=== PATIENT | male | born 1945 | race Caucasian/White ===

== ENCOUNTER → 2016-10-06 | Outpatient (CLI) | payer MEDICARE ==
--- NOTE | 2016-10-06 14:46 | XR ---
EXAMINATION TYPE: XR wrist complete RT DATE OF EXAM: 10/06/2016 2:41 PM COMPARISON: NONE HISTORY: Pain TECHNIQUE: Four views submitted. FINDINGS: The osseous structures are intact. The joint spaces are preserved and there is no acute fracture or dislocation. Cystic changes involving the triquetrum and scaphoid are noted there to be chronic. Onofre rowing of the lunate capitate joint with sclerosis of the lunate bone. Post arthritic change involvin g the radiocarpal joint noted. IMPRESSION: 1. Post arthritic changes. Osteonecrosis of the lunate bone in the differential diagnosis. Correlate clinically. Calcification along the lunotriquetral ligament a be related to ligamentous injury.
== END | disposition home or self-care (01) ==
LOC: RADXRMAIN 14:20
PROVIDERS: ATTEND Family Medicine
DX: M24.231 Disorder of ligament, right wrist (principal); M19.031 Primary osteoarthritis, right wrist

== ENCOUNTER 2019-02-19 11:52 | Observation (INO) | payer MEDICARE ==
[2019-02-19] MEDS ORDERED: methylPREDNISolone SOD SUCCI 125 MG/2 ML VIAL IV STA (12:03)
[2019-02-19] MEDS ORDERED: IPRATROPIUM-ALBUTEROL 3 ML NEB INHALATION STA (12:03)
--- NOTE | 2019-02-19 12:09 | ED ---
SOB HPI - General Chief Complaint: Shortness of Breath Stated Complaint: difficulty breathing Time Seen by Provider: 02/19/19 12:03 Source: patient, RN notes reviewed, old records reviewed Mode of arrival: wheelchair Limitations: no limitations - History of Present Illness Initial Comments: This is a 73-year-old male the ER for evaluation presented today for evaluation of significant shortness of breath increased cough and congestion. No recent travel history no sick contacts. History of asthma no heart disease no heart failure. Patient has no fevers. Patient coming in with what sudden onset about an hour and a half severe shortness of breath and inability to breathe after doing some physical activity this morning. states patient is very diaphoretic and time. MD Complaint: shortness of breath, "asthma attack" -: hour(s) Severity: severe Severity scale (1-10): 8 Quality: other (No pain) Consistency: constant Improves With: oxygen, rest Worsens With: exertion, movement Known History Of: COPD, asthma Associated Symptoms: cough, sputum production Treatments Prior to Arrival: oxygen, bronchodilator - Related Data Home Medications Medication Instructions Recorded Confirmed Atorvastatin [Lipitor] 10 mg PO HS 04/16/14 02/19/19 Naproxen [Naprosyn] 375 mg PO Q12HR 04/16/14 02/19/19 Propranolol HCl 80 mg PO HS 04/16/14 02/19/19 Verapamil HCl [Verapamil ER] 240 mg PO DAILY 04/16/14 02/19/19 Budesonide/Formoterol Fumarate 2 puff INHALATION RT-DAILY 02/19/19 02/19/19 [Symbicort 80-4.5 Mcg Inhaler] Allergies Allergy/AdvReac Type Severity Reaction Status Date / Time No Known Allergies Allergy Verified 02/19/19 12:19 Review of Systems ROS Statement: Those systems with pertinent positive or pertinent negative responses have been documented in the HPI. ROS Other: All systems not noted in ROS Statement are negative. Past Medical History Past Medical History: COPD, CVA/TIA, Hypertension Additional Past Medical History / Comment(s): HX OF TIA, ESSENTIAL TREMORS, KIDNEY STONES, COPD CAUSED BY EXPOSURE TO CHLORINE. History of Any Multi-Drug Resistant Organisms: None Reported Past Surgical History: Cholecystectomy, Joint Replacement Additional Past Surgical History / Comment(s): COLONOSCOPY, [place] KNEE REPLACEMENT, PILONIDAL CYST. Past Anesthesia/Blood Transfusion Reactions: No Reported Reaction Past Psychological History: No Psychological Hx Reported Smoking Status: Never smoker Past Alcohol Use History: None Reported Past Drug Use History: None Reported - Past Family History Father Family Medical History: Cancer Additional Family Medical History / Comment(s): COLON CANCER General Exam - General Exam Comments Initial Comments: Diaphoresis Limitations: no limitations General appearance: alert, in no apparent distress Head exam: Present: atraumatic, normocephalic, normal inspection Eye exam: Present: normal appearance, PERRL, EOMI. Absent: scleral icterus, conjunctival injection, periorbital swelling ENT exam: Present: normal exam, mucous membranes moist Neck exam: Present: normal inspection. Absent: tenderness, meningismus, lymphadenopathy Respiratory exam: Present: respiratory distress, wheezes, accessory muscle use, prolonged expiratory. Absent: rales, rhonchi, stridor Cardiovascular Exam: Present: regular rate, normal rhythm, normal heart sounds. Absent: systolic murmur, diastolic murmur, rubs, gallop, clicks GI/Abdominal exam: Present: soft, normal bowel sounds. Absent: distended, tenderness, guarding, rebound, rigid Extremities exam: Present: normal inspection, full ROM, normal capillary refill. Absent: tenderness, pedal edema, joint swelling, calf tenderness Back exam: Present: normal inspection Neurological exam: Present: alert, oriented X3, CN II-XII intact Psychiatric exam: Present: normal affect, normal mood Skin exam: Present: warm, dry, intact, normal color. Absent: rash Course Vital Signs 02/19/19 02/19/19 02/19/19 11:55 12:19 12:30 Temperature 98 F Pulse Rate 64 62 61 Respiratory 24 20 Rate Blood Pressure 154/93 105/73 O2 Sat by Pulse 88 L 99 Oximetry 02/19/19 02/19/19 12:35 13:00 Temperature Pulse Rate 68 57 L Respiratory 18 Rate Blood Pressure 110/72 O2 Sat by Pulse 99 Oximetry - Reevaluation(s) Reevaluation #1: 02/19/19 12:08 Medical records reviewed Reevaluation #2: 02/19/19 14:03 Symptoms improved after breathing treatment, no chest pain. Medical Decision Making - Medical Decision Making 43 male the ER for evaluation shortness breath cough or congestion. Patient is improved symptoms here in the ER with sudden onset of shortness of breath prior to arrival. Patient has no recent travel history or sick contacts no prior history of similar complaint was diaphoretic on exam. Patient be admitted for cardiac monitoring, troponins, breathing treatments and respiratory support - Lab Data Result diagrams: 02/19/19 13:00 Lab Results 02/19/19 02/19/19 Range/Units 13:00 13:00 WBC 10.6 (3.8-10.6) k/uL RBC 4.54 (4.30-5.90) m/uL Hgb 12.8 L (13.0-17.5) gm/dL Hct 40.3 (39.0-53.0) % MCV 88.7 (80.0-100.0) fL MCH 28.2 (25.0-35.0) pg MCHC 31.8 (31.0-37.0) g/dL RDW 14.1 (11.5-15.5) % Plt Count 233 (150-450) k/uL Neutrophils % 80 % Lymphocytes % 13 % Monocytes % 5 % Eosinophils % 1 % Basophils % 0 % Neutrophils # 8.5 H (1.3-7.7) k/uL Lymphocytes # 1.4 (1.0-4.8) k/uL Monocytes # 0.5 (0-1.0) k/uL Eosinophils # 0.1 (0-0.7) k/uL Basophils # 0.0 (0-0.2) k/uL PT 9.8 (9.0-12.0) sec INR 0.9 (<1.2) APTT 22.5 (22.0-30.0) sec - EKG Data -: EKG Interpreted by Me (EKG shows normal sinus rhythm rate of 62, MI 142, QRS 110, QTc 483) - Radiology Data Radiology results: report reviewed (Chest x-rays negative for acute disease), image reviewed Disposition Clinical Impression: Acute exacerbation of chronic obstructive airways disease Disposition: ADMITTED IP TO THIS HOSP Condition: Good Is patient prescribed a controlled substance at d/c from ED?: No Referrals: Brandon Peters DO [Primary Care Provider] - 1-2 days
[2019-02-19 13:34] LABS: Basophils % (A) 0 %; Eosinophils # (A) 0.1 k/uL (0-0.7); Eosinophils % (A) 1 %; HCT 40.3 % (39.0-53.0); HGB 12.8 gm/dL (13.0-17.5); Lymphocytes # (A) 1.4 k/uL (1.0-4.8); Lymphocytes % (A) 13 %; MCH 28.2 pg (25.0-35.0); MCHC 31.8 g/dL (31.0-37.0); MCV 88.7 fL (80.0-100.0); Monocytes # (A) 0.5 k/uL (0-1.0); Monocytes % (A) 5 %; Neutrophils # (A) 8.5 k/uL (1.3-7.7); Neutrophils % (A) 80 %; Platelet Count 233 k/uL (150-450); RBC 4.54 m/uL (4.30-5.90); RDW 14.1 % (11.5-15.5); WBC 10.6 k/uL (3.8-10.6)
--- NOTE | 2019-02-19 13:44 | XR ---
EXAMINATION TYPE: XR chest 2V DATE OF EXAM: 02/19/2019 COMPARISON: NONE HISTORY: Shortness of breath for 2 hours. TECHNIQUE: Frontal and lateral views of the chest are obtained. FINDINGS: Overlying EKG leads are present. There is chronic parenchymal change with lateral left bas ilar linear scarring and/or atelectasis. Right lung is clear. No pleural effusion or pneumothorax ev ident bilaterally. The cardiac silhouette size is upper limits of normal. Multilevel spurring in the spine is seen. Degenerative change both shoulders, left glenohumeral joint is noted. Cholecystectomy clips are seen on lateral view. IMPRESSION: Chronic parenchymal changes without suspicious acute pulmonary process.
[2019-02-19 13:49] LABS: INR 0.9 (<1.2); Partial Thromboplastin Time 22.5 sec (22.0-30.0); Prothrombin Time 9.8 sec (9.0-12.0)
[2019-02-19] MEDS ORDERED: ASPIRIN 81 MG PO STA (13:58)
[2019-02-19] MEDS ORDERED: ALBUTEROL NEBULIZED 2.5 MG/3 ML INHALATION PRN (13:58)
[2019-02-19] MEDS ORDERED: NITROGLYCERIN SL TABS 0.4 MG TAB SUBLINGUAL PRN (13:58)
[2019-02-19 14:05] LABS: ALT 25 U/L (21-72); AST 25 U/L (17-59); African American GFR (CKD) >90 (>60 ml/min/1.73 sqM); Albumin 4.2 g/dL (3.5-5.0); Alkaline Phosphatase 68 U/L (38-126); Anion Gap 7 mmol/L; Blood Urea Nitrogen 18 mg/dL (9-20); Calcium 9.3 mg/dL (8.4-10.2); Carbon Dioxide 29 mmol/L (22-30); Chloride 105 mmol/L (98-107); Glucose 125 mg/dL (74-99); Magnesium 2.3 mg/dL (1.6-2.3); Potassium 4.4 mmol/L (3.5-5.1); Sodium 141 mmol/L (137-145); Total Bilirubin 0.7 mg/dL (0.2-1.3)
--- NOTE | 2019-02-19 14:27 | ED ---
Medical Decision Making - Medical Decision Making 73 male the ER was secured significant onset of shortness of breath. Symptoms improved currently he does have some lateral T-wave inversion, elevated troponin 0.1, will admit for cardiology to evaluate, continue breathing treatments or shortness of breath as needed - Lab Data Result diagrams: 02/19/19 13:00 02/19/19 13:00 Lab Results 02/19/19 02/19/19 02/19/19 Range/Units 13:00 13:00 13:00 WBC 10.6 (3.8-10.6) k/uL RBC 4.54 (4.30-5.90) m/uL Hgb 12.8 L (13.0-17.5) gm/dL Hct 40.3 (39.0-53.0) % MCV 88.7 (80.0-100.0) fL MCH 28.2 (25.0-35.0) pg MCHC 31.8 (31.0-37.0) g/dL RDW 14.1 (11.5-15.5) % Plt Count 233 (150-450) k/uL Neutrophils % 80 % Lymphocytes % 13 % Monocytes % 5 % Eosinophils % 1 % Basophils % 0 % Neutrophils # 8.5 H (1.3-7.7) k/uL Lymphocytes # 1.4 (1.0-4.8) k/uL Monocytes # 0.5 (0-1.0) k/uL Eosinophils # 0.1 (0-0.7) k/uL Basophils # 0.0 (0-0.2) k/uL PT 9.8 (9.0-12.0) sec INR 0.9 (<1.2) APTT 22.5 (22.0-30.0) sec Sodium 141 (137-145) mmol/L Potassium 4.4 (3.5-5.1) mmol/L Chloride 105 (98-107) mmol/L Carbon Dioxide 29 (22-30) mmol/L Anion Gap 7 mmol/L BUN 18 (9-20) mg/dL Creatinine 0.90 (0.66-1.25) mg/dL Est GFR (CKD-EPI)AfAm >90 (>60 ml/min/1.73 sqM) Est GFR (CKD-EPI)NonAf 84 (>60 ml/min/1.73 sqM) Glucose 125 H (74-99) mg/dL Calcium 9.3 (8.4-10.2) mg/dL Magnesium 2.3 (1.6-2.3) mg/dL Total Bilirubin 0.7 (0.2-1.3) mg/dL AST 25 (17-59) U/L ALT 25 (21-72) U/L Alkaline Phosphatase 68 (38-126) U/L Troponin I (0.000-0.034) ng/mL NT-Pro-B Natriuret Pep pg/mL Total Protein 7.0 (6.3-8.2) g/dL Albumin 4.2 (3.5-5.0) g/dL 02/19/19 02/19/19 Range/Units 13:00 13:00 WBC (3.8-10.6) k/uL RBC (4.30-5.90) m/uL Hgb (13.0-17.5) gm/dL Hct (39.0-53.0) % MCV (80.0-100.0) fL MCH (25.0-35.0) pg MCHC (31.0-37.0) g/dL RDW (11.5-15.5) % Plt Count (150-450) k/uL Neutrophils % % Lymphocytes % % Monocytes % % Eosinophils % % Basophils % % Neutrophils # (1.3-7.7) k/uL Lymphocytes # (1.0-4.8) k/uL Monocytes # (0-1.0) k/uL Eosinophils # (0-0.7) k/uL Basophils # (0-0.2) k/uL PT (9.0-12.0) sec INR (<1.2) APTT (22.0-30.0) sec Sodium (137-145) mmol/L Potassium (3.5-5.1) mmol/L Chloride (98-107) mmol/L Carbon Dioxide (22-30) mmol/L Anion Gap mmol/L BUN (9-20) mg/dL Creatinine (0.66-1.25) mg/dL Est GFR (CKD-EPI)AfAm (>60 ml/min/1.73 sqM) Est GFR (CKD-EPI)NonAf (>60 ml/min/1.73 sqM) Glucose (74-99) mg/dL Calcium (8.4-10.2) mg/dL Magnesium (1.6-2.3) mg/dL Total Bilirubin (0.2-1.3) mg/dL AST (17-59) U/L ALT (21-72) U/L Alkaline Phosphatase (38-126) U/L Troponin I 0.161 H* (0.000-0.034) ng/mL NT-Pro-B Natriuret Pep 241 pg/mL Total Protein (6.3-8.2) g/dL Albumin (3.5-5.0) g/dL Disposition Clinical Impression: Acute exacerbation of chronic obstructive airways disease, ACS (acute coronary syndrome) Disposition: ADMITTED IP TO THIS HOSP Condition: Good Referrals: Brandon Peters DO [Primary Care Provider] - 1-2 days
[2019-02-19] MEDS: IPRATROPIUM-ALBUTEROL 3 ML NEB INHALATION SCH ×2 (15:29→20:55)
--- NOTE | 2019-02-19 15:32 | P.CRDCN ---
History of Present Illness Consult date: 02/19/19 Reason for Consult (text): Abnormal troponins Chief complaint: Sudden onset of shortness of breath History of present illness: This is a 73-year-old gentleman who follows with Dr. Panchal in the office. He has a known history of hypertension, hyperlipidemia, he also states that he underwent a cardiac catheterization several years ago which was reported to him to be normal. The patient also states that he has a history of COPD. He presented to the emergency room today with symptoms of fairly sudden onset of shortness of breath(according to the patient, he had been cleaning out a vacuum in his garage, there is some type of pressure variant, when he opened up the dust area, it went into the air and he inhaled quite a bit of that according to him. Shortly thereafter patient had a very difficult time breathing, his states he was gasping for air, became extremely diaphoretic. He denies having any chest discomfort of any sort. Because of the symptoms he came to the emergency room for further evaluation and treatment. His chest x-ray on presentation here showed chronic parenchymal changes without suspicious acute pulmonary process. Initial EKG on presentation here showed a normal sinus rhythm with mild ST depression noted in the lateral leads. Subsequent EKG showed a normal sinus rhythm with PACs, no acute changes noted. Blood pressure 108/60 with a heart rate of 60, 98% on 2 L of oxygen. White blood cell count 10.6, hemoglobin 12.8, platelet count 233. Sodium 141, potassium 4.4, BUN 18 and creatinine 0.9. Magnesium 2.3. Troponin 0.161. BNP 241. At the time of my examination in the emergency room, patient's breathing has significantly improved. He states that he used an inhaler prior to departing for the emergency room, he states initially it did not give him much relief but subsequently his breathing started to improve. On arrival here he was given IV steroids and started to feel significantly better according to him. Past Medical History Past Medical History: COPD, CVA/TIA, Hypertension Additional Past Medical History / Comment(s): HX OF TIA, ESSENTIAL TREMORS, KIDNEY STONES, COPD CAUSED BY EXPOSURE TO CHLORINE. History of Any Multi-Drug Resistant Organisms: None Reported Past Surgical History: Cholecystectomy, Joint Replacement Additional Past Surgical History / Comment(s): COLONOSCOPY, [place] KNEE REPLACEMENT, PILONIDAL CYST. Past Anesthesia/Blood Transfusion Reactions: No Reported Reaction Past Psychological History: No Psychological Hx Reported Smoking Status: Never smoker Past Alcohol Use History: None Reported Past Drug Use History: None Reported - Past Family History Father Family Medical History: Cancer Additional Family Medical History / Comment(s): COLON CANCER Medications and Allergies Home Medications Medication Instructions Recorded Confirmed Type Atorvastatin [Lipitor] 10 mg PO HS 04/16/14 02/19/19 History Naproxen [Naprosyn] 375 mg PO Q12HR 04/16/14 02/19/19 History Propranolol HCl 80 mg PO HS 04/16/14 02/19/19 History Verapamil HCl [Verapamil ER] 240 mg PO DAILY 04/16/14 02/19/19 History Budesonide/Formoterol Fumarate 2 puff INHALATION RT-DAILY 02/19/19 02/19/19 History [Symbicort 80-4.5 Mcg Inhaler] Allergies Allergy/AdvReac Type Severity Reaction Status Date / Time No Known Allergies Allergy Verified 02/19/19 12:19 Physical Exam Vitals: Vital Signs Temp Pulse Resp BP Pulse Ox 02/19/19 14:00 98.9 F 60 22 108/64 98 02/19/19 13:00 57 L 18 110/72 99 02/19/19 12:35 68 02/19/19 12:30 61 20 105/73 99 02/19/19 12:19 62 02/19/19 11:55 98 F 64 24 154/93 88 L Intake and Output 02/19/19 02/19/19 02/19/19 06:59 14:59 22:59 Other: Weight 101.151 kg PHYSICAL EXAMINATION: GENERAL: 73-year-old gentleman in no acute distress at the time of my examination HEENT: Head is atraumatic, normocephalic. Pupils equal, round. Sclera anicteric. Conjunctiva are clear. Mucous membranes of the mouth are moist. Neck is supple. There is no elevated jugular venous pressure. No carotid bruit is heard. HEART EXAMINATION: Heart S1, S2 normal. No murmur or gallop heard. CHEST EXAMINATION:'s reveal some fine scattered wheezing throughout. ABDOMEN: Soft, nontender. Bowel sounds are heard. No organomegaly noted. EXTREMITIES: 2+ peripheral pulses with no evidence of peripheral edema and no calf tenderness noted. NEUROLOGIC patient is awake, alert and oriented 3 . . Results 02/19/19 13:00 02/19/19 13:00 Cardiac Enzymes 02/19/19 02/19/19 Range/Units 13:00 13:00 AST 25 (17-59) U/L Troponin I 0.161 H* (0.000-0.034) ng/mL Coagulation 02/19/19 Range/Units 13:00 PT 9.8 (9.0-12.0) sec APTT 22.5 (22.0-30.0) sec CBC 02/19/19 Range/Units 13:00 WBC 10.6 (3.8-10.6) k/uL RBC 4.54 (4.30-5.90) m/uL Hgb 12.8 L (13.0-17.5) gm/dL Hct 40.3 (39.0-53.0) % Plt Count 233 (150-450) k/uL Comprehensive Metabolic Panel 02/19/19 Range/Units 13:00 Sodium 141 (137-145) mmol/L Potassium 4.4 (3.5-5.1) mmol/L Chloride 105 (98-107) mmol/L Carbon Dioxide 29 (22-30) mmol/L BUN 18 (9-20) mg/dL Creatinine 0.90 (0.66-1.25) mg/dL Glucose 125 H (74-99) mg/dL Calcium 9.3 (8.4-10.2) mg/dL AST 25 (17-59) U/L ALT 25 (21-72) U/L Alkaline Phosphatase 68 (38-126) U/L Total Protein 7.0 (6.3-8.2) g/dL Albumin 4.2 (3.5-5.0) g/dL Current Medications Generic Name Dose Route Start Last Admin Trade Name Freq PRN Reason Stop Dose Admin Albuterol Sulfate 2.5 mg 02/19/19 13:58 Ventolin Nebulized INHALATION RT-QID PRN Shortness Of Breath Albuterol/Ipratropium 3 ml 02/19/19 16:00 Duoneb 0.5 Mg-3 Mg/3 Ml Soln INHALATION RT-QID [facility] Aspirin 325 mg 02/20/19 09:00 Aspirin PO DAILY [facility] Atorvastatin Calcium 80 mg 02/20/19 09:00 Lipitor PO DAILY [facility] Enoxaparin Sodium 40 mg 08/28/19 09:00 Lovenox SQ DAILY [facility] Methylprednisolone Sodium Succinate 60 mg 02/19/19 18:00 Solu-Medrol IV Q6HR [facility] Nitroglycerin 0.4 mg 02/19/19 13:58 Nitrostat SUBLINGUAL Q5M PRN Chest Pain Intake and Output 02/19/19 02/19/19 02/19/19 06:59 14:59 22:59 Other: Weight 101.151 kg Patient Weight 02/20/19 06:59 Weight 101.151 kg 02/19/19 13:00 02/19/19 13:00 EKG Interpretations (text) EKG shows a normal sinus rhythm with mild ST depression noted in the lateral leads. Assessment and Plan Plan: Assessment and plan #1 sudden onset of shortness of breath, could be secondary to bronchospasm from inhaled dust from the vacuum. Not suggestive of acute coronary event. His EKG showed normal sinus rhythm with mild ST depression noted in the lateral leads. Initial troponin was 0.16. #2 hypertension #3 hyperlipidemia #4 COPD Plan We will obtain an echocardiogram with Doppler study. Request 2 subsequent troponins performed. Repeat EKG in the morning. Decrease aspirin to 81 mg daily. Further recommendations to follow. DNP note has been reviewed, I agree with a documented findings and plan of care. Patient was seen and examined.
[2019-02-19] MEDS ORDERED: SODIUM CHLORIDE 0.9% 500 ML 500 ML IV ONE (17:10)
[2019-02-19] MEDS: methylPREDNISolone SOD SUCCI 125 MG/2 ML VIAL IV SCH ×2 (18:55→23:11)
[2019-02-19 19:14] VITALS: BMI 32.9
[2019-02-19] MEDS: INSULIN ASPART (NovoLOG) 100 UNIT/ML VIAL SQ SCH ×2 (19:22→21:11)
[2019-02-19] MEDS ORDERED: NAPROXEN 250 MG TAB PO PRN (20:34)
[2019-02-19] MEDS ORDERED: ATORVASTATIN 10 MG TAB PO SCH (21:00)
[2019-02-19] MEDS ORDERED: PROPRANOLOL 40 MG TAB PO SCH (21:00)
[2019-02-20 02:59] LABS: Triglycerides 164 mg/dL (<150)
[2019-02-20 05:35] LABS: Cholesterol 152 mg/dL (<200); HDL Cholesterol 39 mg/dL (40-60); LDL Cholesterol,Calculated 80 mg/dL (0-99)
[2019-02-20] MEDS: methylPREDNISolone SOD SUCCI 125 MG/2 ML VIAL IV SCH ×3 (06:06→17:33)
[2019-02-20 06:27] LABS: Glucose,Whole Blood 162 mg/dL (75-99)
[2019-02-20] MEDS: INSULIN ASPART (NovoLOG) 100 UNIT/ML VIAL SQ SCH ×4 (07:12→22:00)
[2019-02-20] MEDS: IPRATROPIUM-ALBUTEROL 3 ML NEB INHALATION SCH ×4 (07:42→20:07)
--- NOTE | 2019-02-20 08:27 | ECHOF ---
Referral Reason:sob MEASUREMENTS -------- HEIGHT: 175.3 cm WEIGHT: 99.3 kg BP: 137/78 IVSd: 1.6 cm (0.6 - 1.1) LVIDd: 2.8 cm (3.9 - 5.3) LVPWd: 1.5 cm (0.6 - 1.1) IVSs: 2.3 cm LVIDs: 1.9 cm LVPWs: 2.2 cm LAESV Index (A-L): 14.48 ml/m Ao Diam: 4.1 cm (2.0 - 3.7) AV Cusp: 2.3 cm (1.5 - 2.6) LA Diam: 3.5 cm (2.7 - 3.8) MV E Glenn: 0.46 m/s MV DecT: 244 ms MV A Glenn: 1.07 m/s MV E/A Ratio: 0.43 AV maxP.65 mmHg AV meanP.40 mmHg AR PHT: 927 ms RAP: 5.00 mmHg RVSP: 21.84 mmHg FINDINGS -------- Sinus rhythm. This was a technically adequate study. The left ventricular size is normal. There is moderate concentric left ventricular hypertrophy. O verall left ventricular systolic function is normal with, an EF between 55 - 60 %. The right ventricle is normal in size. Normal LA size by volume 22+/-6 ml/m2. The right atrial size is normal. Interatrial and interventricular septum intact. Aortic valve is trileaflet and is mildly thickened. There is mild aortic regurgitation. Peak/mean gradient across the Aortic Valve is 14.65mmHg / 7.40mmHg. The mitral valve is normal. The mitral valve leaflets are mildly thickened. Mild mitral regurgita tion is present. The tricuspid valve appears structurally normal. Mild tricuspid regurgitation present. Right vent ricular systolic pressure is normal at < 35 mmHg. There is no pulmonic regurgitation present. The aortic root is dilated measuring 4.1 cm. Normal inferior vena cava with normal inspiratory collapse consistent with estimated right atrial pre ssure of 5 mmHg. There is no pericardial effusion. CONCLUSIONS -------- 1. Sinus rhythm. 2. This was a technically adequate study. 3. The left ventricular size is normal. 4. There is moderate concentric left ventricular hypertrophy. 5. Overall left ventricular systolic function is normal with, an EF between 55 - 60 %. 6. The right ventricle is normal in size. 7. Normal LA size by volume 22+/-6 ml/m2. 8. The right atrial size is normal. 9. Interatrial and interventricular septum intact. 10. Aortic valve is trileaflet and is mildly thickened. 11. There is mild aortic regurgitation. 12. Peak/mean gradient across the Aortic Valve is 14.65mmHg / 7.40mmHg. 13. The mitral valve is normal. 14. The mitral valve leaflets are mildly thickened. 15. Mild mitral regurgitation is present. 16. The tricuspid valve appears structurally normal. 17. Mild tricuspid regurgitation present. 18. Right ventricular systolic pressure is normal at < 35 mmHg. 19. There is no pulmonic regurgitation present. 20. The aortic root is dilated measuring 4.1 cm. 21. Normal inferior vena cava with normal inspiratory collapse consistent with estimated right atrial pressure of 5 mmHg. 22. There is no pericardial effusion. GLOVE PRESSER: Ly Marrufo RDCS
[2019-02-20] MEDS ORDERED: ASPIRIN 325 MG TAB PO SCH (09:00)
[2019-02-20] MEDS ORDERED: ATORVASTATIN 80 MG TAB PO SCH (09:00)
[2019-02-20] MEDS: ATORVASTATIN 10 MG TAB PO SCH ×2 (09:23→21:00)
[2019-02-20] MEDS: PROPRANOLOL LA 80 MG CAP.SA.24H PO SCH (09:26)
[2019-02-20] MEDS: ASPIRIN 81 MG PO SCH (09:26)
[2019-02-20] MEDS: ENOXAPARIN 40 MG/0.4 ML SYRINGE SQ SCH (09:26)
[2019-02-20] MEDS: VERAPAMIL SR 240 MG TABLET.ER PO SCH (11:50)
[2019-02-20 12:00] LABS: Glucose,Whole Blood 239 mg/dL (75-99)
[2019-02-20] MEDS ORDERED: AMINOPHYLLINE 500 MG/20 ML VIAL IV PRN (13:32)
[2019-02-20] MEDS ORDERED: CAFFEINE CITRATE 60 MG/3 ML VIAL IV PRN (13:32)
[2019-02-20] MEDS ORDERED: DIPYRIDAMOLE IV ONE (13:32)
[2019-02-20] MEDS ORDERED: SODIUM CHLORIDE 0.9% IV ONE (13:32)
[2019-02-20 15:20] LABS: Hemoglobin A1C 5.9 % (4.0-6.0)
--- NOTE | 2019-02-20 15:33 | P.PN ---
Subjective Progress Note Date: 02/20/19 This is a 73-year-old gentleman who follows with Dr. Panchal in the office. He has a known history of hypertension, hyperlipidemia, he also states that he underwent a cardiac catheterization several years ago which was reported to him to be normal. The patient also states that he has a history of COPD. He presented to the emergency room today with symptoms of fairly sudden onset of shortness of breath(according to the patient, he had been cleaning out a vacuum in his garage, there is some type of pressure variant, when he opened up the dust area, it went into the air and he inhaled quite a bit of that according to him. Shortly thereafter patient had a very difficult time breathing, his states he was gasping for air, became extremely diaphoretic. He denies having any chest discomfort of any sort. Because of the symptoms he came to the emergency room for further evaluation and treatment. His chest x-ray on presentation here showed chronic parenchymal changes without suspicious acute pulmonary process. Initial EKG on presentation here showed a normal sinus rhythm with mild ST depression noted in the lateral leads. Subsequent EKG showed a normal sinus rhythm with PACs, no acute changes noted. Blood pressure 108/60 with a heart rate of 60, 98% on 2 L of oxygen. White blood cell count 10.6, hemoglobin 12.8, platelet count 233. Sodium 141, potassium 4.4, BUN 18 and creatinine 0.9. Magnesium 2.3. Troponin 0.161. BNP 241. At the time of my examination in the emergency room, patient's breathing has significantly improved. He states that he used an inhaler prior to departing for the emergency room, he states initially it did not give him much relief but subs equently his breathing started to improve. On arrival here he was given IV steroids and started to feel significantly better according to him. 02/20/2019 Patient was seen and examined this morning, breathing is significantly improved from presentation here. Blood pressure 126/70 with a heart rate in the 60s, 94% on room air. Troponins 0.16, 0.31, 0.25. Echo cardiogram with Doppler study was performed which revealed an ejection fraction of 55-60%. Objective - Vital Signs Vital signs: Vital Signs Temp 98.5 F 02/20/19 12:00 Pulse 65 02/20/19 12:00 Resp 16 02/20/19 12:00 BP 126/73 02/20/19 12:00 Pulse Ox 94 L 02/20/19 12:00 Intake & Output 02/19/19 02/20/19 02/20/19 18:59 06:59 18:59 Intake Total 500 477 Output Total 600 Balance -100 477 Weight 101.151 kg 99.7 kg Intake: Intake, IV Titration 500 Amount Sodium Chloride 0.9% 500 500 ml 500 ml @ 999 mls/hr IV .Q31M ONE Rx#:[id number] Oral 477 Output: Urine 600 Other: Voiding Method Toilet Toilet # Voids 1 - Exam PHYSICAL EXAMINATION: GENERAL: 73-year-old gentleman in no acute distress at the time of my examination HEENT: Head is atraumatic, normocephalic. Pupils equal, round. Sclera anicteric. Conjunctiva are clear. Mucous membranes of the mouth are moist. Neck is supple. There is no elevated jugular venous pressure. No carotid bruit is heard. HEART EXAMINATION: Heart S1, S2 normal. No murmur or gallop heard. CHEST EXAMINATION: Lungs reveal improvement in air exchange today with some mild wheezing heard. ABDOMEN: Soft, nontender. Bowel sounds are heard. No organomegaly noted. EXTREMITIES: 2+ peripheral pulses with no evidence of peripheral edema and no calf tenderness noted. NEUROLOGIC patient is awake, alert and oriented 3 . - Labs CBC & Chem 7: 02/19/19 13:00 02/19/19 13:00 Labs: Abnormal Lab Results - Last 24 Hours (Table) 02/19/19 02/19/19 02/20/19 Range/Units 13:00 18:49 00:42 POC Glucose (mg/dL) (75-99) mg/dL Troponin I 0.313 H* 0.250 H* (0.000-0.034) ng/mL Triglycerides 164 H (<150) mg/dL HDL Cholesterol 39 L (40-60) mg/dL 02/20/19 02/20/19 Range/Units 06:18 11:43 POC Glucose (mg/dL) 162 H 239 H (75-99) mg/dL Troponin I (0.000-0.034) ng/mL Triglycerides (<150) mg/dL HDL Cholesterol (40-60) mg/dL Assessment and Plan Plan: Assessment and plan #1 sudden onset of shortness of breath, could be secondary to bronchospasm from inhaled dust from the vacuum. #2 hypertension #3 hyperlipidemia #4 COPD #5 abnormal troponin, echo revealed normal left ventricular systolic function Plan Patient's abnormality in troponin was likely secondary to hypoxia, however we will recommend the patient to undergo stress testing tomorrow to rule out any underlying coronary artery disease. Persantine Cardiolite will be scheduled for tomorrow. DNP note has been reviewed, I agree with a documented findings and plan of care. Patient was seen and examined.
[2019-02-20 18:06] LABS: Glucose,Whole Blood 154 mg/dL (75-99)
--- NOTE | 2019-02-20 20:01 | CONS ---
CONSULTATION PULMONARY/CRITICAL CARE CONSULTATION: DATE OF SERVICE: 02/20/2019 This patient is a 73-year-old male whom I see in the office for COPD. His primary care physician is Dr. Brandon Peters. He was apparently cleaning out some sort of filter or something like this, maybe from a vacuum hall cleaner or some sort of filter device, and apparently it sort of exploded into his face. Apparently there was a significant amount of dust which he inhaled and caused him to become very short of breath. He comes into the emergency room complaining of shortness of breath, chest tightness, wheezing, cough, chest congestion. Not coughing up much phlegm or any phlegm. No fever or chills. No chest pain or chest discomfort. He is resting comfortably in bed currently. He states he is feeling much better, and they say he might be able to be discharged home tomorrow. He believes the dust is what triggered his lung disease. His medications at home include: 1. Lipitor. 2. Naprosyn. 3. Propranolol. 4. Verapamil. 5. Symbicort. 6. He also has a rescue inhaler; I believe albuterol. ALLERGIES: DENIED. MEDICAL HISTORY: Medical history includes: 1. Hyperlipidemia. 2. CVA. 3. Hypertension. 4. COPD/asthma. 5. History of benign essential tremors. 6. Kidney stones. 7. 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 SURGICAL HISTORY: Surgical history includes: 1. Cholecystectomy. 2. Joint replacement. 3. Colonoscopy. 4. Bilateral knee replacement. 5. Pilonidal cyst surgery. SOCIAL HISTORY: Negative for tobacco use. He is a never-smoker. Denies any alcohol use or illicit drug use. FAMILY HISTORY: Positive for father with colon cancer. Mother was apparently healthy. I do take care of his daughter, Yadi, who does have asthma as well. REVIEW OF SYSTEMS: CONSTITUTIONAL: Negative. NEUROLOGIC: Negative. HEENT: Negative. CARDIOVASCULAR: Negative. PULMONARY: Shortness of breath, chest congestion, cough, wheezing, chest tightness. GI: Negative. : Negative. RHEUMATOLOGIC: Negative. IMMUNOLOGIC: Negative. ENDOCRINOLOGIC: Negative. DERMATOLOGIC: Negative. PHYSICAL EXAMINATION: VITAL SIGNS: Current vital signs are reviewed. Temperature 98.5, heart rate 56, respiratory rate 16, blood pressure 126/73, mean 90, and room-air saturation 95%. GENERAL: Patient appears in no acute distress. HEENT: HEENT examination is grossly unremarkable. No supplemental oxygen. There is no audible wheezing, conversational dyspnea or use of accessory muscles. NECK: Supple. Full range of motion. No adenopathy or thyromegaly. Neck veins are flat. CARDIOVASCULAR: Cardiovascular examination reveals regular rhythm and rate. S1, S2 normal. No S3, S4 or murmur. Heart rate about 60 beats per minute. LUNGS: Diffuse expiratory wheezes and rhonchi. Breath sounds are diminished. There is mild prolongation on forced maneuver. No crackles. ABDOMEN: Soft. Bowel sounds are heard. EXTREMITIES: Intact. No cyanosis, clubbing or edema. SKIN: Without rash. NEUROLOGIC: Neurologic examination is brief but nonfocal. LABS/IMAGING: Reviewed. White count 10.6, hemoglobin 12.8, hematocrit 40.3, platelet count 233,000. PT, INR, PTT all normal. Electrolytes are all normal. Troponins were 0.161, 0.313 and 0.250. Triglycerides are 164. HDL cholesterol was 39. The patient had an EKG which showed nonspecific ST-T wave changes. Chest x-ray done yesterday shows no acute pulmonary process. MEDICATIONS: Reviewed. He is currently on: 1. Albuterol updrafts. 2. DuoNeb as needed. 3. Solu-Medrol. But he is currently not on any Symbicort. ASSESSMENT: 1. Asthma exacerbation, likely triggered by dust exposure. 2. History of hyperlipidemia. 3. Hypertension by history. 4. History of cerebrovascular accident. 5. History of kidney stones. 6. History of benign essential tremors. PLAN: The patient is doing much better, he tells us. He is on appropriate medications. I will add some Symbicort to his regimen. Will discontinue the plain albuterol. He is on DuoNeb. He is currently on corticosteroids. Possible discharge in the morning. We will see him in the office in followup. MMODL / IJN: [id number] /
[2019-02-20] MEDS: SYMBICORT 160-4.5 MCG INHALER INHALATION SCH (20:07)
[2019-02-20 20:52] LABS: Glucose,Whole Blood 260 mg/dL (75-99)
--- NOTE | 2019-02-20 21:44 | P.HPIM ---
History of Present Illness H&P Date: 02/20/19 Chief Complaint: Shortness of breath This is a pleasant 73-year-old gentleman patient of Dr. Lorraine Patel, with known history of hypertension hyperlipidemia, COPD, benign essential tremors, admitted to the emergency room secondary to sudden shortness of breath and sweats. Patient was doing well on till he and PEEP emptied out at vacuum bag filled with dust at his garage. Apparently some of the fumes all. The last got into the inherent air and inhaled quite a bit of this. Thereafter patient came back CAD sudden shortness of breath that is very difficult, patient was gasping for air, was very diaphoretic, they started using his Proventil inhalers, and subsequently the shortness of breath difficulty of breathing was better, few minutes later when they were heading to the emergency room. patient denies any chest pressure at that time, no lightheadedness or dizziness, patient was subsequently seen in emergency room for treatment. His chest x-ray showed chronic parenchymal changes, without any acute infiltrate, EKG shows normal sinus rhythm with mild ST segment depression, troponins are 0.16 BNP of 241, wbc count off 10.6. Next In emergency room, patient had a pulse ox off 98%, blood pressure of 108/60, imaging studies as above, patient was given IV steroids, and started feeling better, nebulized treatments were also provided along with oxygen, Review of Systems Constitutional: Reports as per HPI, Reports anorexia, Denies chills, Denies chronic headaches, Denies chronic pain, Denies daytime sleepiness, Denies fatigue, Denies fever, Denies lethargy, Denies malaise, Denies night sweats, Denies poor appetite, Denies sweats, Denies weakness, Denies weight gain, Denies weight loss Past Medical History Past Medical History: COPD, Hypertension Additional Past Medical History / Comment(s): HX OF TIA, ESSENTIAL TREMORS, KIDNEY STONES, COPD CAUSED BY EXPOSURE TO CHLORINE. History of Any Multi-Drug Resistant Organisms: None Reported Past Surgical History: Cholecystectomy, Joint Replacement Additional Past Surgical History / Comment(s): COLONOSCOPY, [place] KNEE REPLACEMENT, PILONIDAL CYST. Past Anesthesia/Blood Transfusion Reactions: No Reported Reaction Past Psychological History: No Psychological Hx Reported Smoking Status: Never smoker Past Alcohol Use History: None Reported Additional Past Alcohol Use History / Comment(s): SMOKED FOR SHORT TIME IN THE [employer]. Past Drug Use History: None Reported - Past Family History Father Family Medical History: Cancer Additional Family Medical History / Comment(s): COLON CANCER Medications and Allergies Home Medications Medication Instructions Recorded Confirmed Type Atorvastatin [Lipitor] 10 mg PO DAILY 04/16/14 02/19/19 History Naproxen [Naprosyn] 375 mg PO Q12HR 04/16/14 02/19/19 History Verapamil HCl [Verapamil ER] 240 mg PO DAILY 04/16/14 02/19/19 History Budesonide/Formoterol Fumarate 2 puff INHALATION RT-DAILY 02/19/19 02/19/19 History [Symbicort 80-4.5 Mcg Inhaler] Propranolol HCl [Inderal Xl] 80 mg PO DAILY 02/19/19 02/19/19 History Allergies Allergy/AdvReac Type Severity Reaction Status Date / Time No Known Allergies Allergy Verified 02/19/19 12:19 Physical Exam Vitals: Vital Signs Temp Pulse Pulse Resp BP BP Pulse Ox 02/20/19 12:00 98.5 F 65 16 126/73 94 L 02/20/19 11:58 68 02/20/19 11:47 68 02/20/19 09:27 98.4 F 69 16 140/71 93 L 02/20/19 07:52 70 02/20/19 07:42 70 02/20/19 04:00 97.8 F 67 18 137/78 95 02/20/19 00:10 98.3 F 77 16 133/74 95 02/19/19 21:10 66 02/19/19 20:58 64 95 02/19/19 20:15 98.0 F 63 18 142/84 95 02/19/19 19:08 97.3 F L 63 18 147/73 95 02/19/19 18:30 98.5 F 68 18 127/73 99 02/19/19 18:00 98.0 F 66 18 105/59 97 02/19/19 17:00 62 20 98/70 96 02/19/19 16:00 66 20 92/66 97 02/19/19 15:38 59 L 16 02/19/19 15:29 55 L 16 95 02/19/19 15:00 58 L 18 102/56 98 Intake and Output 02/19/19 02/20/19 02/20/19 22:59 06:59 14:59 Intake Total 500 477 Output Total 600 Balance -100 477 Intake: Intake, IV Titration 500 Amount Sodium Chloride 0.9% 500 500 ml 500 ml @ 999 mls/hr IV .Q31M ONE Rx#:[id number] Oral 477 Output: Urine 600 Other: Voiding Method Toilet Toilet Toilet # Voids 1 1 Weight 100.1 kg 99.7 kg - Constitutional General appearance: cooperative, no acute distress - EENT Eyes: anicteric sclerae, EOMI, PERRLA, dentition normal, normal appearance ENT: NA/AT, normal oropharynx - Neck Neck: normal ROM - Respiratory Respiratory: bilateral: CTA, negative: diminished, dullness, rales, rhonchi - Cardiovascular Rhythm: regular Heart sounds: normal: S1, S2 Abnormal Heart Sounds: no systolic murmur, no diastolic murmur, no rub, no S3 Gallop, no S4 Gallop, no click, no other - Gastrointestinal General gastrointestinal: normal bowel sounds, soft - Integumentary Integumentary: normal, normal turgor - Neurologic Neurologic: CNII-XII intact, focal deficits - Musculoskeletal Musculoskeletal: gait normal, strength equal bilaterally - Psychiatric Psychiatric: A&O x's 3, appropriate affect, intact judgment & insight Results CBC & Chem 7: 02/19/19 13:00 02/19/19 13:00 Labs: Abnormal Lab Results - Last 24 Hours (Table) 02/19/19 02/19/19 02/19/19 Range/Units 13:00 13:00 13:00 Glucose 125 H (74-99) mg/dL POC Glucose (mg/dL) (75-99) mg/dL Troponin I 0.161 H* (0.000-0.034) ng/mL Triglycerides 164 H (<150) mg/dL HDL Cholesterol 39 L (40-60) mg/dL 02/19/19 02/20/19 02/20/19 Range/Units 18:49 00:42 06:18 Glucose (74-99) mg/dL POC Glucose (mg/dL) 162 H (75-99) mg/dL Troponin I 0.313 H* 0.250 H* (0.000-0.034) ng/mL Triglycerides (<150) mg/dL HDL Cholesterol (40-60) mg/dL 02/20/19 Range/Units 11:43 Glucose (74-99) mg/dL POC Glucose (mg/dL) 239 H (75-99) mg/dL Troponin I (0.000-0.034) ng/mL Triglycerides (<150) mg/dL HDL Cholesterol (40-60) mg/dL Thrombosis Risk Factor Assmnt - DVT/VTE Prophylaxis DVT/VTE Prophylaxis: Low risk, early ambulation encouraged - Choose All That Apply Any of the Below Risk Factors Present?: Yes Each Factor Represents 1 point: Abnormal pulmonary function (COPD), Obesity (BMI >25) Other Risk Factors: Yes Each Risk Factor Represents 2 Points: Age 61-74 years Other congenital or acquired thrombophilia - If yes, enter type in comment: No Thrombosis Risk Factor Assessment Total Risk Factor Score: 4 Thrombosis Risk Factor Assessment Level: Moderate Risk Assessment and Plan Plan: 1. Reactive airway disease with sudden exacerbation of dyspnea and bronchospasm with wheezing, known history of COPD, there is a family history of asthma, patient was started on IV Solu-Medrol 60 every 6, DuoNeb, possibly to start on Singulair 10 , IgE levels, to be done, consult with Dr. Tejada who knows him well. 2. Elevated troponin with peak troponin off 0.25, echocardiogram was performed showing EF of 55-60%, cardiology baron suspecting that the acute troponin abnormality was most likely secondary to hypoxemia, stress test is requested to be done tomorrow, with Persantine Cardiolite continue on home medications Lipitor, verapamil, propranolol 3. Previous history of COPD, on Proventil when necessary at home, continue on Symbicort from home patient would need a full PFT on discharge, 4. History off TIA, and essential tremors, follows with Dr. Peters History of kidney stone asymptomatic Hyperlipidemia on Lipitor 10 Hypertension, on verapamil 240 daily GI prophylaxis Pepcid DVT prophylaxis Lovenox
[2019-02-20 22:04] LABS: Glucose,Whole Blood 249 mg/dL (75-99)
[2019-02-20] MEDS: FAMOTIDINE 20 MG TAB PO SCH (22:15)
[2019-02-21] MEDS: methylPREDNISolone SOD SUCCI 125 MG/2 ML VIAL IV SCH ×3 (00:02→12:16)
[2019-02-21 06:28] LABS: Glucose,Whole Blood 157 mg/dL (75-99)
[2019-02-21] MEDS: INSULIN ASPART (NovoLOG) 100 UNIT/ML VIAL SQ SCH ×2 (06:42→12:40)
[2019-02-21 07:56] VITALS: RESP 16
[2019-02-21] MEDS: ENOXAPARIN 40 MG/0.4 ML SYRINGE SQ SCH (08:15)
[2019-02-21] MEDS ORDERED: ATORVASTATIN 10 MG TAB PO SCH (09:00)
[2019-02-21] MEDS ORDERED: DOBUTamine DRIP for NUC MED 500 MG in DEXTROSE/WATER 1 250ML.BAG IV ONE (09:05)
[2019-02-21] MEDS: IPRATROPIUM-ALBUTEROL 3 ML NEB INHALATION SCH ×2 (09:47→10:56)
[2019-02-21] MEDS: SYMBICORT 160-4.5 MCG INHALER INHALATION SCH (10:56)
[2019-02-21 10:59] VITALS: PULSE 56
--- NOTE | 2019-02-21 12:08 | PN ---
PROGRESS NOTE This is a 73-year-old male with a history of chronic bronchial asthma, hypertension, CVA, hyperlipidemia, benign essential tremor, and kidney stones. The patient apparently was exposed to some dust and developed acute bronchospasm. His asthma was active. Currently feeling much better. Treated with breathing treatments and steroids. The patient from the pulmonary standpoint is doing well. He would like to be discharged home. Will leave that up to the primary service. There was some talk of getting a stress test. He denies any chest pain or pressure. Denies any shortness of breath, cough, wheezing, phlegm production, or hemoptysis. Current vital signs are reviewed, temperature is 97.8, heart rate 56, respiratory rate 16, blood pressure 168/79, room air saturation 96%. Appears in no acute distress. HEENT: Examination is grossly unremarkable. Mucous membranes are moist. There are no oral lesions. NECK: Supple. Full range of motion. No adenopathy or thyromegaly. Neck veins are flat. CARDIOVASCULAR: Examination reveals regular rhythm and rate. S1, S2 normal. No S3, S4, or murmur. LUNGS: Reveal much improved breath sounds. Mild rhonchi. No wheezes or crackles. Breath sounds equal bilaterally. ABDOMEN: Soft. Bowel sounds are heard. EXTREMITIES: Intact. No cyanosis, clubbing, or edema. SKIN: Without rash. NEUROLOGIC examination is brief but nonfocal. LABS: Reviewed. His cardiac enzymes were mildly elevated at 0.313 and 0.250. The rest of his labs look okay. His chest x-ray showed nothing acute. ASSESSMENT: 1. Asthma exacerbation/acute bronchitis with bronchospasm, likely triggered by dust inhalation. 2. History of hyperlipidemia. 3. Hypertension. 4. History of cerebrovascular accident. 5. History of kidney stones. 6. History of benign essential tremor. 7. Mild elevation of cardiac enzymes, rule out ischemic disease. PLAN: The patient is doing well. From our perspective, could be discharged home. The primary service maybe wanting to do a stress test. Will continue to follow. Prognosis is generally thought to be good. He will follow with me in the office. No additional recommendations are made. MMODL / IJN: [id number] /
[2019-02-21] MEDS: ASPIRIN 81 MG PO SCH (12:15)
[2019-02-21] MEDS: FAMOTIDINE 20 MG TAB PO SCH (12:15)
[2019-02-21] MEDS: VERAPAMIL SR 240 MG TABLET.ER PO SCH (12:18)
[2019-02-21] MEDS: PROPRANOLOL LA 80 MG CAP.SA.24H PO SCH (12:18)
[2019-02-21 12:28] LABS: Glucose,Whole Blood 167 mg/dL (75-99)
--- NOTE | 2019-02-21 13:08 | P.PN ---
Subjective Progress Note Date: 02/21/19 This is a 73-year-old gentleman who follows with Dr. Panchal in the office. He has a known history of hypertension, hyperlipidemia, he also states that he underwent a cardiac catheterization several years ago which was reported to him to be normal. The patient also states that he has a history of COPD. He presented to the emergency room today with symptoms of fairly sudden onset of shortness of breath(according to the patient, he had been cleaning out a vacuum in his garage, there is some type of pressure variant, when he opened up the dust area, it went into the air and he inhaled quite a bit of that according to him. Shortly thereafter patient had a very difficult time breathing, his states he was gasping for air, became extremely diaphoretic. He denies having any chest discomfort of any sort. Because of the symptoms he came to the emergency room for further evaluation and treatment. His chest x-ray on presentation here showed chronic parenchymal changes without suspicious acute pulmonary process. Initial EKG on presentation here showed a normal sinus rhythm with mild ST depression noted in the lateral leads. Subsequent EKG showed a normal sinus rhythm with PACs, no acute changes noted. Blood pressure 108/60 with a heart rate of 60, 98% on 2 L of oxygen. White blood cell count 10.6, hemoglobin 12.8, platelet count 233. Sodium 141, potassium 4.4, BUN 18 and creatinine 0.9. Magnesium 2.3. Troponins 0.161, 0.31, 0.25. BNP 241. Echocardiogram with Doppler study was performed which revealed an ejection fraction of 55-60%. 02/21/2019 She was initially scheduled for Persantine Cardiolite stress test this morning however did drink a cup of coffee today and was therefore switched to a dobutamine stress echo. During infusion of dobutamine, heart patient's heart rate dropped into the 30s and the test was aborted. Upon examination, patient is sitting up beside the bed eating lunch. He is feeling well he feels his breathing is back to baseline. He denies any chest discomfort, dizziness, lightheadedness or palpitations. Objective - Vital Signs Vital signs: Vital Signs Temp 97.8 F 02/21/19 08:20 Pulse 56 L 02/21/19 11:06 Resp 16 02/21/19 08:20 BP 168/79 02/21/19 08:20 Pulse Ox 96 02/21/19 08:20 Intake & Output 02/20/19 02/21/19 02/21/19 18:59 06:59 18:59 Intake Total 477 Balance 477 Weight 100.6 kg 100.6 kg Intake: Oral 477 Other: Voiding Method Toilet Toilet Toilet # Voids 3 1 - Exam PHYSICAL EXAMINATION: HEENT: Head is atraumatic, normocephalic. Pupils equal, round. Neck is supple. There is no elevated jugular venous pressure. HEART EXAMINATION: Heart sounds regular, S1 and S2 normal. No murmur or gallop heard. CHEST EXAMINATION: Lungs are clear to auscultation and precussion. No chest wall tenderness is noted on palpation or with deep breathing. ABDOMEN: Soft, nontender. Bowel sounds are heard. No organomegaly noted. EXTREMITIES: 2+ peripheral pulses with no evidence of peripheral edema and no calf tenderness noted. NEUROLOGIC patient is awake, alert and oriented x3. . - Labs CBC & Chem 7: 02/19/19 13:00 02/19/19 13:00 Labs: Abnormal Lab Results - Last 24 Hours (Table) 02/20/19 02/20/19 02/20/19 Range/Units 17:07 20:40 21:58 POC Glucose (mg/dL) 154 H 260 H 249 H (75-99) mg/dL 02/21/19 02/21/19 Range/Units 06:07 12:18 POC Glucose (mg/dL) 157 H 167 H (75-99) mg/dL Assessment and Plan Assessment: #1 sudden onset of shortness of breath, could be secondary to bronchospasm from inhaled dust from the vacuum. #2 hypertension #3 hyperlipidemia #4 COPD #5 abnormal troponin, echo revealed normal left ventricular systolic function Plan: From cardiology's perspective, patient is stable for discharge today. He'll be scheduled for a Lexiscan Cardiolite stress test to be done in the office and a follow-up with Dr. VC Panchal. [employer] note has been reviewed, I agree with a documented findings and plan of care. Patient was seen and examined.
--- NOTE | 2019-02-21 16:18 | P.DS ---
Providers Date of admission: 02/19/19 13:59 Expected date of discharge: 02/21/19 Attending physician: Ricardo Hernandez Consults: 02/19/19 13:59 Consult Physician Urgent Consulting Provider: Sam Donnelly Consult Reason/Comments: copd Do you want consulting provider notified?: Yes 02/19/19 14:30 Consult Physician Urgent Consulting Provider: Katty José Consult Reason/Comments: nstemi Do you want consulting provider notified?: Yes [facility] Course: This is a pleasant 73-year-old gentleman patient of Dr. Lorraine Patel, with known history of hypertension hyperlipidemia, COPD, benign essential tremors, admitted to the emergency room secondary to sudden shortness of breath and sweats. Patient was doing well on till he and PEEP emptied out at vacuum bag filled with dust at his garage. Apparently some of the fumes all. The last got into the inherent air and inhaled quite a bit of this. Thereafter patient came back CAD sudden shortness of breath that is very difficult, patient was gasping for air, was very diaphoretic, they started using his Proventil inhalers, and subsequently the shortness of breath difficulty of breathing was better, few minutes later when they were heading to the emergency room. patient denies any chest pressure at that time, no lightheadedness or dizziness, patient was subsequently seen in emergency room for treatment. His chest x-ray showed chronic parenchymal changes, without any acute infiltrate, EKG shows normal sinus rhythm with mild ST segment depression, troponins are 0.16 BNP of 241, wbc count off 10.6. Next In emergency room, patient had a pulse ox of 98%, blood pressure of 108/60, imaging studies as above, patient was given IV steroids, and started feeling better, nebulized treatments were also provided along with oxygen, 02/21: Patient was seen by cardiology and elevated troponin thought to be secondary to hypoxia but recommended stress testing as an outpatient and will follow up in the office. This has been scheduled for today. Echocardiogram revealed EF of 55-60% with moderate concentric left ventricular hypertrophy, mild aortic regurgitation mild mitral regurgitation, tricuspid regurgitation. The patient was also seen by Dr. Donnelly for asthma exacerbation triggered by dust exposure with recommendations for current medications and added and Symbicort and DuoNeb. He has been cleared for discharge today with follow-up in the office. Patient denies any chest pain, shortness of breath. He denies any wheezing. Patient will be discharged home today in stable condition. Discharge diagnoses: 1. Asthma exacerbation secondary to dust exposure, mild intermittent 2. Elevated troponin possibly related to hypoxia 3. Previous history of COPD 4. History of TIA, and essential tremors, 5. History of kidney stone asymptomatic 6. Hyperlipidemia 7. Hypertension Discharge plan: Home Impression and plan of care have been directed as dictated by the signing physician. Katiana Parry nurse practitioner acting as scribe for signing physician. Patient Condition at Discharge: Good Plan - Discharge Summary Discharge Rx Participant: Yes New Discharge Prescriptions: New Aspirin 81 mg PO DAILY chew predniSONE 0 mg PO DIRECTED #30 tab Albuterol Sulfate [Proventil Hfa] 2 puff INHALATION Q6HR PRN #1 inhaler PRN Reason: Wheezing Montelukast [Singulair] 10 mg PO HS #30 tab Continue Naproxen [Naprosyn] 375 mg PO Q12HR Atorvastatin [Lipitor] 10 mg PO DAILY Verapamil HCl [Verapamil ER] 240 mg PO DAILY Budesonide/Formoterol Fumarate [Symbicort 80-4.5 Mcg Inhaler] 2 puff INHALATION RT-DAILY Propranolol HCl [Inderal Xl] 80 mg PO DAILY Discharge Medication List Atorvastatin [Lipitor] 10 mg PO DAILY 04/16/14 [History] Naproxen [Naprosyn] 375 mg PO Q12HR 04/16/14 [History] Verapamil HCl [Verapamil ER] 240 mg PO DAILY 04/16/14 [History] Budesonide/Formoterol Fumarate [Symbicort 80-4.5 Mcg Inhaler] 2 puff INHALATION RT-DAILY 02/19/19 [History] Propranolol HCl [Inderal Xl] 80 mg PO DAILY 02/19/19 [History] Albuterol Sulfate [Proventil Hfa] 2 puff INHALATION Q6HR PRN #1 inhaler 02/21/19 [Rx] Aspirin 81 mg PO DAILY chew 02/21/19 [Rx] Montelukast [Singulair] 10 mg PO HS #30 tab 02/21/19 [Rx] predniSONE 0 mg PO DIRECTED #30 tab 02/21/19 [Rx] Follow up Appointment(s)/Referral(s): [facility] [Provider Group] - 03/07/19 7:00 am (Lexiscan Stress test) Sam Donnelly DO [Doctor of Osteopathic Medicine] - 2 Weeks Brandon Peters DO [Primary Care Provider] - 1 Week Kavita Panchal MD [STAFF PHYSICIAN] - 2 Weeks Discharge Disposition: HOME SELF-CARE
[2019-02-21 16:48] VITALS: BP 152/78; TEMP 98.2
== END 2019-02-21 16:57 | disposition home or self-care (01) ==
LOC: EC 11:52 → 3SCARD 13:59
PROVIDERS: ADMIT Internal Medicine; ATTEND Internal Medicine
DX: J45.21 Mild intermittent asthma with (acute) exacerbation (principal); J44.1 Chronic obstructive pulmonary disease with (acute) exacerbation; I11.9 Hypertensive heart disease without heart failure; G25.0 Essential tremor; I49.1 Atrial premature depolarization; R77.8 Other specified abnormalities of plasma proteins; E78.5 Hyperlipidemia, unspecified; Z77.29 Contact with and (suspected) exposure to other hazardous substances; E66.9 Obesity, unspecified; Z68.32 Body mass index [BMI] 32.0-32.9, adult; Z79.51 Long term (current) use of inhaled steroids; Z79.1 Long term (current) use of non-steroidal anti-inflammatories (NSAID); Z79.899 Other long term (current) drug therapy; Z86.73 Personal history of transient ischemic attack (TIA), and cerebral infarction without residual deficits; Z87.442 Personal history of urinary calculi; Z87.891 Personal history of nicotine dependence; Z96.653 Presence of artificial knee joint, bilateral; Z90.49 Acquired absence of other specified parts of digestive tract; Z80.0 Family history of malignant neoplasm of digestive organs; Z82.5 Family history of asthma and other chronic lower respiratory diseases
CPT/HCPCS: 96376 ×4; 96372 ×2; 96361; 96374; 99285; 36415; 94640 ×6; 94760; 93005; 93306; 83880; 80061; 80053; 83735; 84484 ×2; 85025; 85610; 85730; 82785; 83036; 71046; G0378 ×3; J1250; J2930 ×3; J1650 ×2; J1245

== ENCOUNTER 2019-08-09 20:12 | Emergency (ER) | payer MEDICARE ==
[2019-08-09] MEDS ORDERED: TOPICAL SKIN ADHESIVE 1 EACH AMP TOPICAL ONE ×2 (20:28→20:57)
[2019-08-09] MEDS ORDERED: DIPH,PERTUS(ACELL)TETVAC-LF 0.5 ML VIAL IM ONE (20:28)
--- NOTE | 2019-08-09 20:49 | ED ---
Wound/Laceration HPI - General Chief Complaint: Wound/Laceration Stated Complaint: Finger Injury Time Seen by Provider: 08/09/19 20:25 Source: patient Mode of arrival: ambulatory Limitations: no limitations - History of Present Illness Initial Comments: 74-year-old male patient presents to the emergency department today for evaluation of laceration to the right index finger. Patient states that approximately an hour and a half ago he cut his finger on a broken piece of glass. Patient states he is having difficulty getting the bleeding to stop so presented here for further evaluation. He denies use of anticoagulant or antiplatelet medications. Denies any difficulty with range of motion. Denies any numbness or tingling to the finger. He is unsure when his last tetanus vaccine was given. He denies any other injuries. - Related Data Home Medications Medication Instructions Recorded Confirmed Atorvastatin [Lipitor] 10 mg PO DAILY 04/16/14 02/19/19 Naproxen [Naprosyn] 375 mg PO Q12HR 04/16/14 02/19/19 Verapamil HCl [Verapamil ER] 240 mg PO DAILY 04/16/14 02/19/19 Budesonide/Formoterol Fumarate 2 puff INHALATION RT-DAILY 02/19/19 02/19/19 [Symbicort 80-4.5 Mcg Inhaler] Propranolol HCl [Inderal Xl] 80 mg PO DAILY 02/19/19 02/19/19 Previous Rx's Medication Instructions Recorded Albuterol Sulfate [Proventil Hfa] 2 puff INHALATION Q6HR PRN #1 02/21/19 inhaler Aspirin 81 mg PO DAILY chew 02/21/19 Montelukast [Singulair] 10 mg PO HS #30 tab 02/21/19 predniSONE 0 mg PO DIRECTED #30 tab 02/21/19 Allergies Allergy/AdvReac Type Severity Reaction Status Date / Time No Known Allergies Allergy Verified 02/19/19 12:19 Review of Systems ROS Statement: Those systems with pertinent positive or pertinent negative responses have been documented in the HPI. ROS Other: All systems not noted in ROS Statement are negative. Past Medical History Past Medical History: COPD, Hypertension Additional Past Medical History / Comment(s): HX OF TIA, ESSENTIAL TREMORS, KIDNEY STONES, COPD CAUSED BY EXPOSURE TO CHLORINE. History of Any Multi-Drug Resistant Organisms: None Reported Past Surgical History: Cholecystectomy, Joint Replacement Additional Past Surgical History / Comment(s): COLONOSCOPY, [place] KNEE RE PLACEMENT, PILONIDAL CYST. Past Anesthesia/Blood Transfusion Reactions: No Reported Reaction Past Psychological History: No Psychological Hx Reported Smoking Status: Never smoker Past Alcohol Use History: None Reported Past Drug Use History: None Reported - Past Family History Father Family Medical History: Cancer Additional Family Medical History / Comment(s): COLON CANCER General Exam Limitations: no limitations General appearance: alert, in no apparent distress Respiratory exam: Present: normal lung sounds bilaterally. Absent: respiratory distress, wheezes, rales, rhonchi, stridor Cardiovascular Exam: Present: regular rate, normal rhythm, normal heart sounds. Absent: systolic murmur, diastolic murmur, rubs, gallop, clicks Extremities exam: Present: full ROM, normal capillary refill, other (There is a 2 cm laceration noted to the palmar aspect of the right distal index finger. Mild bleeding noted. Skin to the remainder of the finger is pink, warm, dry. Cap refills less than 3 seconds. Radial pulses 2+ and equal bilaterally.). Abs ent: normal inspection, tenderness, pedal edema, joint swelling, calf tenderness Neurological exam: Present: alert, oriented X3, CN II-XII intact Psychiatric exam: Present: normal affect, normal mood Skin exam: Present: warm, dry, intact, normal color. Absent: rash Course Vital Signs 08/09/19 20:15 Temperature 98.3 F Pulse Rate 63 Respiratory 20 Rate Blood Pressure 181/98 O2 Sat by Pulse 100 Oximetry Procedures - Laceration Laceration #1 Consent Obtained: verbal consent Site: hand (Right index finger) Size (cm): 2 Description: linear Depth: simple, single layer Pre-repair: irrigated extensively Type of Sutures: other (Exofin) Patient Tolerated Procedure: well, no complications Medical Decision Making - Medical Decision Making 74-year-old male patient presents to the emergency department today for evaluation of laceration to the right index finger. Physical examination did reveal a 2 cm laceration with mild bleeding. Pressure was held, skin glue was applied. This did provide excellent closure of the wound. He'll be given a finger splint to wear for protection. We did update his tetanus vaccine. He is instructed to follow-up with his primary care physician for recheck in 1-2 days. Return parameters discussed in detail. He verbalizes understanding and agrees with this plan. Disposition Clinical Impression: Laceration of right index finger Disposition: HOME SELF-CARE Condition: Good Instructions (If sedation given, give patient instructions): Laceration (ED), Skin Adhesive Care (ED) Additional Instructions: Do not pick or pull at the glue. Do not apply any oil based ointments to this. Monitor for signs of infection including but not limited to redness, swelling, drainage of pus, fever, or chills. Follow-up through primary care physician for recheck in 1-2 days. Return to the emergency department immediately for any new, worsening, or concerning symptoms. Is patient prescribed a controlled substance at d/c from ED?: No Referrals: Brandon Peters DO [Primary Care Provider] - 1-2 days
[2019-08-09 21:11] VITALS: BP 181/98; PULSE 63; RESP 20; TEMP 98.3
== END 2019-08-09 21:10 | disposition home or self-care (01) ==
LOC: EC 20:12
DX: S61.210A Laceration without foreign body of right index finger without damage to nail, initial encounter (principal); I10 Essential (primary) hypertension; J44.9 Chronic obstructive pulmonary disease, unspecified; Z23 Encounter for immunization; Z79.1 Long term (current) use of non-steroidal anti-inflammatories (NSAID); Z79.51 Long term (current) use of inhaled steroids; Z79.899 Other long term (current) drug therapy; Z96.653 Presence of artificial knee joint, bilateral; Z86.73 Personal history of transient ischemic attack (TIA), and cerebral infarction without residual deficits; W25.XXXA Contact with sharp glass, initial encounter
CPT/HCPCS: 12001; 90471; 90715; 99282

== ENCOUNTER → 2020-12-22 | Outpatient (CLI) | payer MEDICARE ==
--- NOTE | 2020-12-22 19:36 | CONS ---
CONSULTATION REASON FOR CONSULTATION: Sleep apnea. HISTORY OF PRESENT ILLNESS: This patient has an established diagnosis of obstructive sleep apnea. He was given diagnosis through a sleep physician at [facility]. The official sleep studies are not available to me at this point, however, this diagnosis has been established more than 8-9 years ago and the patient has been utilizing CPAP at a pressure of 9 cm of water and has been using a Marr FX medium size nasal pillows. He has been compliant nevertheless on the days that he has used the machine has not seen a whole lot of difference. As such, this puts into question the possibility of ongoing sleep apnea and a re-evaluation may be needed. I checked his CPAP machine. The patient has a functioning ResMed unit which is set at a pressure of 9 cm of water and based on 30-day compliance, the patient is utilizing his machine every night without any interruption, averaging around 6.4 hours of CPAP use per night with a leak of 34 L/minute and his AHI is down to 3.1. No hypersomnia or sleepiness during the day. He is going to bed around 11:30 pm, waking up at 8 o'clock in the morning and he has no issues with choking or gasping or snoring. No recent weight gain or weight loss. PAST MEDICAL HISTORY: Obstructive sleep apnea, hypertension, essential tremors and hyperlipidemia. SURGICAL HISTORY: Includes bilateral knee surgery, cholecystectomy, and removal of pilonidal cyst. ALLERGIES: Not known. MEDICATIONS INCLUDE: Aleve, Lipitor, propranolol, lisinopril, and verapamil. SOCIAL HISTORY: Nonsmoker. No history of alcohol. No history of IV drugs. FAMILY HISTORY: Negative for sleep apnea. REVIEW OF SYSTEMS: Fourteen-point review of system was done and positive findings are mentioned in history of present illness. PHYSICAL EXAMINATION: His current BP is 156/85, pulse is 61, respirations 16, temp 97.9. Saturation 97% on room air. Height is 5 feet 8 inches. Weight is 220 and BMI is 33. [place] score of 12. GENERAL APPEARANCE: Calm, comfortable. HEAD is atraumatic, normocephalic. NECK: Supple. No JVD. No goiter or neck masses. Mallampati class 4. LUNGS: Clear to auscultation. HEART: Heart sounds are regular rate and rhythm. Normal S1, S2. No S3, S4. No murmurs. ABDOMEN: Soft, nontender. No organomegaly. EXTREMITIES: No edema. No cyanosis or clubbing. IMPRESSION: 1. Obstructive sleep apnea, adequately treated with a CPAP pressure of 9 cm of water. The patient has no major hypersomnia or sleepiness or drowsiness. Compliance data is adequate and sufficient at this point in time. Nevertheless, I do question the need for ongoing treatment and the presence of ongoing sleep apnea in this patient, knowing that he has not seen a major different while on or off treatment. 2. Essential tremor. 3. Hyperlipidemia. 4. Hypertension. PLAN: 1. Do a home sleep study to reestablish diagnosis and presence of sleep apnea and severity. 2. We will recommend to continue CPAP therapy as long as the patient confirms to have ongoing SCOTT. If not, we may end up discontinuing the treatment. Meanwhile, the patient will continue using the same CPAP unit at the same level of pressure with the same mask interface. 3. Discussed with the patient. He was agreeable. 4. Proceed with a home sleep study. 5. Implement good sleep hygiene measures. 6. We will continue to follow. MMODL / IJN: [id number] /
== END ==
LOC: SLEEP 14:30
PROVIDERS: ATTEND Internal Medicine Critical Care Medicine
DX: G47.33 Obstructive sleep apnea (adult) (pediatric) (principal); E78.5 Hyperlipidemia, unspecified; G25.0 Essential tremor; I10 Essential (primary) hypertension; Z88.6 Allergy status to analgesic agent; Z88.8 Allergy status to other drugs, medicaments and biological substances; Z79.899 Other long term (current) drug therapy
CPT/HCPCS: 99211

== ENCOUNTER → 2021-12-23 | Outpatient (CLI) | payer MEDICARE ==
--- NOTE | 2021-12-23 14:09 | XR ---
EXAMINATION TYPE: XR chest 2V DATE OF EXAM: 12/23/2021 COMPARISON: 02/19/2019 TECHNIQUE: PA and lateral views submitted. HISTORY: Shortness of breath FINDINGS: Right-sided consolidation and pleural effusion. Left lung clear. Severe arthropathy of the left shoul alondra stable. Hypertrophic and degenerative change of the spine. IMPRESSION: 1. Right-sided consolidation and pleural effusion correlate for pneumonia.
[2021-12-23 19:02] LABS: HCT 46.2 % (39.6-50.0); HGB 13.8 g/dL (13.0-17.0); MCH 26.7 pg (27.0-32.0); MCHC 29.9 g/dL (32.0-37.0); MCV 89.5 fL (80.0-97.0); Mean Platelet Volume 10.6 fL (9.5-12.2); NRBC Per 100 WBC 0 /100 WBCS (0.0-0.0); Platelet Count 257 X 10*3/uL (140-440); RBC 5.16 X 10*6/uL (4.40-5.60); RDW 14.6 % (11.5-14.5); WBC 6.96 X 10*3/uL (4.50-10.00)
[2021-12-23 19:05] LABS: African American GFR (CKD) 91.3 (60.0-200.0); Albumin 4.4 g/dL (3.8-4.9); Albumin/Globulin Ratio 1.83 (1.60-3.17); Anion Gap 13.6 mmol/L (10.00-18.00); BUN/Creat Ratio 24.7 Ratio (12.00-20.00); Calcium 9.7 mg/dL (8.7-10.3); Carbon Dioxide 25.3 mmol/L (20.0-27.5); Globulin 2.4 g/dL (1.6-3.3); Non-African American GFR(CKD) 78.8 (60.0-200.0); Potassium 4.8 mmol/L (3.5-5.5); Total Bilirubin 0.7 mg/dL (0.30-1.20); Total Protein 6.8 g/dL (6.2-8.2)
== END | disposition home or self-care (01) ==
LOC: LABWHC1 13:20
PROVIDERS: ATTEND Family Medicine
DX: J90 Pleural effusion, not elsewhere classified (principal)
CPT/HCPCS: 36415; 71046; 80053; 83880; 85027; 85379

== ENCOUNTER 2021-12-31 20:31 | Inpatient (IN) | payer MEDICARE ==
[2021-12-31] MEDS ORDERED: IPRATROPIUM-ALBUTEROL 3 ML NEB INHALATION STA (21:10)
--- NOTE | 2021-12-31 21:15 | ED ---
SOB HPI - General Chief Complaint: Shortness of Breath Stated Complaint: SOB/COPD Time Seen by Provider: 12/31/21 20:53 Source: patient Mode of arrival: ambulatory Limitations: no limitations - History of Present Illness Initial Comments: This is a pleasant 76-year-old male who presents to the emergency department complaining of shortness of breath which has been progressive for the last month. Patient does have a history of COPD. Patient saw his primary care physician vanda Browne initially given a Medrol Dosepak and a Z-Kal. Patient miguel shed this and then was put on Levaquin and prednisone on December 23. Patient continues to have shortness of breath. Patient states she has a productive cough with clear phlegm. Nonsmoker. He denies any chest pain. No history of congestive heart failure. No hemoptysis. No headache, no fever or chills, no changes in vision or hearing, no sore throat or difficulty with speech, no neck pain, no chest pain, no abdominal pain, no nausea or vomiting, no changes in urination or bowel movements, no numbness or tingling, no extremity pain, no skin rashes or lesions. MD Complaint: shortness of breath - Related Data Home Medications Medication Instructions Recorded Confirmed Verapamil HCl [Verapamil ER] 240 mg PO DAILY 04/16/14 12/31/21 Propranolol HCl [Inderal Xl] 80 mg PO DAILY 02/19/19 12/31/21 Albuterol Nebulized [Ventolin 2.5 mg INHALATION RT-TID PRN 12/31/21 12/31/21 Nebulized] Fluticasone/Umeclidin/Vilanter 1 puff INHALATION RT-DAILY 12/31/21 12/31/21 [Trelegy Ellipta 100-62.5-25] Furosemide [Lasix] 20 mg PO DAILY 12/31/21 12/31/21 Levofloxacin [Levaquin] 500 mg PO DAILY 12/31/21 12/31/21 lisinopriL [Zestril] 20 mg PO DAILY 12/31/21 12/31/21 Allergies Allergy/AdvReac Type Severity Reaction Status Date / Time No Known Allergies Allergy Verified 12/31/21 23:07 Review of Systems ROS Statement: Those systems with pertinent positive or pertinent negative responses have been documented in the HPI. ROS Other: All systems not noted in ROS Statement are negative. Past Medical History Past Medical History: COPD, Hypertension Additional Past Medical History / Comment(s): HX OF TIA, ESSENTIAL TREMORS, KIDNEY STONES, COPD CAUSED BY EXPOSURE TO CHLORINE. History of Any Multi-Drug Resistant Organisms: None Reported Past Surgical History: Cholecystectomy, Joint Replacement Additional Past Surgical History / Comment(s): COLONOSCOPY, [place]EN[place] KNEE REPLA CEMENT, PILONIDAL CYST. Past Anesthesia/Blood Transfusion Reactions: No Reported Reaction Past Psychological History: No Psychological Hx Reported Past Alcohol Use History: None Reported Past Drug Use History: None Reported - Past Family History Father Family Medical History: Cancer Additional Family Medical History / Comment(s): COLON CANCER General Exam - General Exam Comments Initial Comments: Patient appears to be in mild distress but does not appear to be ill or toxic. Vital signs are reviewed. Capillary refill less than 2 seconds. Adequate peripheral perfusion. No mottling Limitations: no limitations General appearance: in distress Head exam: Present: atraumatic, normocephalic, normal inspection Eye exam: Present: normal appearance, PERRL, EOMI. Absent: scleral icterus, conjunctival injection, periorbital swelling ENT exam: Present: normal exam, normal oropharynx, mucous membranes moist, normal external ear exam. Absent: mucous membranes dry Neck exam: Present: normal inspection, full ROM. Absent: tenderness, meningismus, lymphadenopathy Respiratory exam: Present: respiratory distress (Minimal), wheezes (Scant expiratory wheezes with better air movement and air entry on the right), accessory muscle use (Minimal). Absent: normal lung sounds bilaterally, rales, rhonchi, stridor, chest wall tenderness Cardiovascular Exam: Present: regular rate, normal rhythm, normal heart sounds. Absent: systolic murmur, diastolic murmur, rubs, gallop, clicks GI/Abdominal exam: Present: soft, normal bowel sounds. Absent: distended, tenderness, guarding, rebound, rigid Extremities exam: Present: normal inspection, full ROM, normal capillary refill. Absent: tenderness, pedal edema, joint swelling, calf tenderness Back exam: Present: normal inspection Neurological exam: Present: alert, oriented X3, CN II-XII intact Psychiatric exam: Present: normal affect, normal mood Skin exam: Present: warm, dry, intact, normal color. Absent: rash Course Vital Signs 12/31/21 12/31/21 12/31/21 20:40 21:34 21:44 Temperature 97.7 F Pulse Rate 67 61 68 Respiratory 16 Rate Blood Pressure 97/51 O2 Sat by Pulse 98 Oximetry 12/31/21 12/31/21 21:49 23:24 Temperature 97.9 F Pulse Rate 72 61 Respiratory 15 15 Rate Blood Pressure 132/86 101/63 O2 Sat by Pulse 98 94 L Oximetry - Reevaluation(s) Reevaluation #1: 12/31/21 22:46 Patient's workup consistent with right lower lobe pneumonia/pleural effusion which was also seen on the previous study from December 23. Patient also has acute kidney injury. Note that the patient is on Levaquin. With regard to current hold this medication. - Consultations Consultation #1: [facility]. Consultations placed for nephrology and pulmonary Medical Decision Making - Medical Decision Making Patient presents with shortness of breath, evidence of right pleural effusion with possible pneumonia. Seen on x-ray from December 23 as well. Patient has had 2 rounds of outpatient antibiotics, first azithromycin and then Levaquin. Patient also has signs of acute kidney injury with more than doubling of his creatinine. We'll hold Levaquin. We'll order IV antibiotics. Plan for admission Does not appear to be consistent with ischemic cardiac disease. Does not appear to be consistent with congestive heart failure. The case was discussed in detail with ED attending physician. Presentation, findings, treatment plan discussed in detail. Plater Hot Dip Dr. Liu - Lab Data Result diagrams: 12/31/21 21:26 12/31/21 21:26 Lab Results 12/31/21 12/31/21 12/31/21 Range/Units 21:26 21:26 21:26 WBC 9.7 (3.8-10.6) k/uL RBC 4.70 (4.30-5.90) m/uL Hgb 13.4 (13.0-17.5) gm/dL Hct 41.8 (39.0-53.0) % MCV 88.9 (80.0-100.0) fL MCH 28.5 (25.0-35.0) pg MCHC 32.1 (31.0-37.0) g/dL RDW 14.9 (11.5-15.5) % Plt Count 276 (150-450) k/uL MPV 7.8 Neutrophils % 74 % Lymphocytes % 16 % Monocytes % 5 % Eosinophils % 2 % Basophils % 1 % Neutrophils # 7.2 (1.3-7.7) k/uL Lymphocytes # 1.6 (1.0-4.8) k/uL Monocytes # 0.5 (0-1.0) k/uL Eosinophils # 0.2 (0-0.7) k/uL Basophils # 0.1 (0-0.2) k/uL Sodium 139 (137-145) mmol/L Potassium 5.1 (3.5-5.1) mmol/L Chloride 102 (98-107) mmol/L Carbon Dioxide 28 (22-30) mmol/L Anion Gap 9 mmol/L BUN 78 H (9-20) mg/dL Creatinine 2.04 H (0.66-1.25) mg/dL Est GFR (CKD-EPI)AfAm 35 (>60 ml/min/1.73 sqM) Est GFR (CKD-EPI)NonAf 31 (>60 ml/min/1.73 sqM) Glucose 99 (74-99) mg/dL Calcium 9.3 (8.4-10.2) mg/dL Magnesium 2.2 (1.6-2.3) mg/dL Total Bilirubin 0.4 (0.2-1.3) mg/dL AST 18 (17-59) U/L ALT 20 (4-49) U/L Alkaline Phosphatase 76 (38-126) U/L Troponin I <0.012 (0.000-0.034) ng/mL NT-Pro-B Natriuret Pep pg/mL Total Protein 6.4 (6.3-8.2) g/dL Albumin 3.9 (3.5-5.0) g/dL Coronavirus (PCR) (Not Detectd) Influenza Type A RNA (Not Detectd) Influenza Type B (PCR) (Not Detectd) 12/31/21 12/31/21 12/31/21 Range/Units 21:26 21:32 21:32 WBC (3.8-10.6) k/uL RBC (4.30-5.90) m/uL Hgb (13.0-17.5) gm/dL Hct (39.0-53.0) % MCV (80.0-100.0) fL MCH (25.0-35.0) pg MCHC (31.0-37.0) g/dL RDW (11.5-15.5) % Plt Count (150-450) k/uL MPV Neutrophils % % Lymphocytes % % Monocytes % % Eosinophils % % Basophils % % Neutrophils # (1.3-7.7) k/uL Lymphocytes # (1.0-4.8) k/uL Monocytes # (0-1.0) k/uL Eosinophils # (0-0.7) k/uL Basophils # (0-0.2) k/uL Sodium (137-145) mmol/L Potassium (3.5-5.1) mmol/L Chloride (98-107) mmol/L Carbon Dioxide (22-30) mmol/L Anion Gap mmol/L BUN (9-20) mg/dL Creatinine (0.66-1.25) mg/dL Est GFR (CKD-EPI)AfAm (>60 ml/min/1.73 sqM) Est GFR (CKD-EPI)NonAf (>60 ml/min/1.73 sqM) Glucose (74-99) mg/dL Calcium (8.4-10.2) mg/dL Magnesium (1.6-2.3) mg/dL Total Bilirubin (0.2-1.3) mg/dL AST (17-59) U/L ALT (4-49) U/L Alkaline Phosphatase (38-126) U/L Troponin I (0.000-0.034) ng/mL NT-Pro-B Natriuret Pep 241 pg/mL Total Protein (6.3-8.2) g/dL Albumin (3.5-5.0) g/dL Coronavirus (PCR) Not Detected (Not Detectd) Influenza Type A RNA Not Detected (Not Detectd) Influenza Type B (PCR) Not Detected (Not Detectd) - EKG Data EKG Comments: EKG done at 2108 and read by the ED attending physician reveals sinus rhythm with a rate of 63. Normal intervals, aside from the QRS duration which is 187 ms. EKG indicative of a right bundle branch block with RSR pattern in V1, V2, and V3. This was not seen on the previous study from 2019. No evidence of acute ST or T-wave changes. Normal axis Disposition Clinical Impression: Pleural effusion, right, Community acquired pneumonia, Acute kidney injury Disposition: ADMITTED IP TO THIS HOSP Condition: Stable Is patient prescribed a controlled substance at d/c from ED?: No Referrals: Brandon Peters DO [Primary Care Provider] - 1-2 days Decision to Admit Reason: Admit from EC Decision Time: 22:47
[2021-12-31 22:08] LABS: Basophils # (A) 0.1 k/uL (0-0.2); Basophils % (A) 1 %; Eosinophils # (A) 0.2 k/uL (0-0.7); Eosinophils % (A) 2 %; HCT 41.8 % (39.0-53.0); HGB 13.4 gm/dL (13.0-17.5); Lymphocytes # (A) 1.6 k/uL (1.0-4.8); Lymphocytes % (A) 16 %; MCH 28.5 pg (25.0-35.0); MCHC 32.1 g/dL (31.0-37.0); MCV 88.9 fL (80.0-100.0); Mean Platelet Volume 7.8; Monocytes # (A) 0.5 k/uL (0-1.0); Monocytes % (A) 5 %; Neutrophils # (A) 7.2 k/uL (1.3-7.7); Neutrophils % (A) 74 %; Platelet Count 276 k/uL (150-450); RDW 14.9 % (11.5-15.5); WBC 9.7 k/uL (3.8-10.6)
--- NOTE | 2021-12-31 22:10 | XR ---
EXAMINATION TYPE: XR chest 2V DATE OF EXAM: 12/31/2021 COMPARISON: 12/24/2019 HISTORY: Short of breath TECHNIQUE: FINDINGS: There is blunting right costo phrenic angle and fluid in the fissures on the right side. Le ft lung is clear. No heart failure. There are chest leads. There is moderate arthritic change in the shoulder joints. There are no hilar masses. IMPRESSION: There is right pleural effusion and right lower lobe infiltrate and atelectasis which is slightly improved compared to one exam.
[2021-12-31 22:38] LABS: Albumin 3.9 g/dL (3.5-5.0); Calcium 9.3 mg/dL (8.4-10.2); Magnesium 2.2 mg/dL (1.6-2.3); Potassium 5.1 mmol/L (3.5-5.1); Total Bilirubin 0.4 mg/dL (0.2-1.3); Total Protein 6.4 g/dL (6.3-8.2)
[2021-12-31] MEDS ORDERED: PNEUMONIA PROTOCOL UTILIZED 1 EACH MISC PO PRN (22:56)
[2021-12-31] MEDS ORDERED: ALBUTEROL NEBULIZED 2.5 MG/3 ML INHALATION PRN (22:56)
[2021-12-31] MEDS ORDERED: ACETAMINOPHEN TAB 325 MG TAB PO PRN (22:56)
[2021-12-31] MEDS ORDERED: methylPREDNISolone SOD SUCCI 125 MG/2 ML VIAL IV STA (23:00)
[2021-12-31] MEDS ORDERED: SODIUM CHLORIDE 0.9% 500 ML 500 ML IV ONE (23:33)
[2022-01-01] MEDS ORDERED: ALBUTEROL NEBULIZED 2.5 MG/3 ML INHALATION PRN (06:00)
--- NOTE | 2022-01-01 06:54 | XR ---
EXAMINATION TYPE: XR chest 2V DATE OF EXAM: 01/01/2022 COMPARISON: Chest x-ray from one day earlier and older studies HISTORY: Pneumonia. TECHNIQUE: Frontal and lateral views of the chest are obtained. FINDINGS: Persistent moderate size right pleural effusion. Persistent associated right basilar opaci ty favoring atelectasis. Left lung is clear.. The cardiac silhouette size is stable and upper limits of normal in size. Bridging osteophytes in the thoracic spine are redemonstrated. Degenerative jeff es bilateral shoulders worse left glenohumeral joint redemonstrated. IMPRESSION: Persistent moderate-sized right pleural effusion and associated right basilar atelectasi s and/or infiltrate. No significant change from most recent studies.
[2022-01-01] MEDS: HEPARIN SODIUM,PORCINE/PF 5,000 UNIT/0.5 ML SYRINGE SQ SCH ×2 (08:00→21:02)
[2022-01-01] MEDS: VERAPAMIL SR 240 MG TABLET.ER PO SCH (08:01)
[2022-01-01] MEDS: PROPRANOLOL LA 80 MG CAP.SA.24H PO SCH (08:01)
[2022-01-01] MEDS: IPRATROPIUM-ALBUTEROL 3 ML NEB INHALATION SCH ×4 (08:53→20:00)
[2022-01-01] MEDS: SYMBICORT 80-4.5 MCG INHALER INHALATION SCH ×2 (08:53→20:00)
[2022-01-01] MEDS ORDERED: FUROSEMIDE 20 MG TAB PO SCH (09:00)
[2022-01-01] MEDS ORDERED: lisinopriL 20 MG TAB PO SCH (09:00)
[2022-01-01] MEDS: AZITHROMYCIN 500 MG TAB PO SCH (09:55)
--- NOTE | 2022-01-01 10:00 | P.HPIM ---
History of Present Illness H&P Date: 01/01/22 HISTORY OF PRESENT ILLNESS 76-year-old male one of Dr. Peters patient was seen Dr. Cony oquendo for chronic COPD who has been on to relate she has an inhaler as rescue inhaler as well apparently has been sick for the last month was seen his primary care physician started him on Levaquin as last week chest x-ray and lab work done and was placed on diuretics his kidney function become much worse continue to have significant shortness of breath and dyspnea with worsening symptoms and was sent to the emergency department at [facility] was seen and evaluated surprisingly found to have his creatinine up to 2.0 and significant decline in GFR, chest x- ray showed significant infiltrate and scar tissue on the right side she was having inspiratory expiratory wheezes was diagnosed with COPD excessive patient with worsening kidney function time. Patient be treated with IV antibiotics. Pulmonary consultation will be done as well. REVIEW OF SYSTEMS Constitutional: No fever, no chills, no night sweats. No weight change. Generalized weakness and fatigue with cough. EENT: No headache. No blurred vision or double vision, no loss of vision. No loss of Hearing, no ringing in the ears, no dizziness. No nasal drainage or congestion. No epistaxis. No sore throat. Lungs: Distant shortness of breath with cough wheezes. Cardiovascular: No chest pain, positive lower extremity edema.. No palpitations. No paroxysmal nocturnal dyspnea. No orthopnea. No lightheadedness or dizziness. No syncopal episodes. Abdominal: No abdominal pain. No nausea, vomiting. No diarrhea. No constipation. No bloody or tarry stools.. No loss of appetite. Genitourinary: No dysuria, increased frequency, urgency. A declining kidney function. Musculoskeletal: No myalgias. No muscle weakness, no gait dysfunction, no frequent falls. No back pain. No neck pain. Integumentary: No wounds, no lesions. No rash or pruritus. No unusual bruising. No change in hair or nails. Neurologic: No aphasia. No facial droop. No change in mentation. No head injury. No headache. No paralysis. No paresthesia. Psychiatric: No depression. No anxiety. No mood swings. Endocrine: No abnormal blood sugars. No weight change. No excessive sweating or thirst. No cold intolerance. SOCIAL HISTORY Patient never smoked, no alcohol abuse, does not use any oxygen at home, is and lives with his and has been doing well healthwise last few years. FAMILY HISTORY Patient has 2 children both are living and well, 2 siblings with no major medical problem, his father from colon cancer at age 17 mother from CAD at age 18. PHYSICAL EXAMINATION Gen: This is an developed sitting in bed does not look in any respiratory distress. HEENT: Head is atraumatic, normocephalic. Pupils equal, round. Sclerae is anicteric. NECK: Supple. No JVD. No lymphadenopathy. No thyromegaly. LUNGS: Clear breath sounds bilaterally especially the right side positive fine rhonchi with mild crackles mild expiratory wheezes. HEART: Regular rate and rhythm. No murmur. ABDOMEN: Soft. Bowel sounds are present. No masses. No tenderness. EXTREMITIES: No pedal edema. No calf tenderness. NEUROLOGICAL: Patient is awake, alert and oriented x3. Cranial nerves 2 through 12 are grossly intact. ASSESSMENT AND PLAN - COPD exacerbation: Patient was hospitalized continue Solu-Medrol, O2, nebulizer management and antibiotics. - Right lower lobe pneumonia: With failure to outpatient treatment, patient was switched to Rocephin and azithromycin continue current management if he is doing well might switch him to doxycycline going home when he is ready. - Acute kidney injury most likely acute tubular necrosis his kidney function from December 23 was much better not clear the patient has dehydration or reaction to medication. Renal ultrasound be done, continue hydration repeat BUN/creatinine and consult nephrology. - History of COPD: He seen Dr. Donnelly on regular basis has been on Trilogy and Ventolin. - Arrhythmia: Has been on verapamil and propranolol. - Essential tremor Giuseppe continue patient on propranolol for now. - GI prophylaxis: Patient be on Pepcid 20 mg daily. - DVT prophylaxis: Heparin subcutaneous will be done. Status: Full code. Patient will be admitted to the hospital for a minimum of 2 night stay. Past Medical History Past Medical History: COPD, Hypertension Additional Past Medical History / Comment(s): HX OF TIA, ESSENTIAL TREMORS, KIDNEY STONES, COPD CAUSED BY EXPOSURE TO CHLORINE. History of Any Multi-Drug Resistant Organisms: None Reported Past Surgical History: Cholecystectomy, Joint Replacement Additional Past Surgical History / Comment(s): COLONOSCOPY, [place] KNEE REPLACEMENT, PILONIDAL CYST. Past Anesthesia/Blood Transfusion Reactions: No Reported Reaction Past Psychological History: No Psychological Hx Reported Smoking Status: Never smoker Past Alcohol Use History: None Reported Additional Past Alcohol Use History / Comment(s): SMOKED FOR SHORT TIME IN [employer]. Past Drug Use History: None Reported - Past Family History Father Family Medical History: Cancer Additional Family Medical History / Comment(s): COLON CANCER Medications and Allergies Home Medications Medication Instructions Recorded Confirmed Type Verapamil HCl [Verapamil ER] 240 mg PO DAILY 04/16/14 12/31/21 History Propranolol HCl [Inderal Xl] 80 mg PO DAILY 02/19/19 12/31/21 History Albuterol Nebulized [Ventolin 2.5 mg INHALATION RT-TID PRN 12/31/21 12/31/21 History Nebulized] Fluticasone/Umeclidin/Vilanter 1 puff INHALATION RT-DAILY 12/31/21 12/31/21 History [Trelegy Ellipta 100-62.5-25] Furosemide [Lasix] 20 mg PO DAILY 12/31/21 12/31/21 History Levofloxacin [Levaquin] 500 mg PO DAILY 12/31/21 12/31/21 History lisinopriL [Zestril] 20 mg PO DAILY 12/31/21 12/31/21 History Allergies Allergy/AdvReac Type Severity Reaction Status Date / Time No Known Allergies Allergy Verified 12/31/21 23:07 Physical Exam Vitals: Vital Signs Temp Pulse Pulse Resp BP BP Pulse Ox 01/01/22 02:00 97.8 F 62 18 117/71 97 12/31/21 23:24 97.9 F 61 15 101/63 94 L 12/31/21 21:49 72 15 132/86 98 12/31/21 21:44 68 12/31/21 21:34 61 12/31/21 20:40 97.7 F 67 16 97/51 98 Intake and Output 12/31/21 12/31/21 01/01/22 14:59 22:59 06:59 Intake Total 1649 Balance 1649 Intake: Intake, IV Titration 1649 Amount Sodium Chloride 0.9% 1, 600 000 ml @ 100 mls/hr IV . Q10H [facility] Rx#:[id number] Sodium Chloride 0.9% 500 999 ml 500 ml @ 999 mls/hr IV .Q31M ONE Rx#:[id number] cefTRIAXone 2 gm In 50 Sodium Chloride 0.9% 50 ml @ 100 mls/hr IVPB ONCE STA Rx#:[id number] Other: Weight 95.708 kg 95.708 kg Results CBC & Chem 7: 12/31/21 21:26 12/31/21 21:26 Labs: Abnormal Lab Results - Last 24 Hours (Table) 12/31/21 Range/Units 21:26 BUN 78 H (9-20) mg/dL Creatinine 2.04 H (0.66-1.25) mg/dL Thrombosis Risk Factor Assmnt - Choose All That Apply Each Factor Represents 1 point: Abnormal pulmonary function (COPD), Obesity (BMI >25) Each Risk Factor Represents 3 Points: Age 75 years or older Thrombosis Risk Factor Assessment Total Risk Factor Score: 5 Thrombosis Risk Factor Assessment Level: High Risk
--- NOTE | 2022-01-01 10:07 | P.NPCON ---
History of Present Illness - Reason for Consult acute renal failure - History of Present Illness Reason for consultation: Acute kidney injury History of present illness: Patient is a 76-year-old male seen in renal consultation for acute kidney injury. Patient baseline creatinine is near 1 and was elevated at 2.04 on admission. Patient presented to the hospital with worsening shortness of breath. Patient states the shortness of breath has been going on for the last 1 month. He also admits to cough with clear phlegm. Patient states his oral intake has been poor. Patient states his was recently diagnosed with diabetes and didn't have been following diabetic diet and counting carbs. Patient states he has lost over 10 pounds in the last month. Blood pressure stable. No fever. He does admit to taking naproxen on a daily basis. He denies family history of renal disease. Denies personal history of diabetes. Denies hematuria or dysuria. No chest pain. Chest x-ray showed right-sided pleural effusion. He was also taking lisinopril as well as Lasix at home which is currently held. No edema. Vital signs are stable. General: Awake. No acute distress. HEENT: Head exam is unremarkable. LUNGS: Breath sounds decreased. HEART: Rate and Rhythm are regular. ABDOMEN: Soft, no distention. EXTREMITITES: No edema. Past Medical History Past Medical History: COPD, Hypertension Additional Past Medical History / Comment(s): HX OF TIA, ESSENTIAL TREMORS, KIDNEY STONES, COPD CAUSED BY EXPOSURE TO CHLORINE. History of Any Multi-Drug Resistant Organisms: None Reported Past Surgical History: Cholecystectomy, Joint Replacement Additional Past Surgical History / Comment(s): COLONOSCOPY, [place] KNEE REPLACEMENT, PILONIDAL CYST. Past Anesthesia/Blood Transfusion Reactions: No Reported Reaction Past Psychological History: No Psychological Hx Reported Smoking Status: Never smoker Past Alcohol Use History: None Reported Additional Past Alcohol Use History / Comment(s): SMOKED FOR SHORT TIME IN [employer]. Past Drug Use History: None Reported - Past Family History Father Family Medical History: Cancer Additional Family Medical History / Comment(s): COLON CANCER Medications and Allergies Home Medications Medication Instructions Recorded Confirmed Type Verapamil HCl [Verapamil ER] 240 mg PO DAILY 04/16/14 12/31/21 History Propranolol HCl [Inderal Xl] 80 mg PO DAILY 02/19/19 12/31/21 History Albuterol Nebulized [Ventolin 2.5 mg INHALATION RT-TID PRN 12/31/21 12/31/21 History Nebulized] Fluticasone/Umeclidin/Vilanter 1 puff INHALATION RT-DAILY 12/31/21 12/31/21 History [Sandra Ellipta 100-62.5-25] Furosemide [Lasix] 20 mg PO DAILY 12/31/21 12/31/21 History Levofloxacin [Levaquin] 500 mg PO DAILY 12/31/21 12/31/21 History lisinopriL [Zestril] 20 mg PO DAILY 12/31/21 12/31/21 History Allergies Allergy/AdvReac Type Severity Reaction Status Date / Time No Known Allergies Allergy Verified 12/31/21 23:07 Physical Exam Vitals: Vital Signs Temp Pulse Pulse Resp BP BP Pulse Ox 01/01/22 09:07 76 01/01/22 08:53 76 01/01/22 08:00 97.4 F L 78 129/81 98 01/01/22 02:00 97.8 F 62 18 117/71 97 12/31/21 23:24 97.9 F 61 15 101/63 94 L 12/31/21 21:49 72 15 132/86 98 12/31/21 21:44 68 12/31/21 21:34 61 12/31/21 20:40 97.7 F 67 16 97/51 98 Intake and Output 12/31/21 01/01/22 01/01/22 22:59 06:59 14:59 Intake Total 1649 Balance 1649 Intake: Intake, IV Titration 1649 Amount Sodium Chloride 0.9% 1, 600 000 ml @ 100 mls/hr IV . Q10H [facility] Rx#:[id number] Sodium Chloride 0.9% 500 999 ml 500 ml @ 999 mls/hr IV .Q31M ONE Rx#:[id number] cefTRIAXone 2 gm In 50 Sodium Chloride 0.9% 50 ml @ 100 mls/hr IVPB ONCE STA Rx#:[id number] Other: Weight 95.708 kg 95.708 kg Results - Lab Results Most recent lab results Calcium 9.3 mg/dL (8.4-10.2) 12/31/21 21:26 Magnesium 2.2 mg/dL (1.6-2.3) 12/31/21 21:26 12/31/21 21:26 12/31/21 21:26 Assessment and Plan Plan: Assessment: 1. Acute kidney injury mostly prerenal secondary to poor intake, lisinopril and Lasix. Creatinine 2.04 on admission. Baseline creatinine near 1. 2. COPD exacerbation with pneumonia. 3. Benign hypertension. Stable. Plan: Decrease rate of normal saline to 75 mL an hour. Follow-up morning labs. Check bladder scan to rule out urinary retention. Check renal ultrasound. Check urinalysis. Avoid nephrotoxins. Continue to hold antihypertensives and diuretics. Thank you for the consultation. I will continue to follow the patient with you during his hospital stay.
[2022-01-01 11:05] LABS: African American GFR (CKD) 55 (>60 ml/min/1.73 sqM); Anion Gap 9 mmol/L; Blood Urea Nitrogen 66 mg/dL (9-20); Carbon Dioxide 22 mmol/L (22-30); Chloride 106 mmol/L (98-107); Glucose 252 mg/dL (74-99); Non-African American GFR(CKD) 48 (>60 ml/min/1.73 sqM); Potassium 4.9 mmol/L (3.5-5.1); Sodium 137 mmol/L (137-145)
--- NOTE | 2022-01-01 11:05 | US ---
EXAMINATION TYPE: US kidneys/renal and bladder DATE OF EXAM: 01/01/2022 COMPARISON: CT 2014 CLINICAL HISTORY: JOSE GUADALUPE. EXAM MEASUREMENTS: Right Kidney: 11.5 x 5.0 x 6.8 cm Left Kidney: 11.6 x 6.1 x 7.1 cm Right Kidney: lateral/lower cyst measures 3.5 x 3.5 x 3.2 cm Left Kidney: No hydronephrosis or masses seen Bladder: not well distended Bilateral Jets seen: No There is no evidence for hydronephrosis at this point in time. No nephrolithiasis is seen. Redemonst ration of benign thin-walled cyst lower pole right kidney measuring 3.5 cm increased in size from [address] Some cortical thinning in the left kidney is present. Bladder poorly distended. IMPRESSION: No hydronephrosis is seen bilaterally.
[2022-01-01] MEDS: methylPREDNISolone SOD SUCCI 40 MG/ML 1 ML VIAL IV SCH ×2 (11:09→21:02)
[2022-01-01] MEDS: SODIUM CHLORIDE 0.9% 1,000 ML IV SCH ×2 (11:10→13:27)
[2022-01-01 11:31] VITALS: BMI 31.1
--- NOTE | 2022-01-01 11:41 | P.CNPUL ---
History of Present Illness Consult date: 01/01/22 Requesting physician: Osman Ocasio Reason for consult: dyspnea Chief complaint: Shortness of breath History of present illness: 76-year-old white male patient with past medical history of moderate COPD, with FEV1 of 55% of predicted, chronic bronchial asthma, unspecified, it hypertension, essential tremors, previous history of COVID-19 infection, hyperlipidemia, osteoarthritis who follows with Dr. Donnelly at the pulmonary clinic. Patient comes into the emergency department on 12/31/2021 with has been ongoing and progressive for the past month. Patient saw his primary care physician and was initially given a Medrol Dosepak and a Z-Kal. Patient had finished the course of antibiotics and steroids, and in view of progressive symptoms was then started on Levaquin and prednisone on 12/23/2021. Patient continued to have shortness of breath, productive cough with clear phlegm. He is a nonsmoker, he denies any hemoptysis, no chest pain, no swelling in the legs. No fever or chills, chest x-ray showed right pleural effusion and right lower lobe infiltrate and atelectasis slightly improved compared to the chest x- ray from 12/24/2019. Patient was started on azithromycin and Rocephin for empiric antibiotic coverage in the emergency department, breathing treatments and IV steroids, she was gently hydrated and remains on IV fluids with [place] significant a 75 ML per hour, blood cultures and sputum cultures have been ordered, sputum culture still pending. Lab evaluation showed CBC within normal limits with blood cell count is 9.7, hemoglobin is 13.4, electrolytes were within normal limits, there was evidence of acute kidney injury with BUN of 78 creatinine of 2.04, LFTs were within normal limits, troponin was negative 1 at less than 0.012, proBNP was 241, CRP was less than 0.5, COVID-19 PCR influenza A and B were negative Review of Systems All systems: negative Constitutional: Denies chills, Denies fever Eyes: denies blurred vision, denies pain Ears, nose, mouth and throat: Denies headache, Denies sore throat Cardiovascular: Denies chest pain, Denies shortness of breath Respiratory: Reports cough, Reports cough with sputum, Reports dyspnea Gastrointestinal: Denies abdominal pain, Denies diarrhea, Denies nausea, Denies vomiting Musculoskeletal: Denies myalgias Integumentary: Denies pruritus, Denies rash Neurological: Denies numbness, Denies weakness Psychiatric: Denies anxiety, Denies depression Endocrine: Denies fatigue, Denies weight change Past Medical History Past Medical History: COPD, Hypertension Additional Past Medical History / Comment(s): HX OF TIA, ESSENTIAL TREMORS, KIDNEY STONES, COPD CAUSED BY EXPOSURE TO CHLORINE. History of Any Multi-Drug Resistant Organisms: None Reported Past Surgical History: Cholecystectomy, Joint Replacement Additional Past Surgical History / Comment(s): COLONOSCOPY, [place] KNEE REPLACEMENT, PILONIDAL CYST. Past Anesthesia/Blood Transfusion Reactions: No Reported Reaction Past Psychological History: No Psychological Hx Reported Smoking Status: Never smoker Past Alcohol Use History: None Reported Additional Past Alcohol Use History / Comment(s): SMOKED FOR SHORT TIME IN [employer]. Past Drug Use History: None Reported - Past Family History Father Family Medical History: Cancer Additional Family Medical History / Comment(s): COLON CANCER Medications and Allergies Home Medications Medication Instructions Recorded Confirmed Type Verapamil HCl [Verapamil ER] 240 mg PO DAILY 04/16/14 12/31/21 History Propranolol HCl [Inderal Xl] 80 mg PO DAILY 02/19/19 12/31/21 History Albuterol Nebulized [Ventolin 2.5 mg INHALATION RT-TID PRN 12/31/21 12/31/21 History Nebulized] Fluticasone/Umeclidin/Vilanter 1 puff INHALATION RT-DAILY 12/31/21 12/31/21 History [Trelegy Ellipta 100-62.5-25] Furosemide [Lasix] 20 mg PO DAILY 12/31/21 12/31/21 History Levofloxacin [Levaquin] 500 mg PO DAILY 12/31/21 12/31/21 History lisinopriL [Zestril] 20 mg PO DAILY 12/31/21 12/31/21 History Allergies Allergy/AdvReac Type Severity Reaction Status Date / Time No Known Allergies Allergy Verified 12/31/21 23:07 Physical Exam Vitals: Vital Signs Temp Pulse Pulse Resp BP BP Pulse Ox 01/01/22 09:07 76 01/01/22 08:53 76 01/01/22 08:00 97.4 F L 78 129/81 98 01/01/22 02:00 97.8 F 62 18 117/71 97 12/31/21 23:24 97.9 F 61 15 101/63 94 L 12/31/21 21:49 72 15 132/86 98 12/31/21 21:44 68 12/31/21 21:34 61 12/31/21 20:40 97.7 F 67 16 97/51 98 Intake and Output 12/31/21 01/01/22 01/01/22 22:59 06:59 14:59 Intake Total 1649 296 Balance 1649 296 Intake: Intake, IV Titration 1649 Amount Sodium Chloride 0.9% 1, 600 000 ml @ 100 mls/hr IV . Q10H [facility] Rx#:[id number] Sodium Chloride 0.9% 500 999 ml 500 ml @ 999 mls/hr IV .Q31M [facility] Rx#:[id number] cefTRIAXone 2 gm In 50 Sodium Chloride 0.9% 50 ml @ 100 mls/hr IVPB ONCE STA Rx#:[id number] Oral 296 Other: Weight 95.708 kg 95.708 kg GENERAL EXAM: Alert, very pleasant, 76-year-old white male on room air with a pulse ox of 98% comfortable in no apparent distress. HEAD: Normocephalic/atraumatic. EYES: Normal reaction of pupils, equal size. Conjunctiva pink, sclera white. NOSE: Clear with pink turbinates. THROAT: No erythema or exudates. NECK: No masses, no JVD, no thyroid enlargement, no adenopathy. CHEST: No chest wall deformity. Symmetrical expansion. LUNGS: Equal air entry with congestive cough, scattered rhonchi CVS: Regular rate and rhythm, normal S1 and S2, no gallops, no murmurs, no rubs ABDOMEN: Soft, nontender. No hepatosplenomegaly, normal bowel sounds, no guarding or rigidity. EXTREMITIES: No clubbing, no edema, no cyanosis, 2+ pulses and upper and lower extremities. MUSCULOSKELETAL: Muscle strength and tone normal. SPINE: No scoliosis or deformity SKIN: No rashes CENTRAL NERVOUS SYSTEM: Alert and oriented -3. No focal deficits, tone is normal in all 4 extremities. PSYCHIATRIC: Alert and oriented -3. Appropriate affect. Intact judgment and insight. Results - Laboratory Findings CBC and BMP: 12/31/21 21:26 01/01/22 09:59 Abnormal lab findings: Abnormal Labs 12/31/21 01/01/22 21:26 09:59 BUN 78 H 66 H Creatinine 2.04 H 1.41 H Glucose 252 H - Diagnostic Findings Chest x-ray: report reviewed, image reviewed Additional studies: EKG reviewed Assessment and Plan Plan: Assessment: #1. Acute right lower lobe pneumonia, partially treated, with failure of outpatient treatment, possibly community acquired. #2. Right pleural effusion, and right basilar atelectasis related to the above #3. Acute kidney injury #4. History of COPD, moderately severe with FEV1 of 55% of predicted, stage III #5. Chronic bronchial asthma specified #6. Former smoking history and currently in remission #7. DJD #8. Previous history #9. Hypertension #10. Hyperlipidemia Plan: Continue azithromycin and Rocephin We'll obtain sputum culture Continue IV steroids, and nebulized bronchodilators Patient states he is ready 70% improved, feeling much better We'll continue current medical treatment I have personally seen and examined the patient, performed the documentation and the assessment and plan as written. Number of minutes spent on the visit: [15] Time with Patient: Greater than 30
[2022-01-01 12:41] LABS: Appearance,Urine Clear (Clear); Bilirubin,Urine Negative (Negative); Blood,Urine Negative (Negative); Color,Urine Yellow; Glucose,Urine (UA) Trace (Negative); Ketones,Urine Negative (Negative); Leukocyte Esterase,Urine Negative (Negative); Nitrite,Urine Negative (Negative); PH, Urine 5.5 (5.0-8.0); Protein,Urine Trace (Negative); Specific Gravity,Urine 1.024 (1.001-1.035); Urobilinogen,Urine <2.0 mg/dL (<2.0)
[2022-01-02] MEDS: SODIUM CHLORIDE 0.9% 1,000 ML IV SCH ×2 (07:47→14:30)
[2022-01-02] MEDS: SYMBICORT 80-4.5 MCG INHALER INHALATION SCH ×2 (08:10→19:24)
[2022-01-02] MEDS: IPRATROPIUM-ALBUTEROL 3 ML NEB INHALATION SCH ×4 (08:10→19:24)
[2022-01-02 08:22] LABS: ALT 16 U/L (4-49); AST 15 U/L (17-59); African American GFR (CKD) 75 (>60 ml/min/1.73 sqM); Albumin 3.3 g/dL (3.5-5.0); Albumin/Globulin Ratio 1.4; Alkaline Phosphatase 61 U/L (38-126); Anion Gap 4 mmol/L; Blood Urea Nitrogen 59 mg/dL (9-20); Calcium 8.8 mg/dL (8.4-10.2); Carbon Dioxide 25 mmol/L (22-30); Chloride 108 mmol/L (98-107); Globulin 2.3 g/dL; Glucose 138 mg/dL (74-99); Non-African American GFR(CKD) 65 (>60 ml/min/1.73 sqM); Potassium 4.8 mmol/L (3.5-5.1); Sodium 137 mmol/L (137-145); Total Bilirubin 0.4 mg/dL (0.2-1.3); Total Protein 5.6 g/dL (6.3-8.2)
[2022-01-02] MEDS: methylPREDNISolone SOD SUCCI 40 MG/ML 1 ML VIAL IV SCH (09:04)
[2022-01-02] MEDS: HEPARIN SODIUM,PORCINE/PF 5,000 UNIT/0.5 ML SYRINGE SQ SCH ×2 (09:05→20:08)
[2022-01-02] MEDS: AZITHROMYCIN 500 MG TAB PO SCH (09:05)
[2022-01-02] MEDS: PROPRANOLOL LA 80 MG CAP.SA.24H PO SCH (09:05)
[2022-01-02] MEDS: FAMOTIDINE 20 MG TAB PO SCH (09:05)
[2022-01-02] MEDS: VERAPAMIL SR 240 MG TABLET.ER PO SCH (09:05)
--- NOTE | 2022-01-02 10:30 | P.PN ---
Subjective Progress Note Date: 01/02/22 HISTORY OF PRESENT ILLNESS 76-year-old male one of Dr. Peters patient was seen Dr. Donnelly pulmonary for chronic COPD who has been on to relate she has an inhaler as rescue inhaler as well apparently has been sick for the last month was seen his primary care physician started him on Levaquin as last week chest x-ray and lab work done and was placed on diuretics his kidney function become much worse continue to have significant shortness of breath and dyspnea with worsening symptoms and was sent to the emergency department at [facility] was seen and evaluated surprisingly fo und to have his creatinine up to 2.0 and significant decline in GFR, chest x-ray showed significant infiltrate and scar tissue on the right side she was having inspiratory expiratory wheezes was diagnosed with COPD excessive patient with worsening kidney function time. Patient be treated with IV antibiotics. Pulmonary consultation will be done as well. 01/02: Kidney function is much better so far creatinine is almost down to its baseline, oxygenation has improved significantly, patient is able to tolerate his food and diet well, still on IV antibiotics for 1 more day. We'll continue hydration for the next 24 hours repeat another CMP by tomorrow and if patient is stable hopefully can be discharged home tomorrow. REVIEW OF SYSTEMS Constitutional: No fever, no chills, no night sweats. No weight change. Generalized weakness and fatigue with cough. EENT: No headache. No blurred vision or double vision, no loss of vision. No loss of Hearing, no ringing in the ears, no dizziness. No nasal drainage or congestion. No epistaxis. No sore throat. Lungs: Distant shortness of breath with cough wheezes. Cardiovascular: No chest pain, positive lower extremity edema.. No palpitations. No paroxysmal nocturnal dyspnea. No orthopnea. No lightheadedness or dizziness. No syncopal episodes. Abdominal: No abdominal pain. No nausea, vomiting. No diarrhea. No constipation. No bloody or tarry stools.. No loss of appetite. Genitourinary: No dysuria, increased frequency, urgency. A declining kidney function. Musculoskeletal: No myalgias. No muscle weakness, no gait dysfunction, no frequent falls. No back pain. No neck pain. Integumentary: No wounds, no lesions. No rash or pruritus. No unusual bruising. No change in hair or nails. Neurologic: No aphasia. No facial droop. No change in mentation. No head injury. No headache. No paralysis. No paresthesia. Psychiatric: No depression. No anxiety. No mood swings. Endocrine: No abnormal blood sugars. No weight change. No excessive sweating or thirst. No cold intolerance. PHYSICAL EXAMINATION Gen: This is an developed sitting in bed does not look in any respiratory distress. HEENT: Head is atraumatic, normocephalic. Pupils equal, round. Sclerae is anicteric. NECK: Supple. No JVD. No lymphadenopathy. No thyromegaly. LUNGS: Clear breath sounds bilaterally especially the right side positive fine rhonchi with mild crackles mild expiratory wheezes. HEART: Regular rate and rhythm. No murmur. ABDOMEN: Soft. Bowel sounds are present. No masses. No tenderness. EXTREMITIES: No pedal edema. No calf tenderness. NEUROLOGICAL: Patient is awake, alert and oriented x3. Cranial nerves 2 through 12 are grossly intact. ASSESSMENT AND PLAN - COPD exacerbation: Patient was hospitalized continue Solu-Medrol, O2, nebulizer management and antibiotics. He is much better with switch him probably to oral prednisone tomorrow morning. - Right lower lobe pneumonia: With failure to outpatient treatment, patient was switched to Rocephin and azithromycin continue current management if he is doing well might switch him to doxycycline going home when he is ready. Continue IV antibiotic for 1 more day. - Acute kidney injury most likely acute tubular necrosis his creatinine is almost down to its baseline continue hydration and encourage oral intake EC IV fluid by the end of the day today repeat CMP 1 more time tomorrow. - History of COPD: He seen Dr. Donnelly on regular basis has been on Trilogy and Ventolin. - Arrhythmia: Has been on verapamil and propranolol. - Essential tremor Giuseppe continue patient on propranolol for now. Discharge planning: Hopefully patient be able to go home tomorrow if his kidney function is good stable and all meds will be oral. Objective - Vital Signs Vital signs: Vital Signs Temp 97.5 F L 01/02/22 08:00 Pulse 78 01/02/22 08:22 Resp 16 01/02/22 09:04 BP 158/87 01/02/22 08:00 Pulse Ox 98 01/02/22 08:00 FiO2 Intake & Output 01/01/22 01/02/22 01/02/22 18:59 06:59 18:59 Intake Total 888 Output Total 449 Balance 439 Weight 95.708 kg Intake: Oral 888 Output: Urine 400 Post Void Residual 49 Other: Voiding Method Toilet Toilet Urinal Urinal # Voids 1 - Labs CBC & Chem 7: 12/31/21 21:26 01/02/22 06:46 Labs: Abnormal Lab Results - Last 24 Hours (Table) 01/01/22 01/01/22 01/02/22 Range/Units 09:59 11:30 06:46 Chloride 108 H (98-107) mmol/L BUN 66 H 59 H (9-20) mg/dL Creatinine 1.41 H (0.66-1.25) mg/dL Glucose 252 H 138 H (74-99) mg/dL AST 15 L (17-59) U/L Total Protein 5.6 L (6.3-8.2) g/dL Albumin 3.3 L (3.5-5.0) g/dL Urine Protein Trace H (Negative) Urine Glucose (UA) Trace H (Negative) Microbiology - Last 24 Hours (Table) 12/31/21 23:36 Blood Culture - Preliminary Blood No Growth after 24 hours 12/31/21 23:20 Blood Culture - Preliminary Blood No Growth after 24 hours
[2022-01-02 10:51] LABS: HCT 36.4 % (39.6-50.0); HGB 11.3 g/dL (13.0-17.0); MCH 27.6 pg (27.0-32.0); MCV 88.8 fL (80.0-97.0); Mean Platelet Volume 10.3 fL (9.5-12.2); NRBC Per 100 WBC 0 /100 WBCS (0.0-0.0); Platelet Count 187 X 10*3/uL (140-440); RDW 14.6 % (11.5-14.5); WBC 7.16 X 10*3/uL (4.50-10.00)
--- NOTE | 2022-01-02 10:57 | P.PN ---
Subjective Patient is seen in follow for acute kidney injury. Renal function improving. On IV fluids. Good urine output. Oral intake is good. Vital signs are stable. General: Awake. No acute distress. HEENT: Head exam is unremarkable. LUNGS: Breath sounds decreased. HEART: Rate and Rhythm are regular. ABDOMEN: Soft, no distention. EXTREMITITES: No edema. Objective - Vital Signs Vital signs: Vital Signs Temp 97.5 F L 01/02/22 08:00 Pulse 78 01/02/22 08:22 Resp 16 01/02/22 09:04 BP 158/87 01/02/22 08:00 Pulse Ox 98 01/02/22 08:00 FiO2 Intake & Output 01/01/22 01/02/22 01/02/22 18:59 06:59 18:59 Intake Total 888 Output Total 449 Balance 439 Weight 95.708 kg Intake: Oral 888 Output: Urine 400 Post Void Residual 49 Other: Voiding Method Toilet Toilet Urinal Urinal # Voids 1 - Labs CBC & Chem 7: 01/02/22 06:46 01/02/22 06:46 Labs: Abnormal Lab Results - Last 24 Hours (Table) 01/01/22 01/01/22 01/02/22 Range/Units 09:59 11:30 06:46 RBC 4.10 L (4.40-5.60) X 10*6/uL Hgb 11.3 L (13.0-17.0) g/dL Hct 36.4 L (39.6-50.0) % MCHC 31.0 L (32.0-37.0) g/dL RDW 14.6 H (11.5-14.5) % Chloride (98-107) mmol/L BUN 66 H (9-20) mg/dL Creatinine 1.41 H (0.66-1.25) mg/dL Glucose 252 H (74-99) mg/dL AST (17-59) U/L Total Protein (6.3-8.2) g/dL Albumin (3.5-5.0) g/dL Urine Protein Trace H (Negative) Urine Glucose (UA) Trace H (Negative) 01/02/22 Range/Units 06:46 RBC (4.40-5.60) X 10*6/uL Hgb (13.0-17.0) g/dL Hct (39.6-50.0) % MCHC (32.0-37.0) g/dL RDW (11.5-14.5) % Chloride 108 H (98-107) mmol/L BUN 59 H (9-20) mg/dL Creatinine (0.66-1.25) mg/dL Glucose 138 H (74-99) mg/dL AST 15 L (17-59) U/L Total Protein 5.6 L (6.3-8.2) g/dL Albumin 3.3 L (3.5-5.0) g/dL Urine Protein (Negative) Urine Glucose (UA) (Negative) Microbiology - Last 24 Hours (Table) 12/31/21 23:36 Blood Culture - Preliminary Blood No Growth after 24 hours 12/31/21 23:20 Blood Culture - Preliminary Blood No Growth after 24 hours Assessment and Plan Plan: Assessment: 1. Acute kidney injury mostly prerenal secondary to poor intake, lisinopril and Lasix. Creatinine 2.04 on admission and is down to 1.09 today. Baseline creatinine near 1. UA with trace protein. No hydronephrosis noted on kidney ultrasound. 2. COPD exacerbation with pneumonia. 3. Benign hypertension. Plan: Decrease rate of normal saline to 50 mL an hour. Avoid nephrotoxins. Continue to hold antihypertensives and diuretics. Lisinopril resumed as blood pressure is on the higher side. Continue to hold diuretics.
--- NOTE | 2022-01-02 12:14 | P.PN ---
Subjective Progress Note Date: 01/02/22 Principal diagnosis: Dyspnea, cough 76-year-old white male patient with past medical history of moderate COPD, with FEV1 of 55% of predicted, chronic bronchial asthma, unspecified, it hypertension, essential tremors, previous history of COVID-19 infection, hyperlipidemia, osteoarthritis who follows with Dr. Donnelly at the pulmonary clinic. Patient comes into the emergency department on 12/31/2021 with has been ongoing and progressive for the past month. Patient saw his primary care physician and was initially given a Medrol Dosepak and a Z-Kal. Patient had finished the course of antibiotics and steroids, and in view of progressive symptoms was then started on Levaquin and prednisone on 12/23/2021. Patient continued to have shortness of breath, productive cough with clear phlegm. He is a nonsmoker, he denies any hemoptysis, no chest pain, no swelling in the legs. No fever or chills, chest x-ray showed right pleural effusion and right lower lobe infiltrate and atelectasis slightly improved compared to the chest x- ray from 12/24/2019. Patient was started on azithromycin and Rocephin for empiric antibiotic coverage in the emergency department, breathing treatments and IV steroids, she was gently hydrated and remains on IV fluids with [place] significant a 75 ML per hour, blood cultures and sputum cultures have been ordered, sputum culture still pending. Lab evaluation showed CBC within normal limits with blood cell count is 9.7, hemoglobin is 13.4, electrolytes were within normal limits, there was evidence of acute kidney injury with BUN of 78 creatinine of 2.04, LFTs were within normal limits, troponin was negative 1 at less than 0.012, proBNP was 241, CRP was less than 0.5, COVID-19 PCR influenza A and B were negative On 01/02/2022 patient seen in follow-up on medical surgical floor. He states he is significantly improved since admission, vital signs are stable, room air pulse ox is 98%, he is afebrile. Breathing comfortably. Improving cough, and dyspnea. Remains on azithromycin and Rocephin. Blood cultures show no growth thus far, no sputum culture has been collected. Today's labs have been reviewed showing improving white count which is down to 7.16, hemoglobin of 11.3, sodium is 137, potassium is 4.8, chloride is 108, BUN is 59, creatinine is improving and is down to 1.09. Objective - Vital Signs Vital signs: Vital Signs Temp 97.5 F L 01/02/22 08:00 Pulse 78 01/02/22 08:22 Resp 16 01/02/22 09:04 BP 158/87 01/02/22 08:00 Pulse Ox 98 01/02/22 08:00 FiO2 Intake & Output 01/01/22 01/02/22 01/02/22 18:59 06:59 18:59 Intake Total 888 Output Total 449 Balance 439 Weight 95.708 kg Intake: Oral 888 Output: Urine 400 Post Void Residual 49 Other: Voiding Method Toilet Toilet Urinal Urinal # Voids 1 - Exam GENERAL EXAM: Alert, very pleasant, 76-year-old white male on room air with a pulse ox of 98% comfortable in no apparent distress. HEAD: Normocephalic/atraumatic. EYES: Normal reaction of pupils, equal size. Conjunctiva pink, sclera white. NOSE: Clear with pink turbinates. THROAT: No erythema or exudates. NECK: No masses, no JVD, no thyroid enlargement, no adenopathy. CHEST: No chest wall deformity. Symmetrical expansion. LUNGS: Equal air entry with congestive cough, scattered rhonchi CVS: Regular rate and rhythm, normal S1 and S2, no gallops, no murmurs, no rubs ABDOMEN: Soft, nontender. No hepatosplenomegaly, normal bowel sounds, no guarding or rigidity. EXTREMITIES: No clubbing, no edema, no cyanosis, 2+ pulses and upper and lower extremities. MUSCULOSKELETAL: Muscle strength and tone normal. SPINE: No scoliosis or deformity SKIN: No rashes CENTRAL NERVOUS SYSTEM: Alert and oriented -3. No focal deficits, tone is normal in all 4 extremities. PSYCHIATRIC: Alert and oriented -3. Appropriate affect. Intact judgment and insight. - Labs CBC & Chem 7: 01/02/22 06:46 01/02/22 06:46 Labs: Abnormal Lab Results - Last 24 Hours (Table) 01/01/22 01/02/22 01/02/22 Range/Units 11:30 06:46 06:46 RBC 4.10 L (4.40-5.60) X 10*6/uL Hgb 11.3 L (13.0-17.0) g/dL Hct 36.4 L (39.6-50.0) % MCHC 31.0 L (32.0-37.0) g/dL RDW 14.6 H (11.5-14.5) % Chloride 108 H (98-107) mmol/L BUN 59 H (9-20) mg/dL Glucose 138 H (74-99) mg/dL AST 15 L (17-59) U/L Total Protein 5.6 L (6.3-8.2) g/dL Albumin 3.3 L (3.5-5.0) g/dL Urine Protein Trace H (Negative) Urine Glucose (UA) Trace H (Negative) Microbiology - Last 24 Hours (Table) 12/31/21 23:36 Blood Culture - Preliminary Blood No Growth after 24 hours 12/31/21 23:20 Blood Culture - Preliminary Blood No Growth after 24 hours Assessment and Plan Plan: Assessment: #1. Acute right lower lobe pneumonia, partially treated, with failure of outpatient treatment, possibly community acquired. #2. Right pleural effusion, and right basilar atelectasis related to the above #3. Acute kidney injury #4. History of COPD, moderately severe with FEV1 of 55% of predicted, stage III #5. Chronic bronchial asthma specified #6. Former smoking history and currently in remission #7. DJD #8. Previous history #9. Hypertension #10. Hyperlipidemia Plan: Patient is improving Breathing much easier, Lung sounds are stable From pulmonary perspective patient could be considered for discharge home today to complete a course of antibiotics He will need to be seen on outpatient follow-up in one week with Dr. Sutton I have personally seen and examined the patient, performed the documentation and the assessment and plan as written. Number of minutes spent on the visit: [15] Time with Patient: Less than 30
[2022-01-03] MEDS: SYMBICORT 80-4.5 MCG INHALER INHALATION SCH ×2 (08:25→21:01)
[2022-01-03] MEDS: IPRATROPIUM-ALBUTEROL 3 ML NEB INHALATION SCH ×4 (08:25→21:01)
--- NOTE | 2022-01-03 08:32 | P.DS ---
Providers Date of admission: 12/31/21 23:05 Expected date of discharge: 01/03/22 Attending physician: Osman Ocasio Consults: 12/31/21 23:33 Consult Physician Urgent Consulting Provider: Javan Sutton Consult Reason/Comments: Pneumonia/COPD Do you want consulting provider notified?: Yes, Notify in am 12/31/21 23:34 Consult Physician Urgent Consulting Provider: Alex Ryan Consult Reason/Comments: Acute kidney injury Do you want consulting provider notified?: Yes Primary care physician: Brandon Peters [facility] Course: HISTORY OF PRESENT ILLNESS 76-year-old male one of Dr. Peters patient was seen Dr. Cony oquendo for chronic COPD who has been on to relate she has an inhaler as rescue inhaler as well apparently has been sick for the last month was seen his primary care physician started him on Levaquin as last week chest x-ray and lab work done and was placed on diuretics his kidney function become much worse continue to have significant shortness of breath and dyspnea with worsening symptoms and was sent to the emergency department at [facility] was seen and evaluated surprisingly found to have his creatinine up to 2.0 and significant decline in GFR, chest x- ray showed significant infiltrate and scar tissue on the right side she was having inspiratory expiratory wheezes was diagnosed with COPD excessive patient with worsening kidney function time. Patient be treated with IV antibiotics. Pulmonary consultation will be done as well. 01/02: Kidney function is much better so far creatinine is almost down to its baseline, oxygenation has improved significantly, patient is able to tolerate his food and diet well, still on IV antibiotics for 1 more day. We'll continue hydration for the next 24 hours repeat another CMP by tomorrow and if patient is stable hopefully can be discharged home tomorrow. 01/03: Patient denies any new complaints today. He has been cleared for discharge by pulmonary medicine. Repeat chest x-ray reveals stable right lower lobe infiltrate and pleural effusion. Patient has been afebrile, heart rate in the 70s, blood pressure 157/73, pulse ox 96% on room air. Repeat blood work reveals WBC 8.4, hemoglobin 12, platelet count 213. Electrolytes are normal. BUN 42 creatinine 1. Blood sugar 105. Liver function tests normal. Patient has also been followed by nephrology. Patient will be discharged home today in stable condition. DISCHARGE DIAGNOSES - COPD exacerbation - Right lower lobe pneumonia: With failure to outpatient treatment - Acute kidney injury most likely acute tubular necrosis - History of COPD - Arrhythmia - Essential tremor. Discharge planning: HOME Greater than 35 minutes was utilized and coordinating patient's discharge. Impression and plan of care have been directed as dictated by the signing physician. Katiana Parry nurse practitioner acting as scribe for signing physician. Patient Condition at Discharge: Good Plan - Discharge Summary New Discharge Prescriptions: New predniSONE 0 mg PO DIRECTED #10 tab Continue Verapamil HCl [Verapamil ER] 240 mg PO DAILY Propranolol HCl [Inderal Xl] 80 mg PO DAILY Levofloxacin [Levaquin] 500 mg PO DAILY #5 tab Albuterol Nebulized [Ventolin Nebulized] 2.5 mg INHALATION RT-TID PRN PRN Reason: Shortness Of Breath Fluticasone/Umeclidin/Vilanter [Trelegy Ellipta 100-62.5-25] 1 puff INHALATION RT-DAILY lisinopriL [Zestril] 20 mg PO DAILY Furosemide [Lasix] 20 mg PO DAILY #0 Discharge Medication List Verapamil HCl [Verapamil ER] 240 mg PO DAILY 04/16/14 [History] Propranolol HCl [Inderal Xl] 80 mg PO DAILY 02/19/19 [History] Albuterol Nebulized [Ventolin Nebulized] 2.5 mg INHALATION RT-TID PRN 12/31/21 [History] Fluticasone/Umeclidin/Vilanter [Trelegy Ellipta 100-62.5-25] 1 puff INHALATION RT-DAILY 12/31/21 [History] lisinopriL [Zestril] 20 mg PO DAILY 12/31/21 [History] Furosemide [Lasix] 20 mg PO DAILY #0 01/03/22 [Rx] Levofloxacin [Levaquin] 500 mg PO DAILY #5 tab 01/03/22 [Rx] predniSONE 0 mg PO DIRECTED #10 tab 01/03/22 [Rx] Follow up Appointment(s)/Referral(s): aSm Donnelly DO [Doctor of Osteopathic Medicine] - 02/08/22 10:30 am Brandon Peters DO [Primary Care Provider] - 01/13/22 9:45 am Discharge Disposition: HOME SELF-CARE
[2022-01-03] MEDS: lisinopriL 20 MG TAB PO SCH (08:38)
[2022-01-03] MEDS: predniSONE 20 MG TAB PO SCH (08:38)
[2022-01-03] MEDS: VERAPAMIL SR 240 MG TABLET.ER PO SCH (08:38)
[2022-01-03] MEDS: FAMOTIDINE 20 MG TAB PO SCH (08:38)
[2022-01-03] MEDS: PROPRANOLOL LA 80 MG CAP.SA.24H PO SCH (08:38)
[2022-01-03] MEDS: HEPARIN SODIUM,PORCINE/PF 5,000 UNIT/0.5 ML SYRINGE SQ SCH ×2 (08:39→20:14)
[2022-01-03 09:09] LABS: HCT 39.7 % (39.6-50.0); MCH 27.3 pg (27.0-32.0); MCHC 30.2 g/dL (32.0-37.0); MCV 90.4 fL (80.0-97.0); Mean Platelet Volume 10.4 fL (9.5-12.2); NRBC Per 100 WBC 0 /100 WBCS (0.0-0.0); Platelet Count 213 X 10*3/uL (140-440); RBC 4.39 X 10*6/uL (4.40-5.60); RDW 14.6 % (11.5-14.5); WBC 8.43 X 10*3/uL (4.50-10.00)
--- NOTE | 2022-01-03 09:12 | XR ---
EXAMINATION TYPE: XR chest 2V DATE OF EXAM: 01/03/2022 COMPARISON: 01/11/2022 TECHNIQUE: PA and lateral views submitted. HISTORY: Cough FINDINGS: Severe arthropathy of the shoulders with right lower lobe infiltrate and small effusion. Right apical pleural-based thickening. Left lung is clear. Heart size normal. Hypertrophic and degenerative jeff es of the spine. IMPRESSION: 1. Stable right lower lobe infiltrate and pleural effusion.
[2022-01-03 09:29] LABS: African American GFR (CKD) 85.6 (60.0-200.0); Albumin 3.7 g/dL (3.8-4.9); Albumin/Globulin Ratio 1.83 (1.60-3.17); Anion Gap 9.3 mmol/L (10.00-18.00); BUN/Creat Ratio 42.87 Ratio (12.00-20.00); Blood Urea Nitrogen 42.1 mg/dL (9.0-27.0); Calcium 9.3 mg/dL (8.7-10.3); Magnesium 2.2 mg/dL (1.5-2.4); Non-African American GFR(CKD) 73.9 (60.0-200.0); Potassium 5.1 mmol/L (3.5-5.5); Total Bilirubin 0.3 mg/dL (0.30-1.20); Total Protein 5.6 g/dL (6.2-8.2)
[2022-01-03] MEDS: SODIUM CHLORIDE 0.9% 1,000 ML IV SCH (11:53)
--- NOTE | 2022-01-03 12:34 | P.PN ---
Subjective Progress Note Date: 01/03/22 Principal diagnosis: Dyspnea, cough 76-year-old white male patient with past medical history of moderate COPD, with FEV1 of 55% of predicted, chronic bronchial asthma, unspecified, it hypertension, essential tremors, previous history of COVID-19 infection, hyperlipidemia, osteoarthritis who follows with Dr. Donnelly at the pulmonary clinic. Patient comes into the emergency department on 12/31/2021 with has been ongoing and progressive for the past month. Patient saw his primary care physician and was initially given a Medrol Dosepak and a Z-Kal. Patient had finished the course of antibiotics and steroids, and in view of progressive symptoms was then started on Levaquin and prednisone on 12/23/2021. Patient continued to have shortness of breath, productive cough with clear phlegm. He is a nonsmoker, he denies any hemoptysis, no chest pain, no swelling in the legs. No fever or chills, chest x-ray showed right pleural effusion and right lower lobe infiltrate and atelectasis slightly improved compared to the chest x- ray from 12/24/2019. Patient was started on azithromycin and Rocephin for empiric antibiotic coverage in the emergency department, breathing treatments and IV steroids, she was gently hydrated and remains on IV fluids with [place] significant a 75 ML per hour, blood cultures and sputum cultures have been ordered, sputum culture still pending. Lab evaluation showed CBC within normal limits with blood cell count is 9.7, hemoglobin is 13.4, electrolytes were within normal limits, there was evidence of acute kidney injury with BUN of 78 creatinine of 2.04, LFTs were within normal limits, troponin was negative 1 at less than 0.012, proBNP was 241, CRP was less than 0.5, COVID-19 PCR influenza A and B were negative On 01/02/2022 patient seen in follow-up on medical surgical floor. He states he is significantly improved since admission, vital signs are stable, room air pulse ox is 98%, he is afebrile. Breathing comfortably. Improving cough, and dyspnea. Remains on azithromycin and Rocephin. Blood cultures show no growth thus far, no sputum culture has been collected. Today's labs have been reviewed showing improving white count which is down to 7.16, hemoglobin of 11.3, sodium is 137, potassium is 4.8, chloride is 108, BUN is 59, creatinine is improving and is down to 1.09. On 01/03/2022 patient seen in follow-up on medical surgical floor. He is awake and alert, he is resting in bed, renal pulse ox is 96%, home oxygen assessment was completed and patient maintained O2 saturations above 95% on room air. Denies any worsening cough, no wheezing, no chest pain, he states he is significantly improved since admission. Today's labs have been reviewed as white blood cell count is 8.4, hemoglobin is 12.0, electrolytes are within normal limits, B1 is 42, creatinine is 1.0. Blood cultures have been negative, patient has been on a combination of azithromycin and Rocephin for community acquired pneumonia. He had already been partially treated on an outpatient basis, has received 4 more days worth of inpatient IV antibiotics. Clinically improved he is being discharged home today. Follow-up chest x-ray today showing stable right lower lobe infiltrate and pleural effusion. Objective - Vital Signs Vital signs: Vital Signs Temp 98.2 F 01/03/22 07:35 Pulse 73 01/03/22 08:34 Resp 18 01/03/22 07:35 BP 157/73 01/03/22 07:35 Pulse Ox 96 01/03/22 08:25 FiO2 21 01/03/22 08:25 Intake & Output 01/02/22 01/03/22 01/03/22 18:59 06:59 18:59 Intake Total 1080 Balance 1080 Intake: Oral 1080 Other: Voiding Method Toilet Toilet Urinal Urinal # Voids 1 - Exam GENERAL EXAM: Alert, very pleasant, 76-year-old white male on room air with a pulse ox of 98% comfortable in no apparent distress. HEAD: Normocephalic/atraumatic. EYES: Normal reaction of pupils, equal size. Conjunctiva pink, sclera white. NOSE: Clear with pink turbinates. THROAT: No erythema or exudates. NECK: No masses, no JVD, no thyroid enlargement, no adenopathy. CHEST: No chest wall deformity. Symmetrical expansion. LUNGS: Equal air entry with congestive cough, scattered rhonchi CVS: Regular rate and rhythm, normal S1 and S2, no gallops, no murmurs, no rubs ABDOMEN: Soft, nontender. No hepatosplenomegaly, normal bowel sounds, no guarding or rigidity. EXTREMITIES: No clubbing, no edema, no cyanosis, 2+ pulses and upper and lower extremities. MUSCULOSKELETAL: Muscle strength and tone normal. SPINE: No scoliosis or deformity SKIN: No rashes CENTRAL NERVOUS SYSTEM: Alert and oriented -3. No focal deficits, tone is normal in all 4 extremities. PSYCHIATRIC: Alert and oriented -3. Appropriate affect. Intact judgment and insight. - Labs CBC & Chem 7: 01/03/22 06:07 01/03/22 06:07 Labs: Abnormal Lab Results - Last 24 Hours (Table) 01/03/22 01/03/22 Range/Units 06:07 06:07 RBC 4.39 L (4.40-5.60) X 10*6/uL Hgb 12.0 L (13.0-17.0) g/dL MCHC 30.2 L (32.0-37.0) g/dL RDW 14.6 H (11.5-14.5) % Anion Gap 9.30 L (10.00-18.00) mmol/L BUN 42.1 H (9.0-27.0) mg/dL BUN/Creatinine Ratio 42.87 H (12.00-20.00) Ratio AST 12 L (14-35) U/L Total Protein 5.6 L (6.2-8.2) g/dL Albumin 3.7 L (3.8-4.9) g/dL Microbiology - Last 24 Hours (Table) 12/31/21 23:36 Blood Culture - Preliminary Blood No Growth after 48 hours 12/31/21 23:20 Blood Culture - Preliminary Blood No Growth after 48 hours Assessment and Plan Plan: Assessment: #1. Acute right lower lobe pneumonia, partially treated, with failure of outpatient treatment, possibly community acquired. #2. Right pleural effusion, and right basilar atelectasis related to the above #3. Acute kidney injury #4. History of COPD, moderately severe with FEV1 of 55% of predicted, stage III #5. Chronic bronchial asthma specified #6. Former smoking history and currently in remission #7. DJD #8. Previous history #9. Hypertension #10. Hyperlipidemia Plan: Clinical patient continues to improve No acute events overnight Home oxygen assessment was completed and patient does not need home oxygen to go home on From pulmonary perspective patient is stable for discharge home Outpatient follow-up with Dr. Donnelly in the office in one week Patient can complete a course of oral Levaquin for 5 more days Patient can complete prednisone taper and continue on his Trelegy Ellipta inhaler and nebulized albuterol I have personally seen and examined the patient, performed the documentation and the assessment and plan as written. Number of minutes spent on the visit: [15] Time with Patient: Less than 30
[2022-01-04] MEDS: SODIUM CHLORIDE 0.9% 1,000 ML IV SCH ×2 (04:37→09:49)
[2022-01-04 07:45] VITALS: BP 173/91; RESP 18; TEMP 97.6
[2022-01-04] MEDS ORDERED: VERAPAMIL SR 180 MG TABLET.ER PO SCH (09:00)
[2022-01-04] MEDS: IPRATROPIUM-ALBUTEROL 3 ML NEB INHALATION SCH ×2 (09:10→12:18)
[2022-01-04] MEDS: SYMBICORT 80-4.5 MCG INHALER INHALATION SCH (09:10)
[2022-01-04 09:20] VITALS: PULSE 60
[2022-01-04] MEDS: FAMOTIDINE 20 MG TAB PO SCH (09:58)
[2022-01-04] MEDS: lisinopriL 20 MG TAB PO SCH (09:58)
[2022-01-04] MEDS: HEPARIN SODIUM,PORCINE/PF 5,000 UNIT/0.5 ML SYRINGE SQ SCH (09:59)
[2022-01-04] MEDS: predniSONE 20 MG TAB PO SCH (09:59)
--- NOTE | 2022-01-04 10:34 | P.CRDCN ---
History of Present Illness History of present illness: HISTORY OF PRESENTING ILLNESS This is a pleasant 76-year-old male past medical history significant for hypertension, asymptomatic mild carotid artery stenosis, hyperlipidemia, asthma, COPD, PVCs, paroxysmal atrial fibrillation (was on Xarelto outpatient in the past however, patient denies history of A fib). He follows in the office with Dr. Rangel. We have been asked to see in consultation for bradycardia. patient is only present to the hospital on 12/31/2021 with complaints of shortness of breath, wheezing, productive cough with clear phlegm. Patient was diagnosed with acute right lower lobe pneumonia and has been treated. On 01/03, cardiology was consulted for bradycardia that was documented in the chart vital signs. Patient was not placed on telemetry, no telemetry to review. He denies any chest pain, palpitations, lightheadedness or dizziness. He is feeling better since admis consuelo. Patient's heart rates have been documented in the 60s this morning. Yesterday with documentation of 58-60 Heart rates. DIAGNOSTICS EKG on admission revealed sinus rhythm, heart rate 63, right bundle branch block. No acute ischemia noted. Patient is not on telemetry to review Chest xray right lower lobe infiltrate, pleural effusion. Laboratory reviewed, sodium 139, potassium 5.1, BUN 42, serum creatinine 1.0, magnesium 2.2, WBC 8.4, hemoglobin 12, platelets 213 Current listed home cardiac medications include lisinopril 20 mg daily, verapamil 240 mg daily, propranolol 80 mg daily, Lasix 20 mg daily REVIEW OF SYSTEMS At the time of my exam: CONSTITUTIONAL: Denies fever or chills. CARDIOVASCULAR: Denies chest pain, +shortness of breath, Denies orthopnea, PND or palpitations. RESPIRATORY: +cough. +wheezing GASTROINTESTINAL: Denies abdominal pain, diarrhea, constipation, nausea or vomiting. MUSCULOSKELETAL: Denies myalgias. NEUROLOGIC: Denies numbness, tingling, headacbe or weakness. ENDOCRINE: Denies fatigue, weight change, polydipsia or polyurina. GENITOURINARY: Denies burning, hematuria or urgency with micturation. HEMATOLOGIC: Denies history of anemia or bleeding. PHYSICAL EXAMINATION Blood pressure 173/91, heart rate 60, afebrile, oxygen saturation is 90% room air CONSTITUTIONAL: No apparent distress. HEENT: Head is normocephalic. Pupils are equal, round. Sclerae anicteric. Mucous membranes of the mouth are moist. No JVD. No carotid bruit. CHEST EXAMINATION: Lungs are diminished bilaterally to auscultation. No chest wall tenderness is noted on palpation or with deep breathing. HEART EXAMINATION: Regular rate and rhythm. S1, S2 heard. No murmurs, gallops or rub. ABDOMEN: Soft, nontender. Positive bowel sounds. EXTREMITIES: 2+ peripheral pulses, no lower extremity edema and no calf tenderness. NEUROLOGIC EXAMINATION: Patient is awake, alert and oriented x3. ASSESSMENT Right lower lobe pneumonia Hypertension History mild carotid artery stenosis Hyperlipidemia Asthma COPD History of PVCs History of Paroxysmal atrial fibrillation (was on Xarelto outpatient in the past however, patient denies history of A fib) PLAN No telemetry to review, patient is asymptomatic, documented HR 48-60s in the chart, no repeat EKG present, no rhythm strips to review Recommend repeat EKG, if stable, no further inpatient workup from a cardiology perspective and discharge per primary and clearance from other consultants Patient stated he had Eliquis and Xarelto at home, possibly related to coverage and transitioning to another anticoagulation secondary to expense. Will review with pharmacy and recommend restarting one anticoagulation. Follow up outpatient with Dr. Rangel. Nurse practitioner note has been reviewed by physician. Signing provider agrees with the documented findings, assessment, and plan of care. Past Medical History Past Medical History: COPD, Hypertension Additional Past Medical History / Comment(s): HX OF TIA, ESSENTIAL TREMORS, KIDNEY STONES, COPD CAUSED BY EXPOSURE TO CHLORINE. History of Any Multi-Drug Resistant Organisms: None Reported Past Surgical History: Cholecystectomy, Joint Replacement Additional Past Surgical History / Comment(s): COLONOSCOPY, [place] KNEE REPLACEMENT, PILONIDAL CYST. Past Anesthesia/Blood Transfusion Reactions: No Reported Reaction Past Psychological History: No Psychological Hx Reported Smoking Status: Never smoker Past Alcohol Use History: None Reported Additional Past Alcohol Use History / Comment(s): SMOKED FOR SHORT TIME IN THE [employer]. Past Drug Use History: None Reported - Past Family History Father Family Medical History: Cancer Additional Family Medical History / Comment(s): COLON CANCER Medications and Allergies Home Medications Medication Instructions Recorded Confirmed Type Verapamil HCl [Verapamil ER] 240 mg PO DAILY 04/16/14 12/31/21 History Propranolol HCl [Inderal Xl] 80 mg PO DAILY 02/19/19 12/31/21 History Albuterol Nebulized [Ventolin 2.5 mg INHALATION RT-TID PRN 12/31/21 12/31/21 History Nebulized] Fluticasone/Umeclidin/Vilanter 1 puff INHALATION RT-DAILY 12/31/21 12/31/21 History [Trelegy Ellipta 100-62.5-25] lisinopriL [Zestril] 20 mg PO DAILY 12/31/21 12/31/21 History Furosemide [Lasix] 20 mg PO DAILY #0 01/03/22 12/31/21 Rx predniSONE 0 mg PO DIRECTED #10 tab 01/03/22 Rx Doxycycline Hyclate 100 mg PO BID 5 Days #10 tab 01/04/22 Rx Allergies Allergy/AdvReac Type Severity Reaction Status Date / Time No Known Allergies Allergy Verified 12/31/21 23:07 Physical Exam Vitals: Vital Signs Temp Pulse Pulse Resp BP Pulse Ox FiO2 01/04/22 09:19 60 01/04/22 09:11 61 97 21 01/04/22 07:35 97.6 F 53 L 18 173/91 98 01/04/22 01:58 98.2 F 53 L 20 133/70 93 L 01/03/22 21:13 60 01/03/22 21:02 60 01/03/22 20:14 60 01/03/22 19:49 97.6 F 59 L 16 145/80 95 01/03/22 16:26 58 L 01/03/22 16:17 60 01/03/22 13:47 98.0 F 48 L 17 116/73 97 01/03/22 13:35 57 L 109/69 Intake and Output 01/03/22 01/04/22 01/04/22 22:59 06:59 14:59 Other: Voiding Method Toilet Toilet Urinal Urinal # Voids 1 2 # Bowel Movements 1 Results 01/03/22 06:07 01/03/22 06:07 Current Medications Generic Name Dose Route Start Last Admin Trade Name Freq PRN Reason Stop Dose Admin Acetaminophen 650 mg 12/31/21 22:56 01/03/22 08:47 Acetaminophen Tab 325 Mg Tab PO 650 mg Q4HR PRN Administration Fever and/ or Pain Albuterol Sulfate 2.5 mg 12/31/21 22:56 Albuterol Nebulized 2.5 Mg/3 Ml INHALATION Q2H PRN Shortness Of Breath Or Wheezing Albuterol Sulfate 2.5 mg 01/01/22 06:00 Albuterol Nebulized 2.5 Mg/3 Ml INHALATION RT-TID PRN Shortness Of Breath Albuterol/Ipratropium 3 ml 01/01/22 08:00 01/04/22 09:10 Ipratropium-Albuterol 3 Ml Neb INHALATION 3 ml RT-QID MIR Administration Budesonide/Formoterol Fumarate 2 puff 01/01/22 08:00 01/04/22 09:10 Symbicort 80-4.5 Mcg Inhaler INHALATION 2 puff RT-BID MIR Administration Famotidine 20 mg 01/02/22 09:00 01/04/22 09:58 Famotidine 20 Mg Tab PO 20 mg DAILY MIR Administration Heparin Sodium (Porcine) 5,000 unit 01/01/22 09:00 01/04/22 09:59 Heparin Sodium,Porcine/Pf 5,000 Unit/0.5 Ml Syringe SQ 5,000 unit Q12HR MIR Administration Sodium Chloride 1,000 mls @ 50 mls/hr 12/31/21 23:45 01/04/22 09:49 Saline 0.9% IV 50 mls/hr .Q20H MIR Administration Ceftriaxone Sodium 1 gm/ 50 mls @ 100 mls/hr 01/01/22 10:00 01/04/22 09:49 Sodium Chloride IVPB 100 mls/hr Q24HR MIR Administration Protocol Lisinopril 20 mg 01/03/22 09:00 01/04/22 09:58 Lisinopril 20 Mg Tab PO 20 mg DAILY MIR Administration Miscellaneous Information 1 each 12/31/21 22:56 Pneumonia Protocol Utilized 1 Each Misc PO ONCE PRN Per Protocol Prednisone 20 mg 01/03/22 09:00 01/04/22 09:59 Prednisone 20 Mg Tab PO 20 mg DAILY MIR Administration Verapamil HCl 180 mg 01/04/22 09:00 01/04/22 09:58 Verapamil Sr 180 Mg Tablet.Er PO 180 mg DAILY MIR Administration Intake and Output 01/03/22 01/04/22 01/04/22 22:59 06:59 14:59 Other: Voiding Method Toilet Toilet Urinal Urinal # Voids 1 2 # Bowel Movements 1 01/03/22 06:07 01/03/22 06:07
--- NOTE | 2022-01-04 11:03 | P.PN ---
Subjective Progress Note Date: 01/03/22 HISTORY OF PRESENT ILLNESS 76-year-old male one of Dr. Peters patient was seen Dr. Donnelly pulmonary for chronic COPD who has been on to relate she has an inhaler as rescue inhaler as well apparently has been sick for the last month was seen his primary care physician started him on Levaquin as last week chest x-ray and lab work done and was placed on diuretics his kidney function become much worse continue to have significant shortness of breath and dyspnea with worsening symptoms and was sent to the emergency department at [facility] was seen and evaluated surprisingly fo und to have his creatinine up to 2.0 and significant decline in GFR, chest x-ray showed significant infiltrate and scar tissue on the right side she was having inspiratory expiratory wheezes was diagnosed with COPD excessive patient with worsening kidney function time. Patient be treated with IV antibiotics. Pulmonary consultation will be done as well. 01/02: Kidney function is much better so far creatinine is almost down to its baseline, oxygenation has improved significantly, patient is able to tolerate his food and diet well, still on IV antibiotics for 1 more day. We'll continue hydration for the next 24 hours repeat another CMP by tomorrow and if patient is stable hopefully can be discharged home tomorrow. 01/03: Patient denies any new complaints today. He has been cleared for dis charge by pulmonary medicine. Repeat chest x-ray reveals stable right lower lobe infiltrate and pleural effusion. Patient has been afebrile, heart rate in the 70s, blood pressure 157/73, pulse ox 96% on room air. Repeat blood work reveals WBC 8.4, hemoglobin 12, platelet count 213. Electrolytes are normal. BUN 42 creatinine 1. Blood sugar 105. Liver function tests normal. Patient has also been followed by nephrology. Patient was prepared for discharge but later the afternoon, he had lightheadedness, bradycardia and hypotension. Inderal was discontinued and verapamil decreased in dosing and cardiology consult was requested. REVIEW OF SYSTEMS Constitutional: No fever, no chills, no night sweats. No weight change. Generalized weakness and fatigue with cough. EENT: No headache. No blurred vision or double vision, no loss of vision. No loss of Hearing, no ringing in the ears, no dizziness. No nasal drainage or congestion. No epistaxis. No sore throat. Lungs: Distant shortness of breath with cough wheezes. Cardiovascular: No chest pain, positive lower extremity edema.. No palpitations. No paroxysmal nocturnal dyspnea. No orthopnea. No ligh theadedness or dizziness. No syncopal episodes. Abdominal: No abdominal pain. No nausea, vomiting. No diarrhea. No constipation. No bloody or tarry stools.. No loss of appetite. Genitourinary: No dysuria, increased frequency, urgency. A declining kidney function. Musculoskeletal: No myalgias. No muscle weakness, no gait dysfunction, no frequent falls. No back pain. No neck pain. Integumentary: No wounds, no lesions. No rash or pruritus. No unusual bruising. No change in hair or nails. Neurologic: No aphasia. No facial droop. No change in mentation. No head injury. No headache. No paralysis. No paresthesia. Psychiatric: No depression. No anxiety. No mood swings. Endocrine: No abnormal blood sugars. No weight change. No excessive sweating or thirst. No cold intolerance. PHYSICAL EXAMINATION Gen: This is an developed sitting in bed does not look in any respiratory distress. HEENT: Head is atraumatic, normocephalic. Pupils equal, round. Sclerae is anicteric. NECK: Supple. No JVD. No lymphadenopathy. No thyromegaly. LUNGS: Clear breath sounds bilaterally especially the right side positive fine rhonchi with mild crackles mild expiratory wheezes. HEART: Regular rate and rhythm. No murmur. ABDOMEN: Soft. Bowel sounds are present. No masses. No tenderness. EXTREMITIES: No pedal edema. No calf tenderness. NEUROLOGICAL: Patient is awake, alert and oriented x3. Cranial nerves 2 through 12 are grossly intact. ASSESSMENT AND PLAN - COPD exacerbation: Patient was hospitalized continue Solu-Medrol, O2, nebulize r management and antibiotics, oral prednisone. - Right lower lobe pneumonia: With failure to outpatient treatment, patient was switched to Rocephin and azithromycin continue current management if he is doing well might switch him to doxycycline going home when he is ready. Continue IV antibiotic for 1 more day. - Acute kidney injury most likely acute tubular necrosis his creatinine is almost down to its baseline continue hydration and encourage oral intake. - History of COPD: He seen Dr. Donnelly on regular basis has been on Trilogy and Ventolin. - Arrhythmia: Has been on verapamil and propranolol. - Essential tremor Giuseppe continue patient on propranolol for now. Discharge planning: Hopefully patient be able to go home tomorrow if his kidney function is good stable and all meds will be oral. Impression and plan of care have been directed as dictated by the signing physician. Katiana Parry nurse practitioner acting as scribe for signing physician. Objective - Vital Signs Vital signs: Vital Signs Temp 97.6 F 01/04/22 07:35 Pulse 53 L 01/04/22 07:35 Resp 18 01/04/22 07:35 BP 173/91 01/04/22 07:35 Pulse Ox 98 01/04/22 07:35 FiO2 21 01/03/22 08:25 Intake & Output 01/03/22 01/04/22 01/04/22 18:59 06:59 18:59 Other: Voiding Method Toilet Toilet Toilet Urinal Urinal Urinal # Voids 4 2 # Bowel Movements 1 - Labs CBC & Chem 7: 01/03/22 06:07 01/03/22 06:07 Labs: Abnormal Lab Results - Last 24 Hours (Table) 01/03/22 01/03/22 Range/Units 06:07 06:07 RBC 4.39 L (4.40-5.60) X 10*6/uL Hgb 12.0 L (13.0-17.0) g/dL MCHC 30.2 L (32.0-37.0) g/dL RDW 14.6 H (11.5-14.5) % Anion Gap 9.30 L (10.00-18.00) mmol/L BUN 42.1 H (9.0-27.0) mg/dL BUN/Creatinine Ratio 42.87 H (12.00-20.00) Ratio AST 12 L (14-35) U/L Total Protein 5.6 L (6.2-8.2) g/dL Albumin 3.7 L (3.8-4.9) g/dL Microbiology - Last 24 Hours (Table) 12/31/21 23:36 Blood Culture - Preliminary Blood No Growth after 72 hours 12/31/21 23:20 Blood Culture - Preliminary Blood No Growth after 72 hours
--- NOTE | 2022-01-04 11:09 | P.DS ---
Providers Date of admission: 12/31/21 23:05 Expected date of discharge: 01/04/22 Attending physician: Osman Ocasio Consults: 12/31/21 23:33 Consult Physician Urgent Consulting Provider: Javan Sutton Consult Reason/Comments: Pneumonia/COPD Do you want consulting provider notified?: Yes, Notify in am 12/31/21 23:34 Consult Physician Urgent Consulting Provider: Alex Ryan Consult Reason/Comments: Acute kidney injury Do you want consulting provider notified?: Yes 01/03/22 15:53 Consult Physician Routine Consulting Provider: David Rojo Consult Reason/Comments: bradycardia Do you want consulting provider notified?: Yes Primary care physician: Brandon Peters [facility] Course: HISTORY OF PRESENT ILLNESS 76-year-old male one of Dr. Peters patient was seen Dr. Cony oquendo for chronic COPD who has been on to relate she has an inhaler as rescue inhaler as well apparently has been sick for the last month was seen his primary care physician started him on Levaquin as last week chest x-ray and lab work done and was placed on diuretics his kidney function become much worse continue to have significant shortness of breath and dyspnea with worsening symptoms and was sent to the emergency department at [facility] was seen and evaluated surprisingly found to have his creatinine up to 2.0 and significant decline in GFR, chest x-r ay showed significant infiltrate and scar tissue on the right side she was having inspiratory expiratory wheezes was diagnosed with COPD excessive patient with worsening kidney function time. Patient be treated with IV antibiotics. Pulmonary consultation will be done as well. 01/02: Kidney function is much better so far creatinine is almost down to its baseline, oxygenation has improved significantly, patient is able to tolerate his food and diet well, still on IV antibiotics for 1 more day. We'll continue hydration for the next 24 hours repeat another CMP by tomorrow and if patient is stable hopefully can be discharged home tomorrow. 01/03: Patient denies any new complaints today. He has been cleared for discharge by pulmonary medicine. Repeat chest x-ray reveals stable right lower lobe infiltrate and pleural effusion. Patient has been afebrile, heart rate in the 70s, blood pressure 157/73, pulse ox 96% on room air. Repeat blood work reveals WBC 8.4, hemoglobin 12, platelet count 213. Electrolytes are normal. BUN 42 creatinine 1. Blood sugar 105. Liver function tests normal. Patient has also been followed by nephrology. Patient was prepared for discharge but later the afternoon, he had lightheadedness, bradycardia and hypotension. Inderal was discontinued and verapamil decreased in dosing and cardiology consult was requested. 01/04: Patient denies any new concerns. He states he is anxious to be discharged home. Family concerned about Levaquin at discharge as they were told his kidney failure was due to Levaquin. We will change the patient's discharge antibiotics to doxycycline. Patient has been afebrile, heart rate in the 60s, blood pressure 173/91, pulse ox 90% on room air. Cardiology recommended starting the patient on eliquis or Xarelto and follow-up with Dr. Rangel. DISCHARGE DIAGNOSES - COPD exacerbation - Right lower lobe pneumonia: With failure to outpatient treatment - Acute kidney injury most likely acute tubular necrosis - History of COPD - Arrhythmia - Essential tremor. -Bradycardia Discharge planning: HOME Greater than 35 minutes was utilized and coordinating patient's discharge. Impression and plan of care have been directed as dictated by the signing physician. Katiana Parry nurse practitioner acting as scribe for signing physician. Patient Condition at Discharge: Good Plan - Discharge Summary New Discharge Prescriptions: New predniSONE 0 mg PO DIRECTED #10 tab Doxycycline Hyclate 100 mg PO BID 5 Days #10 tab Verapamil Sr [Isoptin Sr] 180 mg PO DAILY #30 tab Continue Albuterol Nebulized [Ventolin Nebulized] 2.5 mg INHALATION RT-TID PRN PRN Reason: Shortness Of Breath Fluticasone/Umeclidin/Vilanter [Trelegy Ellipta 100-62.5-25] 1 puff INHALATION RT-DAILY lisinopriL [Zestril] 20 mg PO DAILY Furosemide [Lasix] 20 mg PO DAILY #0 Discontinued Verapamil HCl [Verapamil ER] 240 mg PO DAILY Propranolol HCl [Inderal Xl] 80 mg PO DAILY Levofloxacin [Levaquin] 500 mg PO DAILY Discharge Medication List Albuterol Nebulized [Ventolin Nebulized] 2.5 mg INHALATION RT-TID PRN 12/31/21 [History] Fluticasone/Umeclidin/Vilanter [Trelegy Ellipta 100-62.5-25] 1 puff INHALATION RT-DAILY 12/31/21 [History] lisinopriL [Zestril] 20 mg PO DAILY 12/31/21 [History] Furosemide [Lasix] 20 mg PO DAILY #0 01/03/22 [Rx] predniSONE 0 mg PO DIRECTED #10 tab 01/03/22 [Rx] Doxycycline Hyclate 100 mg PO BID 5 Days #10 tab 01/04/22 [Rx] Verapamil Sr [Isoptin Sr] 180 mg PO DAILY #30 tab 01/04/22 [Rx] Follow up Appointment(s)/Referral(s): Angel Rangel DO [STAFF PHYSICIAN] - 1 Week Sam Donnelly DO [Doctor of Osteopathic Medicine] - 02/08/22 10:30 am Brandon Peters DO [Primary Care Provider] - 01/13/22 9:45 am Activity/Diet/Wound Care/Special Instructions: Resume anticoagulation with either Eliquis or Xarelto but NOT both. Discharge Disposition: HOME SELF-CARE
--- NOTE | 2022-01-04 12:39 | P.PN ---
Subjective Progress Note Date: 01/04/22 Principal diagnosis: Shortness of breath. 76-year-old white male patient with past medical history of moderate COPD, with FEV1 of 55% of predicted, chronic bronchial asthma, unspecified, it hypertension, essential tremors, previous history of COVID-19 infection, hyperlipidemia, osteoarthritis who follows with Dr. Donnelly at the pulmonary clinic. Patient comes into the emergency department on 12/31/2021 with has been ongoing and progressive for the past month. Patient saw his primary care physician and was initially given a Medrol Dosepak and a Z-Kal. Patient had finished the course of antibiotics and steroids, and in view of progressive symptoms was then started on Levaquin and prednisone on 12/23/2021. Patient continued to have shortness of breath, productive cough with clear phlegm. He is a nonsmoker, he denies any hemoptysis, no chest pain, no swelling in the l egs. No fever or chills, chest x-ray showed right pleural effusion and right lower lobe infiltrate and atelectasis slightly improved compared to the chest x- ray from 12/24/2019. Patient was started on azithromycin and Rocephin for empiric antibiotic coverage in the emergency department, breathing treatments and IV steroids, she was gently hydrated and remains on IV fluids with [place] significant a 75 ML per hour, blood cultures and sputum cultures have been ordered, sputum culture still pending. Lab evaluation showed CBC within normal limits with blood cell count is 9.7, hemoglobin is 13.4, electrolytes were within normal limits, there was evidence of acute kidney injury with BUN of 78 creatinine of 2.04, LFTs were within normal limits, troponin was negative 1 at less than 0.012, proBNP was 241, CRP was less than 0.5, COVID-19 PCR influenza A and B were negative On 01/02/2022 patient seen in follow-up on medical surgical floor. He states he is significantly improved since admission, vital signs are stable, room air pulse ox is 98%, he is afebrile. Breathing comfortably. Improving cough, and dyspnea. Remains on azithromycin and Rocephin. Blood cultures show no growth thus far, no sputum culture has been collected. Today's labs have been reviewed showing improving white count which is down to 7.16, hemoglobin of 11.3, sodium is 137, potassium is 4.8, chloride is 108, BUN is 59, creatinine is improving and is down to 1.09. On 01/03/2022 patient seen in follow-up on medical surgical floor. He is awake and alert, he is resting in bed, renal pulse ox is 96%, home oxygen assessment was completed and patient maintained O2 saturations above 95% on room air. Denies any worsening cough, no wheezing, no chest pain, he states he is significantly improved since admission. Today's labs have been reviewed as white blood cell count is 8.4, hemoglobin is 12.0, electrolytes are within normal limits, B1 is 42, creatinine is 1.0. Blood cultures have been negative, patient has been on a combination of azithromycin and Rocephin for community acquired pneumonia. He had already been partially treated on an outpatient basis, has received 4 more days worth of inpatient IV antibiotics. Clinically improved he is being discharged home today. Follow-up chest x-ray today showing stable right lower lobe infiltrate and pleural effusion. Progress note dated 01/04/2022. Patient's doing well. We thought he would be discharged yesterday. Apparently had some issues with high blood pressure. The patient's currently getting an EKG. He is on no supplemental oxygen. He got saline at 50 mL an hour. The patient has no complaints today. No new labs today. Chest x-ray from January 03 shows a stable infiltrate, in the right lower lobe. Objective - Vital Signs Vital signs: Vital Signs Temp 97.6 F 01/04/22 07:35 Pulse 60 01/04/22 09:19 Resp 18 01/04/22 07:35 BP 173/91 01/04/22 07:35 Pulse Ox 97 01/04/22 09:11 FiO2 21 01/04/22 09:11 Intake & Output 01/03/22 01/04/22 01/04/22 18:59 06:59 18:59 Other: Voiding Method Toilet Toilet Toilet Urinal Urinal Urinal # Voids 4 2 # Bowel Movements 1 - Exam No acute distress, oriented 3. No supplemental oxygen. HEENT examination is grossly unremarkable. Neck supple. Full range of motion. No adenopathy thyromegaly or neck vein distention. Cardiovascular examination reveals regular rhythm rate. S1-S2 normal. No S3 or S4. No discernible murmur noted. Heart rate 60 bpm. Lungs reveal clear breath sounds. Breath sounds are equal bilaterally. No adventitious lung sounds including wheezes rhonchi or crackles. Abdomen soft bowel sounds are heard. No masses or tenderness. Extremities are intact. No cyanosis clubbing or edema. Skin is without rash or lesion. Neurologic examination is brief but nonfocal. - Labs CBC & Chem 7: 01/03/22 06:07 01/03/22 06:07 Labs: Microbiology - Last 24 Hours (Table) 12/31/21 23:36 Blood Culture - Preliminary Blood No Growth after 72 hours 12/31/21 23:20 Blood Culture - Preliminary Blood No Growth after 72 hours Assessment and Plan Assessment: Acute right lower lobe pneumonia, improved clinically. Small right-sided pleural effusion and right basilar atelectasis. Acute kidney injury. History of moderately severe COPD, with an FEV1 that is 55% predicted, stage II disease. History of asthma. Prior history of tobacco use. History of degenerative joint disease. History of hypertension. History of hyperlipidemia. Plan: Plan dated 01/04/2022. The patient is likely to be discharged today. He will see me in the office, over the next week to 10 days. Clinically, the patient looks very well. He is getting an EKG today. He is not requiring any supplemental oxygen. No new labs today. Previous x-rays are reviewed. Time with Patient: Less than 30
--- NOTE | 2022-01-04 14:15 | P.PN ---
Subjective Patient is seen for follow-up for acute kidney injury. Renal function has improved with creatinine down to 1.0 from 2.0 on initial admission. Patient is actually being discharged today No significant complaints. Objective - Vital Signs Vital signs: Vital Signs Temp 97.6 F 01/04/22 07:35 Pulse 60 01/04/22 09:19 Resp 18 01/04/22 07:35 BP 173/91 01/04/22 07:35 Pulse Ox 97 01/04/22 09:11 FiO2 21 01/04/22 09:11 Intake & Output 01/03/22 01/04/22 01/04/22 18:59 06:59 18:59 Other: Voiding Method Toilet Toilet Toilet Urinal Urinal Urinal # Voids 4 2 # Bowel Movements 1 - Exam Awake comfortable Alert oriented 3 No distress Patient is euvolemic No evidence of edema noted Abdomen is soft nontender - Labs CBC & Chem 7: 01/03/22 06:07 01/03/22 06:07 Labs: Microbiology - Last 24 Hours (Table) 12/31/21 23:36 Blood Culture - Preliminary Blood No Growth after 72 hours 12/31/21 23:20 Blood Culture - Preliminary Blood No Growth after 72 hours Assessment and Plan Assessment: 1. Acute kidney injury mostly prerenal. Currently improved. UA showed trace protein no evidence of obstruction noted on ultrasound of the kidneys 2. COPD exacerbation with pneumonia 3. Benign hypertension Plan: Patient can be discharged from nephrology standpoint Continue with ESTUARDO inhibitor's Monitor volume status as outpatient to resume loop diuretics if needed.
== END 2022-01-04 14:50 | disposition home or self-care (01) | DRG 193 ==
LOC: EC 20:31 → 4SSUR 23:05
PROVIDERS: ADMIT Internal Medicine Geriatric Medicine; ATTEND Internal Medicine Geriatric Medicine
DX: J18.9 Pneumonia, unspecified organism (principal); N17.0 Acute kidney failure with tubular necrosis; J44.0 Chronic obstructive pulmonary disease with (acute) lower respiratory infection; J44.1 Chronic obstructive pulmonary disease with (acute) exacerbation; J90 Pleural effusion, not elsewhere classified; J98.11 Atelectasis; J44.9 Chronic obstructive pulmonary disease, unspecified; J45.998 Other asthma; M19.90 Unspecified osteoarthritis, unspecified site; I49.3 Ventricular premature depolarization; I65.29 Occlusion and stenosis of unspecified carotid artery; T36.8X5A Adverse effect of other systemic antibiotics, initial encounter; I48.0 Paroxysmal atrial fibrillation; I45.10 Unspecified right bundle-branch block; E78.5 Hyperlipidemia, unspecified; G25.0 Essential tremor; I10 Essential (primary) hypertension; Z20.822 Contact with and (suspected) exposure to COVID-19; Z79.899 Other long term (current) drug therapy; Z86.16 Personal history of COVID-19; Z86.73 Personal history of transient ischemic attack (TIA), and cerebral infarction without residual deficits; Z87.442 Personal history of urinary calculi; Z87.891 Personal history of nicotine dependence; Z96.653 Presence of artificial knee joint, bilateral; Z77.098 Contact with and (suspected) exposure to other hazardous, chiefly nonmedicinal, chemicals
CPT/HCPCS: 36415; 71046; 76770; 80048; 80053; 81003; 83735; 83880; 84484; 85025; 85027; 86140; 87040; 87502; 87635; 93005; 94640; 94760; 96365; 96375; 99285

== ENCOUNTER → 2022-01-18 | Outpatient (CLI) | payer MEDICARE ==
--- NOTE | 2022-01-18 13:15 | XR ---
EXAMINATION TYPE: XR chest 2V DATE OF EXAM: 01/18/2022 COMPARISON: Chest x-ray 01/03/2022 HISTORY: Shortness of breath, cough TECHNIQUE: Frontal and lateral views of the chest are obtained. FINDINGS: Abnormal density at the right lung base is again seen, the right hemidiaphragm and heart b order obscured. There is pleural thickening as noted on prior exam within the right hemithorax. Left lung is spared. Aorta is dense. No evident pneumothorax. Arthropathy noted within the shoulders. IMPRESSION: Findings are suspicious for progression of right-sided pleural effusion, difficult to ex clude underlying mass, follow-up is recommended following therapy, consider chest CT as indicated
== END | disposition home or self-care (01) ==
LOC: RADXRMAIN 12:27
PROVIDERS: ATTEND Internal Medicine
DX: J90 Pleural effusion, not elsewhere classified (principal)
CPT/HCPCS: 71046

== ENCOUNTER → 2022-01-20 | Outpatient (CLI) | payer MEDICARE ==
--- NOTE | 2022-01-20 11:55 | CT ---
EXAMINATION TYPE: CT chest w con DATE OF EXAM: 01/20/2022 COMPARISON: Chest x-ray 01/18/2022 HISTORY: abnormal lung todd CT DLP: 543 mGycm, Automated exposure control for dose reduction was used. CONTRAST: Performed injected with 70 mL of Isovue 300. TECHNIQUE: Axial images were obtained at 5 mm thick sections. Reconstructed images are reviewed on [employer] computer in the coronal plane. FINDINGS: Portion of the thyroid visualized is normal. There is a moderate right pleural effusion. There is a punctate nodule within the right midlung measu ring 0.5 cm. Series 4 image 28r there may be some compressive atelectasis in the infrahilar region. There is a 2.1 cm pretracheal lymph node. Additional superior mediastinal adenopathy is present. 1.1 cm. Some right hilar adenopathy likely present 0.4 cm. Subcarinal adenopathy measuring 1.2 cm may be present. The ascending aorta diameter at the level of the main pulmonary artery is 4.1 cm. The main pulmonary artery diameter at the bifurcation is 3.[address] sections are obtained through the upper abdomen. There may be some vague hypodensity withi n the liver. Metastatic disease is not excluded. This may be at the right lobe apex measuring 3.2 cm within the right anterior upper lobe 2.0 cm. Dedicated imaging of the liver with ultrasound or CT co uld be performed for additional delineation. IMPRESSIONS: 1. Moderate size right pleural effusion. Underlying masses are not excluded. 2. There may be some compressive atelectasis in the infrahilar region adjacent to the pleural effusio n. 3. 0.5 cm nodule within the right mid lung. 4. Enlarged lymphadenopathy suspicious for metastatic disease. 5. There may be hypodensity may be within the liver. Underlying metastases should be considered.
== END | disposition home or self-care (01) ==
LOC: RADCTMAIN 10:02
PROVIDERS: ATTEND Internal Medicine Critical Care Medicine
DX: J90 Pleural effusion, not elsewhere classified (principal); R91.8 Other nonspecific abnormal finding of lung field
CPT/HCPCS: 82565; 84520; 71260; 36415; Q9967

== ENCOUNTER 2022-01-27 11:51 | Day surgery (SDC) | payer MEDICARE ==
[~2022-01-27 11:51] MED LIST: ALBUTEROL NEB (CONC) 2.5 MG/0.5 ML INHALATION ONE; ATROPINE SULFATE 0.4 MG/ML 1 ML VIAL IM ONE; LACTATED RINGERS 1,000 ML IV SCH; LIDOCAINE 2% (PF) 20 MG/ML 5 ML VIAL INHALATION ONE; LIDOCAINE VISCOUS 300 MG/15 ML CUP MUCOUS MEM ONE
[2022-01-27] MEDS ORDERED: LACTATED RINGERS 1,000 ML IV ONE (12:08)
[2022-01-27 12:19] VITALS: TEMP 97
[2022-01-27 12:40] LABS: Glucose,Whole Blood 108 mg/dL (70-110)
[2022-01-27] MEDS ORDERED: PROPOFOL 10 MG/ML 20 ML VIAL IV ONE (12:40)
[2022-01-27] MEDS ORDERED: LIDOCAINE 2% INJ 20 MG/ML (2 ML VIAL) ONE (12:40)
[2022-01-27] MEDS ORDERED: LIDOCAINE 2% INJ 20 MG/ML INTRATRACH ONE ×2 (12:45)
[2022-01-27 13:43] VITALS: RESP 16
[2022-01-27 15:15] VITALS: BP 112/55; PULSE 70
--- NOTE | 2022-01-27 22:39 | PCN ---
PROCEDURE NOTE This is a Pulmonary/Critical Care procedure note. PRE-PROCEDURE DIAGNOSES:: 1. Recurrent pneumonia. 2. Shortness of breath. 3. Cough with phlegm production. POST PROCEDURE DIAGNOSES:: 1. Recurrent pneumonia. 2. Shortness of breath. 3. Cough with phlegm production. PROCEDURES:: Bronchoscopy, airway examination, therapeutic lavage, bronchoalveolar lavage. PROCEDURE:: There was informed consent and universal time-out. The nurse dairy bacteriologist Hernan Villalpando CRNA provided the general anesthesia. The patient's procedure took place in room #1. The procedure was bronchoscopy, airway examination, therapeutic lavage, and BAL. In addition, there was endobronchial biopsies to the oblique iris and brushes to the oblique iris. After the patient was adequately sedated and being fully monitored, the bronchoscope was inserted through the right nostril. It passed through the right nasopharynx into the oropharynx. The hypopharynx was identified. The hypopharyngeal structures appeared normal. This included anterior commissure, true cords, false cords, arytenoids, piriform sinuses, right and left vallecula, and epiglottis. Next, the glottic opening was topicalized. The bronchoscope was pushed through the glottic opening into the trachea. The trachea appeared completely normal. The tracheal iris was sharp. The left mainstem was topicalized. The left upper lobe and its 2 segments, the lingula and its 2 segments, and then the left lower lobe and its 4 segments were evaluated. The airways were mildly erythematous. There were scant secretions. There was no dominant mass or tumor. There was no bleeding. The airways for the most part looked completely normal. On the right side, interestingly, the oblique iris which separates the upper lobe from the bronchus intermedius appeared thickened and erythematous to me. The right upper lobe itself looked relatively normal. There were some secretions noted in the right middle lobe and right lower lobe. They were purulent. They were suctioned. The bronchoscope was wedged into the right middle lobe. The BAL took place. Both segments of the right middle lobe appeared otherwise normal. The right lower lobe and its 5 segments also appeared normal as did the right upper lobe proper. We went back to the oblique iris, which separates the right upper lobe from the bronchus intermedius. We did brushes and endobronchial biopsy. Six or seven specimens were obtained. The patient tolerated the procedure well. The bronchoscope was withdrawn and the patient will be recovered. I did talk to the patient's son-in-law after the procedure and gave him an update. The patient was taken to Recovery. FRED / ANDRE: [id number] / MTDD
[2022-01-28 02:18] LABS: Appearance,BF Slightly Cloudy
== END 2022-01-27 15:23 | disposition home or self-care (01) ==
LOC: ORWHC2ENDO 11:51
PROVIDERS: ATTEND Internal Medicine Critical Care Medicine
DX: C34.01 Malignant neoplasm of right main bronchus (principal); J18.9 Pneumonia, unspecified organism; J44.9 Chronic obstructive pulmonary disease, unspecified; I10 Essential (primary) hypertension; G47.33 Obstructive sleep apnea (adult) (pediatric); E78.5 Hyperlipidemia, unspecified; M19.90 Unspecified osteoarthritis, unspecified site; Z87.891 Personal history of nicotine dependence; Z86.73 Personal history of transient ischemic attack (TIA), and cerebral infarction without residual deficits; Z90.49 Acquired absence of other specified parts of digestive tract; Z79.899 Other long term (current) drug therapy; Z79.51 Long term (current) use of inhaled steroids; Z79.01 Long term (current) use of anticoagulants; Z80.0 Family history of malignant neoplasm of digestive organs; Z86.16 Personal history of COVID-19
CPT/HCPCS: 87798 ×3; 87496; 87498; 87529; 88104; 88108; 88305; 89050; 88342; 87252; 87502; 87634; 88341; 87070; 87205; 87116; 87102; 87206; 31625; 31623; 31624; J2001 ×2; J2704

== ENCOUNTER 2022-02-01 21:20 | Inpatient (IN) | payer MEDICARE ==
[2022-02-02] MEDS ORDERED: methylPREDNISolone SOD SUCCI 125 MG/2 ML VIAL IV STA (00:06)
[2022-02-02] MEDS ORDERED: SODIUM CHLORIDE 0.9% 1,000 ML IV STA (00:06)
[2022-02-02] MEDS ORDERED: IPRATROPIUM-ALBUTEROL 3 ML NEB INHALATION STA ×2 (00:06→03:00)
--- NOTE | 2022-02-02 00:07 | ED ---
SOB HPI - General Chief Complaint: Shortness of Breath Stated Complaint: MALVIN Time Seen by Provider: 02/02/22 00:05 Source: patient Mode of arrival: wheelchair Limitations: no limitations - Related Data Home Medications Medication Instructions Recorded Confirmed Albuterol Nebulized [Ventolin 2.5 mg INHALATION RT-TID PRN 12/31/21 01/27/22 Nebulized] Fluticasone/Umeclidin/Vilanter 1 puff INHALATION RT-DAILY 12/31/21 01/27/22 [Trelegy Ellipta 100-62.5-25] lisinopriL [Zestril] 40 mg PO DAILY 12/31/21 01/27/22 Rivaroxaban [Xarelto] 20 mg PO DAILY 01/26/22 01/27/22 Allergies Allergy/AdvReac Type Severity Reaction Status Date / Time No Known Allergies Allergy Verified 02/01/22 21:26 Review of Systems ROS Statement: Those systems with pertinent positive or pertinent negative responses have been documented in the HPI. ROS Other: All systems not noted in ROS Statement are negative. Past Medical History Past Medical History: COPD, Hypertension Additional Past Medical History / Comment(s): HX OF TIA, ESSENTIAL TREMORS, KIDNEY STONES, COPD CAUSED BY EXPOSURE TO CHLORINE. increased wheezing and SOB. recent hospitalization for pneumoia with kidney issues. History of Any Multi-Drug Resistant Organisms: None Reported Past Surgical History: Cholecystectomy, Joint Replacement Additional Past Surgical History / Comment(s): COLONOSCOPY, [place] KNEE REPLACEMENT, PILONIDAL CYST. Past Anesthesia/Blood Transfusion Reactions: No Reported Reaction Additional Past Anesthesia/Blood Transfusion Reaction / Comment(s): no blood transfusion Past Psychological History: No Psychological Hx Reported Smoking Status: Former smoker - Past Family History Father Family Medical History: Cancer Additional Family Medical History / Comment(s): COLON CANCER General Exam Limitations: no limitations Course Vital Signs 02/01/22 02/02/22 02/02/22 21:23 00:11 00:51 Temperature 99.4 F Pulse Rate 91 Respiratory 32 H 28 H Rate Blood Pressure 162/92 O2 Sat by Pulse 97 96 Oximetry 02/02/22 02/02/22 02/02/22 00:59 01:17 01:46 Temperature Pulse Rate 92 92 93 Respiratory 24 Rate Blood Pressure O2 Sat by Pulse Oximetry 02/02/22 02/02/22 02:15 02:38 Temperature Pulse Rate 84 Respiratory 22 Rate Blood Pressure 151/81 O2 Sat by Pulse 97 97 Oximetry Medical Decision Making - Lab Data Result diagrams: 02/02/22 00:09 02/02/22 00:09 Lab Results 02/02/22 02/02/22 02/02/22 Range/Units 00:09 00:09 00:09 WBC 6.8 (3.8-10.6) k/uL RBC 4.62 (4.30-5.90) m/uL Hgb 13.0 (13.0-17.5) gm/dL Hct 40.5 (39.0-53.0) % MCV 87.7 (80.0-100.0) fL MCH 28.1 (25.0-35.0) pg MCHC 32.1 (31.0-37.0) g/dL RDW 15.1 (11.5-15.5) % Plt Count 241 (150-450) k/uL MPV 7.4 Neutrophils % 68 % Lymphocytes % 21 % Monocytes % 7 % Eosinophils % 1 % Basophils % 1 % Neutrophils # 4.6 (1.3-7.7) k/uL Lymphocytes # 1.5 (1.0-4.8) k/uL Monocytes # 0.5 (0-1.0) k/uL Eosinophils # 0.0 (0-0.7) k/uL Basophils # 0.0 (0-0.2) k/uL PT 11.0 (9.0-12.0) sec INR 1.0 (<1.2) APTT 26.0 (22.0-30.0) sec Sodium 135 L (137-145) mmol/L Potassium 3.9 (3.5-5.1) mmol/L Chloride 95 L (98-107) mmol/L Carbon Dioxide 26 (22-30) mmol/L Anion Gap 14 mmol/L BUN 23 H (9-20) mg/dL Creatinine 0.75 (0.66-1.25) mg/dL Est GFR (CKD-EPI)AfAm >90 (>60 ml/min/1.73 sqM) Est GFR (CKD-EPI)NonAf 89 (>60 ml/min/1.73 sqM) Glucose 112 H (74-99) mg/dL Plasma Lactic Acid Jorge Luis (0.7-2.0) mmol/L Calcium 9.6 (8.4-10.2) mg/dL Magnesium 1.9 (1.6-2.3) mg/dL Total Bilirubin 0.9 (0.2-1.3) mg/dL AST 27 (17-59) U/L ALT 27 (4-49) U/L Alkaline Phosphatase 148 H (38-126) U/L Troponin I (0.000-0.034) ng/mL NT-Pro-B Natriuret Pep pg/mL Total Protein 6.5 (6.3-8.2) g/dL Albumin 4.0 (3.5-5.0) g/dL 02/02/22 02/02/22 02/02/22 Range/Units 00:09 00:09 00:09 WBC (3.8-10.6) k/uL RBC (4.30-5.90) m/uL Hgb (13.0-17.5) gm/dL Hct (39.0-53.0) % MCV (80.0-100.0) fL MCH (25.0-35.0) pg MCHC (31.0-37.0) g/dL RDW (11.5-15.5) % Plt Count (150-450) k/uL MPV Neutrophils % % Lymphocytes % % Monocytes % % Eosinophils % % Basophils % % Neutrophils # (1.3-7.7) k/uL Lymphocytes # (1.0-4.8) k/uL Monocytes # (0-1.0) k/uL Eosinophils # (0-0.7) k/uL Basophils # (0-0.2) k/uL PT (9.0-12.0) sec INR (<1.2) APTT (22.0-30.0) sec Sodium (137-145) mmol/L Potassium (3.5-5.1) mmol/L Chloride (98-107) mmol/L Carbon Dioxide (22-30) mmol/L Anion Gap mmol/L BUN (9-20) mg/dL Creatinine (0.66-1.25) mg/dL Est GFR (CKD-EPI)AfAm (>60 ml/min/1.73 sqM) Est GFR (CKD-EPI)NonAf (>60 ml/min/1.73 sqM) Glucose (74-99) mg/dL Plasma Lactic Acid Jorge Luis 1.4 (0.7-2.0) mmol/L Calcium (8.4-10.2) mg/dL Magnesium (1.6-2.3) mg/dL Total Bilirubin (0.2-1.3) mg/dL AST (17-59) U/L ALT (4-49) U/L Alkaline Phosphatase (38-126) U/L Troponin I 0.058 H* (0.000-0.034) ng/mL NT-Pro-B Natriuret Pep 296 pg/mL Total Protein (6.3-8.2) g/dL Albumin (3.5-5.0) g/dL - EKG Data -: EKG Interpreted by Me (EKG is sinus rhythm 88 IN 175 QRS 449 QTc 440) Disposition Clinical Impression: Acute exacerbation of chronic obstructive airways disease, Community acquired pneumonia Disposition: ADMITTED IP TO THIS HOSP Condition: Fair Is patient prescribed a controlled substance at d/c from ED?: No Referrals: Brandon Peters DO [Primary Care Provider] - 1-2 days
--- NOTE | 2022-02-02 00:41 | XR ---
EXAMINATION TYPE: XR chest 1V portable DATE OF EXAM: 02/02/2022 COMPARISON: 01/18/2022 HISTORY: Short of breath TECHNIQUE: FINDINGS: There is extensive opacification of the right hemithorax with consolidation and large right pleural effusion. There is probably also some atelectasis in the right lung base. Left lung is relat ively clear. No heart failure. No heart failure. There is osteoarthritis at the shoulder joints. IMPRESSION: There is consolidation and pleural fluid and atelectasis in the right lower lobe which is slightly worse than last exam.
[2022-02-02 00:45] LABS: Basophils % (A) 1 %; Eosinophils % (A) 1 %; HCT 40.5 % (39.0-53.0); Lymphocytes # (A) 1.5 k/uL (1.0-4.8); Lymphocytes % (A) 21 %; MCH 28.1 pg (25.0-35.0); MCHC 32.1 g/dL (31.0-37.0); MCV 87.7 fL (80.0-100.0); Mean Platelet Volume 7.4; Monocytes # (A) 0.5 k/uL (0-1.0); Monocytes % (A) 7 %; Neutrophils # (A) 4.6 k/uL (1.3-7.7); Neutrophils % (A) 68 %; Platelet Count 241 k/uL (150-450); RBC 4.62 m/uL (4.30-5.90); RDW 15.1 % (11.5-15.5); WBC 6.8 k/uL (3.8-10.6)
[2022-02-02 01:09] LABS: ALT 27 U/L (4-49); AST 27 U/L (17-59); African American GFR (CKD) >90 (>60 ml/min/1.73 sqM); Alkaline Phosphatase 148 U/L (38-126); Anion Gap 14 mmol/L; Blood Urea Nitrogen 23 mg/dL (9-20); Calcium 9.6 mg/dL (8.4-10.2); Carbon Dioxide 26 mmol/L (22-30); Chloride 95 mmol/L (98-107); Glucose 112 mg/dL (74-99); Magnesium 1.9 mg/dL (1.6-2.3); Non-African American GFR(CKD) 89 (>60 ml/min/1.73 sqM); Potassium 3.9 mmol/L (3.5-5.1); Sodium 135 mmol/L (137-145); Total Bilirubin 0.9 mg/dL (0.2-1.3); Total Protein 6.5 g/dL (6.3-8.2)
[2022-02-02] MEDS ORDERED: ALBUTEROL NEBULIZED 2.5 MG/3 ML INHALATION PRN (03:00)
[2022-02-02] MEDS ORDERED: PNEUMONIA PROTOCOL UTILIZED 1 EACH MISC PO PRN (03:00)
[2022-02-02] MEDS ORDERED: AZITHROMYCIN 500 MG in SODIUM CHLORIDE 0.9% 250 ML IVPB STA (03:00)
[2022-02-02] MEDS ORDERED: MORPHINE SULFATE 4 MG/ML SYRINGE IVP STA (03:15)
[2022-02-02] MEDS ORDERED: MORPHINE SULFATE 4 MG/ML SYRINGE IV PRN (03:15)
[2022-02-02] MEDS: SODIUM CHLORIDE 0.9% 1,000 ML IV SCH ×3 (04:00→23:52)
[2022-02-02] MEDS ORDERED: RIVAROXABAN 20 MG TAB PO SCH (10:30)
[2022-02-02] MEDS ORDERED: RX INFO: IV CONTRAST WAS GIVEN 1 EACH MISC MISCELLANE PRN (10:39)
[2022-02-02] MEDS: lisinopriL 20 MG TAB PO SCH (11:25)
[2022-02-02] MEDS ORDERED: PROPRANOLOL 40 MG TAB PO STA (11:45)
--- NOTE | 2022-02-02 12:58 | CT ---
EXAMINATION TYPE: CT chest w con CT DLP: 387.4 mGycm, Automated exposure control for dose reduction was used. DATE OF EXAM: 02/02/2022 11:57 AM COMPARISON: CT chest 01/20/2022. CLINICAL INDICATION:Male, 76 years old with history of shortness of breath; TECHNIQUE: Multiple axial images were obtained through the chest following the administration of 100 cc of Isovue 300. Oral sagittal reformats reviewed. FINDINGS: LUNGS/ PLEURA: Marginal increase in right moderate to large pleural effusion. There is associated ate lectasis with near complete collapse of the right middle lower lobes. Minimal atelectasis of the ling emerald. Otherwise left lung is relatively clear. Previously seen nodule in the right midlung is no longe r visualized likely due to atelectasis. No pneumothorax. AIRWAY: Patent and unremarkable.. HEART: Size within normal limits. No pericardial effusion. Coronary artery calcifications. Aortic amanda vular calcifications. MEDIASTINUM: Stable precarinal lymph node measuring up to 2.3 cm (series 201, image 21). Stable subca rinal left measuring 1.5 cm short axis (series 201, image 31). Additional prominent to enlarged right paratracheal lymph nodes redemonstrated. Enlarged right hilar lymph node measuring up to 1.8 cm (ser ies 21, image 28). VASCULATURE: No aortic aneurysm. MUSCULOSKELETAL: Multiple sclerotic osseous lesions are demonstrated within the visualized thoracic a nd lumbar vertebral bodies. Some demonstrate erosive lytic appearance. Examples include a sclerotic 1 .3 centimeter lesion within the T9 vertebral body, the T4 vertebral bodies completely sclerotic. Matt tional lytic heterogenous sclerotic and lytic lesion involving the T12 vertebral body. Numerous small er lesions identified within the vertebral bodies. Mild disc degeneration changes are present through out the thoracolumbar spine. No acute osseous adenopathy. Bilateral shoulder arthropathy. SOFT TISSUES/LYMPH NODES: No axillary lymphadenopathy. LOWER NECK: No significant findings. UPPER ABDOMEN: Redemonstration of ill-defined subtle hypoattenuating lesions within the right hepatic lobe measuring 1.9 and 4.9 cm (series 21, image 59 hand 55). IMPRESSION: 1. Marginal increase in size of moderate to large right pleural effusion with associated atelectasis. Underlying masses are not excluded. 2. Enlarged mediastinal and right hilar lymph nodes concerning for metastasis. 3. Redemonstration of at least 2 ill-defined hypoattenuating lesions within the right hepatic lobe co ncerning for metastasis. 4. Multiple sclerotic and lytic osseous lesions demonstrated within the visualized thoracolumbar spin e concerning for metastasis.
--- NOTE | 2022-02-02 15:00 | P.CNPUL ---
History of Present Illness Consult date: 02/02/22 Reason for consult: dyspnea, pleural effusion History of present illness: This is a 76-year-old male patient came into the emergency department again for worsening shortness of breath and an abnormal chest x-ray. This patient has been having difficulty since beginning of December 2021. The patient has moderately severe COPD with an FEV1 of 55% of predicted. The patient has had also history of hypertension previous history of COVID 19 infection in addition to hyperlipidemia and previous history of TIA and hypertension. The patient was in the hospital back in 01/01/2022 Time the patient had a right lower lobe consolidation and a small right-sided pleural effusion. Pneumonia was suspected with parapneumonic effusion. Note that the patient was treated on outpatient basis prior to him coming to the hospital with a combination of Z-Kal and a Medrol Dosepak. Accordingly, the patient was started on broad-spectrum antibiotics. He was given a combination of Rocephin and Zithromax and the patient was also treated with IV Solu-Medrol. Note that his influenza screen was negative, COVID 19 screen was negative and the patient discharged home on 01/04/2022 with doxycycline and prednisone burst taper. The patient subsequently was seen in the office and the patient was having shortness of breath and the patient underwent a bronchoscopy on 01/27/2022 and the bronchioloalveolar lavage from the right lower lobe showed no microbial growth. The patient however continued to be short of breath and today he was seen in consultation for ongoing respiratory difficulties. I reviewed a series of chest x-rays done during the previous admission and the patient obviously has a right lower lobe consolidation and the parapneumonic effusion a nd a CAT scan of the chest was also done on 01/20/2022 that showed a moderate- sized right-sided pleural effusion and some compressive atelectasis of the right infrahilar region. The patient had B-cell lymphadenopathy around 2.1 cm and the pretracheal area, in addition to that there was superior mediastinal lymphadenopathy measuring 1.1 cm and the patient also had a right hilar adenopathy measuring 4 mm subcarinal lymphadenopathy measuring 1.2 cm in size. His most current blood work shows a white second of 6.8, normal renal function with a creatinine of 0.75, troponin was 0.058 and a proBNP level is 296. He is currently on oxygen at 2 L with a pulse ox of 94%. Review of Systems Constitutional: Reports fatigue, Reports weakness Eyes: denies as per HPI, denies blurred vision, denies bulging eye, denies decreased vision, denies diplopia, denies discharge, denies dry eye, denies irritation, denies itching, denies pain, denies photophobia, denies loss of peripheral vision, denies loss of vision, denies tunnel vision/blind spots Ears: deny: decreased hearing, ear discharge, earache, tinnitus Ears, nose, mouth and throat: Reports as per HPI Breasts: absent: as per HPI, gynecomastia Cardiovascular: Reports decreased exercise tolerance, Reports dyspnea on exertion Respiratory: Reports dyspnea, Reports sleep apnea, Reports wheezing Gastrointestinal: Reports as per HPI Genitourinary: Reports as per HPI, Reports hematuria Musculoskeletal: absent: ankle pain, ankle stiffness, ankle swelling, as per HPI, elbow pain, elbow stiffness, elbow swelling, foot pain, foot stiffness, foot swelling, hand pain, hand stiffness, hand swelling, hip pain, hip stiffness, hip swelling, knee pain, knee stiffness, knee swelling, shoulder pain, shoulder stiffness, shoulder swelling, wrist pain, wrist stiffness, wrist swelling Integumentary: Reports as per HPI Neurological: Reports as per HPI Psychiatric: Reports as per HPI Endocrine: Reports as per HPI Hematologic/Lymphatic: Reports as per HPI Allergic/Immunologic: Reports as per HPI Past Medical History Past Medical History: COPD, Hypertension, Sleep Apnea/CPAP/BIPAP (severe SCOTT , AHI 52) Additional Past Medical History / Comment(s): HX OF TIA, ESSENTIAL TREMORS, KIDNEY STONES, COPD CAUSED BY EXPOSURE TO CHLORINE. increased wheezing and SOB. recent hospitalization for pneumoia with kidney issues. History of Any Multi-Drug Resistant Organisms: None Reported Past Surgical History: Cholecystectomy, Joint Replacement Additional Past Surgical History / Comment(s): COLONOSCOPY, [place] KNEE REPLACEMENT, PILONIDAL CYST. Past Anesthesia/Blood Transfusion Reactions: No Reported Reaction Additional Past Anesthesia/Blood Transfusion Reaction / Comment(s): no blood transfusion Past Psychological History: No Psychological Hx Reported Smoking Status: Former smoker Past Alcohol Use History: None Reported Additional Past Alcohol Use History / Comment(s): SMOKED FOR SHORT TIME IN THE [employer]. Past Drug Use History: None Reported - Past Family History Father Family Medical History: Cancer Additional Family Medical History / Comment(s): COLON CANCER Medications and Allergies Home Medications Medication Instructions Recorded Confirmed Type Albuterol Nebulized [Ventolin 2.5 mg INHALATION RT-TID PRN 12/31/21 02/02/22 History Nebulized] Fluticasone/Umeclidin/Vilanter 1 puff INHALATION RT-DAILY 12/31/21 02/02/22 History [Trelechantel Ellipta 100-62.5-25] lisinopriL [Zestril] 40 mg PO DAILY 12/31/21 02/02/22 History Rivaroxaban [Xarelto] 20 mg PO DAILY 01/26/22 02/02/22 History Acetaminophen [Tylenol] 650 mg PO DAILY 02/02/22 02/02/22 History Atorvastatin [Lipitor] 10 mg PO DAILY 02/02/22 02/02/22 History Ciprofloxacin HCl 500 mg PO BID 02/02/22 02/02/22 History Propranolol HCl 80 mg PO DAILY 02/02/22 02/02/22 History Allergies Allergy/AdvReac Type Severity Reaction Status Date / Time No Known Allergies Allergy Verified 02/01/22 21:26 Physical Exam Vitals: Vital Signs Temp Pulse Pulse Resp BP BP Pulse Ox 02/02/22 08:00 98.1 F 94 20 146/89 93 L 02/02/22 06:37 95 26 H 169/95 93 L 02/02/22 04:30 97.6 F 93 30 H 94 L 02/02/22 04:09 84 02/02/22 03:58 84 02/02/22 02:38 84 22 151/81 97 02/02/22 02:15 97 02/02/22 01:46 93 24 02/02/22 01:17 92 02/02/22 00:59 92 02/02/22 00:51 28 H 02/02/22 00:11 96 02/01/22 21:23 99.4 F 91 32 H 162/92 97 Intake and Output 02/01/22 02/02/22 02/02/22 22:59 06:59 14:59 Other: Weight 93.894 kg 93.894 kg GENERAL EXAM: Alert, very pleasant, 76-year-old white male on room air with a pulse ox of 98% comfortable in no apparent distress. HEAD: Normocephalic/atraumatic. EYES: Normal reaction of pupils, equal size. Conjunctiva pink, sclera white. NOSE: Clear with pink turbinates. THROAT: No erythema or exudates. NECK: No masses, no JVD, no thyroid enlargement, no adenopathy. CHEST: No chest wall deformity. Symmetrical expansion. LUNGS: Equal air entry with congestive cough, scattered rhonchi, the breast on the significant diminished in the right lung base CVS: Regular rate and rhythm, normal S1 and S2, no gallops, no murmurs, no rubs ABDOMEN: Soft, nontender. No hepatosplenomegaly, normal bowel sounds, no guarding or rigidity. EXTREMITIES: No clubbing, no edema, no cyanosis, 2+ pulses and upper and lower extremities. MUSCULOSKELETAL: Muscle strength and tone normal. SPINE: No scoliosis or deformity SKIN: No rashes CENTRAL NERVOUS SYSTEM: Alert and oriented -3. No focal deficits, tone is normal in all 4 extremities. PSYCHIATRIC: Alert and oriented -3. Appropriate affect. Intact judgment and insight. Results - Laboratory Findings CBC and BMP: 02/02/22 00:09 02/02/22 00:09 ABG WBC 6.8 k/uL (3.8-10.6) 02/02/22 00:09 RBC 4.62 m/uL (4.30-5.90) 02/02/22 00:09 Hgb 13.0 gm/dL (13.0-17.5) 02/02/22 00:09 Hct 40.5 % (39.0-53.0) 02/02/22 00:09 MCV 87.7 fL (80.0-100.0) 02/02/22 00:09 MCH 28.1 pg (25.0-35.0) 02/02/22 00:09 MCHC 32.1 g/dL (31.0-37.0) 02/02/22 00:09 RDW 15.1 % (11.5-15.5) 02/02/22 00:09 Plt Count 241 k/uL (150-450) 02/02/22 00:09 MPV 7.4 02/02/22 00:09 Neutrophils % 68 % 02/02/22 00:09 Lymphocytes % 21 % 02/02/22 00:09 Monocytes % 7 % 02/02/22 00:09 Eosinophils % 1 % 02/02/22 00:09 Basophils % 1 % 02/02/22 00:09 Neutrophils # 4.6 k/uL (1.3-7.7) 02/02/22 00:09 Lymphocytes # 1.5 k/uL (1.0-4.8) 02/02/22 00:09 Monocytes # 0.5 k/uL (0-1.0) 02/02/22 00:09 Eosinophils # 0.0 k/uL (0-0.7) 02/02/22 00:09 Basophils # 0.0 k/uL (0-0.2) 02/02/22 00:09 PT 11.0 sec (9.0-12.0) 02/02/22 00:09 INR 1.0 (<1.2) 02/02/22 00:09 APTT 26.0 sec (22.0-30.0) 02/02/22 00:09 Sodium 135 mmol/L (137-145) L 02/02/22 00:09 Potassium 3.9 mmol/L (3.5-5.1) 02/02/22 00:09 Chloride 95 mmol/L (98-107) L 02/02/22 00:09 Carbon Dioxide 26 mmol/L (22-30) 02/02/22 00:09 Anion Gap 14 mmol/L 02/02/22 00:09 BUN 23 mg/dL (9-20) H 02/02/22 00:09 Creatinine 0.75 mg/dL (0.66-1.25) 02/02/22 00:09 Est GFR (CKD-EPI)AfAm >90 (>60 ml/min/1.73 sqM) 02/02/22 00:09 Est GFR (CKD-EPI)NonAf 89 (>60 ml/min/1.73 sqM) 02/02/22 00:09 Glucose 112 mg/dL (74-99) H 02/02/22 00:09 Plasma Lactic Acid Jorge Luis 1.4 mmol/L (0.7-2.0) 02/02/22 00:09 Calcium 9.6 mg/dL (8.4-10.2) 02/02/22 00:09 Magnesium 1.9 mg/dL (1.6-2.3) 02/02/22 00:09 Total Bilirubin 0.9 mg/dL (0.2-1.3) 02/02/22 00:09 AST 27 U/L (17-59) 02/02/22 00:09 ALT 27 U/L (4-49) 02/02/22 00:09 Alkaline Phosphatase 148 U/L (38-126) H 02/02/22 00:09 Troponin I 0.058 ng/mL (0.000-0.034) H* 02/02/22 00:09 NT-Pro-B Natriuret Pep 296 pg/mL 02/02/22 00:09 Total Protein 6.5 g/dL (6.3-8.2) 02/02/22 00:09 Albumin 4.0 g/dL (3.5-5.0) 02/02/22 00:09 PT/INR, D-dimer PT 11.0 sec (9.0-12.0) 02/02/22 00:09 INR 1.0 (<1.2) 02/02/22 00:09 Abnormal lab findings: Abnormal Labs 02/02/22 02/02/22 00:09 00:09 Sodium 135 L Chloride 95 L BUN 23 H Glucose 112 H Alkaline Phosphatase 148 H Troponin I 0.058 H* - Diagnostic Findings Chest x-ray: image reviewed CT scan - chest: image reviewed Assessment and Plan Plan: Shortness of breath related to post pneumonic right-sided pleural effusion, ongoing infection is felt to be less likely as the patient recent bronchoscopy a nd bronchial lavage of the right lung and a microbes were essentially negative. Previous history of a right lower lobe pneumonia with parapneumonic effusion, addition to some large mediastinal lymph nodes. Nonspecific mediastinal lymphadenopathy COPD with an FEV1 of 55% predicted Hypertension Hyperlipidemia Obesity Former smoker Osteoarthritis Ill-defined hypoattenuating lesions in the right hepatic lobe concerning for metastases Multiple sclerotic and lytic osseous lesions demonstrated within the visualized thoracolumbar spine concerning for metastases Plan Repeat CAT scan of the chest showed some increase in the size of the right-sided pleural effusion and there is also associated atelectasis. Is also some large B cell lymphadenopathy which is nonspecific. Xarelto will be discontinued and the patient is going to have a thoracentesis tomorrow for diagnostic and therapeutic purposes. Concern for parapneumonic effusion versus malignant effusion on the right. Mediastinal lymph nodes are nonspecific at this point in time. Keep oxygen Keep bronchodilators Keep antibiotics We'll follow
[2022-02-02] MEDS: IPRATROPIUM-ALBUTEROL 3 ML NEB INHALATION PRN (15:02)
[2022-02-02] MEDS: ACETAMINOPHEN TAB 325 MG TAB PO PRN (18:07)
--- NOTE | 2022-02-03 00:23 | P.HPIM ---
History of Present Illness H&P Date: 02/02/22 Chief Complaint: Shortness of breath Patient is a 76-year-old male with a known history of hypertension, COPD, obstructive sleep apnea and previous history of smoking, COVID-19 infection presents to ER due to worsening shortness of breath. Patient was recently admitted to the hospital in December 2021 with a right lower lobe consolidation and small right-sided pleural effusion. Patient was treated with antibiotics and Medrol Dosepak. Patient states that his symptoms are getting worse again and made him to come to ER. Chest x-ray on admission showed consolidation and pl eural effusion atelectasis in the right lower lobe which is slightly worse than last exam. EKG showed sinus rhythm Laboratory data WBC 6.8 hemoglobin 13.0 and platelets 241 INR 1.0 Sodium 134 potassium 3.9 chloride 95 bicarb is 26 BUN 23 and creatinine 0.75 and blood sugar is 112 AST 27 ALT 27 alk phos 148 and troponin 0.058, proBNP 296 and patient was tachypneic with respiratory 32 and heart rate 91 and patient is currently on 2 L oxygen via nasal cannula. Patient had CT chest done on 01/20/2022 showed moderate size and right pleural effusion and compressive atelectasis and also mediastinal lymphadenopathy and right hilar adenopathy measuring 4 mm subcarinal lymphadenopathy measuring 1.2 cm in size. Review of Systems Constitutional: Patient denies any fever or chills . Generalized weakness. Abdomen: Patient denied any nausea or vomiting or abd. pain Cardiovascular: Patient denies any chest pain. Positive short of breath no palpitations. Respiratory: patient denied any cough is from production. Does have shortness of breath Neurologic: Patient denied any numbness or tingling headache. Musculoskeletal: Patient denies any complaints of joint swelling or deformity. Skin: Negative Psychiatric: Negative Endocrine: No heat or cold intolerance. No recent weight gain. Genitourinary: No dysuria or hematuria. All other 14 point ROS negative except the above Past Medical History Past Medical History: COPD, Hypertension Additional Past Medical History / Comment(s): HX OF TIA, ESSENTIAL TREMORS, KIDNEY STONES, COPD CAUSED BY EXPOSURE TO CHLORINE. increased wheezing and SOB. recent hospitalization for pneumoia with kidney issues. History of Any Multi-Drug Resistant Organisms: None Reported Past Surgical History: Cholecystectomy, Joint Replacement Additional Past Surgical History / Comment(s): COLONOSCOPY, [place] KNEE REPLACEMENT, PILONIDAL CYST. Past Anesthesia/Blood Transfusion Reactions: No Reported Reaction Additional Past Anesthesia/Blood Transfusion Reaction / Comment(s): no blood transfusion Past Psychological History: No Psychological Hx Reported Smoking Status: Former smoker Past Alcohol Use History: None Reported Additional Past Alcohol Use History / Comment(s): SMOKED FOR SHORT TIME IN THE [employer]. Past Drug Use History: None Reported - Past Family History Father Family Medical History: Cancer Additional Family Medical History / Comment(s): COLON CANCER Medications and Allergies Home Medications Medication Instructions Recorded Confirmed Type Albuterol Nebulized [Ventolin 2.5 mg INHALATION RT-TID PRN 12/31/21 02/02/22 History Nebulized] Fluticasone/Umeclidin/Vilanter 1 puff INHALATION RT-DAILY 12/31/21 02/02/22 History [Trelegy Ellipta 100-62.5-25] lisinopriL [Zestril] 40 mg PO DAILY 12/31/21 02/02/22 History Rivaroxaban [Xarelto] 20 mg PO DAILY 01/26/22 02/02/22 History Acetaminophen [Tylenol] 650 mg PO DAILY 02/02/22 02/02/22 History Atorvastatin [Lipitor] 10 mg PO DAILY 02/02/22 02/02/22 History Ciprofloxacin HCl 500 mg PO BID 02/02/22 02/02/22 History Propranolol HCl 80 mg PO DAILY 02/02/22 02/02/22 History Allergies Allergy/AdvReac Type Severity Reaction Status Date / Time No Known Allergies Allergy Verified 02/01/22 21:26 Physical Exam Vitals: Vital Signs Temp Pulse Pulse Resp BP BP Pulse Ox 02/02/22 08:00 98.1 F 94 20 146/89 93 L 02/02/22 06:37 95 26 H 169/95 93 L 02/02/22 04:30 97.6 F 93 30 H 94 L 02/02/22 04:09 84 02/02/22 03:58 84 02/02/22 02:38 84 22 151/81 97 02/02/22 02:15 97 02/02/22 01:46 93 24 02/02/22 01:17 92 02/02/22 00:59 92 02/02/22 00:51 28 H 02/02/22 00:11 96 02/01/22 21:23 99.4 F 91 32 H 162/92 97 Intake and Output 02/01/22 02/02/22 02/02/22 22:59 06:59 14:59 Other: Weight 93.894 kg 93.894 kg PHYSICAL EXAMINATION: Patient is lying in the bed comfortably, no acute distress, awake alert and oriented.. HEENT: Normocephalic. Neck is supple. Pupils reactive. Nostrils clear. Oral cavity is moist. Neck reveals no JVD, carotid bruits, or thyromegaly. CHEST EXAMINATION: Trachea is central. Symmetrical expansion. Right basilar diminished sounds. No wheezing or rhonchi. Nonlabored breathing.. CARDIAC: Normal S1, S2 with no gallops. No murmurs ABDOMEN: Soft. Bowel sounds present. Nontender. No organomegaly. No abdominal bruits. Extremities: reveal no edema. No clubbing or cyanosis Neurologically awake, alert, oriented x3 with well-coordinated movements. No focal deficits noted Skin: No rash or skin lesions. Psychiatric: Coperative. Nonsuicidal, anxious. Musculoskeletal: No joint swelling or deformity. Normal range of motion. Results CBC & Chem 7: 02/02/22 00:09 02/02/22 00:09 Labs: Abnormal Lab Results - Last 24 Hours (Table) 02/02/22 02/02/22 Range/Units 00:09 00:09 Sodium 135 L (137-145) mmol/L Chloride 95 L (98-107) mmol/L BUN 23 H (9-20) mg/dL Glucose 112 H (74-99) mg/dL Alkaline Phosphatase 148 H (38-126) U/L Troponin I 0.058 H* (0.000-0.034) ng/mL Thrombosis Risk Factor Assmnt - DVT/VTE Prophylaxis DVT/VTE Prophylaxis: Pharmacologic Prophylaxis ordered Assessment and Plan Assessment: Worsening shortness of breath secondary to right lower lobe pleural effusion and atelectasis. Possible underlying infective etiology. Recent bronchoscopy and bilateral cultures negative. Recent history of right lower lobe pneumonia and complicated colitis and parapneumonic effusion Enlarged mediastinal and right hilar lymph nodes concerning for metastasis. Multiple sclerotic and lytic osseous lesions within the thoracolumbar spine concerning for metastasis. COPD with FEV1 of 55% of predicted Hypertension Hyperlipidemia Osteoarthritis Previous history of smoking DVT prophylaxis Heparin subcu Plan: Patient will be continued on antibiotics in the form of ceftriaxone and azithromycin. Continue with antonio duffy. Was given a dose of IV Solu-Medrol in the ER. Pulmonary was consulted. CT of the chest showed mediastinal lymphadenopathy and sclerotic and lytic osseous lesions within the thoracolumbar spine concerning for metastasis. Pulmonary is planning for thoracentesis due to concern for malignant effusion. Xarelto is on hold. Continue to follow closely and prognosis is guarded. Time with Patient: Greater than 30
[2022-02-03] MEDS ORDERED: LIDOCAINE 2% INJ 20 MG/ML (20 ML MDV) ONE (07:34)
[2022-02-03] MEDS ORDERED: IPRATROPIUM 0.5 MG/2.5 ML NEBU INHALATION SCH (08:00)
[2022-02-03] MEDS: IPRATROPIUM-ALBUTEROL 3 ML NEB INHALATION PRN ×2 (08:14→19:10)
--- NOTE | 2022-02-03 08:14 | XR ---
EXAMINATION TYPE: XR chest 2V DATE OF EXAM: 02/03/2022 COMPARISON: 02/02/2022 TECHNIQUE: PA and lateral views submitted. HISTORY: Follow-up FINDINGS: Large right-sided area of consolidation and pleural effusion stable. Left lung clear. Hypertrophic ch tere of the spine and arthropathy shoulders.. No pneumothorax. No interval change. Underlying COPD no miranda. IMPRESSION: 1. Large right-sided area of consolidation and pleural effusion stable.
[2022-02-03] MEDS: SYMBICORT 80-4.5 MCG INHALER INHALATION SCH ×3 (08:15→19:20)
[2022-02-03] MEDS: TIOTROPIUM 2.5 MCG INHALER INHALATION SCH (08:15)
[2022-02-03] MEDS: lisinopriL 20 MG TAB PO SCH (08:38)
[2022-02-03] MEDS: PROPRANOLOL 40 MG TAB PO SCH (08:38)
[2022-02-03] MEDS: ATORVASTATIN 10 MG TAB PO SCH (08:38)
[2022-02-03] MEDS: AZITHROMYCIN 500 MG TAB PO SCH (08:38)
[2022-02-03 09:04] LABS: Basophils % (A) 0 %; Eosinophils % (A) 1 %; HCT 38.8 % (39.0-53.0); HGB 12.3 gm/dL (13.0-17.5); Lymphocytes # (A) 1.2 k/uL (1.0-4.8); Lymphocytes % (A) 19 %; MCH 28.3 pg (25.0-35.0); MCHC 31.7 g/dL (31.0-37.0); MCV 89.3 fL (80.0-100.0); Mean Platelet Volume 7.3; Monocytes # (A) 0.4 k/uL (0-1.0); Monocytes % (A) 6 %; Neutrophils # (A) 4.5 k/uL (1.3-7.7); Neutrophils % (A) 72 %; Platelet Count 271 k/uL (150-450); RBC 4.35 m/uL (4.30-5.90); RDW 15.2 % (11.5-15.5); WBC 6.2 k/uL (3.8-10.6)
[2022-02-03] MEDS: HEPARIN SODIUM,PORCINE/PF 5,000 UNIT/0.5 ML SYRINGE SQ SCH ×2 (09:23→17:12)
[2022-02-03 09:32] LABS: African American GFR (CKD) >90 (>60 ml/min/1.73 sqM); Anion Gap 11 mmol/L; Blood Urea Nitrogen 25 mg/dL (9-20); Calcium 9.3 mg/dL (8.4-10.2); Carbon Dioxide 29 mmol/L (22-30); Chloride 101 mmol/L (98-107); Glucose 118 mg/dL (74-99); Non-African American GFR(CKD) >90 (>60 ml/min/1.73 sqM); Potassium 3.8 mmol/L (3.5-5.1); Sodium 141 mmol/L (137-145)
--- NOTE | 2022-02-03 10:46 | P.PCN ---
Date of Procedure: 02/03/22 Preoperative Diagnosis: Right-sided pleural effusion Postoperative Diagnosis: Right-sided pleural effusion Procedure(s) Performed: Thoracentesis, right-sided Anesthesia: local Surgeon: Mejia Colon Estimated Blood Loss (ml): 0 Pathology: other Condition: stable Disposition: floor Operative Findings: A time out was performed and the chest x-ray was reviewed, the appropriate side was confirmed and marked. My hands were washed immediately prior to the procedure. I wore a surgical cap, mask with protective eyewear, sterile gown and sterile gloves throughout the procedure. The patient was prepped and draped in a sterile manner using chlorhexidine scrub after the appropriate level was percussed and confirmed by ultrasound. 1% lidocaine was used to anesthesize the skin, subcutaneous tissue, superior aspect of the rib periosteum and parietal pleura. A finder needle was then introduced over the superior aspect of the rib to locate the pleural fluid; 2colored fluid was aspirated at a depth of approximately 2 cm. A 10-blade scalpel was used to danielle the skin at the inserti on site. The Aoeq-b-Fimehcoe needle was then introduced through the skin incision into the pleural space using negative aspiration pressure and the red colometric indicator to confirm appropriate positioning of the needle. The thoracentesis catheter was then threaded without difficulty. 2000ml of turbid colored fluid was removed without difficulty. However, the patient started experiencing some pleuritic chest pain and shortness of breath as the fluid was being taken out. I stopped and the 2000 cc Rehan and terminate the procedure as the patient was getting quite uncomfortable. The catheter was then removed. No immediate complications were noted during the procedure. A post-procedure chest x-ray is showing no evidence of any pneumothorax and there is some residual atelectasis and residual effusion the right lung base. There is. The fluid will be sent for studies. Estimated blood loss is 0cc
--- NOTE | 2022-02-03 11:02 | XR ---
EXAMINATION TYPE: XR chest 1V portable DATE OF EXAM: 02/03/2022 COMPARISON: 02/03/2022 HISTORY: Status post right thoracentesis TECHNIQUE: Single frontal view of the chest is obtained. FINDINGS: Interval reduction in amount of pleural fluid with no sizable pneumothorax. Pleural thicke mikey and areas of consolidation and small effusion remaining. Left lung clear. Arthropathy of the feliciano ulders. Heart size normal. Hypertrophic and degenerative changes of the spine. IMPRESSION: 1. Interval reduction in the amount of pleural fluid relative to the prior exam. No sizable pneumotho rax.
--- NOTE | 2022-02-03 16:04 | P.PN ---
Subjective Progress Note Date: 02/03/22 02/03/2022, the patient remains short of breath and the patient is given another CAT scan of the chest that showed a large loculated right-sided pleural effusion along with compressive atelectasis of the right lung base and some nonspecific mediastinal lymphadenopathy. Based on that, a consent was obtained for thoracentesis. I performed a thoracentesis at the bedside. A total of 2 L of fluid was removed and this was turbid in color and was sent for analysis. Then analysis still pending for now. Meanwhile, for thoracentesis, the patient felt some pleuritic chest pain shortness of breath and he became diaphoretic and this lasted for 10 MINUTES AND THIS WAS ANTICIPATED THE PATIENT HAS SIGNIFICANT COLLAPSE OF THE RIGHT LUNG BASE and this was a result of the especially the right lung. Mother the follow-up chest x-ray showed partially expansion of the right lung. There was interval reduction in the amount of pleural fluid without evidence of any pneumothorax. The patient was placed on 2 L approximately nasal cannula and the pulse ox remains on 95%. Objective - Vital Signs Vital signs: Vital Signs Temp 98.0 F 02/03/22 12:00 Pulse 67 02/03/22 12:00 Resp 18 02/03/22 14:22 BP 133/77 02/03/22 12:00 Pulse Ox 97 02/03/22 12:00 FiO2 Intake & Output 02/02/22 02/03/22 02/03/22 18:59 06:59 18:59 Intake Total 180 750 Output Total 475 Balance 180 275 Intake: Intake, IV Titration 200 Amount Sodium Chloride 0.9% 1, 150 000 ml @ 75 mls/hr IV . [id number] [facility]IR Rx#:[id number] cefTRIAXone 2 gm In 50 Sodium Chloride 0.9% 50 ml @ 100 mls/hr IVPB Q24H [facility]IR Rx#:[id number] Oral 180 550 Output: Urine 475 Other: Voiding Method Urinal Urinal # Voids 1 1 - Exam GENERAL EXAM: Alert, very pleasant, 76-year-old white male on room air with a pulse ox of 98% comfortable in no apparent distress. HEAD: Normocephalic/atraumatic. EYES: Normal reaction of pupils, equal size. Conjunctiva pink, sclera white. NOSE: Clear with pink turbinates. THROAT: No erythema or exudates. NECK: No masses, no JVD, no thyroid enlargement, no adenopathy. CHEST: No chest wall deformity. Symmetrical expansion. LUNGS: Equal air entry with congestive cough, scattered rhonchi, the breast on the significant diminished in the right lung base CVS: Regular rate and rhythm, normal S1 and S2, no gallops, no murmurs, no rubs ABDOMEN: Soft, nontender. No hepatosplenomegaly, normal bowel sounds, no guarding or rigidity. EXTREMITIES: No clubbing, no edema, no cyanosis, 2+ pulses and upper and lower extremities. MUSCULOSKELETAL: Muscle strength and tone normal. SPINE: No scoliosis or deformity SKIN: No rashes CENTRAL NERVOUS SYSTEM: Alert and oriented -3. No focal deficits, tone is normal in all 4 extremities. PSYCHIATRIC: Alert and oriented -3. Appropriate affect. Intact judgment and insight. - Labs CBC & Chem 7: 02/03/22 08:47 02/03/22 08:47 Labs: Abnormal Lab Results - Last 24 Hours (Table) 02/03/22 02/03/22 Range/Units 08:47 08:47 Hgb 12.3 L (13.0-17.5) gm/dL Hct 38.8 L (39.0-53.0) % BUN 25 H (9-20) mg/dL Glucose 118 H (74-99) mg/dL Microbiology - Last 24 Hours (Table) 02/03/22 10:31 Acid Fast Bacilli Culture - Preliminary Pleural Fluid 02/03/22 10:31 Fungal Culture - Preliminary Pleural Fluid 02/03/22 10:31 Anaerobic Culture - Preliminary Pleural Fluid 02/03/22 10:31 Body Fluid Culture - Preliminary Pleural Fluid Assessment and Plan Plan: Shortness of breath related to post pneumonic right-sided pleural effusion, ongoing infection is felt to be less likely as the patient recent bronchoscopy and bronchial lavage of the right lung and a microbes were essentially negative. The patient underwent a diagnostic and therapeutic thoracentesis today with total of 2 L of pleural fluid removal. Large right-sided pleural effusion with atelectasis of the right lung for thoracentesis removal of 2 L of fluid Previous history of a right lower lobe pneumonia with parapneumonic effusion, addition to some large mediastinal lymph nodes. Nonspecific mediastinal lymphadenopathy COPD with an FEV1 of 55% predicted Hypertension Hyperlipidemia Obesity Former smoker Osteoarthritis Ill-defined hypoattenuating lesions in the right hepatic lobe concerning for metastases Multiple sclerotic and lytic osseous lesions demonstrated within the visualized thoracolumbar spine concerning for metastases Plan Keep that examination on hold for another 24 hours and hence patient for another thoracentesis Awaiting pleural fluid analysis, and the fluid will be also sent for cytology Aggressive use of incentive spirometer Keep oxygen Keep bronchodilators Keep antibiotics We'll follow
[2022-02-03] MEDS: SODIUM CHLORIDE 0.9% 1,000 ML IV SCH (18:30)
[2022-02-03 22:17] LABS: Appearance,BF Bloody
--- NOTE | 2022-02-03 22:29 | P.PN ---
Subjective Progress Note Date: 02/03/22 Patient is a 76-year-old male with a known history of hypertension, COPD, obstructive sleep apnea and previous history of smoking, COVID-19 infection presents to ER due to worsening shortness of breath. Patient was recently admitted to the hospital in December 2021 with a right lower lobe consolidation and small right-sided pleural effusion. Patient was treated with antibiotics and Medrol Dosepak. Patient states that his symptoms are getting worse again and made him to come to ER. Chest x-ray on admission showed consolidation and pleural effusion atelectasis in the right lower lobe which is slightly worse than last exam. EKG showed sinus rhythm Laboratory data WBC 6.8 hemoglobin 13.0 and platelets 241 INR 1.0 Sodium 134 potassium 3.9 chloride 95 bicarb is 26 BUN 23 and creatinine 0.75 and blood sugar is 112 AST 27 ALT 27 alk phos 148 and troponin 0.058, proBNP 296 and patient was tachypneic with respiratory 32 and heart rate 91 and patient is currently on 2 L oxygen via nasal cannula. Patient had CT chest done on 01/20/2022 showed moderate size and right pleural effusion and compressive atelectasis and also mediastinal lymphadenopathy and right hilar adenopathy measuring 4 mm subcarinal lymphadenopathy measuring 1.2 cm in size. 02/03/2022 Patient is currently sitting in the chair. Awake alert and oriented x3. Status post right thoracentesis with 2.1 L fluid removal and sent for analysis. Patient states that he feels better after procedure. No complaints of chest pain or worsening shortness of breath. No nausea vomiting abdominal pain or diarrhea. No fever no chills. No cough or sputum production. Chest x-ray showed interval reduction in the amount of pleural fluid related to the prior exam. No sizable pneumothorax. Laboratory showed WBC 6.2 hemoglobin 12.3 and platelets 271 Sodium 141 potassium 3.8 chloride 101 bicarb is 29 BUN 25 and creatinine 0.71. Procalcitonin was 0.13. Patient is being continued on DuoNebs, antibiotics in the form of ceftriaxone and azithromycin. Pulmonary is on board. Current medications reviewed. Objective - Vital Signs Vital signs: Vital Signs Temp 98.1 F 02/03/22 19:58 Pulse 77 02/03/22 19:58 Resp 18 02/03/22 19:58 BP 126/79 02/03/22 19:58 Pulse Ox 100 08/11/22 19:58 FiO2 Intake & Output 02/03/22 02/03/22 02/04/22 06:59 18:59 06:59 Intake Total 750 Output Total 475 Balance 275 Intake: Intake, IV Titration 200 Amount Sodium Chloride 0.9% 1, 150 000 ml @ 75 mls/hr IV . [id number] MIR Rx#:[id number] cefTRIAXone 2 gm In 50 Sodium Chloride 0.9% 50 ml @ 100 mls/hr IVPB Q24H MIR Rx#:[id number] Oral 550 Output: Urine 475 Other: Voiding Method Urinal Urinal Urinal # Voids 1 1 - Exam PHYSICAL EXAMINATION: Patient is lying in the bed comfortably, no acute distress, awake alert and oriented.. HEENT: Normocephalic. Neck is supple. Pupils reactive. Nostrils clear. Oral cavity is moist. Neck reveals no JVD, carotid bruits, or thyromegaly. CHEST EXAMINATION: Trachea is central. Symmetrical expansion. Right basilar crackles.. No wheezing or rhonchi. Nonlabored breathing.. CARDIAC: Normal S1, S2 with no gallops. No murmurs ABDOMEN: Soft. Bowel sounds present. Nontender. No organomegaly. No abdominal bruits. Extremities: reveal no edema. No clubbing or cyanosis Neurologically awake, alert, oriented x3 with well-coordinated movements. No focal deficits noted Skin: No rash or skin lesions. Psychiatric: Coperative. Nonsuicidal, anxious. Musculoskeletal: No joint swelling or deformity. Normal range of motion. - Labs CBC & Chem 7: 02/03/22 08:47 02/03/22 08:47 Labs: Abnormal Lab Results - Last 24 Hours (Table) 02/03/22 02/03/22 Range/Units 08:47 08:47 Hgb 12.3 L (13.0-17.5) gm/dL Hct 38.8 L (39.0-53.0) % BUN 25 H (9-20) mg/dL Glucose 118 H (74-99) mg/dL Microbiology - Last 24 Hours (Table) 02/03/22 10:31 Acid Fast Bacilli Culture - Preliminary Pleural Fluid 02/03/22 10:31 Fungal Culture - Preliminary Pleural Fluid 02/03/22 10:31 Anaerobic Culture - Preliminary Pleural Fluid 02/03/22 10:31 Body Fluid Culture - Preliminary Pleural Fluid Assessment and Plan Assessment: Worsening shortness of breath secondary to right lower lobe pleural effusion and atelectasis. Possible underlying infective etiology. Recent bronchoscopy and bilateral cultures negative. Patient is status post thoracentesis on 02/03/2022 with 2 L fluid removal. Recent history of right lower lobe pneumonia and complicated colitis and parapneumonic effusion Enlarged mediastinal and right hilar lymph nodes concerning for metastasis. Multiple sclerotic and lytic osseous lesions within the thoracolumbar spine concerning for metastasis. COPD with FEV1 of 55% of predicted Hypertension Hyperlipidemia Osteoarthritis Previous history of smoking DVT prophylaxis Heparin subcu Plan: Patient will be continued on antibiotics in the form of ceftriaxone and azithromycin. Continue with duo nebs. Was given a dose of IV Solu-Medrol in the ER. CT of the chest showed mediastinal lymphadenopathy and sclerotic and lytic osseous lesions within the thoracolumbar spine concerning for metastasis. Pulmonary is planning for thoracentesis due to concern for malignant effusion. Patient is status post thoracentesis with 2 L fluid removal. Pulmonary is on board. Xarelto is on hold. Continue to follow closely and prognosis is guarded. Time with Patient: Greater than 30
[2022-02-03 22:34] LABS: Glucose, BF Source Pleural Fluid; Glucose, Body Fluid 67 mg/dL; T. Protein, Body Fluid Source Pleural Fluid; Total Protein, Body Fluid 4410 mg/dL
[2022-02-03 22:47] LABS: LDH, Body Fluid Source Pleural Fluid
[2022-02-04] MEDS: HEPARIN SODIUM,PORCINE/PF 5,000 UNIT/0.5 ML SYRINGE SQ SCH ×4 (01:58→23:34)
[2022-02-04] MEDS: SODIUM CHLORIDE 0.9% 1,000 ML IV SCH ×2 (03:44→10:18)
[2022-02-04 08:07] LABS: Basophils % (A) 0 %; Eosinophils % (A) 1 %; HGB 11.2 gm/dL (13.0-17.5); Hypochromasia Slight; Lymphocytes # (A) 1.3 k/uL (1.0-4.8); Lymphocytes % (A) 23 %; MCH 28.1 pg (25.0-35.0); MCHC 31.3 g/dL (31.0-37.0); MCV 89.8 fL (80.0-100.0); Mean Platelet Volume 7.3; Monocytes # (A) 0.5 k/uL (0-1.0); Monocytes % (A) 8 %; Neutrophils # (A) 3.7 k/uL (1.3-7.7); Neutrophils % (A) 66 %; Platelet Count 241 k/uL (150-450); RBC 4.01 m/uL (4.30-5.90); RDW 15.1 % (11.5-15.5); WBC 5.6 k/uL (3.8-10.6)
[2022-02-04 08:20] LABS: African American GFR (CKD) >90 (>60 ml/min/1.73 sqM); Anion Gap 7 mmol/L; Blood Urea Nitrogen 25 mg/dL (9-20); Calcium 8.8 mg/dL (8.4-10.2); Carbon Dioxide 29 mmol/L (22-30); Chloride 101 mmol/L (98-107); Glucose 95 mg/dL (74-99); Non-African American GFR(CKD) 86 (>60 ml/min/1.73 sqM); Potassium 3.7 mmol/L (3.5-5.1); Sodium 137 mmol/L (137-145)
[2022-02-04] MEDS: AZITHROMYCIN 500 MG TAB PO SCH (08:27)
[2022-02-04] MEDS: lisinopriL 20 MG TAB PO SCH (08:27)
[2022-02-04] MEDS: PROPRANOLOL 40 MG TAB PO SCH (08:27)
[2022-02-04] MEDS: ATORVASTATIN 10 MG TAB PO SCH (08:27)
[2022-02-04] MEDS ORDERED: MAGNESIUM HYDROXIDE 2,400 MG/10 ML CUP PO PRN (08:29)
[2022-02-04] MEDS: SYMBICORT 80-4.5 MCG INHALER INHALATION SCH ×2 (08:46→19:28)
[2022-02-04] MEDS: TIOTROPIUM 2.5 MCG INHALER INHALATION SCH (08:46)
--- NOTE | 2022-02-04 09:31 | XR ---
EXAMINATION TYPE: XR chest 1V portable DATE OF EXAM: 02/04/2022 COMPARISON: 02/03/2022 HISTORY: dyspnea TECHNIQUE: Single frontal view of the chest is obtained. FINDINGS: Stable amount of pleural fluid with no sizable pneumothorax. Pleural thickening and areas of consolidation and small effusion remaining. Left lung clear. Arthropathy of the shoulders. Heart s ize normal. Hypertrophic and degenerative changes of the spine. IMPRESSION: 1. Interval reduction in the amount of pleural fluid relative to the prior exam. No sizable pneumotho rax.
--- NOTE | 2022-02-04 13:16 | US ---
EXAMINATION TYPE: US chest DATE OF EXAM: 02/04/2022 COMPARISON: 02/04/2022 CLINICAL HISTORY: pleural effusion. TECHNIQUE: Targeted ultrasound of the posterior lower bilateral hemithoraces EXAM MEASUREMENTS: Right Pleural Effusion pocket size: 3.4 cm Right skin surface to fluid distance: 2.7 cm Right side marked for possible thoracentesis outside the dept. Left side NOT marked for possible thoracentesis outside the dept. Pulmonologists are able to review the images in the patient?s EMR. IMPRESSIONS: Small right pleural effusion
--- NOTE | 2022-02-04 14:45 | P.PN ---
Subjective Progress Note Date: 02/04/22 02/03/2022, the patient remains short of breath and the patient is given another CAT scan of the chest that showed a large loculated right-sided pleural effusion along with compressive atelectasis of the right lung base and some nonspecific mediastinal lymphadenopathy. Based on that, a consent was obtained for thoracentesis. I performed a thoracentesis at the bedside. A total of 2 L of fluid was removed and this was turbid in color and was sent for analysis. Then analysis still pending for now. Meanwhile, for thoracentesis, the patient felt some pleuritic chest pain shortness of breath and he became diaphoretic and this lasted for 10 MINUTES AND THIS WAS ANTICIPATED THE PATIENT HAS SIGNIFICANT COLLAPSE OF THE RIGHT LUNG BASE and this was a result of the especially the right lung. Mother the follow-up chest x-ray showed partially expansion of the right lung. There was interval reduction in the amount of pleural fluid without evidence of any pneumothorax. The patient was placed on 2 L approximately nasal cannula and the pulse ox remains on 95%. 02/04/2022, the patient is being seen for a follow-up. The patient has a complicated parapneumonic right-sided pleural effusion. The patient underwent a thoracentesis yesterday total of 2 L of fluid was removed. The fluid is an exud ate based on an elevated LDH and protein criteria. In fact this is a complicated parapneumonic effusion. Repeat chest x-ray from today showing still on niacin the right and the patient also has some residual right-sided pleural effusion which is somewhat loculated. Based on that, I made recommendations for interventional radiology for a pigtail catheter insertion for ongoing drainage. The patient resting comfortably in bed. He states his shortness of breath improving. The patient doesn't have any chest pain for today. The patient is currently on IV Rocephin. The cultures from the pleural fluid aspirated are still pending for now. Meanwhile, the patient has a white cell count of 5.6 with a hemoglobin of 11.2 and a platelet count of 241. Begin is at 25 with a creatinine of 0.8 and sodium level is up 137. LDH level is 1157 and total protein level is at 4410 and the pleural fluid. Objective - Vital Signs Vital signs: Vital Signs Temp 97.5 F L 02/04/22 11:47 Pulse 70 02/04/22 11:47 Resp 18 08/12/22 11:47 BP 110/69 02/04/22 11:47 Pulse Ox 97 02/04/22 11:47 FiO2 Intake & Output 02/03/22 02/04/22 02/04/22 18:59 06:59 18:59 Intake Total 250 365 Output Total 225 Balance 25 365 Intake: IV 5 Invasive Line 1 5 Oral 250 360 Output: Urine 225 Other: Voiding Method Urinal Urinal Urinal # Voids 1 - Exam GENERAL EXAM: Alert, very pleasant, 76-year-old white male on room air with a pulse ox of 98% comfortable in no apparent distress. HEAD: Normocephalic/atraumatic. EYES: Normal reaction of pupils, equal size. Conjunctiva pink, sclera white. NOSE: Clear with pink turbinates. THROAT: No erythema or exudates. NECK: No masses, no JVD, no thyroid enlargement, no adenopathy. CHEST: No chest wall deformity. Symmetrical expansion. LUNGS: Equal air entry with congestive cough, scattered rhonchi, the breast on the significant diminished in the right lung base CVS: Regular rate and rhythm, normal S1 and S2, no gallops, no murmurs, no rubs ABDOMEN: Soft, nontender. No hepatosplenomegaly, normal bowel sounds, no guarding or rigidity. EXTREMITIES: No clubbing, no edema, no cyanosis, 2+ pulses and upper and lower extremities. MUSCULOSKELETAL: Muscle strength and tone normal. SPINE: No scoliosis or deformity SKIN: No rashes CENTRAL NERVOUS SYSTEM: Alert and oriented -3. No focal deficits, tone is normal in all 4 extremities. PSYCHIATRIC: Alert and oriented -3. Appropriate affect. Intact judgment and insight. - Labs CBC & Chem 7: 02/04/22 07:26 02/04/22 07:26 Labs: Abnormal Lab Results - Last 24 Hours (Table) 02/04/22 02/04/22 Range/Units 07:26 07:26 RBC 4.01 L (4.30-5.90) m/uL Hgb 11.2 L (13.0-17.5) gm/dL Hct 36.0 L (39.0-53.0) % BUN 25 H (9-20) mg/dL Microbiology - Last 24 Hours (Table) 02/03/22 10:31 Gram Stain - Preliminary Pleural Fluid Body Fluid Culture - Preliminary 02/03/22 10:31 Acid Fast Bacilli Culture - Preliminary Pleural Fluid 02/03/22 10:31 Fungal Culture - Preliminary Pleural Fluid 02/03/22 10:31 Anaerobic Culture - Preliminary Pleural Fluid Assessment and Plan Plan: Shortness of breath related to post pneumonic right-sided pleural effusion, ongoing infection is felt to be less likely as the patient recent bronchoscopy and bronchial lavage of the right lung and a microbes were essentially negative. The patient underwent a diagnostic and therapeutic thoracentesis today with total of 2 L of pleural fluid removal. Repeat chest x-ray from today still showing volume loss and residual loculated right-sided pleural effusion. The patient would benefit from interventional radiology guided pigtail catheter insertion with possibly some alteplase administration into the right pleural space. This was discussed with interventional radiologist. Consultation was placed. Large right-sided pleural effusion with atelectasis of the right lung for thoracentesis removal of 2 L of fluid, the pleural fluid is an exudate, parapneumonic, fluid cytology is still pending for now. Previous history of a right lower lobe pneumonia with parapneumonic effusion, addition to some large mediastinal lymph nodes. Nonspecific mediastinal lymphadenopathy COPD with an FEV1 of 55% predicted Hypertension Hyperlipidemia Obesity Former smoker Osteoarthritis Ill-defined hypoattenuating lesions in the right hepatic lobe concerning for metastases Multiple sclerotic and lytic osseous lesions demonstrated within the visualized thoracolumbar spine concerning for metastases Plan + Clinically stable Chest x-ray from today was noted Recommend interventional radiology guided PICC Catheter insertion Keep the patient off anticoagulants for now Awaiting pleural fluid cytology Aggressive use of incentive spirometer Keep oxygen Keep bronchodilators Keep antibiotics We'll follow
[2022-02-04] MEDS: ACETAMINOPHEN TAB 325 MG TAB PO PRN (16:23)
[2022-02-05] MEDS: SODIUM CHLORIDE 0.9% 1,000 ML IV SCH ×2 (06:26→17:31)
--- NOTE | 2022-02-05 07:29 | XR ---
EXAMINATION TYPE: XR chest 1V portable DATE OF EXAM: 02/05/2022 Comparison: 02/04/2022 Clinical History: 76 year-old male right effusion Findings: Right basilar pigtail pleural catheter is noted. Decrease in the patient's right-sided pleural effusi on. Residual small effusion and patchy mid and lower lung opacities remain on the right. Strandy atel ectasis left base. Heart borderline in size. Advanced degenerative change left shoulder and moderate at the right shoulder. Impression: Right basilar pigtail pleural catheter with residual small effusion, significantly improved from prio r. Additional residual patchy opacities remain throughout the right mid and lower lung.
[2022-02-05] MEDS: SYMBICORT 80-4.5 MCG INHALER INHALATION SCH ×2 (08:16→20:51)
[2022-02-05] MEDS: TIOTROPIUM 2.5 MCG INHALER INHALATION SCH (08:16)
[2022-02-05] MEDS: ATORVASTATIN 10 MG TAB PO SCH (09:23)
[2022-02-05] MEDS: lisinopriL 20 MG TAB PO SCH (09:23)
--- NOTE | 2022-02-05 09:23 | P.GSCN ---
History of Present Illness Consult date: 02/05/22 Reason for Consult: Loculated right pleural effusion Requesting physician: Mejia Colon History of present illness: This is a 76-year-old gentleman who follows on an outpatient basis with Dr. Peters. He has a previous medical history of hypertension, hyperlipidemia, TIA, paroxysmal atrial fibrillation on Xarelto for anticoagulation, mild carotid artery disease, COPD, obstructive sleep apnea, previous tobacco dependence, covid infection in the past, and recent hospitalization for pneumonia. He presented to [facility] emergency room with complaints of shortness of breath and was found to have right-sided pleural effusion. Pulmonology was consulted and performed a thoracentesis 2 days ago with removal of 2 L of fluid which was sent for analysis, felt to be exudative in nature based on the belinda vated LDH and protein. Upon follow-up yesterday the patient was still found to have a complicated right-sided effusion and a pigtail catheter was placed by interventional radiology. Cardiothoracic surgery was consulted for instillation of lytic therapy through the patient's pigtail catheter. Of note, patient has pathology report from transbronchial biopsy completed 01/27/22 which is positive for poorly differentiated pulmonary adenocarcinoma. Review of Systems Review of systems was completed and was negative except as noted - Respiratory Reports as per HPI, Reports cough, Reports dyspnea, Reports respiratory infections, Reports sleep apnea Past Medical History Past Medical History: Atrial Fibrillation, COPD, CVA/TIA, Hyperlipidemia, Hypertension, Pneumonia, Sleep Apnea/CPAP/BIPAP Additional Past Medical History / Comment(s): ESSENTIAL TREMORS, KIDNEY STONES, COPD CAUSED BY EXPOSURE TO CHLORINE. recent hospitalization for pneumoia with kidney issues. History of Any Multi-Drug Resistant Organisms: None Reported Past Surgical History: Cholecystectomy, Joint Replacement Additional Past Surgical History / Comment(s): COLONOSCOPY, [place] KNEE REPLACEMENT, PILONIDAL CYST. Past Anesthesia/Blood Transfusion Reactions: No Reported Reaction Additional Past Anesthesia/Blood Transfusion Reaction / Comm: no blood transfusion Past Psychological History: No Psychological Hx Reported Smoking Status: Former smoker Past Alcohol Use History: None Reported Additional Past Alcohol Use History / Comment(s): SMOKED FOR SHORT TIME IN THE [employer]. Past Drug Use History: None Reported - Past Family History Father Family Medical History: Cancer Additional Family Medical History / Comment(s): COLON CANCER Medications and Allergies Home Medications Medication Instructions Recorded Confirmed Type Albuterol Nebulized [Ventolin 2.5 mg INHALATION RT-TID PRN 12/31/21 02/02/22 History Nebulized] Fluticasone/Umeclidin/Vilanter 1 puff INHALATION RT-DAILY 12/31/21 02/02/22 History [Sandra Sultanata 100-62.5-25] lisinopriL [Zestril] 40 mg PO DAILY 12/31/21 02/02/22 History Rivaroxaban [Xarelto] 20 mg PO DAILY 01/26/22 02/02/22 History Acetaminophen [Tylenol] 650 mg PO DAILY 02/02/22 02/02/22 History Atorvastatin [Lipitor] 10 mg PO DAILY 02/02/22 02/02/22 History Ciprofloxacin HCl 500 mg PO BID 02/02/22 02/02/22 History Propranolol HCl 80 mg PO DAILY 02/02/22 02/02/22 History Allergies Allergy/AdvReac Type Severity Reaction Status Date / Time No Known Allergies Allergy Verified 02/01/22 21:26 Surgical - Exam Vital Signs Temp Pulse Resp BP Pulse Ox 99.4 F 91 32 H 162/92 97 02/01/22 21:23 02/01/22 21:23 02/01/22 21:23 02/01/22 21:23 02/01/22 21:23 CONSTITUTIONAL: Awake and alert, appears comfortable, cooperative, well- developed, well-nourished, no pain, no acute distress EYES: Pupils equal, round, reactive to light, normal ocular movement ENT: Moist mucous membranes without oral lesions present NECK: No masses, no bruits, trachea midline RESPIRATORY: Lungs sounds diminished bilaterally, right greater than left. Respirations even, nonlabored. Currently on room air with oxygen saturation 97%. Strong cough. Only able to achieve 500 mL on his incentive spirometry but not the best effort CARDIOVASCULAR: S1, S2 present. Regular rate and rhythm, sinus rhythm on telemetry. Palpable peripheral pulses bilaterally. No edema present. GASTROINTESTINAL: Abdomen soft, nontender, nondistended without masses or organomegaly noted. There is no rebound or guarding present. Active bowel sounds present 4 quadrants. GENITOURINARY: Deferred INTEGUMENTARY: Skin is warm and dry NEUROLOGIC: Cranial nerves II through XII intact, normal coordination, no obvious motor or sensory deficits, speech is normal MUSKULOSKELETAL: Able to move all extremities, strength equal bilaterally, normal posture PSYCHIATRIC: Alert and oriented to person place and time, appropriate affect, intact judgment and insight Results - Labs 02/06/22 08:37 02/06/22 08:37 Abnormal Lab Results - Last 24 Hours (Table) 02/04/22 02/04/22 Range/Units 07:26 07:26 RBC 4.01 L (4.30-5.90) m/uL Hgb 11.2 L (13.0-17.5) gm/dL Hct 36.0 L (39.0-53.0) % BUN 25 H (9-20) mg/dL Microbiology - Last 24 Hours (Table) 02/03/22 10:31 Acid Fast Bacilli Smear - Final Pleural Fluid Acid Fast Bacilli Culture - Preliminary 02/03/22 10:31 Gram Stain - Preliminary Pleural Fluid Body Fluid Culture - Preliminary Diabetes panel 02/04/22 Range/Units 07:26 Sodium 137 (137-145) mmol/L Potassium 3.7 (3.5-5.1) mmol/L Chloride 101 (98-107) mmol/L Carbon Dioxide 29 (22-30) mmol/L BUN 25 H (9-20) mg/dL Creatinine 0.81 (0.66-1.25) mg/dL Glucose 95 (74-99) mg/dL Calcium 8.8 (8.4-10.2) mg/dL Calcium panel 02/04/22 Range/Units 07:26 Calcium 8.8 (8.4-10.2) mg/dL Pituitary panel 02/04/22 Range/Units 07:26 Sodium 137 (137-145) mmol/L Potassium 3.7 (3.5-5.1) mmol/L Chloride 101 (98-107) mmol/L Carbon Dioxide 29 (22-30) mmol/L BUN 25 H (9-20) mg/dL Creatinine 0.81 (0.66-1.25) mg/dL Glucose 95 (74-99) mg/dL Calcium 8.8 (8.4-10.2) mg/dL Adrenal panel 02/04/22 Range/Units 07:26 Sodium 137 (137-145) mmol/L Potassium 3.7 (3.5-5.1) mmol/L Chloride 101 (98-107) mmol/L Carbon Dioxide 29 (22-30) mmol/L BUN 25 H (9-20) mg/dL Creatinine 0.81 (0.66-1.25) mg/dL Glucose 95 (74-99) mg/dL Calcium 8.8 (8.4-10.2) mg/dL - Imaging Chest x-ray: report reviewed, image reviewed CT scan - chest: report reviewed, image reviewed Assessment and Plan Assessment: 1. Complicated right-sided pleural effusion, status post thoracentesis with 2 L exudative fluid removal, status post right-sided pigtail catheter placement by interventional radiology 2. Shortness of breath on admission secondary to above 3. Poorly differentiated pulmonary adenocarcinoma found on transbronchial biopsy 01/27/22 4. Enlarged mediastinal and right hilar lymph nodes, redemonstration of at least 2 ill-defined hypoattenuating lesions within the right hepatic lobe, multiple sclerotic and lytic osseous lesions within thoracolumbar spine, all found on CT scan, all concerning for metastasis 5. Recent history of pneumonia 6. History of hypertension 7. History of hyperlipidemia 8. History of TIA 9. History of paroxysmal atrial fibrillation on Xarelto for anticoagulation (patient denies history of, documentation on previous admission from cardiology of history of PAF) 10. Mild carotid artery disease 11. COPD from chlorine exposure 12. Remote history of tobacco use 13. Obstructive sleep apnea with home CPAP use Plan: The patient was seen and examined this morning sitting up in bed on the cardiac stepdown unit in no acute distress. Chart/diagnostics reviewed. Patient is currently stable on room air with oxygen saturation in the mid to high 90s. He is only able to pull 500 mL on his incentive spirometry but with poor effort. Right pigtail catheter remains in place, drained 110 mL serosanguineous drainage overnight with 1450 mL drainage since insertion yesterday. Patient states he feels significantly better than when he came in and denies any shortness of breath currently. Chest x-ray this morning reviewed demonstrating improvement in the effusion. Will discuss with pulmonology, recommend conservative management at this time. Encourage incentive spirometry use. Medical management of other comorbidities per internal medicine, pulmonology. Thank you Dr. Colon for this consult. More recommendations to follow. I have personally seen and examined the patient, performed the documentation and the assessment and plan as written. Number of minutes spent on the visit: 30. Ly Vermilion, ADULT LITERACY TEACHER-C Case was reviewed, I have seen and examined the patient and agree with the asse ssment and plan as documented by the nurse practitioner. Number of minutes spent on visit: 40. Dr. Levi Hudson
[2022-02-05] MEDS: PROPRANOLOL 40 MG TAB PO SCH (09:24)
[2022-02-05] MEDS: ACETAMINOPHEN TAB 325 MG TAB PO PRN (09:24)
[2022-02-05] MEDS: HEPARIN SODIUM,PORCINE/PF 5,000 UNIT/0.5 ML SYRINGE SQ SCH ×3 (09:25→23:27)
--- NOTE | 2022-02-05 11:46 | P.PN ---
Subjective Progress Note Date: 02/05/22 02/03/2022, the patient remains short of breath and the patient is given another CAT scan of the chest that showed a large loculated right-sided pleural effusion along with compressive atelectasis of the right lung base and some nonspecific mediastinal lymphadenopathy. Based on that, a consent was obtained for thoracentesis. I performed a thoracentesis at the bedside. A total of 2 L of fluid was removed and this was turbid in color and was sent for analysis. Then analysis still pending for now. Meanwhile, for thoracentesis, the patient felt some pleuritic chest pain shortness of breath and he became diaphoretic and this lasted for 10 MINUTES AND THIS WAS ANTICIPATED THE PATIENT HAS SIGNIFICANT COLLAPSE OF THE RIGHT LUNG BASE and this was a result of the especially the right lung. Mother the follow-up chest x-ray showed partially expansion of the right lung. There was interval reduction in the amount of pleural fluid without evidence of any pneumothorax. The patient was placed on 2 L approximately nasal cannula and the pulse ox remains on 95%. 02/04/2022, the patient is being seen for a follow-up. The patient has a complicated parapneumonic right-sided pleural effusion. The patient underwent a thoracentesis yesterday total of 2 L of fluid was removed. The fluid is an exud ate based on an elevated LDH and protein criteria. In fact this is a complicated parapneumonic effusion. Repeat chest x-ray from today showing still on niacin the right and the patient also has some residual right-sided pleural effusion which is somewhat loculated. Based on that, I made recommendations for interventional radiology for a pigtail catheter insertion for ongoing drainage. The patient resting comfortably in bed. He states his shortness of breath improving. The patient doesn't have any chest pain for today. The patient is currently on IV Rocephin. The cultures from the pleural fluid aspirated are still pending for now. Meanwhile, the patient has a white cell count of 5.6 with a hemoglobin of 11.2 and a platelet count of 241. Begin is at 25 with a creatinine of 0.8 and sodium level is up 137. LDH level is 1157 and total protein level is at 4410 and the pleural fluid. On 02/05/2022, the patient is feeling well. No specific complaints. Breathing status is improved. The patient has a catheter inserted in the right hemithorax and a total of 1.7 L was drained since insertion. The fluid cytology still pending for now. Meanwhile, the transbronchial biopsies were obtained on this patient earlier do not to positive for adenocarcinoma. His mother lung. Meanwhile, the fluid cytology still pending and there is a high suspicion for malignant right-sided pleural effusion. The patient otherwise doing well. Has no specific complaints. No nausea or vomiting. No chest pain. No shortness of breath for now. The blood work is also stable and the patient has a white cell count of 5.6 with a hemoglobin of 11.2 and a BUN of 25 and a creatinine of 0.8. Objective - Vital Signs Vital signs: Vital Signs Temp 97.8 F 02/05/22 08:00 Pulse 102 H 02/05/22 08:00 Resp 18 02/05/22 08:00 BP 113/66 02/05/22 08:00 Pulse Ox 94 L 02/05/22 08:00 FiO2 Intake & Output 02/04/22 02/05/22 02/05/22 18:59 06:59 18:59 Intake Total 515 118 Output Total 500 1060 120 Balance 15 -1060 -2 Intake: IV 5 Invasive Line 1 5 Oral 510 118 Output: Chest Tube Drainage 500 860 Chest Tube Right 500 860 Urine 200 120 Other: Voiding Method Urinal Toilet Toilet Urinal Urinal # Voids 2 - Exam GENERAL EXAM: Alert, very pleasant, 76-year-old white male on room air with a pulse ox of 98% comfortable in no apparent distress. HEAD: Normocephalic/atraumatic. EYES: Normal reaction of pupils, equal size. Conjunctiva pink, sclera white. NOSE: Clear with pink turbinates. THROAT: No erythema or exudates. NECK: No masses, no JVD, no thyroid enlargement, no adenopathy. CHEST: No chest wall deformity. Symmetrical expansion. LUNGS: Equal air entry with congestive cough, scattered rhonchi, improvement in the breath sounds in the right lung base and the patient has a pigtail catheter in place. CVS: Regular rate and rhythm, normal S1 and S2, no gallops, no murmurs, no rubs ABDOMEN: Soft, nontender. No hepatosplenomegaly, normal bowel sounds, no guarding or rigidity. EXTREMITIES: No clubbing, no edema, no cyanosis, 2+ pulses and upper and lower extremities. MUSCULOSKELETAL: Muscle strength and tone normal. SPINE: No scoliosis or deformity SKIN: No rashes CENTRAL NERVOUS SYSTEM: Alert and oriented -3. No focal deficits, tone is normal in all 4 extremities. PSYCHIATRIC: Alert and oriented -3. Appropriate affect. Intact judgment and insight. - Labs CBC & Chem 7: 02/04/22 07:26 02/04/22 07:26 Labs: Microbiology - Last 24 Hours (Table) 02/03/22 10:31 Acid Fast Bacilli Smear - Final Pleural Fluid Acid Fast Bacilli Culture - Preliminary 02/03/22 10:31 Gram Stain - Preliminary Pleural Fluid Body Fluid Culture - Preliminary Assessment and Plan Plan: Large right-sided pleural effusion with atelectasis of the right lung for thoracentesis removal of 2 L of fluid, the pleural fluid is an exudate, and subsequent insertion of a pigtail catheter removal of another 1.7 L of pleural fluid. Consider a malignant pleural effusion. Note that transbronchial biopsies were obtained from the right lower lobe do not think positive for adenocarcinoma lung primary. Adenocarcinoma of the lung bases and transbronchial biopsies. The patient also has some mediastinal lymphadenopathy Previous history of a right lower lobe pneumonia with parapneumonic effusion, addition to some large mediastinal lymph nodes. Nonspecific mediastinal lymphadenopathy COPD with an FEV1 of 55% predicted Hypertension Hyperlipidemia Obesity Former smoker Osteoarthritis Ill-defined hypoattenuating lesions in the right hepatic lobe concerning for metastases Multiple sclerotic and lytic osseous lesions demonstrated within the visualized thoracolumbar spine concerning for metastases Plan Consider a right-sided malignant pleural effusion Keep the catheter in place Consider a chemical pleurodesis if the pleural fluid do not to be positive for malignancy Awaiting pleural fluid cytology Keep anticoagulants off for now May need another CAT scan of the chest probably in the morning to evaluate right lung expansion and see if there is any underlying mass in the right lower lobe. Noted the patient does have underlying T-cell lymphadenopathy Aggressive use of incentive spirometer Keep oxygen Keep bronchodilators Keep antibiotics We'll follow
[2022-02-06] MEDS: SODIUM CHLORIDE 0.9% 1,000 ML IV SCH (07:00)
[2022-02-06] MEDS: TIOTROPIUM 2.5 MCG INHALER INHALATION SCH (08:43)
[2022-02-06] MEDS: SYMBICORT 80-4.5 MCG INHALER INHALATION SCH ×2 (08:43→21:03)
[2022-02-06] MEDS ORDERED: RX INFO: IV CONTRAST WAS GIVEN 1 EACH MISC MISCELLANE PRN (08:49)
[2022-02-06] MEDS: ATORVASTATIN 10 MG TAB PO SCH (08:58)
[2022-02-06] MEDS: lisinopriL 20 MG TAB PO SCH (08:58)
[2022-02-06] MEDS: HEPARIN SODIUM,PORCINE/PF 5,000 UNIT/0.5 ML SYRINGE SQ SCH ×3 (08:58→23:27)
[2022-02-06] MEDS: PROPRANOLOL 40 MG TAB PO SCH (08:59)
[2022-02-06] MEDS: ACETAMINOPHEN TAB 325 MG TAB PO PRN (09:04)
[2022-02-06 09:41] LABS: Basophils # (A) 0.1 k/uL (0-0.2); Basophils % (A) 1 %; Eosinophils # (A) 0.1 k/uL (0-0.7); Eosinophils % (A) 1 %; HCT 38.6 % (39.0-53.0); HGB 12.1 gm/dL (13.0-17.5); Hypochromasia Slight; Lymphocytes # (A) 1.4 k/uL (1.0-4.8); Lymphocytes % (A) 21 %; MCH 28.2 pg (25.0-35.0); MCHC 31.3 g/dL (31.0-37.0); Mean Platelet Volume 8.1; Monocytes # (A) 0.4 k/uL (0-1.0); Monocytes % (A) 6 %; Neutrophils # (A) 4.6 k/uL (1.3-7.7); Neutrophils % (A) 70 %; Platelet Count 334 k/uL (150-450); RBC 4.28 m/uL (4.30-5.90); RDW 15.1 % (11.5-15.5); WBC 6.5 k/uL (3.8-10.6)
--- NOTE | 2022-02-06 09:41 | CT ---
EXAMINATION TYPE: CT chest w con DATE OF EXAM: 02/06/2022 COMPARISON: 02/02/2022 HISTORY: 76-year-old male evaluate for lung mass, history of lung cancer, COPD and pneumonia. Recent right sided chest tube. TECHNIQUE: Contiguous axial scanning of the chest after the administration of 100ml mL of Isovue 300. Coronal/sagittal reconstructions performed. CT DLP: 521.1mGycm. Automatic exposure control utilized for a dose reduction. FINDINGS: The heart is borderline in size without pericardial effusion. LAD coronary artery calcifications are present. Mild to moderate aortic valvular calcifications. Ascending aorta aneurysmal 4.4 cm. Conventional arch vessel branching anatomy. Large caliber to the main right and left pulmonary arteries measuring up to 3.0 cm suggesting underly ing pulmonary arterial hypertension. There is right paratracheal lymphadenopathy. 4R nodes measure up to 2.6 cm. Subcarinal nodes measure up to 1.7 cm short axis. Right hilar nodes measure up to 2.4 x 1.4 cm. A right-sided pigtail pleural catheter is present. We note that the radiodense marker is located with in the chest wall musculature, reference axial image 40. There is a small right-sided pneumothorax. P leural thickening throughout with areas of irregular and nodular thickening. 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 Vo lume loss in the right hemithorax. Focal mass measuring 4.1 x 2.5 cm anterior right midlung within th e upper lobe on axial image 26. Left lung and pleural space appear clear. 2 dominant suspicious hepatic lesions are redemonstrated. There may be additional smaller lesions, fo r example, posterior right liver lobe on axial image 63. Dominant lesions measure up to 4.1 and 2.4 c m. Cholecystectomy clips. Multiple direct degenerative change left shoulder and moderate to advanced right shoulder. Throughout the thoracic spine. Numerous sclerotic foci compatible with osseous metastatic disease. Underlying b todd destruction also present within the T12 and T7 vertebral body. IMPRESSION: 1. Right-sided pigtail pleural catheter in place. Note that the catheters radiodense marker is locate d within the chest wall musculature. After removal of the pleural fluid, there is a small right-sided pneumothorax and diffuse pleural thickening with some irregularity and nodularity that may reflect p leural neoplastic spread. 2. More focal opacity posterior right base measuring 7.6 x 3.9 cm could represent neoplasm versus con solidation/atelectasis. PET/CT may be useful to further characterize. 3. There is a mass in the anterior right upper lobe measuring 4.1 x 2.5 cm. 4. Metastatic right hilar, right paratracheal, and subcarinal lymphadenopathy measuring up to 2.6 cm. Additional diffuse blastic and lytic osseous metastases. Previously described hepatic metastases toby suring up to 4.1 cm. Likely more than the 2 mentioned previously.
[2022-02-06 10:05] LABS: African American GFR (CKD) >90 (>60 ml/min/1.73 sqM); Anion Gap 9 mmol/L; Blood Urea Nitrogen 26 mg/dL (9-20); Calcium 8.9 mg/dL (8.4-10.2); Carbon Dioxide 30 mmol/L (22-30); Chloride 99 mmol/L (98-107); Glucose 161 mg/dL (74-99); Non-African American GFR(CKD) 85 (>60 ml/min/1.73 sqM); Potassium 3.6 mmol/L (3.5-5.1); Sodium 138 mmol/L (137-145)
--- NOTE | 2022-02-06 11:22 | P.PN ---
Subjective Progress Note Date: 02/06/22 02/03/2022, the patient remains short of breath and the patient is given another CAT scan of the chest that showed a large loculated right-sided pleural effusion along with compressive atelectasis of the right lung base and some nonspecific mediastinal lymphadenopathy. Based on that, a consent was obtained for thoracentesis. I performed a thoracentesis at the bedside. A total of 2 L of fluid was removed and this was turbid in color and was sent for analysis. Then analysis still pending for now. Meanwhile, for thoracentesis, the patient felt some pleuritic chest pain shortness of breath and he became diaphoretic and this lasted for 10 MINUTES AND THIS WAS ANTICIPATED THE PATIENT HAS SIGNIFICANT COLLAPSE OF THE RIGHT LUNG BASE and this was a result of the especially the right lung. Mother the follow-up chest x-ray showed partially expansion of the right lung. There was interval reduction in the amount of pleural fluid without evidence of any pneumothorax. The patient was placed on 2 L approximately nasal cannula and the pulse ox remains on 95%. 02/04/2022, the patient is being seen for a follow-up. The patient has a complicated parapneumonic right-sided pleural effusion. The patient underwent a thoracentesis yesterday total of 2 L of fluid was removed. The fluid is an exud ate based on an elevated LDH and protein criteria. In fact this is a complicated parapneumonic effusion. Repeat chest x-ray from today showing still on niacin the right and the patient also has some residual right-sided pleural effusion which is somewhat loculated. Based on that, I made recommendations for interventional radiology for a pigtail catheter insertion for ongoing drainage. The patient resting comfortably in bed. He states his shortness of breath improving. The patient doesn't have any chest pain for today. The patient is currently on IV Rocephin. The cultures from the pleural fluid aspirated are still pending for now. Meanwhile, the patient has a white cell count of 5.6 with a hemoglobin of 11.2 and a platelet count of 241. Begin is at 25 with a creatinine of 0.8 and sodium level is up 137. LDH level is 1157 and total protein level is at 4410 and the pleural fluid. On 02/05/2022, the patient is feeling well. No specific complaints. Breathing status is improved. The patient has a catheter inserted in the right hemithorax and a total of 1.7 L was drained since insertion. The fluid cytology still pending for now. Meanwhile, the transbronchial biopsies were obtained on this patient earlier do not to positive for adenocarcinoma. His mother lung. Meanwhile, the fluid cytology still pending and there is a high suspicion for malignant right-sided pleural effusion. The patient otherwise doing well. Has no specific complaints. No nausea or vomiting. No chest pain. No shortness of breath for now. The blood work is also stable and the patient has a white cell count of 5.6 with a hemoglobin of 11.2 and a BUN of 25 and a creatinine of 0.8. 02/06/2022, the patient is feeling well and he is much less short of breath. Sitting up on a chair he is currently on room air oxygen. Note that, the patient was diagnosed having renal carcinoma the right lobe of the patient is suspected to have a malignant right-sided pleural effusion. Based on that, in itially performed a thoracentesis on this patient a fluid cytology still pending. Subsequently, the pigtail catheter was inserted and over the past 24 hours the catheter drained approximately 1.2 L. Since 8 hours, the patient has drained another 280 mL a repeat CAT scan of the chest was done today and the patient was seen to have a right-sided pigtail pleural catheter which is in good location. The right-sided pleural effusion essentially recovered. There is a small right-sided pneumothorax and diffuse pleural thickening and some irregularity another anti-that may reflect pleural neoplasm. There is also a focal opacity in the right lung base measuring 7.6 x 3.9 cm in size. This could be atelectasis versus a mass. There is also mass in the anterior right upper lobe measuring 4.1 x 2.5 cm in size. There is also metastatic right hilar and right paratracheal and subcarinal lymphadenopathy. There is also evidence of diffuse blastic/lytic osseous lesions consistent with metastases. There is also a hepatic metastases measuring 4.1 cm in size. Objective - Vital Signs Vital signs: Vital Signs Temp 98.3 F 02/06/22 08:00 Pulse 100 02/06/22 08:00 Resp 18 02/06/22 08:00 BP 116/68 02/06/22 08:00 Pulse Ox 94 L 02/06/22 08:44 FiO2 Intake & Output 02/05/22 02/06/22 02/06/22 18:59 06:59 18:59 Intake Total 454 150 118 Output Total 345 540 65 Balance 109 -390 53 Intake: Intake, IV Titration 150 Amount cefTRIAXone 2 gm In 150 Sodium Chloride 0.9% 50 ml @ 100 mls/hr IVPB Q24H [facility] Rx#:[id number] Oral 454 118 Output: Chest Tube Drainage 225 310 65 Chest Tube Right 225 310 65 Urine 120 230 Other: Voiding Method Toilet Toilet Urinal Urinal - Exam GENERAL EXAM: Alert, very pleasant, 76-year-old white male on room air with a pulse ox of 98% comfortable in no apparent distress. The patient is currently on room air oxygen HEAD: Normocephalic/atraumatic. EYES: Normal reaction of pupils, equal size. Conjunctiva pink, sclera white. NOSE: Clear with pink turbinates. THROAT: No erythema or exudates. NECK: No masses, no JVD, no thyroid enlargement, no adenopathy. CHEST: No chest wall deformity. Symmetrical expansion. LUNGS: Equal air entry with congestive cough, scattered rhonchi, improvement in the breath sounds in the right lung base and the patient has a pigtail catheter in place. CVS: Regular rate and rhythm, normal S1 and S2, no gallops, no murmurs, no rubs ABDOMEN: Soft, nontender. No hepatosplenomegaly, normal bowel sounds, no guarding or rigidity. EXTREMITIES: No clubbing, no edema, no cyanosis, 2+ pulses and upper and lower extremities. MUSCULOSKELETAL: Muscle strength and tone normal. SPINE: No scoliosis or deformity SKIN: No rashes CENTRAL NERVOUS SYSTEM: Alert and oriented -3. No focal deficits, tone is normal in all 4 extremities. PSYCHIATRIC: Alert and oriented -3. Appropriate affect. Intact judgment and insight. - Labs CBC & Chem 7: 02/06/22 08:37 02/06/22 08:37 Labs: Microbiology - Last 24 Hours (Table) 02/03/22 10:31 Gram Stain - Preliminary Pleural Fluid Body Fluid Culture - Preliminary Assessment and Plan Plan: Metastatic adenocarcinoma of the lung with suspected malignant right-sided pleural effusion. The same time, the patient has focal opacities in the right lung base measuring 7.6 x 3.9 cm and another anterior right upper lobe opacity measuring 4.1 x 2.5 cm in size and mediastinal lymphadenopathy which looked to be malignant and diffuse blastic/lytic osseous metastases and a 4.1 cm hepatic metastases. Large right-sided pleural effusion , likely malignant, exudates, awaiting pleural fluid cytology. Pigtail catheter has been inserted and output was in the low to 1.2 L over the past 24 hours. Right tiny pneumothorax, no evidence of any distention COPD with an FEV1 of 55% predicted Hypertension Hyperlipidemia Obesity Former smoker Osteoarthritis Ill-defined hypoattenuating lesions in the right hepatic lobe concerning for metastases Multiple sclerotic and lytic osseous lesions demonstrated within the visualized thoracolumbar spine concerning for metastases Plan Prognosis extremely poor with metastatic adenocarcinoma of the lung Awaiting pleural fluid cytology decide if the patient may benefit from a Pleurx catheter. Alternatively, it out pleurodesis can be done prior to the catheter removal in the right lung fully expanded. I prefer to proceed with a Pleurx catheter at a later stage if they fluids and his other than malignant. I elected for the pleural fluid malignancy. CAT scan of the chest was noted The pigtail catheter to the Pleur-evac and suction Repeat chest x-ray in the morning Aggressive use of incentive spirometer Currently off oxygen on room air Keep bronchodilators Keep antibiotics Overall feeling better We'll follow
--- NOTE | 2022-02-06 22:58 | P.PN ---
Subjective Progress Note Date: 02/04/22 Patient is a 76-year-old male with a known history of hypertension, COPD, obstructive sleep apnea and previous history of smoking, COVID-19 infection presents to ER due to worsening shortness of breath. Patient was recently admitted to the hospital in December 2021 with a right lower lobe consolidation and small right-sided pleural effusion. Patient was treated with antibiotics and Medrol Dosepak. Patient states that his symptoms are getting worse again and made him to come to ER. Chest x-ray on admission showed consolidation and pleural effusion atelectasis in the right lower lobe which is slightly worse than last exam. EKG showed sinus rhythm Laboratory data WBC 6.8 hemoglobin 13.0 and platelets 241 INR 1.0 Sodium 134 potassium 3.9 chloride 95 bicarb is 26 BUN 23 and creatinine 0.75 and blood sugar is 112 AST 27 ALT 27 alk phos 148 and troponin 0.058, proBNP 296 and patient was tachypneic with respiratory 32 and heart rate 91 and patient is currently on 2 L oxygen via nasal cannula. Patient had CT chest done on 01/20/2022 showed moderate size and right pleural effusion and compressive atelectasis and also mediastinal lymphadenopathy and right hilar adenopathy measuring 4 mm subcarinal lymphadenopathy measuring 1.2 cm in size. 02/03/2022 Patient is currently sitting in the chair. Awake alert and oriented x3. Status post right thoracentesis with 2.1 L fluid removal and sent for analysis. Patient states that he feels better after procedure. No complaints of chest pain or worsening shortness of breath. No nausea vomiting abdominal pain or diarrhea. No fever no chills. No cough or sputum production. Chest x-ray showed interval reduction in the amount of pleural fluid related to the prior exam. No sizable pneumothorax. Laboratory showed WBC 6.2 hemoglobin 12.3 and platelets 271 Sodium 141 potassium 3.8 chloride 101 bicarb is 29 BUN 25 and creatinine 0.71. Procalcitonin was 0.13. Patient is being continued on DuoNebs, antibiotics in the form of ceftriaxone and azithromycin. Pulmonary is on board. 02/04/2022 Patient is currently sitting in the chair.. Alert and oriented x3. Status post right thoracentesis with 2 L fluid removal. Repeat chest x-ray showed small pleural effusion and no sizable pneumothorax. Chest ultrasound was done which showed small right pleural effusion. IR was consulted for pigtail catheter placement for continuous drainage. Pulmonary is on board. Otherwise patient feels better after thoracentesis. Remains on antibiotics with home ceftriaxone azithromycin. No nausea vomiting abdominal pain or diarrhea. Tolerating oral diet. Laboratory showed WBC 5.6 hemoglobin 9.1 platelets 241, sodium 137 potassium 3.7 chloride 101 bicarb is 29 BUN 25 creatinine 0.81 and troponin 0.016 Current medications reviewed. Objective - Vital Signs Vital signs: Vital Signs Temp 97.5 F L 02/04/22 11:47 Pulse 70 02/04/22 11:47 Resp 18 02/04/22 11:47 BP 110/69 02/04/22 11:47 Pulse Ox 97 02/04/22 11:47 FiO2 Intake & Output 02/03/22 02/04/22 02/04/22 18:59 06:59 18:59 Intake Total 250 365 Output Total 225 Balance 25 365 Intake: IV 5 Invasive Line 1 5 Oral 250 360 Output: Urine 225 Other: Voiding Method Urinal Urinal Urinal # Voids 1 - Exam PHYSICAL EXAMINATION: Patient is lying in the bed comfortably, no acute distress, awake alert and oriented.. HEENT: Normocephalic. Neck is supple. Pupils reactive. Nostrils clear. Oral cavity is moist. Neck reveals no JVD, carotid bruits, or thyromegaly. CHEST EXAMINATION: Trachea is central. Symmetrical expansion. Right basilar crackles.. No wheezing or rhonchi. Nonlabored breathing.. CARDIAC: Normal S1, S2 with no gallops. No murmurs ABDOMEN: Soft. Bowel sounds present. Nontender. No organomegaly. No abdominal bruits. Extremities: reveal no edema. No clubbing or cyanosis Neurologically awake, alert, oriented x3 with well-coordinated movements. No focal deficits noted Skin: No rash or skin lesions. Psychiatric: Coperative. Nonsuicidal, anxious. Musculoskeletal: No joint swelling or deformity. Normal range of motion. - Labs CBC & Chem 7: 02/06/22 08:37 02/06/22 08:37 Labs: Abnormal Lab Results - Last 24 Hours (Table) 02/04/22 02/04/22 Range/Units 07:26 07:26 RBC 4.01 L (4.30-5.90) m/uL Hgb 11.2 L (13.0-17.5) gm/dL Hct 36.0 L (39.0-53.0) % BUN 25 H (9-20) mg/dL Microbiology - Last 24 Hours (Table) 02/03/22 10:31 Gram Stain - Preliminary Pleural Fluid Body Fluid Culture - Preliminary 02/03/22 10:31 Acid Fast Bacilli Culture - Preliminary Pleural Fluid 02/03/22 10:31 Fungal Culture - Preliminary Pleural Fluid 02/03/22 10:31 Anaerobic Culture - Preliminary Pleural Fluid Assessment and Plan Assessment: Worsening shortness of breath secondary to right lower lobe pleural effusion and atelectasis. Possible underlying infective etiology. Recent bronchoscopy and bilateral cultures negative. Patient is status post thoracentesis on 02/03/2022 with 2 L fluid removal. Recent history of right lower lobe pneumonia and complicated colitis and parapneumonic effusion Enlarged mediastinal and right hilar lymph nodes concerning for metastasis. Multiple sclerotic and lytic osseous lesions within the thoracolumbar spine concerning for metastasis. COPD with FEV1 of 55% of predicted Hypertension Hyperlipidemia Osteoarthritis Previous history of smoking DVT prophylaxis Heparin subcu Plan: Patient is status post thoracentesis with 2 L fluid removal. Pulmonary is on board.IR consult for pigtail catheter placement Xarelto is on hold. Patient will be continued on antibiotics in the form of ceftriaxone and azithromycin. Continue with duo nebs. Was given a dose of IV Solu-Medrol in the ER. CT of the chest showed mediastinal lymphadenopathy and sclerotic and lytic os seous lesions within the thoracolumbar spine concerning for metastasis. Continue to follow closely and prognosis is guarded. Time with Patient: Greater than 30
--- NOTE | 2022-02-06 23:00 | P.PN ---
Subjective Progress Note Date: 02/05/22 Patient is a 76-year-old male with a known history of hypertension, COPD, obstructive sleep apnea and previous history of smoking, COVID-19 infection presents to ER due to worsening shortness of breath. Patient was recently admitted to the hospital in December 2021 with a right lower lobe consolidation and small right-sided pleural effusion. Patient was treated with antibiotics and Medrol Dosepak. Patient states that his symptoms are getting worse again and made him to come to ER. Chest x-ray on admission showed consolidation and pleural effusion atelectasis in the right lower lobe which is slightly worse than last exam. EKG showed sinus rhythm Laboratory data WBC 6.8 hemoglobin 13.0 and platelets 241 INR 1.0 Sodium 134 potassium 3.9 chloride 95 bicarb is 26 BUN 23 and creatinine 0.75 and blood sugar is 112 AST 27 ALT 27 alk phos 148 and troponin 0.058, proBNP 296 and patient was tachypneic with respiratory 32 and heart rate 91 and patient is currently on 2 L oxygen via nasal cannula. Patient had CT chest done on 01/20/2022 showed moderate size and right pleural effusion and compressive atelectasis and also mediastinal lymphadenopathy and right hilar adenopathy measuring 4 mm subcarinal lymphadenopathy measuring 1.2 cm in size. 02/03/2022 Patient is currently sitting in the chair. Awake alert and oriented x3. Status post right thoracentesis with 2.1 L fluid removal and sent for analysis. Patient states that he feels better after procedure. No complaints of chest pain or worsening shortness of breath. No nausea vomiting abdominal pain or diarrhea. No fever no chills. No cough or sputum production. Chest x-ray showed interval reduction in the amount of pleural fluid related to the prior exam. No sizable pneumothorax. Laboratory showed WBC 6.2 hemoglobin 12.3 and platelets 271 Sodium 141 potassium 3.8 chloride 101 bicarb is 29 BUN 25 and creatinine 0.71. Procalcitonin was 0.13. Patient is being continued on DuoNebs, antibiotics in the form of ceftriaxone and azithromycin. Pulmonary is on board. 02/04/2022 Patient is currently sitting in the chair.. Alert and oriented x3. Status post right thoracentesis with 2 L fluid removal. Repeat chest x-ray showed small pleural effusion and no sizable pneumothorax. Chest ultrasound was done which showed small right pleural effusion. IR was consulted for pigtail catheter placement for continuous drainage. Pulmonary is on board. Otherwise patient feels better after thoracentesis. Remains on antibiotics with home ceftriaxone azithromycin. No nausea vomiting abdominal pain or diarrhea. Tolerating oral diet. Laboratory showed WBC 5.6 hemoglobin 9.1 platelets 241, sodium 137 potassium 3.7 chloride 101 bicarb is 29 BUN 25 creatinine 0.81 and troponin 0.016 02/05/2022 Patient is resting in the chair comfortably. Awake alert [place] x3. Breathing status is much improved. Patient is status post right pigtail catheter and draining about 1.7 L since yesterday. Was exudative and culture has been negative. Fluid cytology is pending. Right- sided pleural effusion. Complaints of chest pain or shortness of breath. No abdominal pain or diarrhea. Oriented. No cough or sputum production. Clinically improving. He is on board. Antibiotics have been discontinued. Current medications reviewed. Objective - Vital Signs Vital signs: Vital Signs Temp 98.3 F 02/05/22 23:29 Pulse 71 02/05/22 23:29 Resp 19 02/05/22 23:29 BP 109/71 02/05/22 23:29 Pulse Ox 98 02/05/22 23:29 FiO2 Intake & Output 02/05/22 02/05/22 02/06/22 06:59 18:59 06:59 Intake Total 454 150 Output Total 1060 345 500 Balance -1060 109 -350 Intake: Intake, IV Titration 150 Amount cefTRIAXone 2 gm In 150 Sodium Chloride 0.9% 50 ml @ 100 mls/hr IVPB Q24H COUNTS INCLUDE 234 BEDS AT [facility] Rx#:[id number] Oral 454 Output: Chest Tube Drainage 860 225 270 Chest Tube Right 860 225 270 Urine 200 120 230 Other: Voiding Method Toilet Toilet Toilet Urinal Urinal Urinal - Exam PHYSICAL EXAMINATION: Patient is lying in the bed comfortably, no acute distress, awake alert and oriented.. HEENT: Normocephalic. Neck is supple. Pupils reactive. Nostrils clear. Oral cavity is moist. Neck reveals no JVD, carotid bruits, or thyromegaly. CHEST EXAMINATION: Trachea is central. Symmetrical expansion. Right basilar crackles.. No wheezing or rhonchi. Nonlabored breathing.. CARDIAC: Normal S1, S2 with no gallops. No murmurs ABDOMEN: Soft. Bowel sounds present. Nontender. No organomegaly. No abdominal bruits. Extremities: reveal no edema. No clubbing or cyanosis Neurologically awake, alert, oriented x3 with well-coordinated movements. No focal deficits noted Skin: No rash or skin lesions. Psychiatric: Coperative. Nonsuicidal, anxious. Musculoskeletal: No joint swelling or deformity. Normal range of motion. - Labs CBC & Chem 7: 02/06/22 08:37 02/06/22 08:37 Labs: Microbiology - Last 24 Hours (Table) 02/03/22 10:31 Gram Stain - Preliminary Pleural Fluid Body Fluid Culture - Preliminary 02/03/22 10:31 Acid Fast Bacilli Smear - Final Pleural Fluid Acid Fast Bacilli Culture - Preliminary Assessment and Plan Assessment: Worsening shortness of breath secondary to right lower lobe pleural effusion and atelectasis. Possible underlying infective etiology. Recent bronchoscopy and bilateral cultures negative. Patient is status post thoracentesis on 02/03/2022 with 2 L fluid removal.Status post pigtail catheter placement Recent history of right lower lobe pneumonia and complicated colitis and parapne umonic effusion Enlarged mediastinal and right hilar lymph nodes concerning for metastasis. Multiple sclerotic and lytic osseous lesions within the thoracolumbar spine concerning for metastasis. COPD with FEV1 of 55% of predicted Hypertension Hyperlipidemia Osteoarthritis Previous history of smoking DVT prophylaxis Heparin subcu Plan: Patient is status post thoracentesis with 2 L fluid removal. Pulmonary is on board. Status post pigtail catheter placement. Xarelto is on hold. Patient was on antibiotics in the form of ceftriaxone and azithromycin. Antibiotics have been discontinued. Continue with duo nebs. Was given a dose of IV Solu-Medrol in the ER. CT of the chest showed mediastinal lymphadenopathy and sclerotic and lytic osseous lesions within the thoracolumbar spine concerning for metastasis. Continue to follow closely and prognosis is guarded. Time with Patient: Greater than 30
--- NOTE | 2022-02-07 07:45 | XR ---
EXAMINATION TYPE: XR chest 1V portable DATE OF EXAM: 02/07/2022 7:07 AM COMPARISON: Chest radiographs from 02/05/2022, CT chest 02/06/2022 TECHNIQUE: XR chest 1V portable Portable AP radiograph of the chest. CLINICAL INDICATION:Male, 76 years old with history of pleural effusion; FINDINGS: Lungs/Pleura: Redemonstration of right-sided pleural thickening. No sizable pneumothorax. Known right lung mass is better appreciated on previous CT chest. Right basilar atelectasis. No sizable right pl eural effusion. Left lung is clear. Pulmonary vascularity: Unremarkable. Heart/mediastinum: Cardiomediastinal silhouette is stable. Musculoskeletal: No acute osseous pathology. Arthropathy of both shoulders. Lines/Tubes: Right-sided pleural pigtail catheter is in overall stable position. IMPRESSION: * Stable position of right-sided pleural pigtail catheter with no sizable pneumothorax. * Right basilar atelectasis with no sizable right pleural effusion. * Known right lung mass is better appreciated on previous CT chest.
[2022-02-07] MEDS: IPRATROPIUM-ALBUTEROL 3 ML NEB INHALATION PRN (08:24)
[2022-02-07] MEDS: TIOTROPIUM 2.5 MCG INHALER INHALATION SCH (08:24)
[2022-02-07] MEDS: SYMBICORT 80-4.5 MCG INHALER INHALATION SCH ×2 (08:30→21:00)
[2022-02-07] MEDS: HEPARIN SODIUM,PORCINE/PF 5,000 UNIT/0.5 ML SYRINGE SQ SCH ×3 (09:40→23:12)
[2022-02-07] MEDS: ACETAMINOPHEN TAB 325 MG TAB PO PRN ×2 (09:40→23:12)
[2022-02-07] MEDS: ATORVASTATIN 10 MG TAB PO SCH (09:41)
[2022-02-07] MEDS: SODIUM CHLORIDE 0.9% 1,000 ML IV SCH ×2 (09:42→13:59)
[2022-02-07] MEDS: PROPRANOLOL 40 MG TAB PO SCH (09:42)
[2022-02-07] MEDS: bisacodyL 5 MG TABLET.DR PO PRN (09:47)
[2022-02-07] MEDS: lisinopriL 20 MG TAB PO SCH (10:56)
--- NOTE | 2022-02-07 13:55 | P.PN ---
Subjective Progress Note Date: 02/07/22 Principal diagnosis: Metastatic adenocarcinoma of the lung with right sided pleural effusion 02/06/2022, the patient is feeling well and he is much less short of breath. Sitting up on a chair he is currently on room air oxygen. Note that, the patient was diagnosed having renal carcinoma the right lobe of the patient is suspected to have a malignant right-sided pleural effusion. Based on that, initially performed a thoracentesis on this patient a fluid cytology still pendi ng. Subsequently, the pigtail catheter was inserted and over the past 24 hours the catheter drained approximately 1.2 L. Since 8 hours, the patient has drained another 280 mL a repeat CAT scan of the chest was done today and the patient was seen to have a right-sided pigtail pleural catheter which is in good location. The right-sided pleural effusion essentially recovered. There is a small right-sided pneumothorax and diffuse pleural thickening and some irregularity another anti-that may reflect pleural neoplasm. There is also a focal opacity in the right lung base measuring 7.6 x 3.9 cm in size. This could be atelectasis versus a mass. There is also mass in the anterior right upper l obe measuring 4.1 x 2.5 cm in size. There is also metastatic right hilar and right paratracheal and subcarinal lymphadenopathy. There is also evidence of diffuse blastic/lytic osseous lesions consistent with metastases. There is also a hepatic metastases measuring 4.1 cm in size. Reevaluated today on 02/07/2022, patient is about the same, continues to have drainage from his pigtail catheter, patient is doing well clinically not in any distress. Cytology from the pleural effusion is still pending, I would consider that it is malignant unless proven otherwise. And eventually the patient may have to have a Pleurx catheter in the meantime I'm recommending patient to be seen by oncology. I will see the patient has metastatic adenocarcinoma. WBC count is 6.5 12.1. Objective - Vital Signs Vital signs: Vital Signs Temp 98.2 F 02/07/22 11:59 Pulse 61 02/07/22 11:59 Resp 18 02/07/22 11:59 BP 94/55 02/07/22 11:59 Pulse Ox 97 02/07/22 11:59 FiO2 Intake & Output 02/06/22 02/07/22 02/07/22 18:59 06:59 18:59 Intake Total 429 240 Output Total 275 370 250 Balance 154 -370 -10 Intake: Intake, IV Titration 75 Amount Sodium Chloride 0.9% 1, 75 000 ml @ 75 mls/hr IV . [id number] [facility] Rx#:[id number] Oral 354 240 Output: Chest Tube Drainage 175 170 250 Chest Tube Right 175 170 250 Urine 100 200 Other: Voiding Method Toilet Toilet Urinal Urinal # Voids 5 1 - Exam GENERAL EXAM: 76-year-old white male in no distress HEAD: Normocephalic/atraumatic. HEENT: PERRLA, EOMI, nonicteric, no neck masses no JVD. CHEST: No chest wall deformity. Symmetrical expansion. LUNGS: Equal air entry with congestive cough, diminished breath sounds at the bases. CVS: Regular rate and rhythm, normal S1 and S2, no gallops, no murmurs, no rubs ABDOMEN: Soft, nontender. No hepatosplenomegaly, normal bowel sounds, no guarding or rigidity. EXTREMITIES: No clubbing, no edema, no cyanosis, 2+ pulses and upper and lower extremities. MUSCULOSKELETAL: Muscle strength and tone normal. CENTRAL NERVOUS SYSTEM: Alert and oriented -3. No gross deficit. PSYCHIATRIC: Normal mood affect and normal mental status examination - Labs CBC & Chem 7: 02/06/22 08:37 02/06/22 08:37 Labs: Microbiology - Last 24 Hours (Table) 02/03/22 10:31 Anaerobic Culture - Final Pleural Fluid 02/03/22 10:31 Gram Stain - Final Pleural Fluid Body Fluid Culture - Final Assessment and Plan Assessment: Impression: Metastatic adenocarcinoma of the right lung. Large right-sided pleural effusion, malignant unless for otherwise Severe underlying COPD FEV1 of 55% Benign essential hypertension Dyslipidemia Former smoker Possible hepatic metastasis. And osseous metastasis. Recommendation: Continue pigtail catheter for now. Thoracic surgery to evaluate for possible Pleurx catheter and or pleurodesis. Oncology to see on consultation. Continue incentive spirometer. Continue bronchodilators. Overall prognosis remains poor and guarded. We'll continue to follow. Time with Patient: Less than 30
--- NOTE | 2022-02-07 14:02 | P.CONS ---
History of Present Illness - Reason for Consult Consult date: 02/07/22 Lung Requesting physician: Brittany Isbell - History of Present Illness Mr. Ji is a patient we were asked to see for suspicious picture of metastatic lung cancer, cytology is pending. He was recently treated for pneumonia, which did not resolv and represented with worsening sob and evidence of effusion. Review of Systems All systems: negative Constitutional: Reports as per HPI Past Medical History Past Medical History: Atrial Fibrillation, COPD, CVA/TIA, Hyperlipidemia, Hypertension, Pneumonia, Sleep Apnea/CPAP/BIPAP Additional Past Medical History / Comment(s): ESSENTIAL TREMORS, KIDNEY STONES, COPD CAUSED BY EXPOSURE TO CHLORINE. recent hospitalization for pneumoia with kidney issues. History of Any Multi-Drug Resistant Organisms: None Reported Past Surgical History: Cholecystectomy, Joint Replacement Additional Past Surgical History / Comment(s): COLONOSCOPY, [place] KNEE REPLACEM ENT, PILONIDAL CYST. Past Anesthesia/Blood Transfusion Reactions: No Reported Reaction Additional Past Anesthesia/Blood Transfusion Reaction / Comm: no blood transfusion Past Psychological History: No Psychological Hx Reported Smoking Status: Former smoker Past Alcohol Use History: None Reported Additional Past Alcohol Use History / Comment(s): SMOKED FOR SHORT TIME IN THE [employer]. Past Drug Use History: None Reported - Past Family History Father Family Medical History: Cancer Additional Family Medical History / Comment(s): COLON CANCER Medications and Allergies Home Medications Medication Instructions Recorded Confirmed Type Albuterol Nebulized [Ventolin 2.5 mg INHALATION RT-TID PRN 12/31/21 02/02/22 History Nebulized] Fluticasone/Umeclidin/Vilanter 1 puff INHALATION RT-DAILY 12/31/21 02/02/22 History [Trelegy Ellipta 100-62.5-25] lisinopriL [Zestril] 40 mg PO DAILY 12/31/21 02/02/22 History Rivaroxaban [Xarelto] 20 mg PO DAILY 01/26/22 02/02/22 History Acetaminophen [Tylenol] 650 mg PO DAILY 02/02/22 02/02/22 History Atorvastatin [Lipitor] 10 mg PO DAILY 02/02/22 02/02/22 History Ciprofloxacin HCl 500 mg PO BID 02/02/22 02/02/22 History Propranolol HCl 80 mg PO DAILY 02/02/22 02/02/22 History Allergies Allergy/AdvReac Type Severity Reaction Status Date / Time No Known Allergies Allergy Verified 02/01/22 21:26 Physical Exam Vitals: Vital Signs Temp Pulse Pulse Resp BP Pulse Ox 02/07/22 11:59 98.2 F 61 18 94/55 97 02/07/22 09:37 98.6 F 97 18 96/53 97 02/07/22 08:37 98 02/07/22 08:24 99 97 02/07/22 04:00 98.7 F 82 17 97/65 95 02/06/22 23:51 60 17 132/81 95 02/06/22 20:00 98.6 F 71 18 109/64 98 02/06/22 16:00 75 18 100/57 97 Intake and Output 02/06/22 02/07/22 02/07/22 22:59 06:59 14:59 Intake Total 118 240 Output Total 230 350 250 Balance -112 -350 -10 Intake: Oral 118 240 Output: Chest Tube Drainage 130 150 250 Chest Tube Right 130 150 250 Urine 100 200 Other: Voiding Method Toilet Urinal # Voids 5 1 - Constitutional General appearance: cooperative, mild distress - EENT Eyes: EOMI ENT: NA/AT - Neck Neck: normal ROM - Respiratory Respiratory: right: diminished (chest tune pig tail) - Cardiovascular Rhythm: regularly irregular - Gastrointestinal General gastrointestinal: soft - Integumentary Integumentary: pale - Neurologic Neurologic: CNII-XII intact - Musculoskeletal Musculoskeletal: generalized weakness - Psychiatric Psychiatric: A&O x's 3, appropriate affect Results CBC & Chem 7: 02/06/22 08:37 02/06/22 08:37 Labs: Microbiology - Last 24 Hours (Table) 02/03/22 10:31 Anaerobic Culture - Final Pleural Fluid 02/03/22 10:31 Gram Stain - Final Pleural Fluid Body Fluid Culture - Final CT scan - chest: report reviewed Assessment and Plan (1) Right lower lobe lung mass Narrative/Plan: - Suspicious for lung cancer with surrounding adenopathy, await cytology and plan outpatient pet when patient is stable. Current Visit: Yes Status: Acute Code(s): R91.8 - OTHER NONSPECIFIC ABNORMAL FINDING OF LUNG FIELD SNOMED Code(s): 956565812 (2) Mediastinal adenopathy Current Visit: Yes Status: Acute Code(s): R59.0 - LOCALIZED ENLARGED LYMPH NODES SNOMED Code(s): 77591998 (3) Pleural effusion, right Narrative/Plan: Status post catheter placement, cytology was taken, will await results for definitive diagnosis Current Visit: No Status: Acute Code(s): J90 - PLEURAL EFFUSION, NOT ELSEWHERE CLASSIFIED SNOMED Code(s): 60917383 Plan: Dr. Virk: I have completed the full history and physical and developed the above impresion and plan, agree with dictation, dictated as a scribe Mr. Ji is a gentleman presenting with progressive dyspnea on exertion who was found to have pleural effusion, 2 separate right lobe lesions, right mediastinal lymphadenopathy, and concern for liver metastases. Diagnostic and therapeutic thoracentesis is pending. If cytology is non-diagnostic, he would require tissue biopsy for definitive diagnosis. This could be most feasibly accomplished through biopsy of liver metastases to confirm both staging and diagnosis. Brain MRI can be considered inpatient for staging purposes. He will require PET/CT and and [facility] 360 liquid biopsy outpatient. Time with Patient: Greater than 30
[2022-02-08] MEDS: SODIUM CHLORIDE 0.9% 1,000 ML IV SCH (00:56)
--- NOTE | 2022-02-08 08:39 | CT ---
EXAMINATION TYPE: CT chest tube insertion DATE OF EXAM: 02/04/2022 COMPARISON: HISTORY: RT side chest tube insertion CT DLP: 1268 mGycm The procedure is discussed with the patient, the risks, complications, benefits and alternatives, wer e discussed and any questions were answered. Informed consent was obtained. The patient is placed s upine on the CT table, prepped and draped in the usual sterile fashion. Utilizing a 22-gauge [place] needle access into the right pleural space was achieved with placement of an 0.018 guidewire. There is conversion to an 0.035 system. Serial dilation to 8 Lithuanian and placement of an 8.5 Lithuanian drainage catheter. Samples obtained and sent to pathology for analysis. Repeat imag ing demonstrated ideal placement of the catheter. All elements of maximal barrier and sterile techni que were utilized. The patient remained stable throughout the procedure with no immediate postproced ural complication. IMPRESSION: 1. Successful CT guided right-sided chest tube insertion
[2022-02-08] MEDS: TIOTROPIUM 2.5 MCG INHALER INHALATION SCH (08:54)
[2022-02-08] MEDS: SYMBICORT 80-4.5 MCG INHALER INHALATION SCH ×2 (08:54→20:21)
[2022-02-08] MEDS: ACETAMINOPHEN TAB 325 MG TAB PO PRN ×2 (10:18→16:15)
[2022-02-08] MEDS: lisinopriL 20 MG TAB PO SCH (10:19)
[2022-02-08] MEDS: HEPARIN SODIUM,PORCINE/PF 5,000 UNIT/0.5 ML SYRINGE SQ SCH ×3 (10:19→23:07)
[2022-02-08] MEDS: PROPRANOLOL 40 MG TAB PO SCH (10:19)
[2022-02-08] MEDS: ATORVASTATIN 10 MG TAB PO SCH (10:19)
--- NOTE | 2022-02-08 11:12 | P.PN ---
Subjective Progress Note Date: 02/06/22 Patient is a 76-year-old male with a known history of hypertension, COPD, obstructive sleep apnea and previous history of smoking, COVID-19 infection presents to ER due to worsening shortness of breath. Patient was recently admitted to the hospital in December 2021 with a right lower lobe consolidation and small right-sided pleural effusion. Patient was treated with antibiotics and Medrol Dosepak. Patient states that his symptoms are getting worse again and made him to come to ER. Chest x-ray on admission showed consolidation and pleural effusion atelectasis in the right lower lobe which is slightly worse than last exam. EKG showed sinus rhythm Laboratory data WBC 6.8 hemoglobin 13.0 and platelets 241 INR 1.0 Sodium 134 potassium 3.9 chloride 95 bicarb is 26 BUN 23 and creatinine 0.75 and blood sugar is 112 AST 27 ALT 27 alk phos 148 and troponin 0.058, proBNP 296 and patient was tachypneic with respiratory 32 and heart rate 91 and patient is currently on 2 L oxygen via nasal cannula. Patient had CT chest done on 01/20/2022 showed moderate size and right pleural effusion and compressive atelectasis and also mediastinal lymphadenopathy and right hilar adenopathy measuring 4 mm subcarinal lymphadenopathy measuring 1.2 cm in size. 02/03/2022 Patient is currently sitting in the chair. Awake alert and oriented x3. Status post right thoracentesis with 2.1 L fluid removal and sent for analysis. Patient states that he feels better after procedure. No complaints of chest pain or worsening shortness of breath. No nausea vomiting abdominal pain or diarrhea. No fever no chills. No cough or sputum production. Chest x-ray showed interval reduction in the amount of pleural fluid related to the prior exam. No sizable pneumothorax. Laboratory showed WBC 6.2 hemoglobin 12.3 and platelets 271 Sodium 141 potassium 3.8 chloride 101 bicarb is 29 BUN 25 and creatinine 0.71. Procalcitonin was 0.13. Patient is being continued on DuoNebs, antibiotics in the form of ceftriaxone and azithromycin. Pulmonary is on board. 02/04/2022 Patient is currently sitting in the chair.. Alert and oriented x3. Status post right thoracentesis with 2 L fluid removal. Repeat chest x-ray showed small pleural effusion and no sizable pneumothorax. Chest ultrasound was done which showed small right pleural effusion. IR was consulted for pigtail catheter placement for continuous drainage. Pulmonary is on board. Otherwise patient feels better after thoracentesis. Remains on antibiotics with home ceftriaxone azithromycin. No nausea vomiting abdominal pain or diarrhea. Tolerating oral diet. Laboratory showed WBC 5.6 hemoglobin 9.1 platelets 241, sodium 137 potassium 3.7 chloride 101 bicarb is 29 BUN 25 creatinine 0.81 and troponin 0.016 02/05/2022 Patient is resting in the chair comfortably. Awake alert [place] x3. Breathing status is much improved. Patient is status post right pigtail catheter and draining about 1.7 L since yesterday. Was exudative and culture has been negative. Fluid cytology is pending. Right- sided pleural effusion. Complaints of chest pain or shortness of breath. No abdominal pain or diarrhea. Oriented. No cough or sputum production. Clinically improving. He is on board. Antibiotics have been discontinued. 02/06/2022 Patient is currently stating that checked. Feels very weak. Otherwise breathing status is much improved. On room air. Patient is status post pigtail catheter placement and fluid cytology from thoracentesis right side is still pen ding. Repeat CT thorax done today showed right-sided pigtail pleural catheter in place. After removal of the pleural fluidis small right-sided pneumothorax and diffuse pleural thickening with some irregularity and not likely that may reflect pleural neoplastic spread. More focal opacity posterior right base measuring 7.6 x 3.9 cm could represent neoplasm versus consolidation/atelectasis. PET/CT may be useful further characterize. There is a mass in the anterior right upper lobe. Metastatic right hilar right paratracheal, subcarinal lymphadenopathy measuring up to 2.6 cm. It is noted diffuse blastic and lytic lesions/metastasis. Previously described hepatic metastases measuring up to 4.1 cm likely more than 2 mentioned above Patient is afebrile. No nausea or vomiting. Oral intake minimal. No cough or sputum production. Pulmonary is on board. Oncology will be consulted. Current medications reviewed. Objective - Vital Signs Vital signs: Vital Signs Temp 98.6 F 02/06/22 20:00 Pulse 71 02/06/22 20:00 Resp 18 02/06/22 20:00 BP 109/64 02/06/22 20:00 Pulse Ox 98 02/06/22 20:00 FiO2 Intake & Output 08/02/06/22 02/07/22 06:59 18:59 06:59 Intake Total 150 429 Output Total 540 275 Balance -390 154 Intake: Intake, IV Titration 150 75 Amount Sodium Chloride 0.9% 1, 75 000 ml @ 75 mls/hr IV . [id number] [facility] Rx#:[id number] cefTRIAXone 2 gm In 150 Sodium Chloride 0.9% 50 ml @ 100 mls/hr IVPB Q24H [facility] Rx#:[id number] Oral 354 Output: Chest Tube Drainage 310 175 Chest Tube Right 310 175 Urine 230 100 Other: Voiding Method Toilet Toilet Urinal Urinal # Voids 5 - Exam PHYSICAL EXAMINATION: Patient is lying in the bed comfortably, no acute distress, awake alert and oriented.. HEENT: Normocephalic. Neck is supple. Pupils reactive. Nostrils clear. Oral cavity is moist. Neck reveals no JVD, carotid bruits, or thyromegaly. CHEST EXAMINATION: Trachea is central. Symmetrical expansion. Right basilar crackles.. No wheezing or rhonchi. Nonlabored breathing.. CARDIAC: Normal S1, S2 with no gallops. No murmurs ABDOMEN: Soft. Bowel sounds present. Nontender. No organomegaly. No abdominal bruits. Extremities: reveal no edema. No clubbing or cyanosis Neurologically awake, alert, oriented x3 with well-coordinated movements. No focal deficits noted Skin: No rash or skin lesions. Psychiatric: Coperative. Nonsuicidal, anxious. Musculoskeletal: No joint swelling or deformity. Normal range of motion. - Labs CBC & Chem 7: 02/06/22 08:37 02/06/22 08:37 Labs: Abnormal Lab Results - Last 24 Hours (Table) 02/06/22 02/06/22 Range/Units 08:37 08:37 RBC 4.28 L (4.30-5.90) m/uL Hgb 12.1 L (13.0-17.5) gm/dL Hct 38.6 L (39.0-53.0) % BUN 26 H (9-20) mg/dL Glucose 161 H (74-99) mg/dL Microbiology - Last 24 Hours (Table) 02/03/22 10:31 Anaerobic Culture - Preliminary Pleural Fluid 02/03/22 10:31 Gram Stain - Preliminary Pleural Fluid Body Fluid Culture - Preliminary Assessment and Plan Assessment: Worsening shortness of breath secondary to right lower lobe pleural effusion and atelectasis. Possible underlying infective etiology. Recent bronchoscopy and bilateral cultures negative. Patient is status post thoracentesis on 02/03/2022 with 2 L fluid removal.Status post pigtail catheter placement. Repeat CT showed mass in the anterior right upper lobe and metastatic right hilar paratracheal and subcarinal lymphadenopathy. Recent history of right lower lobe pneumonia and parapneumonic effusion Enlarged mediastinal and right hilar lymph nodes concerning for metastasis. Multiple sclerotic and lytic osseous lesions within the thoracolumbar spine concerning for metastasis. COPD with FEV1 of 55% of predicted Hypertension Hyperlipidemia Osteoarthritis Previous history of smoking DVT prophylaxis Heparin subcu Plan: Patient is status post thoracentesis with 2 L fluid removal. Pulmonary is on board. Status post pigtail catheter placement. Xarelto is on hold. Oncology will be consulted. Patient was on antibiotics in the form of ceftriaxone and azithromycin. Antibiotics have been discontinued. Continue with duo nebs. Was given a dose of IV Solu-Medrol in the ER. CT of the chest showed mediastinal lymphadenopathy and sclerotic and lytic osseous lesions within the thoracolumbar spine concerning for metastasis. Continue to follow closely and prognosis is guarded. Time with Patient: Greater than 30
--- NOTE | 2022-02-08 11:14 | P.PN ---
Subjective Progress Note Date: 02/07/22 Patient is a 76-year-old male with a known history of hypertension, COPD, obstructive sleep apnea and previous history of smoking, COVID-19 infection presents to ER due to worsening shortness of breath. Patient was recently admitted to the hospital in December 2021 with a right lower lobe consolidation and small right-sided pleural effusion. Patient was treated with antibiotics and Medrol Dosepak. Patient states that his symptoms are getting worse again and made him to come to ER. Chest x-ray on admission showed consolidation and pleural effusion atelectasis in the right lower lobe which is slightly worse than last exam. EKG showed sinus rhythm Laboratory data WBC 6.8 hemoglobin 13.0 and platelets 241 INR 1.0 Sodium 134 potassium 3.9 chloride 95 bicarb is 26 BUN 23 and creatinine 0.75 and blood sugar is 112 AST 27 ALT 27 alk phos 148 and troponin 0.058, proBNP 296 and patient was tachypneic with respiratory 32 and heart rate 91 and patient is currently on 2 L oxygen via nasal cannula. Patient had CT chest done on 01/20/2022 showed moderate size and right pleural effusion and compressive atelectasis and also mediastinal lymphadenopathy and right hilar adenopathy measuring 4 mm subcarinal lymphadenopathy measuring 1.2 cm in size. 02/03/2022 Patient is currently sitting in the chair. Awake alert and oriented x3. Status post right thoracentesis with 2.1 L fluid removal and sent for analysis. Patient states that he feels better after procedure. No complaints of chest pain or worsening shortness of breath. No nausea vomiting abdominal pain or diarrhea. No fever no chills. No cough or sputum production. Chest x-ray showed interval reduction in the amount of pleural fluid related to the prior exam. No sizable pneumothorax. Laboratory showed WBC 6.2 hemoglobin 12.3 and platelets 271 Sodium 141 potassium 3.8 chloride 101 bicarb is 29 BUN 25 and creatinine 0.71. Procalcitonin was 0.13. Patient is being continued on DuoNebs, antibiotics in the form of ceftriaxone and azithromycin. Pulmonary is on board. 02/04/2022 Patient is currently sitting in the chair.. Alert and oriented x3. Status post right thoracentesis with 2 L fluid removal. Repeat chest x-ray showed small pleural effusion and no sizable pneumothorax. Chest ultrasound was done which showed small right pleural effusion. IR was consulted for pigtail catheter placement for continuous drainage. Pulmonary is on board. Otherwise patient feels better after thoracentesis. Remains on antibiotics with home ceftriaxone azithromycin. No nausea vomiting abdominal pain or diarrhea. Tolerating oral diet. Laboratory showed WBC 5.6 hemoglobin 9.1 platelets 241, sodium 137 potassium 3.7 chloride 101 bicarb is 29 BUN 25 creatinine 0.81 and troponin 0.016 02/05/2022 Patient is resting in the chair comfortably. Awake alert [place] x3. Breathing status is much improved. Patient is status post right pigtail catheter and draining about 1.7 L since yesterday. Was exudative and culture has been negative. Fluid cytology is pending. Right- sided pleural effusion. Complaints of chest pain or shortness of breath. No abdominal pain or diarrhea. Oriented. No cough or sputum production. Clinically improving. He is on board. Antibiotics have been discontinued. 02/06/2022 Patient is currently stating that checked. Feels very weak. Otherwise breathing status is much improved. On room air. Patient is status post pigtail catheter placement and fluid cytology from thoracentesis right side is still pen ding. Repeat CT thorax done today showed right-sided pigtail pleural catheter in place. After removal of the pleural fluidis small right-sided pneumothorax and diffuse pleural thickening with some irregularity and not likely that may reflect pleural neoplastic spread. More focal opacity posterior right base measuring 7.6 x 3.9 cm could represent neoplasm versus consolidation/atelectasis. PET/CT may be useful further characterize. There is a mass in the anterior right upper lobe. Metastatic right hilar right paratracheal, subcarinal lymphadenopathy measuring up to 2.6 cm. It is noted diffuse blastic and lytic lesions/metastasis. Previously described hepatic metastases measuring up to 4.1 cm likely more than 2 mentioned above Patient is afebrile. No nausea or vomiting. Oral intake minimal. No cough or sputum production. Pulmonary is on board. Oncology will be consulted. 02/07/2022 Patient is currently sitting in a chair. Awake alert and oriented. Seems to be lethargic and weak. Pigtail catheter continues to drain and patient otherwise denied any worsening shortness of breath. Fluid cytology from thoracentesis still pending. CT thorax showed metastatic lesions and high likelihood of management effusion. Pulmonary is on board and oncology was consulted. Denied any complaints of fever or chills. No nausea vomiting abdominal pain or diarrhea. Denied any dysuria or hematuria. No cough or sputum production. Current medications reviewed. Objective - Vital Signs Vital signs: Vital Signs Temp 97.6 F 02/07/22 21:00 Pulse 77 02/07/22 21:00 Resp 17 02/07/22 21:00 BP 105/67 02/07/22 21:00 Pulse Ox 96 02/07/22 21:00 FiO2 Intake & Output 02/07/22 02/07/22 02/08/22 06:59 18:59 06:59 Intake Total 480 Output Total 370 290 100 Balance -370 190 -100 Intake: Oral 480 Output: Chest Tube Drainage 170 290 Chest Tube Right 170 290 Urine 200 100 Other: Voiding Method Toilet Toilet Urinal Urinal # Voids 3 - Exam PHYSICAL EXAMINATION: Patient is lying in the bed comfortably, no acute distress, awake alert and oriented.. HEENT: Normocephalic. Neck is supple. Pupils reactive. Nostrils clear. Oral cavity is moist. Neck reveals no JVD, carotid bruits, or thyromegaly. CHEST EXAMINATION: Trachea is central. Symmetrical expansion. Right basilar crackles.. No wheezing or rhonchi. Nonlabored breathing.. CARDIAC: Normal S1, S2 with no gallops. No murmurs ABDOMEN: Soft. Bowel sounds present. Nontender. No organomegaly. No abdominal bruits. Extremities: reveal no edema. No clubbing or cyanosis Neurologically awake, alert, oriented x3 with well-coordinated movements. No focal deficits noted Skin: No rash or skin lesions. Psychiatric: Coperative. Nonsuicidal, anxious. Musculoskeletal: No joint swelling or deformity. Normal range of motion. - Labs CBC & Chem 7: 02/06/22 08:37 02/06/22 08:37 Labs: Microbiology - Last 24 Hours (Table) 02/03/22 10:31 Anaerobic Culture - Final Pleural Fluid 02/03/22 10:31 Gram Stain - Final Pleural Fluid Body Fluid Culture - Final Assessment and Plan Assessment: Worsening shortness of breath secondary to right lower lobe pleural effusion and atelectasis. Possible underlying infective etiology. Recent bronchoscopy and bilateral cultures negative. Patient is status post thoracentesis on 02/03/2022 with 2 L fluid removal.Status post pigtail catheter placement. Repeat CT showed mass in the anterior right upper lobe and metastatic right hilar paratracheal and subcarinal lymphadenopathy. Recent history of right lower lobe pneumonia and parapneumonic effusion Enlarged mediastinal and right hilar lymph nodes concerning for metastasis. Multiple sclerotic and lytic osseous lesions within the thoracolumbar spine concerning for metastasis. COPD with FEV1 of 55% of predicted Hypertension Hyperlipidemia Osteoarthritis Previous history of smoking DVT prophylaxis Heparin subcu Plan: Patient is status post thoracentesis with 2 L fluid removal. Pulmonary is on board. Status post pigtail catheter placement. Still draining serosanguineous fluid. Xarelto is on hold. Oncology was consulted. Patient was on antibiotics in the form of ceftriaxone and azithromycin. Antibiotics have been discontinued. Continue with duo nebs. Was given a dose of IV Solu-Medrol in the ER. CT of the chest showed mediastinal lymphadenopathy and sclerotic and lytic osseous lesions within the thoracolumbar spine concerning for metastasis. Patient is also having diffuse lighting and blastic lesions/metastatic lesions. Also hepatic lesions measuring up to 4.1 cm. Continue to follow closely and prognosis is poor at this time.. Time with Patient: Greater than 30
[2022-02-08] MEDS: IPRATROPIUM-ALBUTEROL 3 ML NEB INHALATION PRN (11:46)
--- NOTE | 2022-02-08 14:16 | P.PN ---
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 Sitting up on a chair he is currently on room air oxygen. Note that, the patient was diagnosed having renal carcinoma the right lobe of the patient is suspected to have a malignant right-sided pleural effusion. Based on that, initially performed a thoracentesis on this patient a fluid cytology still pending. Subsequently, the pigtail catheter was inserted and over the past 24 hours the catheter drained approximately 1.2 L. Since 8 hours, the patient has drained another 280 mL a repeat CAT scan of the chest was done today and the patient was seen to have a right-sided pigtail pleural catheter which is in good location. The right-sided pleural effusion essentially recovered. There is a small right-sided pneumothorax and diffuse pleural thickening and some irregularity another anti-that may reflect pleural neoplasm. There is also a focal opacity in the right lung base measuring 7.6 x 3.9 cm in size. This could be atelectasis versus a mass. There is also mass in the anterior right upper lobe measuring 4.1 x 2.5 cm in size. There is also metastatic right hilar and right paratracheal and subcarinal lymphadenopathy. There is also evidence of diffuse blastic/lytic osseous lesions consistent with metastases. There is also a hepatic metastases measuring 4.1 cm in size. Reevaluated today on 02/07/2022, patient is about the same, continues to have drainage from his pigtail catheter, patient is doing well clinically not in any distress. Cytology from the pleural effusion is still pending, I would consider that it is malignant unless proven otherwise. And eventually the patient may have to have a Pleurx catheter in the meantime I'm recommending patient to be seen by oncology. I will see the patient has metastatic adenocarcinoma. WBC count iS 6.5 Reevaluated today on 02/08/22, patient is feeling fine, denies any shortness of breath no cough no wheezing his cytology came back positive for adenocarcinoma. Continues to have drainage in the pigtail catheter. However we discussed with thoracic surgery the option of having a Pleurx catheter placed, would like to h ave the pigtail catheter removed before a Pleurx catheter should be placed. We will proceed with recommending removing the pigtail catheter and eventually follow up with thoracic surgery for Pleurx catheter placement. Objective - Vital Signs Vital signs: Vital Signs Temp 97.5 F L 02/08/22 13:00 Pulse 65 02/08/22 13:00 Resp 18 02/08/22 13:00 BP 82/48 02/08/22 13:11 Pulse Ox 97 02/08/22 13:00 FiO2 Intake & Output 02/07/22 02/08/22 02/08/22 18:59 06:59 18:59 Intake Total 480 240 Output Total 290 315 200 Balance 190 -315 40 Intake: Oral 480 240 Output: Chest Tube Drainage 290 90 Chest Tube Right 290 90 Urine 225 200 Other: Voiding Method Toilet Toilet Urinal Urinal # Voids 3 - Exam GENERAL EXAM: 76-year-old white male in no distress HEAD: Normocephalic/atraumatic. HEENT: PERRLA, EOMI, nonicteric, no neck masses no JVD. CHEST: No chest wall deformity. Symmetrical expansion. LUNGS: Equal air entry with congestive cough, diminished breath sounds at the bases. CVS: Regular rate and rhythm, normal S1 and S2, no gallops, no murmurs, no rubs ABDOMEN: Soft, nontender. No hepatosplenomegaly, normal bowel sounds, no guarding or rigidity. EXTREMITIES: No clubbing, no edema, no cyanosis, 2+ pulses and upper and lower extremities. MUSCULOSKELETAL: Muscle strength and tone normal. CENTRAL NERVOUS SYSTEM: Alert and oriented -3. No gross deficit. PSYCHIATRIC: Normal mood affect and normal mental status examination - Labs CBC & Chem 7: 02/06/22 08:37 02/06/22 08:37 Labs: Microbiology - Last 24 Hours (Table) 02/03/22 10:31 Anaerobic Culture - Final Pleural Fluid Assessment and Plan Assessment: Impression: Metastatic adenocarcinoma of the right lung. Malignant right-sided pleural effusion Severe underlying COPD FEV1 of 55% Benign essential hypertension Dyslipidemia Former smoker Possible hepatic metastasis. And osseous metastasis. Recommendation: Arrange for removal of pigtail catheter and eventual placement of Pleurx catheter by thoracic surgery. Seen by oncology on consultation Consider discharge planning once his pigtail catheter was removed and should h ave a follow-up appointment with thoracic surgery in less than a week Continue incentive spirometer. Continue bronchodilators. Overall prognosis remains poor and guarded. We'll continue to follow. Time with Patient: Less than 30
--- NOTE | 2022-02-08 14:40 | P.PN ---
Subjective Progress Note Date: 02/08/22 Patient is a 76-year-old male with a known history of hypertension, COPD, obstructive sleep apnea and previous history of smoking, COVID-19 infection presents to ER due to worsening shortness of breath. Patient was recently admitted to the hospital in December 2021 with a right lower lobe consolidation and small right-sided pleural effusion. Patient was treated with antibiotics and Medrol Dosepak. Patient states that his symptoms are getting worse again and made him to come to ER. Chest x-ray on admission showed consolidation and pleural effusion atelectasis in the right lower lobe which is slightly worse than last exam. EKG showed sinus rhythm Laboratory data WBC 6.8 hemoglobin 13.0 and platelets 241 INR 1.0 Sodium 134 potassium 3.9 chloride 95 bicarb is 26 BUN 23 and creatinine 0.75 and blood sugar is 112 AST 27 ALT 27 alk phos 148 and troponin 0.058, proBNP 296 and patient was tachypneic with respiratory 32 and heart rate 91 and patient is currently on 2 L oxygen via nasal cannula. Patient had CT chest done on 01/20/2022 showed moderate size and right pleural effusion and compressive atelectasis and also mediastinal lymphadenopathy and right hilar adenopathy measuring 4 mm subcarinal lymphadenopathy measuring 1.2 cm in size. 02/03/2022 Patient is currently sitting in the chair. Awake alert and oriented x3. Status post right thoracentesis with 2.1 L fluid removal and sent for analysis. Patient states that he feels better after procedure. No complaints of chest pain or worsening shortness of breath. No nausea vomiting abdominal pain or diarrhea. No fever no chills. No cough or sputum production. Chest x-ray showed interval reduction in the amount of pleural fluid related to the prior exam. No sizable pneumothorax. Laboratory showed WBC 6.2 hemoglobin 12.3 and platelets 271 Sodium 141 potassium 3.8 chloride 101 bicarb is 29 BUN 25 and creatinine 0.71. Procalcitonin was 0.13. Patient is being continued on DuoNebs, antibiotics in the form of ceftriaxone and azithromycin. Pulmonary is on board. 02/04/2022 Patient is currently sitting in the chair.. Alert and oriented x3. Status post right thoracentesis with 2 L fluid removal. Repeat chest x-ray showed small pleural effusion and no sizable pneumothorax. Chest ultrasound was done which showed small right pleural effusion. IR was consulted for pigtail catheter placement for continuous drainage. Pulmonary is on board. Otherwise patient feels better after thoracentesis. Remains on antibiotics with home ceftriaxone azithromycin. No nausea vomiting abdominal pain or diarrhea. Tolerating oral diet. Laboratory showed WBC 5.6 hemoglobin 9.1 platelets 241, sodium 137 potassium 3.7 chloride 101 bicarb is 29 BUN 25 creatinine 0.81 and troponin 0.016 02/05/2022 Patient is resting in the chair comfortably. Awake alert [place] x3. Breathing status is much improved. Patient is status post right pigtail catheter and draining about 1.7 L since yesterday. Was exudative and culture has been negative. Fluid cytology is pending. Right- sided pleural effusion. Complaints of chest pain or shortness of breath. No abdominal pain or diarrhea. Oriented. No cough or sputum production. Clinically improving. He is on board. Antibiotics have been discontinued. 02/06/2022 Patient is currently stating that checked. Feels very weak. Otherwise breathing status is much improved. On room air. Patient is status post pigtail catheter placement and fluid cytology from thoracentesis right side is still pen ding. Repeat CT thorax done today showed right-sided pigtail pleural catheter in place. After removal of the pleural fluidis small right-sided pneumothorax and diffuse pleural thickening with some irregularity and not likely that may reflect pleural neoplastic spread. More focal opacity posterior right base measuring 7.6 x 3.9 cm could represent neoplasm versus consolidation/atelectasis. PET/CT may be useful further characterize. There is a mass in the anterior right upper lobe. Metastatic right hilar right paratracheal, subcarinal lymphadenopathy measuring up to 2.6 cm. It is noted diffuse blastic and lytic lesions/metastasis. Previously described hepatic metastases measuring up to 4.1 cm likely more than 2 mentioned above Patient is afebrile. No nausea or vomiting. Oral intake minimal. No cough or sputum production. Pulmonary is on board. Oncology will be consulted. 02/07/2022 Patient is currently sitting in a chair. Awake alert and oriented. Seems to be lethargic and weak. Pigtail catheter continues to drain and patient otherwise denied any worsening shortness of breath. Fluid cytology from thoracentesis still pending. CT thorax showed metastatic lesions and high likelihood of management effusion. Pulmonary is on board and oncology was consulted. Denied any complaints of fever or chills. No nausea vomiting abdominal pain or diarrhea. Denied any dysuria or hematuria. No cough or sputum production. 02/08/2022 Patient is seen and evaluated and follow-up currently sitting up in the chair. Patient is on room air denies worsening shortness of breath. Patient is having some continuous serosanguineous drainage of the pigtail catheter. Multiple medical consultations including pulmonary, CT surgery, and oncology following. Patient cytology from thoracentesis done on 02/03/2022 is positive for adenocarcinoma. Brain MRI ordered to assess for any further lesions and patient will need outpatient testing and further PET scan moving forward. Per pulmonary plan is to remove pigtail catheter with possible Pleurx catheter placement by CT surgery in the near future. Patient will need close outpatient follow-up with CT surgery. Patient is currently denying worsening shortness of breath and patient is 97% on room air. Patient also having some lower blood pressure readings in the 80s systolic and has been receiving his Inderal and lisinopril. Will decrease the dose of lisinopril and continue to monitor vital signs. Patient reports to walking the halls and denies any dizziness or lightheadedness. Patient is afebrile and denies nausea or vomiting and reports to tolerating diet. Review of systems: Constitutional: No reports of fatigue, fever, or chills Cardiovascular: No reports of chest pain or palpitations Respiratory: No reports of worsening shortness of breath or cough GI: No reports of nausea, vomiting, or diarrhea : No reports of dysuria or retention Neurovascular: No reports of weakness or numbness All medications have been reviewed Active Medications Acetaminophen (Acetaminophen Tab 325 Mg Tab) 650 mg PO Q6HR PRN PRN Reason: Fever and/ or Pain Last Admin: 02/08/22 10:18 Dose: 650 mg Albuterol Sulfate (Albuterol Nebulized 2.5 Mg/3 Ml) 2.5 mg INHALATION RT-Q4H PRN PRN Reason: Shortness Of Breath Or Wheezing Albuterol/Ipratropium (Ipratropium-Albuterol 3 Ml Neb) 3 ml INHALATION RT-QID PRN PRN Reason: Shortness Of Breath Or Wheezing Last Admin: 02/08/22 11:46 Dose: 3 ml Atorvastatin Calcium (Atorvastatin 10 Mg Tab) 10 mg PO DAILY MIR Last Admin: 02/08/22 10:19 Dose: 10 mg Bisacodyl (Bisacodyl 5 Mg Tablet.Dr) 10 mg PO DAILY PRN PRN Reason: Constipation Last Admin: 02/07/22 09:47 Dose: 10 mg Budesonide/Formoterol Fumarate (Symbicort 80-4.5 Mcg Inhaler) 2 puff INHALATION RT-BID [facility] [place] Last Admin: 02/08/22 08:54 Dose: Not Given Heparin Sodium (Porcine) (Heparin Sodium,Porcine/Pf 5,000 Unit/0.5 Ml Syringe) 5,000 unit SQ Q8HR [facility] [place] Last Admin: 02/08/22 10:19 Dose: 5,000 unit Sodium Chloride (Saline 0.9%) 1,000 mls @ 75 mls/hr IV .[id number] [facility] [place] Last Admin: 02/08/22 00:56 Dose: Not Given Lisinopril (Lisinopril 20 Mg Tab) 40 mg PO DAILY [facility] [place] Last Admin: 02/08/22 10:19 Dose: 40 mg Miscellaneous Information (Pneumonia Protocol Utilized 1 Each Misc) 1 each PO ONCE PRN PRN Reason: Per Protocol Morphine Sulfate (Morphine Sulfate 4 Mg/Ml Syringe) 4 mg IV Q4HR PRN PRN Reason: Severe Pain Propranolol HCl (Propranolol 40 Mg Tab) 80 mg PO DAILY [facility] [place] Last Admin: 02/08/22 10:19 Dose: 80 mg Tiotropium [place] (Tiotropium 2.5 Mcg Inhaler) 2 puff INHALATION RT-DAILY [facility] [place] Last Admin: 02/08/22 08:54 Dose: Not Given PHYSICAL EXAMINATION: Patient is sitting up in the chair, no acute distress, awake alert and oriented.. HEENT: Normocephalic. Neck is supple. Pupils reactive. Nostrils clear. Oral cavity is moist. Neck reveals no JVD, carotid bruits, or thyromegaly. CHEST EXAMINATION: Trachea is central. Symmetrical expansion. Diminished breath sounds bilaterally, Right basilar crackles.. No wheezing or rhonchi. Nonlabored breathing.. CARDIAC: Normal S1, S2 with no gallops. No murmurs ABDOMEN: Soft. Bowel sounds present. Nontender. No organomegaly. No abdominal bruits. Extremities: reveal no edema. No clubbing or cyanosis Neurologically awake, alert, oriented x3 with well-coordinated movements. No focal deficits noted Skin: No rash or skin lesions. Psychiatric: Coperative. Nonsuicidal, anxious. Musculoskeletal: No joint swelling or deformity. Normal range of motion. Assessment: Worsening shortness of breath secondary to right lower lobe pleural effusion and atelectasis. Possible underlying infective etiology. Recent bronchoscopy and bilateral cultures negative. Patient is status post thoracentesis on 02/03/2022 with 2 L fluid removal.Status post pigtail catheter placement. Repeat CT showed mass in the anterior right upper lobe and metastatic right hilar paratracheal and subcarinal lymphadenopathy. Recent pleural effusion cytology positive for adenocarcinoma Recent history of right lower lobe pneumonia and parapneumonic effusion Enlarged mediastinal and right hilar lymph nodes concerning for metastasis. Multiple sclerotic and lytic osseous lesions within the thoracolumbar spine concerning for metastasis. COPD with FEV1 of 55% of predicted Hypertension Hyperlipidemia Osteoarthritis Previous history of smoking DVT prophylaxis Heparin subcu Plan: Patient is status post thoracentesis with 2 L fluid removal. Pulmonary is on board. Status post pigtail catheter placement. Still draining serosanguineous fluid. Pulmonary recommending removing pigtail catheter with possible Pleurx catheter placement with CT surgery in the near future. Xarelto is on hold. Oncology following and patient will need outpatient PET scan and further testing and recommending MRI of the brain to assess for any lesions Patient was on antibiotics in the form of ceftriaxone and azithromycin. Antibiotics have been discontinued. Continue with duo nebs. Pulmonary following CT of the chest showed mediastinal lymphadenopathy and sclerotic and lytic osseous lesions within the thoracolumbar spine concerning for metastasis. Patient is also having diffuse lighting and blastic lesions/metastatic lesions. Also hepatic lesions measuring up to 4.1 cm. Recent cytology from the thoracentesis came back positive for adenocarcinoma Overall prognosis is extremely poor and guarded Will discuss further with oncology along with pulmonary and CT surgery about discharge planning. The impression and plan of care has been dictated by Kalie Hernandez, Nurse Practitioner as directed. Dr. Tabby MD I have performed a history and examination and MDM of this patient, discussed the same with the dictator, and agree with the dictator's assessment and plan as written ,documented as a scribe. Based on total visit time, I have performed more than 50% of the visit. Objective - Vital Signs Vital signs: Vital Signs Temp 97.5 F L 02/08/22 13:00 Pulse 65 02/08/22 13:00 Resp 18 02/08/22 13:00 BP 82/48 02/08/22 13:11 Pulse Ox 97 02/08/22 13:00 FiO2 Intake & Output 02/07/22 02/08/22 02/08/22 18:59 06:59 18:59 Intake Total 480 240 Output Total 290 315 200 Balance 190 -315 40 Intake: Oral 480 240 Output: Chest Tube Drainage 290 90 Chest Tube Right 290 90 Urine 225 200 Other: Voiding Method Toilet Toilet Urinal Urinal # Voids 3 - Labs CBC & Chem 7: 02/06/22 08:37 02/06/22 08:37 Labs: Microbiology - Last 24 Hours (Table) 02/03/22 10:31 Anaerobic Culture - Final Pleural Fluid
--- NOTE | 2022-02-08 16:48 | P.PN ---
Subjective Progress Note Date: 02/08/22 Principal diagnosis: dyspnea in follow-up today patient's respiratory status is stable, he is able to ambulate, denies dizziness or chest pain. Objective - Vital Signs Vital signs: Vital Signs Temp 97.5 F L 02/08/22 13:00 Pulse 65 02/08/22 13:00 Resp 18 02/08/22 13:00 BP 82/48 02/08/22 13:11 Pulse Ox 97 02/08/22 13:00 FiO2 Intake & Output 02/07/22 02/08/22 02/08/22 18:59 06:59 18:59 Intake Total 480 240 Output Total 290 315 200 Balance 190 -315 40 Intake: Oral 480 240 Output: Chest Tube Drainage 290 90 Chest Tube Right 290 90 Urine 225 200 Other: Voiding Method Toilet Toilet Urinal Urinal # Voids 3 - Constitutional General appearance: Present: average body habitus, cooperative, no acute distress - EENT Eyes: Present: anicteric sclerae, EOMI ENT: Present: hearing grossly normal - Respiratory Respiratory: bilateral: diminished - Cardiovascular Rhythm: regular Heart sounds: normal: S1, S2 Abnormal Heart Sounds: Absent: systolic murmur, diastolic murmur, rub, S3 Gall op, S4 Gallop, click, other - Gastrointestinal General gastrointestinal: Present: normal bowel sounds, soft - Neurologic Neurologic: Present: CNII-XII intact - Musculoskeletal Musculoskeletal: Present: strength equal bilaterally - Psychiatric Psychiatric: Present: A&O x's 3, appropriate affect, intact judgment & insight - Labs CBC & Chem 7: 02/06/22 08:37 02/06/22 08:37 Labs: Microbiology - Last 24 Hours (Table) 02/03/22 10:31 Anaerobic Culture - Final Pleural Fluid Assessment and Plan (1) Adenocarcinoma, lung Current Visit: Yes Status: Acute Priority: High Code(s): C34.90 - MALIGNANT NEOPLASM OF UNSP PART OF UNSP BRONCHUS OR LUNG SNOMED Code(s): 666107759 Plan: Dr. Josh Caputo reviewed pleural fluid positive for adenocarcinoma, lung primary. This represents stage IV disease which is not curable but treatable. This was also discussed with his over the phone. Plan is for pigtail catheter insertion so malignant pl effusion can be managed at home. MRI brain to complete staging. PET scan outpt. Transbronchial sampling done on 01/27/22 to be sent for tissue specimen for NGS, PD-L1 testing. Additional biopsies are not needed. Follow up once all testing complete and resulted. Pt and did understand the plan. attests: I have performed H&P, seen and examined patient, developed impression and plan of care. Discussed with dictator. Agree with dictation, documented as a scribe Mr. Ji has stage IV lung adenocarcinoma. He currently has chest tube with pigtail catheter in place. Plan will be for outpatient placement of pleur-X catheter to help drain refractory pleural fluid before starting treatment. He will need brain MRI and PET/CT to complete staging workup, which can be performed outpatient and should not delay his discharge. We will obtain NGS testing from blood and send tissue from transbronchial biopsy on 01/27/22 for yasmeen daiana profiling. We will arrange for outpatient appointment to review staging workup and any results from molecular profiling tests. Cely Caputo MD Time with Patient: Greater than 30
[2022-02-08] MEDS: bisacodyL 5 MG TABLET.DR PO PRN (20:31)
[2022-02-09] MEDS: ACETAMINOPHEN TAB 325 MG TAB PO PRN ×3 (00:25→16:39)
[2022-02-09] MEDS: IPRATROPIUM-ALBUTEROL 3 ML NEB INHALATION PRN (08:43)
[2022-02-09] MEDS: TIOTROPIUM 2.5 MCG INHALER INHALATION SCH (08:43)
[2022-02-09] MEDS: SYMBICORT 80-4.5 MCG INHALER INHALATION SCH (08:43)
[2022-02-09] MEDS ORDERED: lisinopriL 20 MG TAB PO SCH (09:00)
[2022-02-09] MEDS: HEPARIN SODIUM,PORCINE/PF 5,000 UNIT/0.5 ML SYRINGE SQ SCH ×2 (09:18→16:38)
[2022-02-09] MEDS: ATORVASTATIN 10 MG TAB PO SCH (09:18)
[2022-02-09] MEDS: PROPRANOLOL 40 MG TAB PO SCH (09:19)
[2022-02-09] MEDS: SODIUM CHLORIDE 0.9% 1,000 ML IV SCH (09:31)
[2022-02-09 09:32] VITALS: RESP 20
--- NOTE | 2022-02-09 12:37 | P.PN ---
Subjective Progress Note Date: 02/09/22 Chest tube removed by pulmonary team. No acute events overnight. Reports feeling fatigued, but improved breathing compared to admission. Objective - Vital Signs Vital signs: Vital Signs Temp 98.1 F 02/09/22 09:08 Pulse 100 02/09/22 09:08 Resp 20 02/09/22 09:08 BP 151/73 02/09/22 09:08 Pulse Ox 95 02/09/22 09:08 FiO2 Intake & Output 02/08/22 02/09/22 02/09/22 18:59 06:59 18:59 Intake Total 480 240 Output Total 540 300 Balance -60 -60 Intake: Oral 480 240 Output: Chest Tube Drainage 140 Chest Tube Right 140 Urine 400 300 Other: Voiding Method Toilet Toilet Urinal Urinal # Voids 2 2 - Constitutional Constitutional Comment(s): Fatigued appearing General appearance: Present: cooperative, no acute distress - EENT Eyes: Present: EOMI - Respiratory Respiratory: right: other (Minimal inspiratory basilar crackles on right lung base), left: CTA - Cardiovascular Rhythm: regular Heart sounds: normal: S1, S2 - Gastrointestinal General gastrointestinal: Present: normal bowel sounds, soft - Integumentary Integumentary Comment(s): Site of chest tube insertion c/d/i covered with gauze, chest tube removed - Neurologic Neurologic: Present: CNII-XII intact. Absent: focal deficits - Labs CBC & Chem 7: 02/06/22 08:37 02/06/22 08:37 Assessment and Plan Assessment: Mr. Hicks is a gentleman presenting with increased dyspnea on exertion and fatigue found to have moderate to large right pleural effusion that was is malignant in etiology consistent with known lung adenocarcinoma from transbronchial biopsy on 01/27/22. This is consistent with stage IV lung adenocarcinoma. Stage IV lung adenocarcinoma - Transbronchial biopsy of mediastinal lymphadenopathy consistent with adenocarcinoma - He has right malignant pleural effusion along with radiographic findings concerning for liver and bone (spine) metastases - Regarding pleural effusion, he will have pleur-X catheter placed outpatient by CT surgery per pulmonary and CT-surgery, appreciate their assistance - He will need outpatient PET/CT to complete staging workup - We will arrange for tissue from transbronchial biopsy on 01/27/22 to be sent for molecular profiling - We will also arrange for peripheral blood molecular profiling of ctDNA - Outpatient follow up will be arranged by our clinic. He will be contacted with date and time Cely Caputo MD (1) Adenocarcinoma, lung Current Visit: Yes Status: Acute Priority: High Code(s): C34.90 - MA LIGNANT NEOPLASM OF UNSP PART OF UNSP BRONCHUS OR LUNG SNOMED Code(s): 25 1416424
--- NOTE | 2022-02-09 13:05 | P.PN ---
Subjective Progress Note Date: 02/09/22 Principal diagnosis: Metastatic adenocarcinoma of the lung with malignant right sided pleural effusion 02/06/2022, the patient is feeling well and he is much less short of breath. Sitting up on a chair he is currently on room air oxygen. Note that, the patient was diagnosed having renal carcinoma the right lobe of the patient is suspected to have a malignant right-sided pleural effusion. Based on that, initially performed a thoracentesis on this patient a fluid cytology still pending. Subsequently, the pigtail catheter was inserted and over the past 24 hours the catheter drained approximately 1.2 L. Since 8 hours, the patient has drained another 280 mL a repeat CAT scan of the chest was done today and the patient was seen to have a right-sided pigtail pleural catheter which is in good location. The right-sided pleural effusion essentially recovered. There is a small right-sided pneumothorax and diffuse pleural thickening and some irregularity another anti-that may reflect pleural neoplasm. There is also a focal opacity in the right lung base measuring 7.6 x 3.9 cm in size. This could be atelectasis versus a mass. There is also mass in the anterior right upper lobe measuring 4.1 x 2.5 cm in size. There is also metastatic right hilar and right paratracheal and subcarinal lymphadenopathy. There is also evidence of diffuse blastic/lytic osseous lesions consistent with metastases. There is also a hepatic metastases measuring 4.1 cm in size. Reevaluated today on 02/07/2022, patient is about the same, continues to have drainage from his pigtail catheter, patient is doing well clinically not in any distress. Cytology from the pleural effusion is still pending, I would consider that it is malignant unless proven otherwise. And eventually the patient may have to have a Pleurx catheter in the meantime I'm recommending patient to be seen by oncology. I will see the patient has metastatic adenocarcinoma. WBC count iS 6.5 Reevaluated today on 02/08/22, patient is feeling fine, denies any shortness of breath no cough no wheezing his cytology came back positive for adenocarcinoma. Continues to have drainage in the pigtail catheter. However we discussed with thoracic surgery the option of having a Pleurx catheter placed, would like to h ave the pigtail catheter removed before a Pleurx catheter should be placed. We will proceed with recommending removing the pigtail catheter and eventually follow up with thoracic surgery for Pleurx catheter placement. Reevaluated today on 02/09/22, patient seems to be about the same. His external catheter was removed by radiology, and patient is to have eventually in the next 2 weeks a Pleurx catheter placed by thoracic surgery. And he is to have outpatient follow-up with oncology. Today the patient seems to be doing well, he remains on room air, not in any distress. And I have cleared the patient to be discharged home today. Objective - Vital Signs Vital signs: Vital Signs Temp 98.1 F 02/09/22 09:08 Pulse 100 02/09/22 09:08 Resp 20 02/09/22 09:08 BP 151/73 02/09/22 09:08 Pulse Ox 95 02/09/22 09:08 FiO2 Intake & Output 02/08/22 02/09/22 02/09/22 18:59 06:59 18:59 Intake Total 480 240 Output Total 540 300 Balance -60 -60 Intake: Oral 480 240 Output: Chest Tube Drainage 140 Chest Tube Right 140 Urine 400 300 Other: Voiding Method Toilet Toilet Urinal Urinal # Voids 2 2 - Exam GENERAL EXAM: 76-year-old white male in no distress, on room air. HEAD: Normocephalic/atraumatic. HEENT: PERRLA, EOMI, nonicteric, no neck masses no JVD. CHEST: No chest wall deformity. Symmetrical expansion. LUNGS: Equal air entry with congestive cough, diminished breath sounds at the bases. Pigtail catheter has been removed. CVS: Regular rate and rhythm, normal S1 and S2, no gallops, no murmurs, no rubs ABDOMEN: Soft, nontender. No hepatosplenomegaly, normal bowel sounds, no guarding or rigidity. EXTREMITIES: No clubbing, no edema, no cyanosis, 2+ pulses and upper and lower extremities. MUSCULOSKELETAL: Muscle strength and tone normal. CENTRAL NERVOUS SYSTEM: Alert and oriented -3. No gross deficit. PSYCHIATRIC: Normal mood affect and normal mental status examination - Labs CBC & Chem 7: 02/06/22 08:37 02/06/22 08:37 Assessment and Plan Assessment: Impression: Metastatic adenocarcinoma of the right lung. Malignant right-sided pleural effusion Severe underlying COPD FEV1 of 55% Benign essential hypertension Dyslipidemia Former smoker Possible hepatic metastasis. And osseous metastasis. Recommendation: Will clear the patient to be discharged home today Follow up on outpatient basis with thoracic surgery Continue incentive spirometer. Continue bronchodilators. Overall prognosis remains poor and guarded. Time with Patient: Less than 30
[2022-02-09 14:25] VITALS: BMI 30.5
--- NOTE | 2022-02-09 15:32 | MR ---
EXAMINATION TYPE: MR brain wo/w con DATE OF EXAM: 02/09/2022 COMPARISON: NONE HISTORY: Newly diagnosed Lung adenocarcinoma, evaluate for metastatic disease. TECHNIQUE: Multiplanar, multisequence images of the brain and brainstem is performed without and with IV contras t, utilizing 10 mL intravenous Gadavist . FINDINGS: Diffusion weighted images demonstrate no evidence of a recent infarct or other diffusion ab normality. Mild to moderate ventricular and sulcal prominence is present. CSF prominence greatest ove r the bilateral frontal lobes. Multifocal and confluent areas of T2 hyperintensity throughout the иван p and periventricular white matter are present. Midline structures demonstrate normal morphology. The craniocervical junction appears within normal limits. Post contrast images demonstrate no enhancing intraparenchymal masses. Slightly prominent le ft cerebellar vessel axial image 15 could reflect incidental venous angioma. The dural venous sinuses appear patent. The visualized sinuses are clear and the globes are intact. IMPRESSION: Mild to moderate diffuse cerebral atrophy greatest over the bilateral frontal lobes with moderate nonspecific white matter changes favoring product of chronic small vessel ischemic change in patient of this age. No suspicious enhancing masses to suggest metastatic disease to the brain.
[2022-02-09 17:13] VITALS: BP 104/65; PULSE 82; TEMP 98.3
--- NOTE | 2022-02-10 10:20 | P.DS ---
Providers Date of admission: 02/03/22 11:13 Expected date of discharge: 02/09/22 Attending physician: Osman Ocasio Consults: 02/04/22 16:46 Consult Physician Routine Consulting Provider: Arnoldo Lee Consult Reason/Comments: New chest tube-may need alteplase Do you want consulting provider notified?: Yes 02/07/22 11:07 Consult Physician Routine Consulting Provider: Thony Russell Consult Reason/Comments: Metastatic pulmonary adenocarcinoma Do you want consulting provider notified?: Yes Primary care physician: Brandon Peters [facility] Hospital Course: Final diagnosis Worsening shortness of breath secondary to right lower lobe pleural effusion and atelectasis. Recent bronchoscopy and bilateral cultures negative. Patient is status post thoracentesis on 02/03/2022 with 2 L fluid removal.Status post pigtail catheter placement. Repeat CT showed mass in the anterior right upper lobe and metastatic right hilar paratracheal and subcarinal lymphadenopathy. Recent pleural effusion cytology positive for adenocarcinoma Recent history of right lower lobe pneumonia and parapneumonic effusion Enlarged mediastinal and right hilar lymph nodes concerning for metastasis. Multiple sclerotic and lytic osseous lesions within the thoracolumbar spine concerning for metastasis. COPD with FEV1 of 55% of predicted Hypertension Hyperlipidemia Osteoarthritis Previous history of smoking DVT prophylaxis Discharge disposition Patient is being discharged in a stable condition with guarded prognosis to home with home care. Patient will follow-up with Dr. Peters in the outpatient setting upon discharge. Patient is to follow-up with pulmonary, CT surgery, oncology as scheduled. Total time taken is greater than 35 minutes. Hospital course This is a 76-year-old male who was recently admitted increasing shortness of breath and was being closely monitored with multiple medical consultations. Patient did undergo thoracentesis for large pleural effusion and pathology is positive for adenocarcinoma. Patient did have a pigtail catheter which has been removed recommendations CT surgery follow-up for possible Pleurx catheter. Patient will need outpatient testing in regards to newly diagnosed cancer with a PET scan and will need close follow-up with pulmonary along with oncology. Patient has been cleared by consultations and is extremely anxious to go home. Patient does have a scheduled MRI of the brain to assess for any lesions. Currently no reports of chest pain, shortness of breath, or palpitations. Patient is afebrile. No reports of nausea or vomiting and patient is tolerating diet. Patient will be discharged home today. Guarded prognosis. Physical exam: Gen: This is a 76-year-old male awake, alert and oriented 3, well-developed, well-nourished HEENT: Head is atraumatic, normocephalic. Pupils equal, round. Sclerae is anicteric. NECK: Supple. No JVD. No lymphadenopathy. No thyromegaly. LUNGS: Manage breath sounds bilaterally worse on the right with some scattered rhonchi noted. No intercostal retractions. HEART: Regular rate and rhythm. No murmur. ABDOMEN: Soft. Bowel sounds are present. No masses. No tenderness. EXTREMITIES: No pedal edema. No calf tenderness. NEUROLOGICAL: Patient is awake, alert and oriented x3. Cranial nerves 2 through 12 are grossly intact. Diffuse weakness Please refer to medication reconciliation sheet for a list of medications. The impression and plan of care has been dictated by Kalie Hernandez, Nurse Practitioner as directed. Dr. Tabby MD I have performed a history and examination and MDM of this patient, discussed the same with the dictator, and agree with the dictator's assessment and plan as written ,documented as a scribe. Based on total visit time, I have performed more than 50% of the visit. Patient Condition at Discharge: Fair Plan - Discharge Summary New Discharge Prescriptions: New bisacodyL [Dulcolax] 10 mg PO DAILY PRN tab PRN Reason: Constipation Ipratropium-Albuterol Nebulize [Duoneb 0.5 mg-3 mg/3 ml Soln] 3 ml INHALATION RT-QID PRN 30 Days #120 each PRN Reason: Shortness Of Breath Or Wheezing Tiotropium 2.5 Mcg/Puff [Spiriva Respimat 2.5 Mcg] 2 puff INHALATION RT-DAILY 30 Days #1 each Acetaminophen Tab [Tylenol] 650 mg PO Q6HR PRN tab PRN Reason: Fever And/ Or Pain Continue Atorvastatin [Lipitor] 10 mg PO DAILY Albuterol Nebulized [Ventolin Nebulized] 2.5 mg INHALATION RT-TID PRN PRN Reason: Shortness Of Breath Fluticasone/Umeclidin/Vilanter [Trelegy Ellipta 100-62.5-25] 1 puff INHALATION RT-DAILY lisinopriL [Zestril] 40 mg PO DAILY Propranolol HCl 80 mg PO DAILY Acetaminophen [Tylenol] 650 mg PO DAILY Discontinued Rivaroxaban [Xarelto] 20 mg PO DAILY Ciprofloxacin HCl 500 mg PO BID Discharge Medication List Albuterol Nebulized [Ventolin Nebulized] 2.5 mg INHALATION RT-TID PRN 12/31/21 [History] Fluticasone/Umeclidin/Vilanter [Trelegy Ellipta 100-62.5-25] 1 puff INHALATION RT-DAILY 12/31/21 [History] lisinopriL [Zestril] 40 mg PO DAILY 12/31/21 [History] Acetaminophen [Tylenol] 650 mg PO DAILY 02/02/22 [History] Atorvastatin [Lipitor] 10 mg PO DAILY 02/02/22 [History] Propranolol HCl 80 mg PO DAILY 02/02/22 [History] Acetaminophen Tab [Tylenol] 650 mg PO Q6HR PRN tab 02/09/22 [Rx] Ipratropium-Albuterol Nebulize [Duoneb 0.5 mg-3 mg/3 ml Soln] 3 ml INHALATION RT-QID PRN 30 Days #120 each 02/09/22 [Rx] Tiotropium 2.5 Mcg/Puff [Spiriva Respimat 2.5 Mcg] 2 puff INHALATION RT-DAILY 30 Days #1 each 02/09/22 [Rx] bisacodyL [Dulcolax] 10 mg PO DAILY PRN tab 02/09/22 [Rx] Follow up Appointment(s)/Referral(s): [facility], [NON-STAFF] - Cely Caputo MD [STAFF PHYSICIAN] - 1 Week (Office not answering at this time--please call to schedule follow up appointment.) Sam Donnelly DO [Doctor of Osteopathic Medicine] - 02/14/22 1:00 pm (With Dr. Sutton due to Dr. Donnelly being scheduled out too far.) Brandon Peters DO [Primary Care Provider] - 02/16/22 1:30 pm Levi Hudson MD [STAFF PHYSICIAN] - 02/14/22 11:00 am (Office will be contacting patient for further information.) Patient Instructions/Handouts: COPD (Chronic Obstructive Pulmonary Disease) (DC), Pleural Effusion (DC) Activity/Diet/Wound Care/Special Instructions: Activity Limited until follow-up Follow-up pulmonary outpatient Follow-up with primary care provider on discharge Follow-up with CT surgery Follow-up with oncology Continue taking current medications and inhalers Continue holding Xarelto for now until follow-up with oncology in regards to further testing Discharge Disposition: HOME WITH HOME HEALTH SERVICES
== END 2022-02-09 16:48 | disposition home health service (06) | DRG 181 ==
LOC: EC 21:20 → 3SCARD 02-02 03:00 → OBSVTOIN 02-03 11:13
PROVIDERS: ADMIT Internal Medicine Geriatric Medicine; ATTEND Internal Medicine Geriatric Medicine
PROC: 0W9930Z Drainage of Right Pleural Cavity with Drainage Device, Percutaneous Approach (ICD-10-PCS; principal; 2022-02-03)
PROC: 0W9930Z Drainage of Right Pleural Cavity with Drainage Device, Percutaneous Approach (ICD-10-PCS; 2022-02-08)
DX: C34.91 Malignant neoplasm of unspecified part of right bronchus or lung (principal); C77.1 Secondary and unspecified malignant neoplasm of intrathoracic lymph nodes; C78.7 Secondary malignant neoplasm of liver and intrahepatic bile duct; C79.51 Secondary malignant neoplasm of bone; J44.0 Chronic obstructive pulmonary disease with (acute) lower respiratory infection; J98.11 Atelectasis; J44.1 Chronic obstructive pulmonary disease with (acute) exacerbation; J91.0 Malignant pleural effusion; J93.9 Pneumothorax, unspecified; J98.19 Other pulmonary collapse; Z20.822 Contact with and (suspected) exposure to COVID-19; R59.0 Localized enlarged lymph nodes; E78.5 Hyperlipidemia, unspecified; I48.0 Paroxysmal atrial fibrillation; I10 Essential (primary) hypertension; G25.0 Essential tremor; E66.9 Obesity, unspecified; G47.33 Obstructive sleep apnea (adult) (pediatric); M19.90 Unspecified osteoarthritis, unspecified site; Z68.30 Body mass index [BMI] 30.0-30.9, adult; Z96.653 Presence of artificial knee joint, bilateral; Z57.5 Occupational exposure to toxic agents in other industries; Z79.899 Other long term (current) drug therapy; Z79.01 Long term (current) use of anticoagulants; Z79.51 Long term (current) use of inhaled steroids; Z87.442 Personal history of urinary calculi; Z86.73 Personal history of transient ischemic attack (TIA), and cerebral infarction without residual deficits; Z87.891 Personal history of nicotine dependence; Z86.16 Personal history of COVID-19; Z80.0 Family history of malignant neoplasm of digestive organs; Z87.01 Personal history of pneumonia (recurrent); Z90.49 Acquired absence of other specified parts of digestive tract
CPT/HCPCS: 32551; 36415; 70553; 71045; 71046; 71260; 76604; 77012; 80048; 80053; 82945; 83605; 83615; 83735; 83880; 84145; 84157; 84484; 85025; 85610; 85730; 87070; 87075; 87102; 87116; 87205; 87206; 87252; 87496; 87498; 87502; 87529; 87634; 87798; 88108; 88305; 88341; 88342; 89050; 93005; 94640; 94760; 96361; 96365; 96367; 96375; 99285

== ENCOUNTER 2022-02-18 06:21 | Day surgery (SDC) | payer MEDICARE ==
[~2022-02-18 06:21] MED LIST changes: -ALBUTEROL NEB (CONC) 2.5 MG/0.5 ML INHALATION ONE; -ATROPINE SULFATE 0.4 MG/ML 1 ML VIAL IM ONE; +HYDROmorphone 0.5 MG/0.5 ML SYRINGE IVP PRN; -LACTATED RINGERS 1,000 ML IV SCH; +LIDOCAINE 1% (10MG/ML) FOR IV START INTRADERMA PRN; -LIDOCAINE 2% (PF) 20 MG/ML 5 ML VIAL INHALATION ONE; -LIDOCAINE VISCOUS 300 MG/15 ML CUP MUCOUS MEM ONE; +ONDANSETRON 4 MG/2 ML VIAL IVP ONE
[2022-02-18] MEDS: LACTATED RINGERS 1,000 ML IV SCH ×2 (06:56→07:00)
[2022-02-18] MEDS ORDERED: DEXAMETHASONE SOD PHOS (MDV) 100 MG/10 ML VIAL IVP ONE (07:00)
[2022-02-18] MEDS ORDERED: LIDOCAINE 1% INJ 10MG/ML (20 ML MDV) SQ ONE ×3 (07:34→08:13)
[2022-02-18] MEDS ORDERED: MIDAZOLAM 2 MG/2 ML VIAL ONE (07:54)
[2022-02-18] MEDS ORDERED: fentaNYL (PF) 50 MCG/ML 2 ML AMP ONE (07:54)
[2022-02-18] MEDS ORDERED: PROPOFOL 10 MG/ML 20 ML VIAL IV ONE (07:54)
[2022-02-18] MEDS ORDERED: KETAMINE 10 MG/ML 20 ML VIAL ONE (07:54)
[2022-02-18] MEDS ORDERED: PHENYLEPHRINE-0.9% NACL SYG 1,000 MCG/10 ML SYRINGE ONE (07:54)
[2022-02-18] MEDS ORDERED: GLYCOPYRROLATE 0.2 MG/ML 2 ML VIAL ONE (07:54)
[2022-02-18 08:41] VITALS: TEMP 97
--- NOTE | 2022-02-18 09:10 | FL ---
Intraoperative/procedural fluoroscopic services were provided. Total fluoroscopy time is 12 seconds w ith a total of 1 submitted images to PACS. Please see the operative/procedural note for further detai ls.
--- NOTE | 2022-02-18 09:16 | XR ---
EXAMINATION TYPE: XR chest 1V portable DATE OF EXAM: 02/18/2022 9:02 AM COMPARISON: Chest radiographs from 02/14/2022, CT chest TECHNIQUE: XR chest 1V portable Frontal view of the chest. CLINICAL INDICATION:Male, 76 years old with history of Pleural Catheter placement; FINDINGS: Lungs/Pleura: Small right pleural effusion. Scattered opacities are seen throughout the right lung. S mall right pneumothorax appreciated. The left lung is grossly unremarkable. Pulmonary vascularity: Unremarkable. Heart/mediastinum: Cardiomediastinal silhouette is enlarged and stable. Musculoskeletal: No acute osseous pathology. End-stage degeneration changes of the left shoulder Other findings: None Lines/Tubes: Right thoracotomy tube is present suggestion of trace right lower costophrenic angle pneumothorax. IMPRESSION: 1. Interval placement of right thoracotomy tube with small inferior lateral pneumothorax. 2. Similar streaky airspace opacities throughout the right lung with suspected trace pleural effusio n. 3. Cardiomegaly.
--- NOTE | 2022-02-18 09:27 | P.OP ---
Date of Procedure: 02/18/22 Preoperative Diagnosis: Metastatic lung cancer Recurrent pleural effusion - Right Postoperative Diagnosis: Same Procedure(s) Performed: Insertion of right sided pleurX Implants: Pleurx catheter Anesthesia: MAC Surgeon: Levi Hudson Estimated Blood Loss (ml): 5 IV fluids (ml): 700 Pathology: none sent Condition: stable Disposition: PACU Indications for Procedure: This is a 76 year-old non smoker who was recently diagnosed with right sided lung cancer and has had recurrent right sided pleural effusion. Cytology shows metastatic carcinoma. He is brought in for pleurX catheter insertion. Operative Findings: 750ml of serous fluid drained with successful placement. Description of Procedure: The patient was brought to the operating room and placed in the supine position. He was sedated and his right chest was bumped and prepped and draped in the usual sterile fashion. 1% lidocaine was used to anesthetize two areas on the right chest wall and periosteum over the 6th interspace. An introducer needle was inserted with successful return of serous effluent and a guidewire was inserted under floroscopic vision. The catheter was tunneled from anterior to posterior and inserted into the chest through a sheath under x-ray guidance. 750ml of serous fluid was drained. The posterior incision was closed with vicyl and glue and a dressing was placed over the catheter.
[2022-02-18 11:29] VITALS: BP 111/87; PULSE 81; RESP 16
== END 2022-02-18 11:25 | disposition home health service (06) ==
LOC: OR 06:21
PROVIDERS: ATTEND Thoracic Surgery (Cardiothoracic Vascular Surgery)
DX: C34.91 Malignant neoplasm of unspecified part of right bronchus or lung (principal); J91.0 Malignant pleural effusion; I10 Essential (primary) hypertension; E78.5 Hyperlipidemia, unspecified; I48.91 Unspecified atrial fibrillation; G47.33 Obstructive sleep apnea (adult) (pediatric); J44.9 Chronic obstructive pulmonary disease, unspecified; K21.9 Gastro-esophageal reflux disease without esophagitis; Z86.73 Personal history of transient ischemic attack (TIA), and cerebral infarction without residual deficits; Z87.442 Personal history of urinary calculi; Z80.0 Family history of malignant neoplasm of digestive organs; Z79.899 Other long term (current) drug therapy
CPT/HCPCS: 32550; 76000; 71045; J2250; J0690; J2405; J2001; J3010; J1100; J2370; J2704

== ENCOUNTER → 2022-02-25 | Outpatient (CLI) | payer MEDICARE ==
--- NOTE | 2022-02-25 14:28 | XR ---
EXAMINATION TYPE: XR femur LT DATE OF EXAM: 02/25/2022 COMPARISON: NONE HISTORY: Pain TECHNIQUE: 4 views submitted FINDINGS: There is an interosseous lytic lesion involving the proximal diaphysis of the left femur me asuring 4.6 cm. Arthropathy of the hip. Sclerosis involving the left inferior pubic ramus. Sclerosis involving the left SI joint can be associated with sacroiliitis. Postsurgical change involving the kn ee joint. Soft tissue ossification or calcification noted. IMPRESSION: 1. There is a 4.6 cm lytic lesion proximal diaphysis left femur appears aggressive. Primary bone lesi on and metastases in the differential diagnosis recommend MRI follow-up. 2. Sclerosis involving the left inferior superior pubic ramus also suspicious for intraosseous lesion correlate for history of malignancy.
--- NOTE | 2022-02-25 14:30 | XR ---
EXAMINATION TYPE: XR Hip Complete LT DATE OF EXAM: 02/25/2022 COMPARISON: NONE HISTORY: Pain TECHNIQUE: 2 views FINDINGS: There is an interosseous lytic lesion involving the proximal diaphysis of the left femur me asuring 4.6 cm. Arthropathy of the hip. Sclerosis involving the left inferior pubic ramus. Sclerosis involving the left SI joint can be associated with sacroiliitis. Postsurgical change involving the kn ee joint. Soft tissue ossification or calcification noted. IMPRESSION: 1. There is a 4.6 cm lytic lesion proximal diaphysis left femur appears aggressive. Primary bone lesi on and metastases in the differential diagnosis recommend MRI follow-up. 2. Sclerosis involving the left inferior superior pubic ramus also suspicious for intraosseous lesion correlate for history of malignancy. 3. Left facet arthropathy correlate for femoral acetabular impingement. 4. Sacroiliitis.
== END | disposition home or self-care (01) ==
LOC: RADXRMAIN 13:56
PROVIDERS: ATTEND Radiology Radiation Oncology
DX: C79.51 Secondary malignant neoplasm of bone (principal)
CPT/HCPCS: 73502; 73552; 71045; G0463; 99214

== ENCOUNTER 2022-02-27 16:37 | Inpatient (IN) | payer MEDICARE ==
[2022-02-27 18:56] LABS: Basophils # (A) 0.1 k/uL (0-0.2); Basophils % (A) 1 %; Eosinophils # (A) 0.3 k/uL (0-0.7); Eosinophils % (A) 4 %; HCT 35.3 % (39.0-53.0); Hypochromasia Moderate; Lymphocytes # (A) 1.5 k/uL (1.0-4.8); Lymphocytes % (A) 19 %; MCH 28.9 pg (25.0-35.0); MCHC 31.2 g/dL (31.0-37.0); MCV 92.7 fL (80.0-100.0); Mean Platelet Volume 7.2; Monocytes # (A) 0.6 k/uL (0-1.0); Monocytes % (A) 8 %; Neutrophils # (A) 5.1 k/uL (1.3-7.7); Neutrophils % (A) 66 %; Platelet Count 450 k/uL (150-450); RBC 3.81 m/uL (4.30-5.90); RDW 15.7 % (11.5-15.5); WBC 7.7 k/uL (3.8-10.6)
[2022-02-27 19:06] LABS: Partial Thromboplastin Time 29.3 sec (22.0-30.0)
[2022-02-27 19:10] LABS: ALT 24 U/L (4-49); AST 31 U/L (17-59); African American GFR (CKD) >90 (>60 ml/min/1.73 sqM); Albumin 3.5 g/dL (3.5-5.0); Alkaline Phosphatase 215 U/L (38-126); Anion Gap 11 mmol/L; Blood Urea Nitrogen 27 mg/dL (9-20); Calcium 9.2 mg/dL (8.4-10.2); Carbon Dioxide 30 mmol/L (22-30); Chloride 102 mmol/L (98-107); Glucose 119 mg/dL (74-99); Non-African American GFR(CKD) 86 (>60 ml/min/1.73 sqM); Potassium 3.8 mmol/L (3.5-5.1); Sodium 143 mmol/L (137-145); Total Bilirubin 0.2 mg/dL (0.2-1.3); Total Protein 6.3 g/dL (6.3-8.2)
[2022-02-27] MEDS ORDERED: HYDROmorphone 0.5 MG/0.5 ML SYRINGE IVP STA (21:57)
--- NOTE | 2022-02-27 22:02 | ED ---
Weakness HPI - General Chief complaint: Weakness Stated complaint: Weakness Time Seen by Provider: 02/27/22 21:50 Source: patient, family, RN notes reviewed, old records reviewed Mode of arrival: wheelchair Limitations: no limitations - History of Present Illness Initial comments: This is a 76-year-old male, alert and oriented 4, presents with family c omplaining of low back pain with loss of appetite and generalized weakness. Patient was recently diagnosed with stage IV lung cancer with metastasis to liver and bone. He is awaiting an oncology appointment per his daughters. He does have a history of A. fib, COPD, hypertension and stroke. He is a full code MD Complaint: generalized weakness, lack of energy, difficulty walking -: week(s) Severity scale (1-10): 8 Quality: aching, constant Consistency: constant Improves with: none Worsens with: movement, other (walking) Associated Symptoms: loss of appetite - Related Data Home Medications Medication Instructions Recorded Confirmed Albuterol Nebulized [Ventolin 2.5 mg INHALATION RT-TID PRN 12/31/21 02/18/22 Nebulized] lisinopriL [Zestril] 40 mg PO DAILY 12/31/21 02/18/22 Atorvastatin [Lipitor] 10 mg PO DAILY 02/02/22 02/18/22 Propranolol HCl 80 mg PO DAILY 02/02/22 02/18/22 Previous Rx's Medication Instructions Recorded Acetaminophen Tab [Tylenol] 650 mg PO Q6HR PRN tab 02/09/22 Ipratropium-Albuterol Nebulize 3 ml INHALATION RT-QID PRN 30 Days 02/09/22 [Duoneb 0.5 mg-3 mg/3 ml Soln] #120 each Tiotropium 2.5 Mcg/Puff [Spiriva 2 puff INHALATION RT-DAILY 30 Days 02/09/22 Respimat 2.5 Mcg] #1 each bisacodyL [Dulcolax] 10 mg PO DAILY PRN tab 02/09/22 Allergies Allergy/AdvReac Type Severity Reaction Status Date / Time No Known Allergies Allergy Verified 02/27/22 18:13 Review of Systems ROS Statement: Those systems with pertinent positive or pertinent negative responses have been documented in the HPI. ROS Other: All systems not noted in ROS Statement are negative. Past Medical History Past Medical History: Atrial Fibrillation, Cancer, COPD, CVA/TIA, Hyperlipidemia, Hypertension, Pneumonia, Sleep Apnea/CPAP/BIPAP Additional Past Medical History / Comment(s): ESSENTIAL TREMORS, KIDNEY STONES, COPD CAUSED BY EXPOSURE TO CHLORINE. recent hospitalization for pneumoia with kidney issues. unsure of stroke/TIA, recent hospital stay in january 2022 to drain fluid off lung. dx of lung CA stage IV from fluid. PET scan to look at spot on liver. rheumatic fever as a child. arthritis- hands. wears cpap History of Any Multi-Drug Resistant Organisms: None Reported Past Surgical History: Cholecystectomy, Joint Replacement Additional Past Surgical History / Comment(s): COLONOSCOPY, [place] KNEE REPLACEMENT, PILONIDAL CYST. Past Anesthesia/Blood Transfusion Reactions: No Reported Reaction Additional Past Anesthesia/Blood Transfusion Reaction / Comment(s): no blood transfusion Past Psychological History: No Psychological Hx Reported Smoking Status: Former smoker Past Alcohol Use History: None Reported Past Drug Use History: None Reported - Past Family History Father Family Medical History: Cancer Additional Family Medical History / Comment(s): COLON CANCER General Exam Limitations: no limitations General appearance: alert, in no apparent distress Head exam: Present: atraumatic, normocephalic Eye exam: Present: EOMI. Absent: scleral icterus, conjunctival injection, periorbital swelling ENT exam: Present: mucous membranes moist Neck exam: Absent: tenderness, meningismus Respiratory exam: Present: decreased breath sounds, other (dressing tube right chest wall Pleurex). Absent: respiratory distress, accessory muscle use Cardiovascular Exam: Present: regular rate, normal rhythm GI/Abdominal exam: Present: soft. Absent: distended, tenderness, rigid Extremities exam: Present: normal capillary refill. Absent: tenderness, pedal edema, calf tenderness Back exam: Present: normal inspection, tenderness (LS spine). Absent: CVA tenderness (R), CVA tenderness (L), rash noted Neurological exam: Present: alert, oriented X3 Psychiatric exam: Present: normal affect, normal mood Skin exam: Present: warm, dry, normal color. Absent: cyanosis, diaphoretic Course Vital Signs 02/27/22 02/27/22 18:10 22:52 Temperature 98.2 F Pulse Rate 74 89 Respiratory 16 Rate Blood Pressure 108/65 O2 Sat by Pulse 96 94 L Oximetry EKG Findings - EKG Results: EKG: sinus rhythm (Ventricular rate 77, NE interval 0.177, QRS 0.148, QTC 0.440) Medical Decision Making - Medical Decision Making Patient was recently diagnosed with lung cancer with metastasis to bone and liver. Pleurex to right upper chest placed on February 18. XR on 02/25/22, showed an aggressive 4.6 cm lytic lesion proximal diaphysis left femur. Sclerosis involving left inferior superior pubic ramus suspiious for intraosseous lesion. He is scheduled to see Dr Caputo this for care. He is a full code. He presents with increasing pain not managed with [place] at home, weight loss, decreased appetite and difficulty ambulating. He denies any fevers or difficulty in breathing. No nausea vomiting or diarrhea. Denies any headaches. No focal neurological deficits Vital signs and labs are stable. Patient will be admitted to observation for intractable pain and weakness due to metastatic lung cancer. Case discussed with Dr. Lyles. - Lab Data Result diagrams: 02/27/22 18:52 02/27/22 18:52 Lab Results 02/27/22 02/27/22 02/27/22 Range/Units 18:52 18:52 18:52 WBC 7.7 (3.8-10.6) k/uL RBC 3.81 L (4.30-5.90) m/uL Hgb 11.0 L (13.0-17.5) gm/dL Hct 35.3 L (39.0-53.0) % MCV 92.7 (80.0-100.0) fL MCH 28.9 (25.0-35.0) pg MCHC 31.2 (31.0-37.0) g/dL RDW 15.7 H (11.5-15.5) % Plt Count 450 (150-450) k/uL MPV 7.2 Neutrophils % 66 % Lymphocytes % 19 % Monocytes % 8 % Eosinophils % 4 % Basophils % 1 % Neutrophils # 5.1 (1.3-7.7) k/uL Lymphocytes # 1.5 (1.0-4.8) k/uL Monocytes # 0.6 (0-1.0) k/uL Eosinophils # 0.3 (0-0.7) k/uL Basophils # 0.1 (0-0.2) k/uL Hypochromasia Moderate PT 11.0 (9.0-12.0) sec INR 1.0 (<1.2) APTT 29.3 (22.0-30.0) sec Sodium 143 (137-145) mmol/L Potassium 3.8 (3.5-5.1) mmol/L Chloride 102 (98-107) mmol/L Carbon Dioxide 30 (22-30) mmol/L Anion Gap 11 mmol/L BUN 27 H (9-20) mg/dL Creatinine 0.81 (0.66-1.25) mg/dL Est GFR (CKD-EPI)AfAm >90 (>60 ml/min/1.73 sqM) Est GFR (CKD-EPI)NonAf 86 (>60 ml/min/1.73 sqM) Glucose 119 H (74-99) mg/dL Plasma Lactic Acid Jorge Luis (0.7-2.0) mmol/L Calcium 9.2 (8.4-10.2) mg/dL Total Bilirubin 0.2 (0.2-1.3) mg/dL AST 31 (17-59) U/L ALT 24 (4-49) U/L Alkaline Phosphatase 215 H (38-126) U/L Troponin I (0.000-0.034) ng/mL Total Protein 6.3 (6.3-8.2) g/dL Albumin 3.5 (3.5-5.0) g/dL 02/27/22 02/27/22 Range/Units 18:52 18:52 WBC (3.8-10.6) k/uL RBC (4.30-5.90) m/uL Hgb (13.0-17.5) gm/dL Hct (39.0-53.0) % MCV (80.0-100.0) fL MCH (25.0-35.0) pg MCHC (31.0-37.0) g/dL RDW (11.5-15.5) % Plt Count (150-450) k/uL MPV Neutrophils % % Lymphocytes % % Monocytes % % Eosinophils % % Basophils % % Neutrophils # (1.3-7.7) k/uL Lymphocytes # (1.0-4.8) k/uL Monocytes # (0-1.0) k/uL Eosinophils # (0-0.7) k/uL Basophils # (0-0.2) k/uL Hypochromasia PT (9.0-12.0) sec INR (<1.2) APTT (22.0-30.0) sec Sodium (137-145) mmol/L Potassium (3.5-5.1) mmol/L Chloride (98-107) mmol/L Carbon Dioxide (22-30) mmol/L Anion Gap mmol/L BUN (9-20) mg/dL Creatinine (0.66-1.25) mg/dL Est GFR (CKD-EPI)AfAm (>60 ml/min/1.73 sqM) Est GFR (CKD-EPI)NonAf (>60 ml/min/1.73 sqM) Glucose (74-99) mg/dL Plasma Lactic Acid Jorge Luis 1.2 (0.7-2.0) mmol/L Calcium (8.4-10.2) mg/dL Total Bilirubin (0.2-1.3) mg/dL AST (17-59) U/L ALT (4-49) U/L Alkaline Phosphatase (38-126) U/L Troponin I 0.015 (0.000-0.034) ng/mL Total Protein (6.3-8.2) g/dL Albumin (3.5-5.0) g/dL Disposition Clinical Impression: Lung cancer metastatic to bone, Intractable pain, Weakness Disposition: ADMITTED IP TO THIS [facility] Decision Date: 02/27/22 Decision Time: 22:26
[2022-02-27] MEDS ORDERED: ONDANSETRON 4 MG/2 ML VIAL IVP PRN (22:08)
[2022-02-27] MEDS ORDERED: NALOXONE 0.4 MG/ML 1 ML VIAL IV PRN (22:27)
[2022-02-27] MEDS: SODIUM CHLORIDE 0.9% 1,000 ML IV SCH (22:48)
[2022-02-28] MEDS: HYDROcodone/APAP 5-325MG 1 EACH TAB PO PRN ×2 (00:56→07:58)
[2022-02-28] MEDS: SODIUM CHLORIDE 0.9% 1,000 ML IV SCH ×2 (01:21→17:02)
[2022-02-28] MEDS: HYDROmorphone 0.5 MG/0.5 ML SYRINGE IVP PRN ×4 (01:21→22:43)
[2022-02-28] MEDS: IPRATROPIUM-ALBUTEROL 3 ML NEB INHALATION PRN (11:15)
--- NOTE | 2022-02-28 11:50 | P.CONS ---
History of Present Illness - Reason for Consult Consult date: 02/28/22 Metastatic lung ca, intractable pain - History of Present Illness The patient is a 76-year-old white male, with multiple medical issues and complicated recent past medical history. The patient had presented with shortness of breath in 01/14, which was progressive, and associated with cough. He was found to have small right lower lobe pleural effusion and consolidation. He was admitted to the hospital, treated with IV antibiotics and then oral antibiotics at home. However his symptoms progressed again after partial improvement. He was seen by pulmonary medicine as an outpatient, with repeat imaging in late 01/14 concerning for right lower lobe mass. The patient had a bronchoscopy on 01/27/22 with transbronchial biopsy ultimately positive for poorly differentiated pulmonary adenocarcinoma. He was then readmitted in mid 02/14 with recurrent pleural effusion and shortness of breath. He had thoracentesis with placement of pigtail catheter. Cytology on the pleural fluid was also positive. CT scan of the chest at that time confirmed right-sided lung mass, mediastinal adenopathy, at least 2 liver lesions suspicious of metastasis, and multiple osseous metastasis especially to the spine. He required lytic therapy to clear obstruction of the chest tube on 02/18/22. He then developed increasing pain related to the left upper leg/left hip area, right hip and lower back. He was prescribed [place] 5/325 and was taking one half tablets every 6 hours. However if you're still having severe pain on weightbea ring and movement.. X-rays on 02/25/22 showed a large 4.6 cm lytic lesion involving the proximal left femur. He is supposed to start palliative radiation this coming week. He came into the hospital because of uncontrolled pain with any movement or weightbearing. He denied any loss of sensation in his lower extremities. Bowel and bladder sensation also maintained. Review of Systems Constitutional: Reports fatigue, Reports weakness, Reports weight loss Eyes: denies blurred vision, denies pain Ears: deny: decreased hearing, ear discharge, earache, tinnitus Ears, nose, mouth and throat: Denies headache, Denies sore throat Cardiovascular: Reports palpitations, Reports shortness of breath Respiratory: Reports dyspnea Gastrointestinal: Denies abdominal pain, Denies diarrhea, Denies nausea, Denies vomiting Genitourinary: Reports as per HPI Musculoskeletal: Reports as per HPI, Reports low back pain Musculoskeletal: right: hip pain Integumentary: Denies pruritus, Denies rash Neurological: Reports weakness Psychiatric: Denies anxiety, Denies depression Endocrine: Reports fatigue, Reports weight change Hematologic/Lymphatic: Reports as per HPI Past Medical History Past Medical History: Atrial Fibrillation, Cancer, COPD, CVA/TIA, Hyperlipidemia, Hypertension, Pneumonia, Sleep Apnea/CPAP/BIPAP Additional Past Medical History / Comment(s): ESSENTIAL TREMORS, KIDNEY STONES, COPD CAUSED BY EXPOSURE TO CHLORINE. recent hospitalization for pneumoia with kidney issues. unsure of stroke/TIA, recent hospital stay in january 2022 to drain fluid off lung. dx of lung CA stage IV from fluid. PET scan to look at spot on liver. rheumatic fever as a child. arthritis- hands. wears cpap History of Any Multi-Drug Resistant Organisms: None Reported Past Surgical History: Cholecystectomy, Joint Replacement Additional Past Surgical History / Comment(s): COLONOSCOPY, [place] KNEE REPLACEMENT, PILONIDAL CYST. Past Anesthesia/Blood Transfusion Reactions: No Reported Reaction Additional Past Anesthesia/Blood Transfusion Reaction / Comm: no blood transfusion Past Psychological History: No Psychological Hx Reported Smoking Status: Former smoker Past Alcohol Use History: None Reported Past Drug Use History: None Reported - Past Family History Father Family Medical History: Cancer Additional Family Medical History / Comment(s): COLON CANCER Medications and Allergies Home Medications Medication Instructions Recorded Confirmed Type Albuterol Nebulized [Ventolin 2.5 mg INHALATION RT-TID PRN 12/31/21 02/28/22 History Nebulized] lisinopriL [Zestril] 40 mg PO DAILY 12/31/21 02/28/22 History Atorvastatin [Lipitor] 10 mg PO DAILY 02/02/22 02/28/22 History Propranolol HCl 80 mg PO DAILY 02/02/22 02/28/22 History Acetaminophen Tab [Tylenol] 650 mg PO Q6HR PRN tab 02/09/22 02/28/22 Rx Ipratropium-Albuterol Nebulize 3 ml INHALATION RT-QID PRN 30 Days 02/09/22 02/28/22 Rx [Duoneb 0.5 mg-3 mg/3 ml Soln] #120 each Tiotropium 2.5 Mcg/Puff [Spiriva 2 puff INHALATION RT-DAILY 30 Days 02/09/22 02/28/22 Rx Respimat 2.5 Mcg] #1 each bisacodyL [Dulcolax] 10 mg PO DAILY PRN tab 02/09/22 02/28/22 Rx HYDROcodone/APAP 5-325MG [[place] 1.5 tab PO Q6HR PRN 02/28/22 02/28/22 History 5-325] Rivaroxaban [Xarelto] 20 mg PO DAILY 02/28/22 02/28/22 History Allergies Allergy/AdvReac Type Severity Reaction Status Date / Time No Known Allergies Allergy Verified 02/28/22 10:00 Physical Exam Vitals: Vital Signs Temp Pulse Pulse Resp BP BP Pulse Ox 02/28/22 04:13 99.1 F 87 18 128/71 93 L 02/28/22 01:11 97.9 F 91 16 154/86 94 L 02/28/22 01:00 76 24 135/71 94 L 02/28/22 00:30 87 18 02/27/22 23:00 88 20 137/76 02/27/22 22:52 89 94 L 02/27/22 18:10 98.2 F 74 16 108/65 96 Intake and Output 02/27/22 02/28/22 02/28/22 22:59 06:59 14:59 Intake Total 840 Output Total 300 100 Balance 540 -100 Intake: Intake, IV Titration 600 Amount Sodium Chloride 0.9% 1, 600 000 ml @ 75 mls/hr IV . [id number] [facility] Rx#:[id number] Oral 240 Output: Urine 300 100 Other: # Voids 1 Weight 87.997 kg - Constitutional General appearance: no acute distress - EENT Eyes: EOMI, PERRLA ENT: hearing grossly normal, normal oropharynx - Neck Neck: no lymphadenopathy Thyroid: bilateral: normal size - Respiratory Respiratory: right: diminished - Cardiovascular Rhythm: irregularly irregular - Gastrointestinal General gastrointestinal: normal bowel sounds, soft - Integumentary Integumentary: normal - Neurologic Lower extremity and side lady and sensation is normal Neurologic: CNII-XII intact - Musculoskeletal Musculoskeletal: generalized weakness, strength equal bilaterally - Psychiatric Psychiatric: A&O x's 3, appropriate affect Results CBC & Chem 7: 02/27/22 18:52 02/27/22 18:52 Labs: Abnormal Lab Results - Last 24 Hours (Table) 02/27/22 02/27/22 Range/Units 18:52 18:52 RBC 3.81 L (4.30-5.90) m/uL Hgb 11.0 L (13.0-17.5) gm/dL Hct 35.3 L (39.0-53.0) % RDW 15.7 H (11.5-15.5) % BUN 27 H (9-20) mg/dL Glucose 119 H (74-99) mg/dL Alkaline Phosphatase 215 H (38-126) U/L Comments: EKG report and images reviewed Left hip x-ray reports reviewed Assessment and Plan (1) Intractable pain Narrative/Plan: The patient has extensive bony metastatic involvement. He was supposed to start palliative radiation later this week. He is not aware as to which sites e xactly. He complains of pain in both hip areas and lower back. Recent x-rays have shown large lytic lesion in the left upper femur. - The patient's pain is actually quite well controlled when he is laying in bed, with the [place]. However it is intractable with any movement or weightbearing. There is no evidence of cord compression clinically - Increased [place] 7.5/3.5. Start long-acting preparation, fentanyl at 25 MCG - Consult radiation oncology to begin palliative radiation - Check x-rays of the right hip area - Start Decadron. This can be discontinued once radiation starts as long as th ere is no neurologic deficit. - Check MAR an appointment to see if the patient has received Xgeva or bisphosphonate. If not he will also be started on same. Discussed in detail with patient and family Current Visit: Yes Status: Acute Code(s): R52 - PAIN, UNSPECIFIED SNOMED Code(s): 80268053 (2) Adenocarcinoma, lung Narrative/Plan: Widely metastatic disease. A marker testing is currently in process. Patient will follow-up in the office after discharge to start systemic therapy post palliative radiation. Current Visit: No Status: Acute Priority: High Code(s): C34.90 - MALIGNANT NEOPLASM OF UNSP PART OF UNSP BRONCHUS OR LUNG SNOMED Code(s): 433696447
[2022-02-28] MEDS: PANTOPRAZOLE 40 MG/10 ML VIAL IVP SCH (12:26)
[2022-02-28] MEDS: RIVAROXABAN 20 MG TAB PO SCH (12:26)
--- NOTE | 2022-02-28 15:30 | XR ---
EXAMINATION TYPE: XR Hip Bilateral Complete DATE OF EXAM: 02/28/2022 1:12 PM INDICATION: Patient age:Male; 76 years old; Reason for study: Neoplasm related pain; PHH. COMPARISON: Left hip radiograph 02/25/2022, left femur radiograph 02/25/2022 TECHNIQUE: Both hips were examined in frontal and lateral projections. FINDINGS: No acute fracture or dislocation. No soft tissue swelling. Unchanged interosseous lytic les ion involving the proximal diaphysis of left femur measuring up to 4.5 cm. Similar sclerosis involvin g the left inferior pubic ramus. Mild arthropathy of both hips with minimal joint space narrowing and marginal osteophytosis. IMPRESSION: 1. Redemonstration of 4.5 cm lytic lesion in the proximal diaphysis of the left femur. No correspond ing abnormality of the right femur. This again may represent primary bone lesion versus metastasis. M RI is recommended for further evaluation. 2. Sclerosis redemonstrated involving the left inferior pubic ramus suspicious for interosseous lesi on. Correlate for history of malignancy. 3. Bilateral facet arthropathy. Correlate for femoral acetabular impingement.
[2022-02-28] MEDS ORDERED: bisacodyL 10 MG SUPP RECTAL PRN (16:14)
--- NOTE | 2022-02-28 16:14 | P.HPIM ---
History of Present Illness H&P Date: 02/28/22 This is a 76-year-old male patient of Dr. Peters with medical history significant for atrial fibrillation, COPD, hyperlipidemia, hypertension, stroke, lung cancer stage IV with metastasis to the liver and bone which is a recent diagnosis. Patient had x-rays completed 3 days ago which does show a 4.6 cm lytic lesion of the left femur which appears aggressive there is also sclerosis involving the left inferior superior pubic ramus suspicious for malignant lesion. States he saw Dr Boone with rad-onc on , he is scheduled for radiation on Monday and follow up with Dr Cely Caputo this coming . Remote history of smoking. Patient presents to the emergency room with concern for low back pain as well as loss of appetite and generalized weakness. He also reports right sided leg pain and weakness feels like his leg is going to give out. He is also reporting trouble with constipation and feeling bloated. No loss of bowel or bladder reported. He did report "slipping" into the bathroom while ambulating a day prior to admission, denies injury, did not hit head. No dizzine ss or lightheadeness reported, no chest pain, no shortness of breath at rest. He does have some exertional dyspnea. EKG on admission shows sinus rhythm with heart rate of 77, QT interval 440. He does have a right bundle branch block. Patient was recently seen in this hospital and had a right Pleurx catheter placed secondary to recurrent pleural effusion on the right side this was on 02/18/2022. Per family they had drained about 600 mls off the pleurex catheter 2 days ago and about 700 mls off 3 days prior to that. He also had an MRI brain done in January of this year which is negative for metastasis. No white count, hemoglobin 11, sodium 143, potassium 3.8, BUN 27, creatinine 0.81, glucose 119, alk phos 215, troponins negative, liver enzymes negative. He is afebrile, heart rate 87, blood pressure is 128/77, with mild hypoxia 93% on room air. He is anticoagulated with xarelto in the outpatient setting. Oncology and pain management services have been consulted. REVIEW OF SYSTEMS: CONSTITUTIONAL: No fever, no malaise, Reports fatigue. HEENT: No recent visual problems or hearing problems. Denied any sore throat. CARDIOVASCULAR: No chest pain, orthopnea, PND, no palpitations, no syncope. PULMONARY: No shortness of breath, no cough, no hemoptysis. GASTROINTESTINAL: No diarrhea, no nausea, no vomiting, no abdominal pain. Reports bloating and no BM. NEUROLOGICAL: No headaches, no weakness, no numbness. HEMATOLOGICAL: Denies any bleeding or petechiae. GENITOURINARY: Denies any burning micturition, frequency, or urgency. MUSCULOSKELETAL/RHEUMATOLOGICAL: Denies any joint pain, swelling, or any muscle pain. Reports right leg pain, and weakness. ENDOCRINE: Denies any polyuria or polydipsia. The rest of the 14-point review of systems is negative. PHYSICAL EXAMINATION: GENERAL: The patient is alert and oriented x3, not in any acute distress. Well developed, well nourished. HEENT: Pupils are round and equally reacting to light. EOMI. No scleral icterus. No conjunctival pallor. Normocephalic, atraumatic. No pharyngeal erythema. No thyromegaly. CARDIOVASCULAR: S1 and S2 present. No murmurs, rubs, or gallops. PULMONARY: Chest is clear to auscultation, no wheezing or crackles. ABDOMEN: Soft, nontender, distended, normoactive bowel sounds. No palpable organomegaly. MUSCULOSKELETAL: No joint swelling or deformity. EXTREMITIES: No cyanosis, clubbing, or pedal edema. NEUROLOGICAL: Gross neurological examination did not reveal any focal deficits. SKIN: No rashes. Assessment and plan Assessment and plan Intractable generalized pain Stage IV lung cancer metastasis to bone recent diagnosis supposed to start palliative radiation this upcoming week. Recurrent right pleural effusion with pleurex drainage catheter in place Multiple sclerotic and lytic osseous lesions within the thoracolumbar spine concerning for metastasis Paroxysmal atrial fibrillation anticoagulated with xarelto History of COPD with FEV1 55% of predicted Hyperlipidemia Hypertension Stroke Anemia Osteoarthritis Obstructive sleep apnea with home CPAP Former smoker GI prophylaxis DVT prophylaxis resume on home does xarelto Full code Plan Resume appropriate home medications Oncology has been consulted for further recommendations Pain management Bowel Regimen PT/OT Family requesting for drainage of pleurex catheter The impression and plan of care has been dictated by Es Frazier Nurse Practitioner as directed. Dr. Kristofer MD I have performed a history and physical examination and medical decision making of this patient, discussed the same with the dictator, and agree with the dictators assessment and plan as written, documented as a scribe. Based on total visit time, I have performed more than 50% of this visit. Past Medical History Past Medical History: Atrial Fibrillation, Cancer, COPD, CVA/TIA, Hyperlipidemia, Hypertension, Pneumonia, Sleep Apnea/CPAP/BIPAP Additional Past Medical History / Comment(s): ESSENTIAL TREMORS, KIDNEY STONES, COPD CAUSED BY EXPOSURE TO [place]. recent hospitalization for pneumoia with kidney issues. unsure of stroke/TIA, recent hospital stay in january 2022 to drain fluid off lung. dx of lung CA stage IV from fluid. PET scan to look at spot on liver. rheumatic fever as a child. arthritis- hands. wears cpap History of Any Multi-Drug Resistant Organisms: None Reported Past Surgical History: Cholecystectomy, Joint Replacement Additional Past Surgical History / Comment(s): COLONOSCOPY, [place] KNEE REPLACEM ENT, PILONIDAL CYST. Past Anesthesia/Blood Transfusion Reactions: No Reported Reaction Additional Past Anesthesia/Blood Transfusion Reaction / Comment(s): no blood transfusion Past Psychological History: No Psychological Hx Reported Smoking Status: Former smoker Past Alcohol Use History: None Reported Past Drug Use History: None Reported - Past Family History Father Family Medical History: Cancer Additional Family Medical History / Comment(s): COLON CANCER Medications and Allergies Home Medications Medication Instructions Recorded Confirmed Type Albuterol Nebulized [Ventolin 2.5 mg INHALATION RT-TID PRN 12/31/21 02/28/22 History Nebulized] lisinopriL [Zestril] 40 mg PO DAILY 12/31/21 02/28/22 History Atorvastatin [Lipitor] 10 mg PO DAILY 02/02/22 02/28/22 History Propranolol HCl 80 mg PO DAILY 02/02/22 02/28/22 History Acetaminophen Tab [Tylenol] 650 mg PO Q6HR PRN tab 02/09/22 02/28/22 Rx Ipratropium-Albuterol Nebulize 3 ml INHALATION RT-QID PRN 30 Days 02/09/22 02/28/22 Rx [Duoneb 0.5 mg-3 mg/3 ml Soln] #120 each Tiotropium 2.5 Mcg/Puff [Spiriva 2 puff INHALATION RT-DAILY 30 Days 02/09/22 02/28/22 Rx Respimat 2.5 Mcg] #1 each bisacodyL [Dulcolax] 10 mg PO DAILY PRN tab 02/09/22 02/28/22 Rx HYDROcodone/APAP 5-325MG [[place] 1.5 tab PO Q6HR PRN 02/28/22 02/28/22 History 5-325] Rivaroxaban [Xarelto] 20 mg PO DAILY 02/28/22 02/28/22 History Allergies Allergy/AdvReac Type Severity Reaction Status Date / Time No Known Allergies Allergy Verified 02/28/22 10:00 Physical Exam Vitals: Vital Signs Temp Pulse Pulse Resp BP BP Pulse Ox 02/28/22 04:13 99.1 F 87 18 128/71 93 L 02/28/22 01:11 97.9 F 91 16 154/86 94 L 02/28/22 01:00 76 24 135/71 94 L 02/28/22 00:30 87 18 02/27/22 23:00 88 20 137/76 02/27/22 22:52 89 94 L 02/27/22 18:10 98.2 F 74 16 108/65 96 Intake and Output 02/27/22 02/28/22 02/28/22 22:59 06:59 14:59 Intake Total 840 Output Total 300 Balance 540 Intake: Intake, IV Titration 600 Amount Sodium Chloride 0.9% 1, 600 000 ml @ 75 mls/hr IV . [id number] [facility] Rx#:[id number] Oral 240 Output: Urine 300 Other: Weight 87.997 kg Results CBC & Chem 7: 02/27/22 18:52 02/27/22 18:52 Labs: Abnormal Lab Results - Last 24 Hours (Table) 02/27/22 02/27/22 Range/Units 18:52 18:52 RBC 3.81 L (4.30-5.90) m/uL Hgb 11.0 L (13.0-17.5) gm/dL Hct 35.3 L (39.0-53.0) % RDW 15.7 H (11.5-15.5) % BUN 27 H (9-20) mg/dL Glucose 119 H (74-99) mg/dL Alkaline Phosphatase 215 H (38-126) U/L Assessment and Plan Time with Patient: Less than 30
[2022-02-28] MEDS: HYDROcodone/APAP 7.5-325MG 1 EACH TAB PO PRN (18:06)
[2022-02-28] MEDS: DEXAMETHASONE SOD PHOSPHATE 4 MG/ML 1 ML VIAL IVP SCH (22:21)
[2022-03-01] MEDS: SODIUM CHLORIDE 0.9% 1,000 ML IV SCH ×2 (04:36→20:58)
[2022-03-01] MEDS: HYDROcodone/APAP 7.5-325MG 1 EACH TAB PO PRN ×2 (05:13→21:21)
[2022-03-01] MEDS: TIOTROPIUM 2.5 MCG INHALER INHALATION SCH (08:17)
[2022-03-01] MEDS: ATORVASTATIN 10 MG TAB PO SCH (08:46)
[2022-03-01] MEDS: DEXAMETHASONE SOD PHOSPHATE 4 MG/ML 1 ML VIAL IVP SCH ×2 (08:47→21:13)
[2022-03-01] MEDS: PANTOPRAZOLE 40 MG/10 ML VIAL IVP SCH (08:47)
[2022-03-01] MEDS: RIVAROXABAN 20 MG TAB PO SCH (08:54)
[2022-03-01] MEDS ORDERED: DOCUSATE 100 MG CAP PO SCH (09:00)
[2022-03-01] MEDS: HYDROmorphone 0.5 MG/0.5 ML SYRINGE IVP PRN (10:09)
--- NOTE | 2022-03-01 11:02 | P.PN ---
Subjective Progress Note Date: 03/01/22 patient feels her pain is slightly better since admission. He is complaining of ongoing constipation for the past few days. He denies any loss of sensation in his legs, all of the bowel or bladder. Objective - Vital Signs Vital signs: Vital Signs Temp 97.8 F 03/01/22 04:42 Pulse 97 03/01/22 08:45 Resp 18 03/01/22 08:45 BP 146/91 03/01/22 04:42 Pulse Ox 94 L 03/01/22 04:42 FiO2 Intake & Output 02/28/22 03/01/22 03/01/22 18:59 06:59 18:59 Intake Total 900 1000 Output Total 100 Balance 800 1000 Intake: Intake, IV Titration 900 1000 Amount Sodium Chloride 0.9% 1, 900 1000 000 ml @ 75 mls/hr IV . [id number] [facility] Rx#:[id number] Output: Urine 100 Other: Voiding Method Bedpan Bedpan Urinal Urinal # Voids 1 4 - Constitutional General appearance: Present: no acute distress - EENT Eyes: Present: EOMI ENT: Present: hearing grossly normal, normal oropharynx - Respiratory Respiratory: bilateral: CTA - Cardiovascular Rhythm: irregularly irregular Heart sounds: normal: S1, S2 - Gastrointestinal General gastrointestinal: Present: normal bowel sounds, soft - Integumentary Integumentary: Present: normal - Neurologic Neurologic: Present: CNII-XII intact - Musculoskeletal Musculoskeletal: Present: generalized weakness, strength equal bilaterally - Psychiatric Psychiatric: Present: A&O x's 3, appropriate affect - Labs CBC & Chem 7: 02/27/22 18:52 02/27/22 18:52 Assessment and Plan (1) Intractable pain Narrative/Plan: patient was started on fentanyl, and those of [place] increased. He is also on steroids. Radiation oncology has been consulted to start palliative radiation. No evidence of any neurologic deficit.bowel protocol for constipation Current Visit: Yes Status: Acute Code(s): R52 - PAIN, UNSPECIFIED SNOMED Code(s): 72747442 (2) Adenocarcinoma, lung Narrative/Plan: follow-up outpatient for discussion of systemic therapy Current Visit: No Status: Acute Priority: High Code(s): C34.90 - MALIGNANT NEOPLASM OF UNSP PART OF UNSP BRONCHUS OR LUNG SNOMED Code(s): 470979657
[2022-03-01] MEDS ORDERED: HYDROmorphone 0.5 MG/0.5 ML SYRINGE ONE (11:20)
[2022-03-01] MEDS ORDERED: HYDROcodone/APAP 7.5-325MG 1 EACH TAB ONE (11:20)
[2022-03-01] MEDS: DOCUSATE 100 MG CAP PO SCH (20:57)
[2022-03-02] MEDS: SODIUM CHLORIDE 0.9% 1,000 ML IV SCH (03:58)
[2022-03-02] MEDS: TIOTROPIUM 2.5 MCG INHALER INHALATION SCH (08:04)
[2022-03-02] MEDS: ALBUTEROL NEBULIZED 2.5 MG/3 ML INHALATION PRN (08:04)
[2022-03-02] MEDS: DOCUSATE 100 MG CAP PO SCH (08:13)
[2022-03-02] MEDS: ATORVASTATIN 10 MG TAB PO SCH (08:13)
[2022-03-02] MEDS: RIVAROXABAN 20 MG TAB PO SCH (08:14)
[2022-03-02] MEDS: PANTOPRAZOLE 40 MG/10 ML VIAL IVP SCH (08:14)
[2022-03-02] MEDS: DEXAMETHASONE SOD PHOSPHATE 4 MG/ML 1 ML VIAL IVP SCH ×2 (08:14→21:14)
[2022-03-02] MEDS: HYDROmorphone 0.5 MG/0.5 ML SYRINGE IVP PRN ×3 (08:15→21:14)
[2022-03-02 09:20] LABS: Basophils # (A) 0.01 X 10*3/uL (0.00-0.10); Basophils % (A) 0.1 %; Eosinophils # (A) 0 X 10*3/uL (0.04-0.35); Eosinophils % (A) 0 %; HCT 27.7 % (39.6-50.0); HGB 8.7 g/dL (13.0-17.0); Immature Grans, Automated 1.2 %; Lymphocytes % (A) 11.5 %; MCH 28.2 pg (27.0-32.0); MCHC 31.4 g/dL (32.0-37.0); MCV 89.9 fL (80.0-97.0); Mean Platelet Volume 9.8 fL (9.5-12.2); Monocytes # (A) 0.42 X 10*3/uL (0.20-1.00); NRBC Per 100 WBC 0 /100 WBCS (0.0-0.0); Neutrophils # (A) 5.64 X 10*3/uL (1.80-7.70); Neutrophils % (A) 81.2 %; Platelet Count 352 X 10*3/uL (140-440); RBC 3.08 X 10*6/uL (4.40-5.60); RDW 14.6 % (11.5-14.5); WBC 6.95 X 10*3/uL (4.50-10.00)
[2022-03-02 09:33] LABS: African American GFR (CKD) 112.4 (60.0-200.0); Anion Gap 10.7 mmol/L (10.00-18.00); BUN/Creat Ratio 34.17 Ratio (12.00-20.00); Blood Urea Nitrogen 20.5 mg/dL (9.0-27.0); Calcium 8.9 mg/dL (8.7-10.3); Carbon Dioxide 25.3 mmol/L (20.0-27.5); Potassium 4.3 mmol/L (3.5-5.5)
[2022-03-02 09:41] LABS: ALT 18 U/L (4-49); AST 28 U/L (17-59); African American GFR (CKD) >90 (>60 ml/min/1.73 sqM); Albumin 3.5 g/dL (3.5-5.0); Albumin/Globulin Ratio 1.3; Alkaline Phosphatase 206 U/L (38-126); Anion Gap 11 mmol/L; Blood Urea Nitrogen 21 mg/dL (9-20); Calcium 9.3 mg/dL (8.4-10.2); Carbon Dioxide 27 mmol/L (22-30); Chloride 102 mmol/L (98-107); Globulin 2.6 g/dL; Glucose 125 mg/dL (74-99); Magnesium 1.9 mg/dL (1.6-2.3); Non-African American GFR(CKD) >90 (>60 ml/min/1.73 sqM); Potassium 4.3 mmol/L (3.5-5.1); Sodium 140 mmol/L (137-145); Total Bilirubin 0.3 mg/dL (0.2-1.3); Total Protein 6.1 g/dL (6.3-8.2)
[2022-03-02] MEDS: HYDROcodone/APAP 7.5-325MG 1 EACH TAB PO PRN (12:20)
[2022-03-02] MEDS: IPRATROPIUM-ALBUTEROL 3 ML NEB INHALATION PRN ×2 (16:13→21:44)
--- NOTE | 2022-03-02 16:30 | P.PN ---
Subjective Progress Note Date: 03/02/22 Patient seen and evaluated, a bit disoriented today, he did not have family at bedside Objective - Vital Signs Vital signs: Vital Signs Temp 97.8 F 03/02/22 11:08 Pulse 84 03/02/22 16:23 Resp 20 03/02/22 11:08 BP 146/83 03/02/22 11:08 Pulse Ox 94 L 03/02/22 11:08 FiO2 Intake & Output 03/01/22 03/02/22 03/02/22 18:59 06:59 18:59 Output Total 200 150 Balance -200 -150 Output: Urine 200 150 Other: Voiding Method Bedpan Bedpan Urinal Urinal Urinal # Voids 3 - Exam - Constitutional General appearance: Present: no acute distress - EENT Eyes: Present: EOMI ENT: Present: hearing grossly normal, normal oropharynx - Respiratory Respiratory: bilateral: CTA - Cardiovascular Rhythm: irregularly irregular Heart sounds: normal: S1, S2 - Gastrointestinal General gastrointestinal: Present: normal bowel sounds, soft - Integumentary Integumentary: Present: normal - Neurologic Neurologic: Present: CNII-XII intact - Musculoskeletal Musculoskeletal: Present: generalized weakness, strength equal bilaterally - Labs CBC & Chem 7: 03/02/22 05:17 03/02/22 08:25 Labs: Abnormal Lab Results - Last 24 Hours (Table) 03/02/22 03/02/22 03/02/22 Range/Units 05:17 05:17 08:25 RBC 3.08 L (4.40-5.60) X 10*6/uL Hgb 8.7 L (13.0-17.0) g/dL Hct 27.7 L (39.6-50.0) % MCHC 31.4 L (32.0-37.0) g/dL RDW 14.6 H (11.5-14.5) % Immature Gran # 0.08 H (0.00-0.04) X 10*3/uL Lymphocytes # 0.80 L (0.90-5.00) X 10*3/uL Eosinophils # 0 L (0.04-0.35) X 10*3/uL BUN 21 H (9-20) mg/dL BUN/Creatinine Ratio 34.17 H (12.00-20.00) Ratio Glucose 144 H 125 H (70-110) mg/dL Alkaline Phosphatase 206 H (38-126) U/L Total Protein 6.1 L (6.3-8.2) g/dL Assessment and Plan Plan: Assessment and Plan (1) Intractable pain Narrative/Plan: patient was started on fentanyl, and those of [place] increased. He is also on steroids. Radiation oncology has been consulted to start palliative radiation. No evidence of any neurologic deficit.bowel protocol for constipation Current Visit: Yes Status: Acute Code(s): R52 - PAIN, UNSPECIFIED SNOMED Code(s): 57981203 (2) Adenocarcinoma, lung Narrative/Plan: follow-up outpatient for discussion of systemic therapy NGS positive EGFR Plan to discuss treatment options after discharge during follow-up Dr. Russell had long discussion with daughters yesterday Current Visit: No Status: Acute Priority: High Code(s): C34.90 - MALIGNANT NEOPLASM OF UNSP PART OF UNSP BRONCHUS OR LUNG SNOMED Code(s): 700974716
[2022-03-03] MEDS: HYDROmorphone 0.5 MG/0.5 ML SYRINGE IVP PRN ×2 (05:32→13:07)
[2022-03-03] MEDS: SODIUM CHLORIDE 0.9% 1,000 ML IV SCH ×3 (05:48→19:50)
[2022-03-03] MEDS: IPRATROPIUM-ALBUTEROL 3 ML NEB INHALATION PRN ×4 (07:19→19:31)
[2022-03-03] MEDS: TIOTROPIUM 2.5 MCG INHALER INHALATION SCH (07:19)
[2022-03-03] MEDS: DEXAMETHASONE SOD PHOSPHATE 4 MG/ML 1 ML VIAL IVP SCH ×2 (09:17→20:38)
[2022-03-03] MEDS: ATORVASTATIN 10 MG TAB PO SCH (09:17)
[2022-03-03] MEDS: DOCUSATE 100 MG CAP PO SCH (09:18)
[2022-03-03] MEDS: PANTOPRAZOLE 40 MG/10 ML VIAL IVP SCH (09:18)
[2022-03-03] MEDS: RIVAROXABAN 20 MG TAB PO SCH (10:32)
[2022-03-03 12:47] LABS: African American GFR (CKD) >90 (>60 ml/min/1.73 sqM); Anion Gap 9 mmol/L; Blood Urea Nitrogen 22 mg/dL (9-20); Calcium 8.8 mg/dL (8.4-10.2); Carbon Dioxide 28 mmol/L (22-30); Chloride 100 mmol/L (98-107); Glucose 107 mg/dL (74-99); Non-African American GFR(CKD) >90 (>60 ml/min/1.73 sqM); Potassium 3.9 mmol/L (3.5-5.1); Sodium 137 mmol/L (137-145)
[2022-03-03 13:23] LABS: Basophils % (A) 0 %; Eosinophils # (A) 0.1 k/uL (0-0.7); Eosinophils % (A) 1 %; HCT 31.6 % (39.0-53.0); HGB 10.1 gm/dL (13.0-17.5); Hypochromasia Moderate; Lymphocytes # (A) 0.9 k/uL (1.0-4.8); Lymphocytes % (A) 12 %; MCH 28.9 pg (25.0-35.0); MCHC 31.8 g/dL (31.0-37.0); Mean Platelet Volume 8.2; Monocytes # (A) 0.6 k/uL (0-1.0); Monocytes % (A) 8 %; Neutrophils # (A) 6.2 k/uL (1.3-7.7); Neutrophils % (A) 79 %; Platelet Count 332 k/uL (150-450); RBC 3.48 m/uL (4.30-5.90); RDW 15.2 % (11.5-15.5); WBC 7.9 k/uL (3.8-10.6)
--- NOTE | 2022-03-03 14:44 | P.CONS ---
History of Present Illness - Reason for Consult Consult date: 03/01/22 Metastatic lung cancer Requesting physician: Thony Russell - Chief Complaint "I have back pain" - History of Present Illness Mr. 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 He presents with acute worsening of his back pain. His pertinent history begins in November 2021 when he developed cough and chest pain. This progressed, and he presented to the . He was admitted with suspected bronchitis/pneumonia. Imaging studies demonstrated a right upper lobe mass. Bronchoscopy on 01/27/2022 was performed while inpatient and biopsy of oblique iris demonstrated non-small cell lung cancer consistent with poorly di fferentiated adenocarcinoma. He had thoracentesis of the right pleura on 02/03/2022 which was positive for pulmonary adenocarcinoma. CT chest on 02/06/2022 demonstrated a right upper lobe mass measuring 4.1 cm, right hilar disease, right paratracheal and subcarinal disease, hepatic metastases, and osseous metastases. Due to fluid reaccumulation, he ultimately underwent PleurX catheter placement per Dr. Hudson. MRI brain on 02/09/2022 was negative for metastases. PET/CT on 02/15 demonstrated diffusely metastatic disease with cortical corrosion of the left proximal femur. There was also FDG uptake of the prostate gland. I saw Mr. Ji in consultation last Monday and he underwent CT simulation. Plain films of his left hip were negative for acute fracture. He notes today that he is not doing well. He has 9/10 pain. He has been receiving IV dilaudid which has helped. He denies saddle anesthesia or urinary/bowel issues. There is no lower extremity weakness. Review of Systems All systems: negative (back pain) Past Medical History Past Medical History: Atrial Fibrillation, Cancer, COPD, CVA/TIA, Hyperlipidemia, Hypertension, Pneumonia, Sleep Apnea/CPAP/BIPAP Additional Past Medical History / Comment(s): ESSENTIAL TREMORS, KIDNEY STONES, COPD CAUSED BY EXPOSURE TO CHLORINE. recent hospitalization for pneumoia with kidney issues. unsure of stroke/TIA, recent hospital stay in january 2022 to drain fluid off lung. dx of lung CA stage IV from fluid. PET scan to look at spot on liver. rheumatic fever as a child. arthritis- hands. wears cpap History of Any Multi-Drug Resistant Organisms: None Reported Past Surgical History: Cholecystectomy, Joint Replacement Additional Past Surgical History / Comment(s): COLONOSCOPY, [place] KNEE REPLACEMENT, PILONIDAL CYST. Past Anesthesia/Blood Transfusion Reactions: No Reported Reaction Additional Past Anesthesia/Blood Transfusion Reaction / Comm: no blood transfusion Past Psychological History: No Psychological Hx Reported Smoking Status: Never smoker Past Alcohol Use History: None Reported Past Drug Use History: None Reported - Past Family History Father Family Medical History: Cancer Additional Family Medical History / Comment(s): COLON CANCER Medications and Allergies Home Medications Medication Instructions Recorded Confirmed Type Albuterol Nebulized [Ventolin 2.5 mg INHALATION RT-TID PRN 12/31/21 02/28/22 History Nebulized] lisinopriL [Zestril] 40 mg PO DAILY 12/31/21 02/28/22 History Atorvastatin [Lipitor] 10 mg PO DAILY 02/02/22 02/28/22 History Propranolol HCl 80 mg PO DAILY 02/02/22 02/28/22 History Acetaminophen Tab [Tylenol] 650 mg PO Q6HR PRN tab 02/09/22 02/28/22 Rx Ipratropium-Albuterol Nebulize 3 ml INHALATION RT-QID PRN 30 Days 02/09/22 02/28/22 Rx [Duoneb 0.5 mg-3 mg/3 ml Soln] #120 each Tiotropium 2.5 Mcg/Puff [Spiriva 2 puff INHALATION RT-DAILY 30 Days 02/09/22 02/28/22 Rx Respimat 2.5 Mcg] #1 each bisacodyL [Dulcolax] 10 mg PO DAILY PRN tab 02/09/22 02/28/22 Rx HYDROcodone/APAP 5-325MG [[place] 1.5 tab PO Q6HR PRN 02/28/22 02/28/22 History 5-325] Rivaroxaban [Xarelto] 20 mg PO DAILY 02/28/22 02/28/22 History Allergies Allergy/AdvReac Type Severity Reaction Status Date / Time No Known Allergies Allergy Verified 02/28/22 10:00 Physical Exam Vitals: Vital Signs Temp Pulse Pulse Resp BP Pulse Ox 03/03/22 12:37 97.6 F 83 16 134/72 96 03/03/22 11:07 88 03/03/22 10:43 95 16 135/75 96 03/03/22 07:41 166/89 03/03/22 07:31 80 03/03/22 07:20 80 03/03/22 05:00 97.7 F 85 16 172/102 94 L 03/02/22 21:53 80 87 20 154/84 99 03/02/22 21:44 76 03/02/22 20:56 99.1 F 94 24 184/99 96 03/02/22 19:58 88 16 03/02/22 17:37 98.2 F 88 22 146/83 95 03/02/22 17:31 97.6 F 82 18 136/82 95 03/02/22 16:23 84 03/02/22 16:14 80 Intake and Output 03/02/22 03/03/22 03/03/22 22:59 06:59 14:59 Intake Total 590 Output Total 350 Balance -350 590 Intake: Oral 590 Output: Urine 350 Other: Voiding Method Urinal Urinal - Constitutional General appearance: average body habitus, mild distress - EENT Eyes: normal appearance - Respiratory Respiratory: negative: wheezing, prolonged expiration - Psychiatric Psychiatric: A&O x's 3, appropriate affect Results CBC & Chem 7: 03/03/22 11:46 03/03/22 11:46 Labs: Abnormal Lab Results - Last 24 Hours (Table) 03/03/22 03/03/22 Range/Units 11:46 11:46 RBC 3.48 L (4.30-5.90) m/uL Hgb 10.1 L (13.0-17.5) gm/dL Hct 31.6 L (39.0-53.0) % Lymphocytes # 0.9 L (1.0-4.8) k/uL BUN 22 H (9-20) mg/dL Creatinine 0.58 L (0.66-1.25) mg/dL Glucose 107 H (74-99) mg/dL CT scan - chest: image reviewed Assessment and Plan Plan: I explained that Mr. Ji has metastatic lung cancer. He underwent CT simulation for palliative radiotherapy to his lower spine on Monday and his plan has been finalized. He will commence treatment tomorrow morning. He will rec eive 2 weeks of treatment. I discussed this in detail with the patient and his family at bedside. They voiced understanding and agreement. Jorje Trujillo MD Radiation Oncology Time with Patient: Greater than 30
--- NOTE | 2022-03-03 18:11 | P.PN ---
Subjective Progress Note Date: 03/03/22 Patient seen and evaluated this am, awaiting discharge to discuss treatment plan options. Patient reports his pain is severe today 03/05 Objective - Vital Signs Vital signs: Vital Signs Temp 97.6 F 03/03/22 12:37 Pulse 88 03/03/22 15:14 Resp 16 03/03/22 12:37 BP 134/72 03/03/22 12:37 Pulse Ox 96 03/03/22 12:37 FiO2 Intake & Output 03/02/22 03/03/22 03/03/22 18:59 06:59 18:59 Intake Total 590 Output Total 350 Balance -350 590 Intake: Oral 590 Output: Urine 350 Other: Voiding Method Urinal Urinal Urinal - Exam - Constitutional General appearance: Present: no acute distress - EENT Eyes: Present: EOMI ENT: Present: hearing grossly normal, normal oropharynx - Respiratory Respiratory: bilateral: CTA - Cardiovascular Rhythm: irregularly irregular Heart sounds: normal: S1, S2 - Gastrointestinal General gastrointestinal: Present: normal bowel sounds, soft - Integumentary Integumentary: Present: normal - Neurologic Neurologic: Present: CNII-XII intact - Musculoskeletal Musculoskeletal: Present: generalized weakness, strength equal bilaterally - Labs CBC & Chem 7: 03/03/22 11:46 03/03/22 11:46 Labs: Abnormal Lab Results - Last 24 Hours (Table) 03/03/22 03/03/22 Range/Units 11:46 11:46 RBC 3.48 L (4.30-5.90) m/uL Hgb 10.1 L (13.0-17.5) gm/dL Hct 31.6 L (39.0-53.0) % Lymphocytes # 0.9 L (1.0-4.8) k/uL BUN 22 H (9-20) mg/dL Creatinine 0.58 L (0.66-1.25) mg/dL Glucose 107 H (74-99) mg/dL Assessment and Plan Plan: Assessment and Plan (1) Intractable pain Narrative/Plan: patient was started on fentanyl, and those of [place] increased. He is also on steroids. Bowel reimen added today Radiation oncology has been consulted to start palliative radiation. Dr. Bingham has seen patient today Current Visit: Yes Status: Acute Code(s): R52 - PAIN, UNSPECIFIED SNOMED Code(s): 75544265 (2) Adenocarcinoma, lung Narrative/Plan: follow-up outpatient for discussion of systemic therapy NGS positive EGFR Plan to discuss treatment options after discharge during follow-up Current Visit: No Status: Acute Priority: High Code(s): C34.90 - MALIGNANT NEOPLASM OF UNSP PART OF UNSP BRONCHUS OR LUNG SNOMED Code(s): 954731302 Dr. Virk: I have completed the full history and physical and developed the above impression and plan, agree with dictation, dictated as a ascribe.
[2022-03-03] MEDS: HYDROcodone/APAP 7.5-325MG 1 EACH TAB PO PRN (18:18)
[2022-03-03] MEDS: SENNOSIDES-DOCUSATE SODIUM 1 EACH TAB PO SCH (20:38)
[2022-03-04] MEDS: HYDROcodone/APAP 7.5-325MG 1 EACH TAB PO PRN ×3 (02:30→18:21)
[2022-03-04] MEDS: TIOTROPIUM 2.5 MCG INHALER INHALATION SCH (07:03)
[2022-03-04] MEDS: IPRATROPIUM-ALBUTEROL 3 ML NEB INHALATION PRN ×2 (07:03→10:59)
[2022-03-04] MEDS: DEXAMETHASONE SOD PHOSPHATE 4 MG/ML 1 ML VIAL IVP SCH ×2 (08:19→21:31)
[2022-03-04] MEDS: RIVAROXABAN 20 MG TAB PO SCH (08:19)
[2022-03-04] MEDS: PANTOPRAZOLE 40 MG/10 ML VIAL IVP SCH (08:19)
[2022-03-04] MEDS: ATORVASTATIN 10 MG TAB PO SCH (08:19)
[2022-03-04] MEDS: SENNOSIDES-DOCUSATE SODIUM 1 EACH TAB PO SCH ×2 (08:19→21:23)
[2022-03-04] MEDS: DOCUSATE 100 MG CAP PO SCH (08:19)
[2022-03-04] MEDS: lisinopriL 20 MG TAB PO SCH (10:37)
[2022-03-04] MEDS: PROPRANOLOL 40 MG TAB PO SCH (11:03)
--- NOTE | 2022-03-04 12:04 | P.CRDCN ---
History of Present Illness History of present illness: This is a pleasant 76-year-old male past medical history significant for recent diagnosis of stage IV lung cancer with metastatis to liver and bone, hypertension, asymptomatic mild carotid artery stenosis, hyperlipidemia, asthma, COPD, PVCs, paroxysmal atrial fibrillation on Xarelto, remote history of smoking in the past in the [employer], thoracic aortic aneurysm. Patient was recently seen in this hospital and had a right Pleurx catheter placed secondary to recurrent pleural effusion on the right side this was on 02/18/2022. He follows in the office with Dr. Rangel. We have been asked to see in consultation for chest pain. Patient presented to the emergency room with concern for low back pain, right sided leg pain, loss of appetite and generalized weakness, constipation and bloating. Patient seen and examined at bedside, no acute distress. Sitting up in the bedside chair. He states that yesterday he worked with physical therapy, he did multiple exercises with arm bands. Afterwards, he had left shoulder pain with some radiation to his upper left chest. Cardiology was consulted. Troponin was negative. EKG was performed which revealed sinus rhythm, heart rate 95, right bundle-branch block, no changes, prior EKG similar. Patient states that this lasted for a couple hours and resolved on its own. He has had no further chest pain. DIAGNOSTICS * EKG sinus rhythm, rate 95, right bundle-branch block, no changes to suggest acute ischemia, prior EKG was similar findings. No changes from EKG on admission. * Laboratory reviewed, troponins negative 2, sodium 137 potassium 3.9, BUN 22, serum 0.5 * Current listed home cardiac medications include lisinopril 40 mg daily, propra nolol 80 mg daily, atorvastatin 10 mg daily, Xarelto 20 mg daily * Echocardiogram in the office 01/2021 revealed EF 5560 percent, mild LVH, mild to moderate aortic regurgitation, mild to moderate mitral regurgitation, mild tricuspid regurgitation REVIEW OF SYSTEMS At the time of my exam: CONSTITUTIONAL: Denies fever or chills. CARDIOVASCULAR: Denies chest pain, shortness of breath, Denies orthopnea, PND or palpitations. RESPIRATORY:Denies cough GASTROINTESTINAL: Denies abdominal pain, diarrhea, constipation, nausea or vomiting. MUSCULOSKELETAL: Denies myalgias. NEUROLOGIC: Denies numbness, tingling, headacbe or weakness. ENDOCRINE: Denies fatigue, weight change, polydipsia or polyurina. GENITOURINARY: Denies burning, hematuria or urgency with micturation. HEMATOLOGIC: Denies history of anemia or bleeding. PHYSICAL EXAMINATION Vitals: 168/90, heart rate 81, afebrile, saturation 95% on room air CONSTITUTIONAL: No apparent distress. HEENT: Head is normocephalic. Pupils are equal, round. Sclerae anicteric. Mucous membranes of the mouth are moist. No JVD. CHEST EXAMINATION: Lungs are diminished bilaterally to auscultation. No chest wall tenderness is noted on palpation or with deep breathing. HEART EXAMINATION: Regular rate and rhythm. S1, S2 heard. Systolic murmur at the apex ABDOMEN: Soft, nontender. Positive bowel sounds. EXTREMITIES: 2+ peripheral pulses, no lower extremity edema and no calf tenderness. NEUROLOGIC EXAMINATION: Patient is awake, alert and oriented x3. ASSESSMENT Generalized pain Chest pain, non-cardiac, acute coronary syndrome has been ruled out, likely related to physical therapy and working with arm bands prior Stage IV lung cancer metastasis to bone and liver Recurrent right pleural effusion with pleurex drainage catheter in place Multiple sclerotic and lytic osseous lesions within the thoracolumbar spine concerning for metastasis Paroxysmal atrial fibrillation anticoagulated with xarelto History of COPD History of Stroke Obstructive sleep apnea Hypertension History mild carotid artery stenosis Hyperlipidemia History of Paroxysmal atrial fibrillation PLAN Recommend restarting patient's lisinopril and propranolol. Continue anticoagulation with Xarelto No further changes from a cardiology perspective. We will follow the patient as needed. Please reach out with any further questions or concerns Nurse practitioner note has been reviewed by physician. Signing provider agrees with the documented findings, assessment, and plan of care. Past Medical History Past Medical History: Atrial Fibrillation, Cancer, COPD, CVA/TIA, Hyperlipidemia, Hypertension, Pneumonia, Sleep Apnea/CPAP/BIPAP Additional Past Medical History / Comment(s): ESSENTIAL TREMORS, KIDNEY STONES, COPD CAUSED BY EXPOSURE TO CHLORINE. recent hospitalization for pneumoia with kidney issues. unsure of stroke/TIA, recent hospital stay in january 2022 to drain fluid off lung. dx of lung CA stage IV from fluid. PET scan to look at spot on liver. rheumatic fever as a child. arthritis- hands. wears cpap History of Any Multi-Drug Resistant Organisms: None Reported Past Surgical History: Cholecystectomy, Joint Replacement Additional Past Surgical History / Comment(s): COLONOSCOPY, [place] KNEE REPLACEMENT, PILONIDAL CYST. Past Anesthesia/Blood Transfusion Reactions: No Reported Reaction Additional Past Anesthesia/Blood Transfusion Reaction / Comment(s): no blood transfusion Past Psychological History: No Psychological Hx Reported Smoking Status: Never smoker Past Alcohol Use History: None Reported Past Drug Use History: None Reported - Past Family History Father Family Medical History: Cancer Additional Family Medical History / Comment(s): COLON CANCER Medications and Allergies Home Medications Medication Instructions Recorded Confirmed Type Albuterol Nebulized [Ventolin 2.5 mg INHALATION RT-TID PRN 12/31/21 02/28/22 His tory Nebulized] lisinopriL [Zestril] 40 mg PO DAILY 12/31/21 02/28/22 History Atorvastatin [Lipitor] 10 mg PO DAILY 02/02/22 02/28/22 History Propranolol HCl 80 mg PO DAILY 02/02/22 02/28/22 History Acetaminophen Tab [Tylenol] 650 mg PO Q6HR PRN tab 02/09/22 02/28/22 Rx Ipratropium-Albuterol Nebulize 3 ml INHALATION RT-QID PRN 30 Days 02/09/22 02/28/22 Rx [Duoneb 0.5 mg-3 mg/3 ml Soln] #120 each Tiotropium 2.5 Mcg/Puff [Spiriva 2 puff INHALATION RT-DAILY 30 Days 02/09/22 Rx Respimat 2.5 Mcg] #1 each bisacodyL [Dulcolax] 10 mg PO DAILY PRN tab 02/09/22 02/28/22 Rx HYDROcodone/APAP 5-325MG [[place] 1.5 tab PO Q6HR PRN 02/28/22 02/28/22 History 5-325] Rivaroxaban [Xarelto] 20 mg PO DAILY 02/28/22 02/28/22 History Allergies Allergy/AdvReac Type Severity Reaction Status Date / Time No Known Allergies Allergy Verified 02/28/22 10:00 Physical Exam Vitals: Vital Signs Temp Pulse Pulse Resp BP BP Pulse Ox 03/04/22 04:00 97.5 F L 89 18 163/84 96 03/03/22 21:41 125/73 03/03/22 20:00 17 03/03/22 19:42 90 03/03/22 19:32 88 03/03/22 19:09 98.4 F 102 H 17 166/95 95 03/03/22 15:14 88 03/03/22 15:02 84 03/03/22 12:37 97.6 F 83 16 134/72 96 03/03/22 11:17 88 03/03/22 11:07 88 03/03/22 10:43 95 16 135/75 96 03/03/22 07:41 166/89 03/03/22 07:31 80 03/03/22 07:20 80 Intake and Output 03/03/22 03/04/22 03/04/22 22:59 06:59 14:59 Intake Total 800 Balance 800 Intake: Intake, IV Titration 500 Amount Sodium Chloride 0.9% 1, 500 000 ml @ 75 mls/hr IV . [id number] [facility] Rx#:[id number] Oral 300 Other: Voiding Method Urinal # Voids 4 5 Results 03/03/22 11:46 03/03/22 11:46 Cardiac Enzymes 03/03/22 Range/Units 11:46 Troponin I <0.012 (0.000-0.034) ng/mL CBC 03/03/22 Range/Units 11:46 WBC 7.9 (3.8-10.6) k/uL RBC 3.48 L (4.30-5.90) m/uL Hgb 10.1 L (13.0-17.5) gm/dL Hct 31.6 L (39.0-53.0) % Plt Count 332 (150-450) k/uL Comprehensive Metabolic Panel 03/03/22 Range/Units 11:46 Sodium 137 (137-145) mmol/L Potassium 3.9 (3.5-5.1) mmol/L Chloride 100 (98-107) mmol/L Carbon Dioxide 28 (22-30) mmol/L BUN 22 H (9-20) mg/dL Creatinine 0.58 L (0.66-1.25) mg/dL Glucose 107 H (74-99) mg/dL Calcium 8.8 (8.4-10.2) mg/dL Current Medications Generic Name Dose Route Start Last Admin Trade Name Freq PRN Reason Stop Dose Admin Hydrocodone Bitart/Acetaminophen 1 each 02/28/22 11:50 03/04/22 02:30 Hydrocodone/Apap 7.5-325mg 1 Each Tab PO 1 each Q6HR PRN Administration Pain Albuterol Sulfate 2.5 mg 02/28/22 10:08 03/02/22 08:04 Albuterol Nebulized 2.5 Mg/3 Ml INHALATION 2.5 mg RT-TID PRN Administration Shortness Of Breath Albuterol/Ipratropium 3 ml 02/28/22 10:08 03/03/22 19:31 Ipratropium-Albuterol 3 Ml Neb INHALATION 3 ml RT-QID PRN Administration Shortness Of Breath Or Wheezing Atorvastatin Calcium 10 mg 03/01/22 09:00 03/03/22 09:17 Atorvastatin 10 Mg Tab PO 10 mg DAILY MIR Administration Bisacodyl 10 mg 02/28/22 16:14 02/28/22 22:21 Bisacodyl 10 Mg Supp RECTAL 10 mg ONCE PRN Administration Constipation Dexamethasone Sodium Phosphate 4 mg 02/28/22 21:00 03/03/22 20:38 Dexamethasone Sod Phosphate 4 Mg/Ml 1 Ml Vial IVP 4 mg Q12HR MIR Administration Docusate Sodium 200 mg 03/01/22 11:30 03/03/22 09:18 Docusate 100 Mg Cap PO 200 mg DAILY MIR Administration Fentanyl 1 patch 02/28/22 12:00 03/03/22 12:26 Fentanyl 25mcg/Hr Patch TRANSDERM 1 patch Q72H MIR Administration Protocol Hydromorphone HCl 0.5 mg 02/27/22 22:27 03/03/22 13:07 Hydromorphone 0.5 Mg/0.5 Ml Syringe IVP 0.5 mg Q3HR PRN Administration Moderate Pain (Scale 4 to 6) Sodium Chloride 1,000 mls @ 75 mls/hr 02/27/22 22:15 03/03/22 19:50 Saline 0.9% IV 75 mls/hr .[id number] MIR Administration Naloxone HCl 0.2 mg 02/27/22 22:27 Naloxone 0.4 Mg/Ml 1 Ml Vial IV Q2M PRN Opioid Reversal Ondansetron HCl 4 mg 02/27/22 22:08 Ondansetron 4 Mg/2 Ml Vial IVP Q6HR PRN Nausea And Vomiting Pantoprazole Sodium 40 mg 02/28/22 10:15 03/03/22 09:18 Pantoprazole 40 Mg/10 Ml Vial IVP 40 mg DAILY MIR Administration Rivaroxaban 20 mg 02/28/22 11:15 03/03/22 10:32 Rivaroxaban 20 Mg Tab PO 20 mg DAILY MIR Administration Protocol Senna/Docusate Sodium 1 each 03/03/22 21:00 03/03/22 20:38 Sennosides-Docusate Sodium 1 Each Tab PO 1 each BID MIR Administration Tiotropium [place] 2 puff 03/01/22 08:00 03/03/22 07:19 Tiotropium 2.5 Mcg Inhaler INHALATION 2 puff RT-DAILY MIR Administration Intake and Output 03/03/22 03/04/22 03/04/22 22:59 06:59 14:59 Intake Total 800 Balance 800 Intake: Intake, IV Titration 500 Amount Sodium Chloride 0.9% 1, 500 000 ml @ 75 mls/hr IV . [id number] [facility] Rx#:[id number] Oral 300 Other: Voiding Method Urinal # Voids 4 5 03/03/22 11:46 03/03/22 11:46
[2022-03-04] MEDS: SODIUM CHLORIDE 0.9% 1,000 ML IV SCH (12:49)
[2022-03-04] MEDS ORDERED: ZOLEDRONIC ACID 4 MG in SODIUM CHLORIDE 0.9% 100 ML IV ONE (14:00)
[2022-03-04] MEDS: HYDROmorphone 0.5 MG/0.5 ML SYRINGE IVP PRN (14:43)
[2022-03-04] MEDS ORDERED: bisacodyL 10 MG SUPP RECTAL PRN (14:52)
--- NOTE | 2022-03-04 20:29 | P.PN ---
Subjective Progress Note Date: 03/04/22 no family at bedside, seems to be stronger, utilizing steen Objective - Vital Signs Vital signs: Vital Signs Temp 97.8 F 03/04/22 17:43 Pulse 76 03/04/22 17:43 Resp 16 03/04/22 17:43 BP 180/106 03/04/22 17:43 Pulse Ox 94 L 03/04/22 17:43 FiO2 Intake & Output 03/04/22 03/04/22 03/05/22 06:59 18:59 06:59 Intake Total 800 Balance 800 Intake: Intake, IV Titration 500 Amount Sodium Chloride 0.9% 1, 500 000 ml @ 75 mls/hr IV . [id number] [facility] Rx#:[id number] Oral 300 Other: Voiding Method Urinal Urinal # Voids 5 8 - Exam - Constitutional General appearance: Present: no acute distress - EENT Eyes: Present: EOMI ENT: Present: hearing grossly normal, normal oropharynx - Respiratory Respiratory: bilateral: CTA - Cardiovascular Rhythm: irregularly irregular Heart sounds: normal: S1, S2 - Gastrointestinal General gastrointestinal: Present: normal bowel sounds, soft - Integumentary Integumentary: Present: normal - Neurologic Neurologic: Present: CNII-XII intact - Musculoskeletal Musculoskeletal: Present: generalized weakness, strength equal bilaterally - Labs CBC & Chem 7: 03/03/22 11:46 03/03/22 11:46 Assessment and Plan Plan: Assessment and Plan (1) Intractable pain Narrative/Plan: patient was started on fentanyl, and those of [place] increased. He is also on steroids. Bowel reimen added today Radiation oncology has been consulted to start palliative radiation. Dr. Bingham has seen patient today Current Visit: Yes Status: Acute Code(s): R52 - PAIN, UNSPECIFIED SNOMED Code(s): 60573031 (2) Adenocarcinoma, lung Narrative/Plan: follow-up outpatient for discussion of systemic therapy NGS positive EGFR Plan to discuss treatment options after discharge during follow-up Current Visit: No Status: Acute Priority: High Code(s): C34.90 - MALIGNANT NEOPLASM OF UNSP PART OF UNSP BRONCHUS OR LUNG SNOMED Code(s): 458122593 Dr. Virk: I have completed the full history and physical and developed the above impression and plan, agree with dictation, dictated as a ascribe.
[2022-03-05] MEDS: SODIUM CHLORIDE 0.9% 1,000 ML IV SCH ×3 (01:14→23:25)
[2022-03-05] MEDS: HYDROcodone/APAP 7.5-325MG 1 EACH TAB PO PRN ×3 (02:29→17:48)
[2022-03-05] MEDS: TIOTROPIUM 2.5 MCG INHALER INHALATION SCH (07:45)
[2022-03-05] MEDS: ALBUTEROL NEBULIZED 2.5 MG/3 ML INHALATION PRN ×2 (07:45→11:16)
[2022-03-05] MEDS: ATORVASTATIN 10 MG TAB PO SCH (08:30)
[2022-03-05] MEDS: DEXAMETHASONE SOD PHOSPHATE 4 MG/ML 1 ML VIAL IVP SCH ×2 (08:30→20:07)
[2022-03-05] MEDS: DOCUSATE 100 MG CAP PO SCH (08:30)
[2022-03-05] MEDS: RIVAROXABAN 20 MG TAB PO SCH (08:31)
[2022-03-05] MEDS: lisinopriL 20 MG TAB PO SCH (08:31)
[2022-03-05] MEDS: SENNOSIDES-DOCUSATE SODIUM 1 EACH TAB PO SCH ×2 (08:31→19:51)
[2022-03-05] MEDS: PROPRANOLOL 40 MG TAB PO SCH (08:31)
[2022-03-05] MEDS: PANTOPRAZOLE 40 MG/10 ML VIAL IVP SCH (08:31)
[2022-03-06] MEDS: HYDROcodone/APAP 7.5-325MG 1 EACH TAB PO PRN ×4 (00:21→22:48)
[2022-03-06] MEDS: ALBUTEROL NEBULIZED 2.5 MG/3 ML INHALATION PRN ×2 (07:16→11:15)
[2022-03-06] MEDS: TIOTROPIUM 2.5 MCG INHALER INHALATION SCH (07:16)
[2022-03-06] MEDS: DEXAMETHASONE SOD PHOSPHATE 4 MG/ML 1 ML VIAL IVP SCH ×2 (08:09→20:00)
[2022-03-06] MEDS: ATORVASTATIN 10 MG TAB PO SCH (08:09)
[2022-03-06] MEDS: DOCUSATE 100 MG CAP PO SCH (08:09)
[2022-03-06] MEDS: lisinopriL 20 MG TAB PO SCH (08:11)
[2022-03-06] MEDS: PANTOPRAZOLE 40 MG/10 ML VIAL IVP SCH (08:11)
[2022-03-06] MEDS: PROPRANOLOL 40 MG TAB PO SCH (08:12)
[2022-03-06] MEDS: RIVAROXABAN 20 MG TAB PO SCH (08:12)
[2022-03-06] MEDS: SENNOSIDES-DOCUSATE SODIUM 1 EACH TAB PO SCH ×2 (08:18→20:02)
[2022-03-06] MEDS: HYDROmorphone 0.5 MG/0.5 ML SYRINGE IVP PRN (12:58)
[2022-03-06] MEDS: IPRATROPIUM-ALBUTEROL 3 ML NEB INHALATION PRN (19:39)
[2022-03-06] MEDS: SODIUM CHLORIDE 0.9% 1,000 ML IV SCH (21:42)
--- NOTE | 2022-03-07 02:30 | P.PN ---
Subjective Progress Note Date: 03/01/22 This is a 76-year-old male patient of Dr. Peters with medical history significant for atrial fibrillation, COPD, hyperlipidemia, hypertension, stroke, lung cancer stage IV with metastasis to the liver and bone which is a recent diagnosis. Patient had x-rays completed 3 days ago which does show a 4.6 cm lytic lesion of the left femur which appears aggressive there is also sclerosis involving the left inferior superior pubic ramus suspicious for malignant lesion. States he saw Dr Boone with rad-onc on , he is scheduled for radiation on Monday and follow up with Dr Cely Caputo this coming . Remote history of smoking. Patient presents to the emergency room with concern for low back pain as well as loss of appetite and generalized weakness. He also reports right sided leg pain and weakness feels like his leg is going to give out. He is also reporting trouble with constipation and feeling bloated. No loss of bowel or bladder reported. He did report "slipping" into the bathroom while ambulating a day prior to admission, denies injury, did not hit head. No dizziness or lightheadeness reported, no chest pain, no shortness of breath at rest. He does have some exertional dyspnea. EKG on admission shows sinus rhythm with heart rate of 77, QT interval 440. He does have a right bundle branch block. Patient was recently seen in this hospital and had a right Pleurx cat heter placed secondary to recurrent pleural effusion on the right side this was on 02/18/2022. Per family they had drained about 600 mls off the pleurex catheter 2 days ago and about 700 mls off 3 days prior to that. He also had an MRI brain done in January of this year which is negative for metastasis. No white count, hemoglobin 11, sodium 143, potassium 3.8, BUN 27, creatinine 0.81, glucose 119, alk phos 215, troponins negative, liver enzymes negative. He is afebrile, heart rate 87, blood pressure is 128/77, with mild hypoxia 93% on room air. He is anticoagulated with xarelto in the outpatient setting. Oncology and pain management services have been consulted. 03/01/2022 Patient is currently sitting in the chair. Awake alert and oriented. Pain is better compared to yesterday. Patient is having ongoing constipation. Denies any complaints of chest pain or worsening shortness of breath. Patient has been afebrile. Planning for radiation therapy as per oncology. Laboratory data reviewed. Current medications reviewed. PHYSICAL EXAMINATION: GENERAL: The patient is alert and oriented x3, not in any acute distress. Well developed, well nourished. HEENT: Pupils are round and equally reacting to light. EOMI. No scleral icterus. No conjunctival pallor. Normocephalic, atraumatic. No pharyngeal erythema. No thyromegaly. CARDIOVASCULAR: S1 and S2 present. No murmurs, rubs, or gallops. PULMONARY: Chest is clear to auscultation, no wheezing or crackles. ABDOMEN: Soft, nontender, distended, normoactive bowel sounds. No palpable organomegaly. MUSCULOSKELETAL: No joint swelling or deformity. EXTREMITIES: No cyanosis, clubbing, or pedal edema. NEUROLOGICAL: Gross neurological examination did not reveal any focal deficits. SKIN: No rashes. Assessment and plan Assessment and plan Intractable generalized pain Stage IV lung cancer metastasis to bone recent diagnosis supposed to start palliative radiation this upcoming week. Recurrent right pleural effusion with pleurex drainage catheter in place Multiple sclerotic and lytic osseous lesions within the thoracolumbar spine concerning for metastasis Paroxysmal atrial fibrillation anticoagulated with xarelto History of COPD with FEV1 55% of predicted Hyperlipidemia Hypertension Stroke Anemia Osteoarthritis Obstructive sleep apnea with home CPAP Former smoker GI prophylaxis DVT prophylaxis resume on home does xarelto Full code Plan Resume appropriate home medications Oncology has been consulted for further recommendations Pain management Bowel Regimen PT/OT Objective - Vital Signs Vital signs: Vital Signs Temp 97.6 F 03/01/22 10:57 Pulse 94 03/01/22 10:57 Resp 18 03/01/22 10:57 BP 148/80 03/01/22 10:57 Pulse Ox 93 L 03/01/22 10:57 FiO2 Intake & Output 03/01/22 03/01/22 03/02/22 06:59 18:59 06:59 Intake Total 1000 Output Total 200 Balance 1000 -200 Intake: Intake, IV Titration 1000 Amount Sodium Chloride 0.9% 1, 1000 000 ml @ 75 mls/hr IV . [id number] [facility] Rx#:[id number] Output: Urine 200 Other: Voiding Method Bedpan Bedpan Urinal Urinal # Voids 4 - Labs CBC & Chem 7: 03/03/22 11:46 03/03/22 11:46
--- NOTE | 2022-03-07 02:32 | P.PN ---
Subjective Progress Note Date: 03/06/22 This is a 76-year-old male patient of Dr. Peters with medical history significant for atrial fibrillation, COPD, hyperlipidemia, hypertension, stroke, lung cancer stage IV with metastasis to the liver and bone which is a recent diagnosis. Patient had x-rays completed 3 days ago which does show a 4.6 cm lytic lesion of the left femur which appears aggressive there is also sclerosis involving the left inferior superior pubic ramus suspicious for malignant lesion. States he saw Dr Boone with rad-onc on , he is scheduled for radiation on Monday and follow up with Dr Cely Caputo this coming . Remote history of smoking. Patient presents to the emergency room with concern for low back pain as well as loss of appetite and generalized weakness. He also reports right sided leg pain and weakness feels like his leg is going to give out. He is also reporting trouble with constipation and feeling bloated. No loss of bowel or bladder reported. He did report "slipping" into the bathroom while ambulating a day prior to admission, denies injury, did not hit head. No dizziness or lightheadeness reported, no chest pain, no shortness of breath at rest. He does have some exertional dyspnea. EKG on admission shows sinus rhythm with heart rate of 77, QT interval 440. He does have a right bundle branch block. Patient was recently seen in this hospital and had a right Pleurx cat heter placed secondary to recurrent pleural effusion on the right side this was on 02/18/2022. Per family they had drained about 600 mls off the pleurex catheter 2 days ago and about 700 mls off 3 days prior to that. He also had an MRI brain done in January of this year which is negative for metastasis. No white count, hemoglobin 11, sodium 143, potassium 3.8, BUN 27, creatinine 0.81, glucose 119, alk phos 215, troponins negative, liver enzymes negative. He is afebrile, heart rate 87, blood pressure is 128/77, with mild hypoxia 93% on room air. He is anticoagulated with xarelto in the outpatient setting. Oncology and pain management services have been consulted. 03/01/2022 Patient is currently sitting in the chair. Awake alert and oriented. Pain is better compared to yesterday. Patient is having ongoing constipation. Denies any complaints of chest pain or worsening shortness of breath. Patient has been afebrile. Planning for radiation therapy as per oncology. Laboratory data reviewed. 03/06/2022 Patient is currently sitting in the chair comfortably. Awake alert and oriented x3. Feels better today. No headache or dizziness or lightheadedness. Constipation improved. No cough or sputum production. Patient is being current pain management with fentanyl and [place] dose and also on steroids. Radiation oncology is on board for palliative radiation. No complaints of chest pain today. PT OT will follow up tomorrow and possible discharge planning with final oncology recommendations. Current medications reviewed. PHYSICAL EXAMINATION: GENERAL: The patient is alert and oriented x3, not in any acute distress. Well developed, well nourished. HEENT: Pupils are round and equally reacting to light. EOMI. No scleral icterus. No conjunctival pallor. Normocephalic, atraumatic. No pharyngeal erythema. No thyromegaly. CARDIOVASCULAR: S1 and S2 present. No murmurs, rubs, or gallops. PULMONARY: Chest is clear to auscultation, no wheezing or crackles. ABDOMEN: Soft, nontender, distended, normoactive bowel sounds. No palpable organomegaly. MUSCULOSKELETAL: No joint swelling or deformity. EXTREMITIES: No cyanosis, clubbing, or pedal edema. NEUROLOGICAL: Gross neurological examination did not reveal any focal deficits. SKIN: No rashes. Assessment and plan Assessment and plan Intractable generalized pain Stage IV lung cancer metastasis to bone recent diagnosis , started on palliative radiation this admission. Recurrent right pleural effusion with pleurex drainage catheter in place Multiple sclerotic and lytic osseous lesions within the thoracolumbar spine concerning for metastasis Paroxysmal atrial fibrillation anticoagulated with xarelto History of COPD with FEV1 55% of predicted Hyperlipidemia Hypertension Stroke Anemia Osteoarthritis Obstructive sleep apnea with home CPAP Former smoker GI prophylaxis DVT prophylaxis resume on home does xarelto Full code Plan Continue with dexamethasone 4 mg IV push every 12 hours. Resume appropriate home medications Oncology has been consulted for further recommendations Pain management Bowel Regimen PT/OT Objective - Vital Signs Vital signs: Vital Signs Temp 98.4 F 03/06/22 19:12 Pulse 70 03/06/22 19:51 Resp 16 03/06/22 19:12 BP 108/63 03/06/22 19:12 Pulse Ox 96 03/06/22 19:12 FiO2 Intake & Output 03/06/22 03/06/22 03/07/22 06:59 18:59 06:59 Intake Total 1100 300 Balance 1100 300 Intake: Intake, IV Titration 600 300 Amount Sodium Chloride 0.9% 1, 600 300 000 ml @ 75 mls/hr IV . [id number] [facility] Rx#:[id number] Oral 500 Other: Voiding Method Urinal Urinal # Voids 3 2 # Bowel Movements 2 1 - Labs CBC & Chem 7: 03/03/22 11:46 03/03/22 11:46
[2022-03-07] MEDS: SODIUM CHLORIDE 0.9% 1,000 ML IV SCH ×2 (03:17→18:27)
[2022-03-07] MEDS: HYDROcodone/APAP 7.5-325MG 1 EACH TAB PO PRN ×3 (04:39→20:04)
[2022-03-07] MEDS: TIOTROPIUM 2.5 MCG INHALER INHALATION SCH (08:25)
[2022-03-07] MEDS: DEXAMETHASONE SOD PHOSPHATE 4 MG/ML 1 ML VIAL IVP SCH ×2 (08:32→20:06)
[2022-03-07] MEDS: PANTOPRAZOLE 40 MG/10 ML VIAL IVP SCH (08:32)
[2022-03-07] MEDS: DOCUSATE 100 MG CAP PO SCH ×2 (08:33→09:48)
[2022-03-07] MEDS: HYDROmorphone 0.5 MG/0.5 ML SYRINGE IVP PRN ×3 (08:33→17:58)
[2022-03-07] MEDS: SENNOSIDES-DOCUSATE SODIUM 1 EACH TAB PO SCH ×2 (08:33→20:06)
[2022-03-07] MEDS: lisinopriL 20 MG TAB PO SCH (08:33)
[2022-03-07] MEDS: ATORVASTATIN 10 MG TAB PO SCH (08:34)
[2022-03-07] MEDS: RIVAROXABAN 20 MG TAB PO SCH (08:34)
[2022-03-07 09:40] LABS: Basophils # (A) 0.03 X 10*3/uL (0.00-0.10); Basophils % (A) 0.4 %; Eosinophils # (A) 0.01 X 10*3/uL (0.04-0.35); Eosinophils % (A) 0.1 %; HCT 28.1 % (39.6-50.0); HGB 8.8 g/dL (13.0-17.0); Immature Grans, Automated 1.9 %; Lymphocytes % (A) 8.8 %; MCH 28.1 pg (27.0-32.0); MCHC 31.3 g/dL (32.0-37.0); MCV 89.8 fL (80.0-97.0); Monocytes # (A) 0.47 X 10*3/uL (0.20-1.00); Monocytes % (A) 6.9 %; NRBC Per 100 WBC 0 /100 WBCS (0.0-0.0); Neutrophils # (A) 5.61 X 10*3/uL (1.80-7.70); Neutrophils % (A) 81.9 %; Platelet Count 248 X 10*3/uL (140-440); RBC 3.13 X 10*6/uL (4.40-5.60); RDW 15.1 % (11.5-14.5); WBC 6.85 X 10*3/uL (4.50-10.00)
[2022-03-07] MEDS: PROPRANOLOL 40 MG TAB PO SCH (09:48)
[2022-03-07 09:54] LABS: African American GFR (CKD) 121.1 (60.0-200.0); Anion Gap 6.7 mmol/L (10.00-18.00); Calcium 7.1 mg/dL (8.7-10.3); Carbon Dioxide 28.3 mmol/L (20.0-27.5); Non-African American GFR(CKD) 104.5 (60.0-200.0); Potassium 4.3 mmol/L (3.5-5.5)
--- NOTE | 2022-03-07 09:57 | P.PN ---
Subjective Progress Note Date: 03/07/22 Principal diagnosis: pain due to metastatic cancer Patient examined this AM. Having discomfort with sitting up; says his pain is mainly in the left leg and lesser in the low back. Tolerated first few RT treatments. Per patient has not been ambulating much at all. Objective - Vital Signs Vital signs: Vital Signs Temp 97.5 F L 03/07/22 03:47 Pulse 74 03/07/22 03:47 Resp 16 03/07/22 03:47 BP 126/75 03/07/22 03:47 Pulse Ox 96 03/07/22 03:47 FiO2 Intake & Output 03/06/22 03/07/22 03/07/22 18:59 06:59 18:59 Intake Total 300 1400 Output Total 500 Balance 300 900 Intake: Intake, IV Titration 300 900 Amount Sodium Chloride 0.9% 1, 300 900 000 ml @ 75 mls/hr IV . 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 He has multiple areas of bone metastases resulting in significant pain in the L-spine and left leg. 1. Bone metastases: Has now completed 4/10 treatments to the L-spine. Imaging revealed destructed proximal left femur lesion. Considering pain level, we will begin therapy to this area as well. Patient was initially given referral for ortho-oncology, but was hospitalized prior to being seen. 2. Metastatic EGFR+ NSCLC: Following with oncology. Planning to start EGFR therapy as an outpatient. Will have significant benefit from targeted therapy. Time with Patient: Less than 30
[2022-03-07 13:03] VITALS: BMI 28.6
--- NOTE | 2022-03-08 01:14 | P.PN ---
Subjective Progress Note Date: 03/07/22 This is a 76-year-old male patient of Dr. Peters with medical history significant for atrial fibrillation, COPD, hyperlipidemia, hypertension, stroke, lung cancer stage IV with metastasis to the liver and bone which is a recent diagnosis. Patient had x-rays completed 3 days ago which does show a 4.6 cm lytic lesion of the left femur which appears aggressive there is also sclerosis involving the left inferior superior pubic ramus suspicious for malignant lesion. States he saw Dr Boone with rad-onc on , he is scheduled for radiation on Monday and follow up with Dr Cely Caputo this coming . Remote history of smoking. Patient presents to the emergency room with concern for low back pain as well as loss of appetite and generalized weakness. He also reports right sided leg pain and weakness feels like his leg is going to give out. He is also reporting trouble with constipation and feeling bloated. No loss of bowel or bladder reported. He did report "slipping" into the bathroom while ambulating a day prior to admission, denies injury, did not hit head. No dizziness or lightheadeness reported, no chest pain, no shortness of breath at rest. He does have some exertional dyspnea. EKG on admission shows sinus rhythm with heart rate of 77, QT interval 440. He does have a right bundle branch block. Patient was recently seen in this hospital and had a right Pleurx c atheter placed secondary to recurrent pleural effusion on the right side this was on 02/18/2022. Per family they had drained about 600 mls off the pleurex catheter 2 days ago and about 700 mls off 3 days prior to that. He also had an MRI brain done in January of this year which is negative for metastasis. No white count, hemoglobin 11, sodium 143, potassium 3.8, BUN 27, creatinine 0.81, glucose 119, alk phos 215, troponins negative, liver enzymes negative. He is afebrile, heart rate 87, blood pressure is 128/77, with mild hypoxia 93% on room air. He is anticoagulated with xarelto in the outpatient setting. Oncology and pain management services have been consulted. 03/01/2022 Patient is currently sitting in the chair. Awake alert and oriented. Pain is better compared to yesterday. Patient is having ongoing constipation. Denies any complaints of chest pain or worsening shortness of breath. Patient has been afebrile. Planning for radiation therapy as per oncology. Laboratory data reviewed. 03/06/2022 Patient is currently sitting in the chair comfortably. Awake alert and oriented x3. Feels better today. No headache or dizziness or lightheadedness. Constipation improved. No cough or sputum production. Patient is being current pain management with fentanyl and [place] dose and also on steroids. Radiation oncology is on board for palliative radiation. No complaints of chest pain today. PT OT will follow up tomorrow and possible discharge planning with final oncology recommendations. 03/07/2022 Patient is seen and evaluated in follow-up this morning. Radiation has resumed per Dr. Boone following. Patient continues with significant weakness and per nursing staff, patient is not getting up and moving much at all secondary to his reported severe pain. PT/OT following and possible ecf being planned. Will need to discuss with family as well as radiation the treatment plan moving forward. Patient continues on multiple pain medications and also steroids with no real relief. Recommend to continue with bowel regimen and encouraged increased activity as tolerated. Needs encouragement. Continued on gentle IV hydration and encouraged oral intake. Review of systems: Constitutional: No reports of fatigue, fever, or chills Cardiovascular: No reports of chest pain or palpitations Respiratory: No reports of shortness of breath or cough GI: No reports of nausea, vomiting, or diarrhea : No reports of dysuria or retention Neurovascular: reports of weakness or numbness All medications have been reviewed Active Medications Hydrocodone Bitart/Acetaminophen (Hydrocodone/Apap 7.5-325mg 1 Each Tab) 1 each PO Q6HR PRN PRN Reason: Pain Last Admin: 03/07/22 12:44 Dose: 1 each Albuterol Sulfate (Albuterol Nebulized 2.5 Mg/3 Ml) 2.5 mg INHALATION RT-TID PRN PRN Reason: Shortness Of Breath Last Admin: 03/06/22 11:15 Dose: 2.5 mg Albuterol/Ipratropium (Ipratropium-Albuterol 3 Ml Neb) 3 ml INHALATION RT-QID PRN PRN Reason: Shortness Of Breath Or Wheezing Last Admin: 03/06/22 19:39 Dose: 3 ml Atorvastatin Calcium (Atorvastatin 10 Mg Tab) 10 mg PO DAILY [facility] Last Admin: 03/07/22 08:34 Dose: 10 mg Bisacodyl (Bisacodyl 10 Mg Supp) 10 mg RECTAL DAILY PRN PRN Reason: Constipation Last Admin: 03/04/22 16:53 Dose: 10 mg Dexamethasone Sodium Phosphate (Dexamethasone Sod Phosphate 4 Mg/Ml 1 Ml Vial) 4 mg IVP Q12HR [facility] Last Admin: 03/07/22 08:32 Dose: 4 mg Docusate Sodium (Docusate 100 Mg Cap) 200 mg PO DAILY [facility] Last Admin: 03/07/22 09:48 Dose: 200 mg Fentanyl (Fentanyl 25mcg/Hr Patch) 1 patch TRANSDERM Q72H [facility]; Protocol Last Admin: 03/06/22 11:40 Dose: 1 patch Hydromorphone HCl (Hydromorphone 0.5 Mg/0.5 Ml Syringe) 0.5 mg IVP Q3HR PRN PRN Reason: Moderate Pain (Scale 4 to 6) Last Admin: 03/07/22 14:17 Dose: 0.5 mg Sodium Chloride (Saline 0.9%) 1,000 mls @ 75 mls/hr IV .[id number] [facility] Last Admin: 03/07/22 03:17 Dose: Not Given Lisinopril (Lisinopril 20 Mg Tab) 40 mg PO DAILY [facility] Last Admin: 03/07/22 08:33 Dose: 40 mg Naloxone HCl (Naloxone 0.4 Mg/Ml 1 Ml Vial) 0.2 mg IV Q2M PRN PRN Reason: Opioid Reversal Ondansetron HCl (Ondansetron 4 Mg/2 Ml Vial) 4 mg IVP Q6HR PRN PRN Reason: Nausea And Vomiting Pantoprazole Sodium (Pantoprazole 40 Mg/10 Ml Vial) 40 mg IVP DAILY [facility] Last Admin: 03/07/22 08:32 Dose: 40 mg Propranolol HCl (Propranolol 40 Mg Tab) 80 mg PO DAILY [facility] Last Admin: 03/07/22 09:48 Dose: 80 mg Rivaroxaban (Rivaroxaban 20 Mg Tab) 20 mg PO DAILY [facility]; Protocol Last Admin: 03/07/22 08:34 Dose: 20 mg Senna/Docusate Sodium (Sennosides-Docusate Sodium 1 Each Tab) 1 each PO BID [facility] Last Admin: 03/07/22 08:33 Dose: 1 each Tiotropium [place] (Tiotropium 2.5 Mcg Inhaler) 2 puff INHALATION RT-DAILY [facility] Last Admin: 03/07/22 08:25 Dose: 2 puff PHYSICAL EXAMINATION: GENERAL: The patient is alert and oriented x3, not in any acute distress. Well developed, well nourished. HEENT: Pupils are round and equally reacting to light. EOMI. No scleral icterus. No conjunctival pallor. Normocephalic, atraumatic. No pharyngeal erythema. No thyromegaly. CARDIOVASCULAR: S1 and S2 present. No murmurs, rubs, or gallops. PULMONARY: Chest is clear to auscultation, no wheezing or crackles. ABDOMEN: Soft, nontender, distended, normoactive bowel sounds. No palpable organomegaly. MUSCULOSKELETAL: No joint swelling or deformity. EXTREMITIES: No cyanosis, clubbing, or pedal edema. NEUROLOGICAL: Gross neurological examination did not reveal any focal deficits. diffusely weak SKIN: No rashes. Assessment Intractable generalized pain Stage IV lung cancer metastasis to bone recent diagnosis , started on palliative radiation this admission. Recurrent right pleural effusion with pleurex drainage catheter in place Multiple sclerotic and lytic osseous lesions within the thoracolumbar spine concerning for metastasis Paroxysmal atrial fibrillation anticoagulated with xarelto History of COPD with FEV1 55% of predicted Hyperlipidemia Hypertension Stroke Anemia Osteoarthritis Obstructive sleep apnea with home CPAP Former smoker GI prophylaxis DVT prophylaxis resume on home does xarelto Full code Plan Continue with dexamethasone 4 mg IV push every 12 hours. Resume appropriate home medications Radiation Oncology following and has begun radiation again this week Recommend increased activity as tolerated and PT/OT to work with daily. Patient is not getting up and moving at all Pain management Bowel Regimen Full code The impression and plan of care has been dictated by Kalie Hernandez, Nurse Practitioner as directed. Dr. Tabby MD I have performed a history and examination and MDM of this patient, discussed the same with the dictator, and agree with the dictator's assessment and plan as written ,documented as a scribe. Based on total visit time, I have performed more than 50% of the visit. Objective - Vital Signs Vital signs: Vital Signs Temp 97.8 F 03/07/22 11:51 Pulse 71 03/07/22 11:51 Resp 18 03/07/22 11:51 BP 96/57 09/12/22 11:51 Pulse Ox 95 03/07/22 11:51 FiO2 Intake & Output 03/06/22 03/07/22 03/07/22 18:59 06:59 18:59 Intake Total 300 1400 Output Total 500 Balance 300 900 Weight 87.997 kg Intake: Intake, IV Titration 300 900 Amount Sodium Chloride 0.9% 1, 300 900 000 ml @ 75 mls/hr IV . [id number] [facility] Rx#:[id number] Oral 500 Output: Urine 500 Other: Voiding Method Urinal Urinal Urinal # Voids 2 2 # Bowel Movements 1 - Labs CBC & Chem 7: 03/07/22 05:16 03/07/22 05:16 Labs: Abnormal Lab Results - Last 24 Hours (Table) 03/07/22 03/07/22 Range/Units 05:16 05:16 RBC 3.13 L (4.40-5.60) X 10*6/uL Hgb 8.8 L (13.0-17.0) g/dL Hct 28.1 L (39.6-50.0) % MCHC 31.3 L (32.0-37.0) g/dL RDW 15.1 H (11.5-14.5) % Immature Gran # 0.13 H (0.00-0.04) X 10*3/uL Lymphocytes # 0.60 L (0.90-5.00) X 10*3/uL Eosinophils # 0.01 L (0.04-0.35) X 10*3/uL Carbon Dioxide 28.3 H (20.0-27.5) mmol/L Anion Gap 6.70 L (10.00-18.00) mmol/L Creatinine 0.5 L (0.6-1.5) mg/dL BUN/Creatinine Ratio 40.00 H (12.00-20.00) Ratio Glucose 123 H (70-110) mg/dL Calcium 7.1 L (8.7-10.3) mg/dL
[2022-03-08] MEDS: SODIUM CHLORIDE 0.9% 1,000 ML IV SCH (05:43)
[2022-03-08] MEDS: TIOTROPIUM 2.5 MCG INHALER INHALATION SCH (07:40)
[2022-03-08] MEDS: HYDROmorphone 0.5 MG/0.5 ML SYRINGE IVP PRN ×3 (07:52→17:40)
[2022-03-08] MEDS: lisinopriL 20 MG TAB PO SCH (08:28)
[2022-03-08] MEDS: DOCUSATE 100 MG CAP PO SCH (08:29)
[2022-03-08] MEDS: SENNOSIDES-DOCUSATE SODIUM 1 EACH TAB PO SCH ×2 (08:29→20:55)
[2022-03-08] MEDS: ATORVASTATIN 10 MG TAB PO SCH (08:29)
[2022-03-08] MEDS: PROPRANOLOL 40 MG TAB PO SCH (08:30)
[2022-03-08] MEDS: RIVAROXABAN 20 MG TAB PO SCH (08:30)
[2022-03-08] MEDS: DEXAMETHASONE SOD PHOSPHATE 4 MG/ML 1 ML VIAL IVP SCH ×2 (08:31→20:54)
[2022-03-08] MEDS: PANTOPRAZOLE 40 MG/10 ML VIAL IVP SCH (08:31)
[2022-03-08] MEDS: HYDROcodone/APAP 7.5-325MG 1 EACH TAB PO PRN (12:16)
--- NOTE | 2022-03-08 15:38 | P.PN ---
Subjective Progress Note Date: 03/08/22 Principal diagnosis: intractable pain Patient seen today in follow-up. He is receiving radiation to his right hip, he is taking his pain pill, he is reporting tolerable pain at this time. His breathing is more labored today, he thinks he may need the right lung drained today, last drained about 2 days ago. He has complaints of a rash on his back, he states it is from the sheets and laying down to much. He denies a rash anywhere else on his body. He is ready to eat his lunch. Objective - Vital Signs Vital signs: Vital Signs Temp 97.8 F 03/08/22 12:37 Pulse 78 03/08/22 12:37 Resp 20 03/08/22 12:37 BP 128/78 03/08/22 12:37 Pulse Ox 96 03/08/22 12:37 FiO2 Intake & Output 03/07/22 03/08/22 03/08/22 18:59 06:59 18:59 Intake Total 1200 Output Total 800 Balance 400 Weight 87.997 kg Intake: Intake, IV Titration 900 Amount Sodium Chloride 0.9% 1, 900 000 ml @ 75 mls/hr IV . [id number] [facility] Rx#:[id number] Oral 300 Output: Urine 800 Other: Voiding Method Urinal Urinal Urinal # Voids 2 1 - Constitutional General appearance: Present: cooperative, mild distress, obese - EENT Eyes: Present: anicteric sclerae, EOMI ENT: Present: hearing grossly normal - Respiratory Respiratory: right: other (lower half of rt lung, nearly absent breath sounds), left: CTA - Cardiovascular Rhythm: regular Heart sounds: normal: S1, S2 Abnormal Heart Sounds: Absent: systolic murmur, diastolic murmur, rub, S3 Gallop, S4 Gallop, click, other - Peripheral edema leg Peripheral Edema: bilateral: Trace - Gastrointestinal General gastrointestinal: Present: normal bowel sounds, soft - Integumentary Integumentary: Present: pale - Neurologic Neurologic: Present: CNII-XII intact (grossly, slight generalized tremor noted) - Musculoskeletal Musculoskeletal: Present: generalized weakness - Psychiatric Psychiatric: Present: A&O x's 3, appropriate affect, intact judgment & insight - Labs CBC & Chem 7: 03/07/22 05:16 03/07/22 05:16 Assessment and Plan (1) Intractable pain Current Visit: Yes Status: Acute Priority: High Code(s): R52 - PAIN, UNSPECIFIED SNOMED Code(s): 01799519 (2) NSCLC with EGFR mutation Current Visit: Yes Status: Acute Priority: High Code(s): C34.90 - MALIGNANT NEOPLASM OF UNSP PART OF UNSP BRONCHUS OR LUNG SNOMED Code(s): 261863486 (3) Lung cancer metastatic to bone Current Visit: Yes Status: Acute Priority: High Code(s): C34.90 - MALIGNANT NEOPLASM OF UNSP PART OF UNSP BRONCHUS OR LUNG; C79.51 - SECONDARY MAL IGNANT NEOPLASM OF BONE SNOMED Code(s): 28533601 (4) Pleural effusion, right Current Visit: Yes Status: Acute Priority: High Code(s): J90 - PLEURAL E FFUSION, NOT ELSEWHERE CLASSIFIED SNOMED Code(s): 88815803 Plan: Intractable pain secondary to metastatic disease. Patient has been started on r adiation today, is on pain medications. He is reporting persistent pain, difficulty walking. Did discuss the case with Radiation Oncologist. We will consult Orthopedics to evaluate patient for recommendations regarding any orthopedic procedure to help stabilize the femur. Continue pain medications. Medications for prevention of narcotic-induced constipation available. Dr. Josh Caputo discussed with the patient that NGS testing did reveal an EGFR mutation. Patient has option to be treated with targeted agent osimeritinib. Patient is wanting to proceed with treatment. We will begin the process of prescribing that medication, verifying co-pay etc. Medication can be cardiotoxic. An EKG was already done. Echo has been ordered. Rash on patient's back, will try Silvadene. Will reassess tomorrow. Hopefully patient will be stable enough for discharge in the next few days. We will follow up with him outpatient to educate him on targeted therapy before he begins taking the medication. attests: I have seen and examined patient, performed H&P, developed impression and plan of care. Discussed with dictator. Agree with documentation, dictated as a scribe Time with Patient: Greater than 30 (counseling and coordinating care)
[2022-03-09] MEDS: HYDROcodone/APAP 7.5-325MG 1 EACH TAB PO PRN ×4 (01:10→23:47)
[2022-03-09] MEDS: SODIUM CHLORIDE 0.9% 1,000 ML IV SCH ×4 (03:10→23:48)
--- NOTE | 2022-03-09 05:33 | P.PN ---
Subjective Progress Note Date: 03/08/22 This is a 76-year-old male patient of Dr. Peters with medical history significant for atrial fibrillation, COPD, hyperlipidemia, hypertension, stroke, lung cancer stage IV with metastasis to the liver and bone which is a recent diagnosis. Patient had x-rays completed 3 days ago which does show a 4.6 cm lytic lesion of the left femur which appears aggressive there is also sclerosis involving the left inferior superior pubic ramus suspicious for malignant lesion. States he saw Dr Boone with rad-onc on , he is scheduled for radiation on Monday and follow up with Dr Cely Caputo this coming . Remote history of smoking. Patient presents to the emergency room with concern for low back pain as well as loss of appetite and generalized weakness. He also reports right sided leg pain and weakness feels like his leg is going to give out. He is also reporting trouble with constipation and feeling bloated. No loss of bowel or bladder reported. He did report "slipping" into the bathroom while ambulating a day prior to admission, denies injury, did not hit head. No dizziness or lightheadeness reported, no chest pain, no shortness of breath at rest. He does have some exertional dyspnea. EKG on admission shows sinus rhythm with heart rate of 77, QT interval 440. He does have a right bundle branch block. Patient was recently seen in this hospital and had a right Pleurx c atheter placed secondary to recurrent pleural effusion on the right side this was on 02/18/2022. Per family they had drained about 600 mls off the pleurex catheter 2 days ago and about 700 mls off 3 days prior to that. He also had an MRI brain done in January of this year which is negative for metastasis. No white count, hemoglobin 11, sodium 143, potassium 3.8, BUN 27, creatinine 0.81, glucose 119, alk phos 215, troponins negative, liver enzymes negative. He is afebrile, heart rate 87, blood pressure is 128/77, with mild hypoxia 93% on room air. He is anticoagulated with xarelto in the outpatient setting. Oncology and pain management services have been consulted. 03/01/2022 Patient is currently sitting in the chair. Awake alert and oriented. Pain is better compared to yesterday. Patient is having ongoing constipation. Denies any complaints of chest pain or worsening shortness of breath. Patient has been afebrile. Planning for radiation therapy as per oncology. Laboratory data reviewed. 03/06/2022 Patient is currently sitting in the chair comfortably. Awake alert and oriented x3. Feels better today. No headache or dizziness or lightheadedness. Constipation improved. No cough or sputum production. Patient is being current pain management with fentanyl and Neche dose and also on steroids. Radiation oncology is on board for palliative radiation. No complaints of chest pain today. PT OT will follow up tomorrow and possible discharge planning with final oncology recommendations. 03/07/2022 Patient is seen and evaluated in follow-up this morning. Radiation has resumed per Dr. Boone following. Patient continues with significant weakness and per nursing staff, patient is not getting up and moving much at all secondary to his reported severe pain. PT/OT following and possible ecf being planned. Will need to discuss with family as well as radiation the treatment plan moving forward. Patient continues on multiple pain medications and also steroids with no real relief. Recommend to continue with bowel regimen and encouraged increased activity as tolerated. Needs encouragement. Continued on gentle IV hydration and encouraged oral intake. 03/08/2022 Patient is seen today and is scheduled to undergo radiation treatment again today with oncology following. There is some noted progression of the disease and options being discussed with oncology about treatments and verifying coverage of this oral chemo medication as patient would like to continue treat ment. Ortho being consulted per oncology to discuss options as well. Patient is weak and plan is to return home with spouse with home care. Unsure if this is a safe plan as patient is barely getting up on his own. Will discuss further with oncology team as well as about treatment plan moving forward along with case management who is following. Patient is afebrile and denies chest pain or shortness of breath. Feels he needs his pleurx catheter drained which is well versed on this. Reports rash on the back possibly from the sheets here and is being given silvadene creams. Review of systems: Constitutional: No reports of fatigue, fever, or chills Cardiovascular: No reports of chest pain or palpitations Respiratory: No reports of shortness of breath or cough GI: No reports of nausea, vomiting, or diarrhea : No reports of dysuria or retention Neurovascular: reports of weakness or numbness All medications have been reviewed PHYSICAL EXAMINATION: GENERAL: The patient is alert and oriented x3, not in any acute distress. Well developed, well nourished. HEENT: Pupils are round and equally reacting to light. EOMI. No scleral icterus. No conjunctival pallor. Normocephalic, atraumatic. No pharyngeal erythema. No thyromegaly. CARDIOVASCULAR: S1 and S2 present. No murmurs, rubs, or gallops. PULMONARY: Chest is clear to auscultation, no wheezing or crackles. ABDOMEN: Soft, nontender, distended, normoactive bowel sounds. No palpable organomegaly. MUSCULOSKELETAL: No joint swelling or deformity. EXTREMITIES: No cyanosis, clubbing, or pedal edema. NEUROLOGICAL: Gross neurological examination did not reveal any focal deficits. diffusely weak SKIN: rash on the back Assessment Intractable generalized pain Stage IV lung cancer metastasis to bone recent diagnosis , started on palliative radiation this admission. Recurrent right pleural effusion with pleurex drainage catheter in place Multiple sclerotic and lytic osseous lesions within the thoracolumbar spine concerning for metastasis, ortho now being consulted Paroxysmal atrial fibrillation anticoagulated with xarelto History of COPD with FEV1 55% of predicted Hyperlipidemia Hypertension Stroke Anemia Osteoarthritis Obstructive sleep apnea with home CPAP Former smoker GI prophylaxis DVT prophylaxis resume on home does xarelto Full code Plan Continue with steroids as well as pain management per oncology and radiation oncology. Ortho being consulted. Oncology discussing treatment options for fur ther chemo medications Recommend increased activity as tolerated and PT/OT to work with daily. Patient is not getting up and moving at all, case management following and discussing home care as well. Unsure if can handle this at home as he is 2 person assist Bowel Regimen Full code Will discuss possible discharge in the next few days. Overall prognosis is extremely guarded The impression and plan of care has been dictated by Kalie Hernandez, Nurse Practitioner as directed. Dr. Kristofer MD I have performed a history and examination and MDM of this patient, discussed the same with the dictator, and agree with the dictator's assessment and plan as written ,documented as a scribe. Based on total visit time, I have performed more than 50% of the visit. Objective - Vital Signs Vital signs: Vital Signs Temp 97.8 F 03/08/22 12:37 Pulse 78 03/08/22 12:37 Resp 20 03/08/22 12:37 BP 128/78 03/08/22 12:37 Pulse Ox 96 03/08/22 12:37 FiO2 Intake & Output 03/07/22 03/08/22 03/08/22 18:59 06:59 18:59 Intake Total 1200 Output Total 800 Balance 400 Weight 87.997 kg Intake: Intake, IV Titration 900 Amount Sodium Chloride 0.9% 1, 900 000 ml @ 75 mls/hr IV . [id number] [facility] Rx#:[id number] Oral 300 Output: Urine 800 Other: Voiding Method Urinal Urinal Urinal # Voids 2 - Labs CBC & Chem 7: 03/07/22 05:16 03/07/22 05:16
[2022-03-09] MEDS: TIOTROPIUM 2.5 MCG INHALER INHALATION SCH (07:36)
[2022-03-09] MEDS: DOCUSATE 100 MG CAP PO SCH (07:51)
[2022-03-09] MEDS: SENNOSIDES-DOCUSATE SODIUM 1 EACH TAB PO SCH ×2 (07:51→20:36)
[2022-03-09] MEDS: DEXAMETHASONE SOD PHOSPHATE 4 MG/ML 1 ML VIAL IVP SCH ×2 (07:51→20:36)
[2022-03-09] MEDS: RIVAROXABAN 20 MG TAB PO SCH (07:51)
[2022-03-09] MEDS: lisinopriL 20 MG TAB PO SCH (07:51)
[2022-03-09] MEDS: PANTOPRAZOLE 40 MG/10 ML VIAL IVP SCH (07:51)
[2022-03-09] MEDS: PROPRANOLOL 40 MG TAB PO SCH (07:51)
[2022-03-09] MEDS: ATORVASTATIN 10 MG TAB PO SCH (07:51)
--- NOTE | 2022-03-09 13:47 | CA ---
Transthoracic Echo Report Name: Fabiola Ji Age: 76 Gender: M : 1945 Exam Date: 03/08/2022 13:18 Exam Location: [facility] Ht (in): 69 Wt (lb): 194 Ordering Physician: Beatrice Dominguez Attending/Referring Phys: [place] And Turner Lori Butler RDCS Procedure CPT: Indications: baseline prior to start cardiotoxic targeted agent Cardiac Hx: Technical Quality: Technically difficult study Contrast 1: Lumason Total Dose (mL): 4 Contrast 2: Total Dose (mL): MEASUREMENTS (Male / Female) Normal Values 2D ECHO LV Diastolic Diameter PLAX 3.8 cm 4.2 - 5.9 / 3.9 - 5.3 cm LV Systolic Diameter PLAX 2.4 cm IVS Diastolic Thickness 1.7 cm 0.6 - 1.0 / 0.6 - 0.9 cm LVPW Diastolic Thickness 1.6 cm 0.6 - 1.0 / 0.6 - 0.9 cm LV Relative Wall Thickness 0.9 RV Internal Dim ED PLAX 3.4 cm LA Volume 80.7 cm??? 18 - 58 / 22 - 52 cm??? M-MODE Aortic Root Diameter MM 4.2 cm AV Cusp Separation MM 1.3 cm DOPPLER AV Peak Velocity 219.0 cm/s AV Peak Gradient 19.2 mmHg AV Mean Velocity 144.8 cm/s AV Mean Gradient 9.7 mmHg AV Velocity Time Integral 43.5 cm AI Peak Velocity 501.1 cm/s AI Peak Gradient 100.4 mmHg AI Pressure Half Time 481.9 ms LVOT Peak Velocity 118.3 cm/s LVOT Peak Gradient 5.6 mmHg MV Area PHT 2.5 cm??? Mitral E Point Velocity 72.9 cm/s Mitral A Point Velocity 118.9 cm/s Mitral E to A Ratio 0.6 MV Deceleration Time 302.1 ms MV E' Velocity 6.4 cm/s Mitral E to MV E' Ratio 11.4 FINDINGS Left Ventricle Moderately increased left ventricular wall thickness. Left ventricular ejection fraction is estimated at 50-55%. Abnormal septal motion consistent with bundle branch block. Right Ventricle Mild right ventricular dilatation. Right ventricular systolic pressure within normal limits. Right Atrium Normal right atrial size. Left Atrium Moderate left atrial dilatation. Mitral Valve Mild mitral annular calcification. Mild mitral regurgitation. Aortic Valve Thickened aortic valve without stenosis. Aortic valve sclerosis. Mild aortic regurgitation. Tricuspid Valve Structurally normal tricuspid valve. Mild tricuspid regurgitation. Pulmonic Valve Trace pulmonic regurgitation. Pericardium No pericardial effusion. Aorta Mild aortic dilatation at the level of the sinuses of valsalva (root). CONCLUSIONS Left ventricle hypertrophy with atypical septal motion Ejection fraction greater than 55% Previewed by: Dr. Efrain Armijo MD (Electronically Signed) Final Date: 08 March 2022 16:48
[2022-03-09] MEDS: HYDROmorphone 0.5 MG/0.5 ML SYRINGE IVP PRN ×2 (13:48→20:01)
[2022-03-09] MEDS: IPRATROPIUM-ALBUTEROL 3 ML NEB INHALATION PRN ×2 (13:59→20:53)
[2022-03-09] MEDS ORDERED: NA PHOS,M-B/NA PHOS,DI-BA 133 ML ENEMA RECTAL STA (18:04)
--- NOTE | 2022-03-09 18:06 | P.PN ---
Subjective Progress Note Date: 03/09/22 Principal diagnosis: intractable pain Patient seen today in follow-up. He is receiving radiation to his right hip, he is taking his pain pill, he is reporting tolerable pain at this time, cannot ambulate very far. Breathing is stable today. Rash on his back is less irritated. Objective - Vital Signs Vital signs: Vital Signs Temp 97.8 F 03/09/22 16:46 Pulse 63 03/09/22 16:46 Resp 15 03/09/22 16:46 BP 125/77 03/09/22 16:46 Pulse Ox 98 03/09/22 16:46 FiO2 Intake & Output 03/08/22 03/09/22 03/09/22 18:59 06:59 18:59 Output Total 450 Balance -450 Output: Chest Tube Drainage 450 Right Pleural/Mediastinal 450 Other: Voiding Method Urinal Urinal Urinal # Voids 2 5 - Constitutional General appearance: Present: cooperative, no acute distress, obese - EENT Eyes: Present: anicteric sclerae, EOMI ENT: Present: hearing grossly normal - Neurologic Neurologic: Present: CNII-XII intact - Musculoskeletal Musculoskeletal: Present: generalized weakness - Psychiatric Psychiatric: Present: A&O x's 3, appropriate affect, intact judgment & insight - Labs CBC & Chem 7: 03/07/22 05:16 03/07/22 05:16 - Imaging and Cardiology ECHO report reviewed Assessment and Plan (1) Intractable pain Current Visit: Yes Status: Acute Priority: High Code(s): R52 - PAIN, UNSPECIFIED SNOMED Code(s): 69997634 (2) NSCLC with EGFR mutation Current Visit: Yes Status: Acute Priority: High Code(s): C34.90 - MALIGNANT NEOPLASM OF UNSP PART OF UNSP BRONCHUS OR LUNG SNOMED Code(s): 705345557 (3) Lung cancer metastatic to bone Current Visit: Yes Status: Acute Priority: High Code(s): C34.90 - MALIGNANT NEOPLASM OF UNSP PART OF UNSP BRONCHUS OR LUNG; C79.51 - SECONDARY MALIGNANT NEOPLASM OF BONE SNOMED Code(s): 84051920 (4) Pleural effusion, right Current Visit: Yes Status: Acute Priority: High Code(s): J90 - PLEURAL EFFUSION, NOT ELSEWHERE CLASSIFIED SNOMED Code(s): 89325267 Plan: Intractable pain secondary to metastatic disease. Patient has been started on radiation today, is on pain medications. He is reporting persistent pain, difficulty walking. Did discuss the case with Radiation Oncologist. Discussed with pt that he will need to Orthopedic Oncologist, after review of the xray he is going to need orthopedic intervention to stabilize the femur and prevent spontaneous fracture. He verbalized understanding and agrees with plan. We will get him an appt. Continue pain medications. Medications for prevention of narcotic-induced constipation available. NGS testing did reveal an EGFR mutation. Patient has option to be treated with targeted agent oral osimeritinib. Patient is wanting to proceed with treatment. We will begin the process of prescribing that medication, verifying co-pay etc. Medication can be cardiotoxic. An EKG was already done. Echo done, with LVEF of 55% Rash on patient's back stable, less red. Cont Silvadene. Hopefully patient will be stable enough for discharge in the next few days. We will follow up with him outpatient to educate him on targeted therapy before he begins taking the medication. Pt had multiple concerns about managing at home-his has disabilities too. Will have Duplication Specialist see him to assess for home care services, including Nursing, aides, PT/OT and any other services he and his may qualify for. attests: I have seen and examined patient, performed H&P, developed impression and plan of care. Discussed with dictator. Agree with documentation, dictated as a scribe Following rounds, Mr. Ji's case was discussed with Dr. Noris Landon of othropedic oncology at [facility]. I discussed finding of left femoral shaft on X- ray with concern for impending pathologic fracture. This could serve as a major potential barrier to initiating outpatient treatment with osimertinib. She did recommend considering hospital to hospital transfer for possible orthopedic intervention for fixation. I will discuss this recommendation with Mr. Ji on 03/10/22. If he is agreeable, we can initiate transfer process to [facility]. Time with Patient: Greater than 30
--- NOTE | 2022-03-09 18:07 | P.PN ---
Subjective Progress Note Date: 03/09/22 This is a 76-year-old male patient of Dr. Peters with medical history significant for atrial fibrillation, COPD, hyperlipidemia, hypertension, stroke, lung cancer stage IV with metastasis to the liver and bone which is a recent diagnosis. Patient had x-rays completed 3 days ago which does show a 4.6 cm lytic lesion of the left femur which appears aggressive there is also sclerosis involving the left inferior superior pubic ramus suspicious for malignant lesion. States he saw Dr Boone with rad-onc on , he is scheduled for radiation on Monday and follow up with Dr Cely Caputo this coming . Remote history of smoking. Patient presents to the emergency room with concern for low back pain as well as loss of appetite and generalized weakness. He also reports right sided leg pain and weakness feels like his leg is going to give out. He is also reporting trouble with constipation and feeling bloated. No loss of bowel or bladder reported. He did report "slipping" into the bathroom while ambulating a day prior to admission, denies injury, did not hit head. No dizziness or lightheadeness reported, no chest pain, no shortness of breath at rest. He does have some exertional dyspnea. EKG on admission shows sinus rhythm with heart rate of 77, QT interval 440. He does have a right bundle branch block. Patient was recently seen in this hospital and had a right Pleurx c atheter placed secondary to recurrent pleural effusion on the right side this was on 02/18/2022. Per family they had drained about 600 mls off the pleurex catheter 2 days ago and about 700 mls off 3 days prior to that. He also had an MRI brain done in January of this year which is negative for metastasis. No white count, hemoglobin 11, sodium 143, potassium 3.8, BUN 27, creatinine 0.81, glucose 119, alk phos 215, troponins negative, liver enzymes negative. He is afebrile, heart rate 87, blood pressure is 128/77, with mild hypoxia 93% on room air. He is anticoagulated with xarelto in the outpatient setting. Oncology and pain management services have been consulted. 03/01/2022 Patient is currently sitting in the chair. Awake alert and oriented. Pain is better compared to yesterday. Patient is having ongoing constipation. Denies any complaints of chest pain or worsening shortness of breath. Patient has been afebrile. Planning for radiation therapy as per oncology. Laboratory data reviewed. 03/06/2022 Patient is currently sitting in the chair comfortably. Awake alert and oriented x3. Feels better today. No headache or dizziness or lightheadedness. Constipation improved. No cough or sputum production. Patient is being current pain management with fentanyl and [place] dose and also on steroids. Radiation oncology is on board for palliative radiation. No complaints of chest pain today. PT OT will follow up tomorrow and possible discharge planning with final oncology recommendations. 03/07/2022 Patient is seen and evaluated in follow-up this morning. Radiation has resumed per Dr. Boone following. Patient continues with significant weakness and per nursing staff, patient is not getting up and moving much at all secondary to his reported severe pain. PT/OT following and possible ecf being planned. Will need to discuss with family as well as radiation the treatment plan moving forward. Patient continues on multiple pain medications and also steroids with no real relief. Recommend to continue with bowel regimen and encouraged increased activity as tolerated. Needs encouragement. Continued on gentle IV hydration and encouraged oral intake. 03/08/2022 Patient is seen today and is scheduled to undergo radiation treatment again today with oncology following. There is some noted progression of the disease and options being discussed with oncology about treatments and verifying coverage of this oral chemo medication as patient would like to continue treat ment. Ortho being consulted per oncology to discuss options as well. Patient is weak and plan is to return home with spouse with home care. Unsure if this is a safe plan as patient is barely getting up on his own. Will discuss further with oncology team as well as about treatment plan moving forward along with case management who is following. Patient is afebrile and denies chest pain or shortness of breath. Feels he needs his pleurx catheter drained which is well versed on this. Reports rash on the back possibly from the sheets here and is being given silvadene creams. 03/09/2022 Patient is seen in follow-up today going to radiation and continued on radiation treatment with oncology following. Patient continues to report abdominal discomfort and reports he has not had a bowel movement in a few days although is maintained on bowel regimen with as needed suppositories. Discussed with him and will add an enema. Patient also feels he needs his Pleurx catheter drained and is to be coming in to assist with this. Need to discuss with oncology about treatment plans moving forward. Patient is extremely weak and is agreeable to home with home care and quite concerned his will not be able to handle him as he is mostly chair bound at this point. Daughters are ag reeable to assist. Case management following as if patient were to go to rehab oncological treatment would need to be halted while at rehab and patient wants to continue to proceed with treatment. Patient is afebrile denies chest pain or palpitations. Patient not eating much as he feels full and somewhat constipated. Recommend repeat labs and close monitoring. Review of systems: Constitutional: No reports of fatigue, fever, or chills Cardiovascular: No reports of chest pain or palpitations Respiratory: No reports of shortness of breath or cough GI: No reports of nausea, vomiting, or diarrhea, reports no bowel movement in the last few days : No reports of dysuria or retention Neurovascular: reports of weakness or numbness All medications have been reviewed PHYSICAL EXAMINATION: GENERAL: The patient is alert and oriented x3, not in any acute distress. Well developed, well nourished. HEENT: Pupils are round and equally reacting to light. EOMI. No scleral icterus. No conjunctival pallor. Normocephalic, atraumatic. No pharyngeal erythema. No thyromegaly. CARDIOVASCULAR: S1 and S2 present. No murmurs, rubs, or gallops. PULMONARY: Chest is clear to auscultation, no wheezing or crackles. ABDOMEN: Soft, nontender, distended, normoactive bowel sounds. No palpable organomegaly. MUSCULOSKELETAL: No joint swelling or deformity. EXTREMITIES: No cyanosis, clubbing, or pedal edema. NEUROLOGICAL: Gross neurological examination did not reveal any focal deficits. diffusely weak SKIN: rash on the back Assessment Intractable generalized pain Stage IV lung cancer metastasis to bone recent diagnosis , started on palliative radiation this admission. Recurrent right pleural effusion with pleurex drainage catheter in place Multiple sclerotic and lytic osseous lesions within the thoracolumbar spine concerning for metastasis, ortho now being consulted Paroxysmal atrial fibrillation anticoagulated with xarelto History of COPD with FEV1 55% of predicted Hyperlipidemia Hypertension Stroke Anemia Osteoarthritis Obstructive sleep apnea with home CPAP Former smoker GI prophylaxis DVT prophylaxis resume on home does xarelto Full code Plan Continue with steroids as well as pain management per oncology and radiation oncology. Ortho possibly being consulted. Oncology discussing treatment options for further chemo medications Recommend increased activity as tolerated and PT/OT to work with daily. Patient is not getting up and moving at all, case management following and discussing home care as well. Unsure if can handle this at home as he is 2 person assist. Will also discuss with his daughter Eden about treatment plans moving forward and discharge planning. Bowel Regimen Full code Will discuss possible discharge in the next few days. Overall prognosis is extremely guarded The impression and plan of care has been dictated by Kalie Hernandez, Nurse Practitioner as directed. Dr. Kristofer MD I have performed a history and examination and MDM of this patient, discussed the same with the dictator, and agree with the dictator's assessment and plan as written ,documented as a scribe. Based on total visit time, I have performed more than 50% of the visit. Objective - Vital Signs Vital signs: Vital Signs Temp 97.3 F L 03/09/22 07:10 Pulse 71 03/09/22 07:10 Resp 18 03/09/22 07:10 BP 154/73 03/09/22 07:10 Pulse Ox 97 03/09/22 07:10 FiO2 Intake & Output 03/08/22 03/09/22 03/09/22 18:59 06:59 18:59 Other: Voiding Method Urinal Urinal Urinal # Voids 2 5 - Labs CBC & Chem 7: 03/07/22 05:16 03/07/22 05:16
[2022-03-09 18:12] VITALS: RESP 16
[2022-03-10] MEDS: HYDROmorphone 0.5 MG/0.5 ML SYRINGE IVP PRN ×2 (05:15→17:55)
[2022-03-10] MEDS: IPRATROPIUM-ALBUTEROL 3 ML NEB INHALATION PRN ×4 (07:09→19:17)
[2022-03-10] MEDS: TIOTROPIUM 2.5 MCG INHALER INHALATION SCH (07:10)
[2022-03-10 07:46] LABS: Basophils % (A) 0 %; Eosinophils % (A) 1 %; HCT 30.7 % (39.0-53.0); HGB 9.5 gm/dL (13.0-17.5); Hypochromasia Marked; Lymphocytes # (A) 0.6 k/uL (1.0-4.8); Lymphocytes % (A) 10 %; MCH 28.1 pg (25.0-35.0); MCV 90.6 fL (80.0-100.0); Mean Platelet Volume 7.5; Monocytes # (A) 0.4 k/uL (0-1.0); Monocytes % (A) 8 %; Neutrophils # (A) 4.4 k/uL (1.3-7.7); Neutrophils % (A) 80 %; Platelet Count 248 k/uL (150-450); RBC 3.38 m/uL (4.30-5.90); RDW 15.2 % (11.5-15.5); WBC 5.6 k/uL (3.8-10.6)
[2022-03-10 07:57] LABS: African American GFR (CKD) >90 (>60 ml/min/1.73 sqM); Anion Gap 6 mmol/L; Blood Urea Nitrogen 16 mg/dL (9-20); Calcium 7.1 mg/dL (8.4-10.2); Carbon Dioxide 27 mmol/L (22-30); Chloride 103 mmol/L (98-107); Glucose 110 mg/dL (74-99); Non-African American GFR(CKD) >90 (>60 ml/min/1.73 sqM); Potassium 4.2 mmol/L (3.5-5.1); Sodium 136 mmol/L (137-145)
[2022-03-10] MEDS: HYDROcodone/APAP 7.5-325MG 1 EACH TAB PO PRN ×4 (08:10→20:13)
[2022-03-10] MEDS: RIVAROXABAN 20 MG TAB PO SCH (08:11)
[2022-03-10] MEDS: PROPRANOLOL 40 MG TAB PO SCH (08:11)
[2022-03-10] MEDS: DOCUSATE 100 MG CAP PO SCH (08:11)
[2022-03-10] MEDS: ATORVASTATIN 10 MG TAB PO SCH (08:11)
[2022-03-10] MEDS: DEXAMETHASONE SOD PHOSPHATE 4 MG/ML 1 ML VIAL IVP SCH ×2 (08:11→20:03)
[2022-03-10] MEDS: SENNOSIDES-DOCUSATE SODIUM 1 EACH TAB PO SCH ×2 (08:11→20:03)
[2022-03-10] MEDS: PANTOPRAZOLE 40 MG/10 ML VIAL IVP SCH (08:11)
[2022-03-10] MEDS ORDERED: lisinopriL 20 MG TAB PO SCH (09:00)
[2022-03-10] MEDS: SODIUM CHLORIDE 0.9% 1,000 ML IV SCH ×2 (12:12→16:01)
--- NOTE | 2022-03-10 13:27 | P.DS ---
Providers Date of admission: 03/02/22 09:04 Expected date of discharge: 03/10/22 Attending physician: Mitul Decker MD Consults: 02/27/22 22:27 Consult Physician Routine Consulting Provider: Roe South Consult Reason/Comments: Lung cancer with metastasis to bone, intractable pain Do you want consulting provider notified?: Yes, Notify in am 02/27/22 22:33 Consult Physician Routine Consulting Provider: Cely Caputo Consult Reason/Comments: Metastatic lung cancer with metastasis, intractable pain, weakness Do you want consulting provider notified?: Yes, Notify in am 02/28/22 11:54 Consult Physician Routine Consulting Provider: Doug Boone Consult Reason/Comments: neoplasm related pain, palliative RT Do you want consulting provider notified?: Yes 03/03/22 12:49 Consult Physician Urgent Consulting Provider: Angel Rangel Consult Reason/Comments: Chest pain Do you want consulting provider notified?: Yes Primary care physician: Leonard Morse Hospital Course: Final diagnosis Intractable generalized pain Stage IV lung cancer metastasis to bone recent diagnosis , started on palliative radiation this admission. Recurrent right pleural effusion with pleurex drainage catheter in place Multiple sclerotic and lytic osseous lesions within the thoracolumbar spine concerning for metastasis Paroxysmal atrial fibrillation anticoagulated with xarelto History of COPD with FEV1 55% of predicted Hyperlipidemia Hypertension Stroke Anemia Osteoarthritis Obstructive sleep apnea with home CPAP Former smoker GI prophylaxis DVT prophylaxis resume on home does xarelto Full code Discharge disposition Patient is being transferred in a stable condition with guarded prognosis to [facility] orthopedic oncology evaluation and patient has been accepted by Dr. Noris Landon. Case management is working with transfer team with no bed available at this time.Patient will follow-up with Dr. Caputo oncology in the outpatient setting upon discharge. Patient is to continue with current medication regimen as prescribed Total time taken is greater than 35 minutes. Hospital course This is a 76-year-old male who was recently admitted with increasing back pain with loss of appetite and generalized weakness and is being closely monitored. Patient with an extensive past medical history of stage IV lung cancer with metastasis to the liver and bone which is a recent diagnosis. Patient had some x-rays that showed a 4.6 cm lytic lesion of the left femur that appears aggressive and also some sclerosis involving the left inferior superior pubic ramus suspicious for malignant lesions. Patient has been receiving radiation oncology therapy with Dr. Doug Boone and hopes to help with his pain. Patient continues to have pain and progressive weakness and almost two-person assistance and has been working with physical therapy daily. Recommend transfer to tertiary treatment center for this orthopedic oncology evaluation and pos sible intervention. Patient is agreeable with this and currently awaiting a bed. Transfer process has been initiated. Currently no reports of chest pain, worsening shortness of breath, or palpita tions. Patient is afebrile. No reports of nausea or vomiting and patient is tolerating diet. Patient will be transferred to [facility] when a bed is available Physical exam: Gen: This is a 76-year-old male awake, alert and oriented 3, well-developed, well-nourished. Temp is 97.6F, pulse is 70, respirations are 16, blood pressure is 131/72, oxygen saturation is 97% on room air HEENT: Head is atraumatic, normocephalic. Pupils equal, round. Sclerae is anicteric. NECK: Supple. No JVD. No lymphadenopathy. No thyromegaly. diminished breath sounds bilaterally with some scattered rhonchi noted. No intercostal retractions. HEART: Regular rate and rhythm. No murmur. ABDOMEN: Soft. obese. Bowel sounds are present. No masses. No tenderness. EXTREMITIES: No pedal edema. No calf tenderness. generalized edema of the lower extremities NEUROLOGICAL: Patient is awake, alert and oriented x3. Cranial nerves 2 through 12 are grossly intact. diffusely weak Please refer to medication reconciliation sheet for a list of medications. The impression and plan of care has been dictated by Kalie Hernandez, Nurse Practitioner as directed. Dr. Kristofer MD I have performed a history and examination and MDM of this patient, discussed the same with the dictator, and agree with the dictator's assessment and plan as written ,documented as a scribe. Based on total visit time, I have performed more than 50% of the visit. Patient Condition at Discharge: Stable Plan - Discharge Summary New Discharge Prescriptions: No Action Atorvastatin [Lipitor] 10 mg PO DAILY bisacodyL [Dulcolax] 10 mg PO DAILY PRN tab PRN Reason: Constipation Ipratropium-Albuterol Nebulize [Duoneb 0.5 mg-3 mg/3 ml Soln] 3 ml INHALATION RT-QID PRN 30 Days #120 each PRN Reason: Shortness Of Breath Or Wheezing Tiotropium 2.5 Mcg/Puff [Spiriva Respimat 2.5 Mcg] 2 puff INHALATION RT-DAILY 30 Days #1 each Rivaroxaban [Xarelto] 20 mg PO DAILY Albuterol Nebulized [Ventolin Nebulized] 2.5 mg INHALATION RT-TID PRN PRN Reason: Shortness Of Breath lisinopriL [Zestril] 40 mg PO DAILY Propranolol HCl 80 mg PO DAILY Acetaminophen Tab [Tylenol] 650 mg PO Q6HR PRN tab PRN Reason: Fever And/ Or Pain HYDROcodone/APAP 5-325MG [[place] 5-325] 1.5 tab PO Q6HR PRN PRN Reason: Pain Control Discharge Medication List Albuterol Nebulized [Ventolin Nebulized] 2.5 mg INHALATION RT-TID PRN 12/31/21 [History] lisinopriL [Zestril] 40 mg PO DAILY 12/31/21 [History] Atorvastatin [Lipitor] 10 mg PO DAILY 02/02/22 [History] Propranolol HCl 80 mg PO DAILY 02/02/22 [History] Acetaminophen Tab [Tylenol] 650 mg PO Q6HR PRN tab 02/09/22 [Rx] Ipratropium-Albuterol Nebulize [Duoneb 0.5 mg-3 mg/3 ml Soln] 3 ml INHALATION RT-QID PRN 30 Days #120 each 02/09/22 [Rx] Tiotropium 2.5 Mcg/Puff [Spiriva Respimat 2.5 Mcg] 2 puff INHALATION RT-DAILY 30 Days #1 each 02/09/22 [Rx] bisacodyL [Dulcolax] 10 mg PO DAILY PRN tab 02/09/22 [Rx] HYDROcodone/APAP 5-325MG [[place] 5-325] 1.5 tab PO Q6HR PRN 02/28/22 [History] Rivaroxaban [Xarelto] 20 mg PO DAILY 02/28/22 [History] Follow up Appointment(s)/Referral(s): [facility], [NON-STAFF] - 1 Week Cely Caputo MD [STAFF PHYSICIAN] - 03/24/22 4:00 pm Brandon Peters DO [Primary Care Provider] - 1-2 days Activity/Diet/Wound Care/Special Instructions: Patient is being transferred to [facility] for orthopedic oncology evaluation, Dr. Noris Landon Discharge Disposition: OTHER INSTITUTION NOT DEFINED
--- NOTE | 2022-03-10 17:43 | P.PN ---
Subjective Progress Note Date: 03/10/22 Principal diagnosis: intractable pain Patient seen today in follow-up. Breathing is stable, rash on the back is stable. Patient is not able to ambulate without significant pain. He states that he does feel better since having 2 bowel movements after enema yesterday. Objective - Vital Signs Vital signs: Vital Signs Temp 97.6 F 03/10/22 11:18 Pulse 70 03/10/22 11:18 Resp 16 03/10/22 11:18 BP 131/72 03/10/22 11:18 Pulse Ox 97 03/10/22 11:18 FiO2 Intake & Output 03/09/22 03/10/22 03/10/22 18:59 06:59 18:59 Output Total 450 Balance -450 Output: Chest Tube Drainage 450 Right Pleural/Mediastinal 450 Other: Voiding Method Urinal Urinal Urinal # Voids 4 1 4 # Bowel Movements 2 2 - Constitutional General appearance: Present: cooperative, no acute distress, obese - EENT Eyes: Present: anicteric sclerae, EOMI ENT: Present: hearing grossly normal - Respiratory Respiratory: right: CTA, left: diminished - Peripheral edema leg Peripheral Edema: bilateral: None - Neurologic Neurologic: Present: CNII-XII intact - Musculoskeletal Musculoskeletal: Present: generalized weakness - Psychiatric Psychiatric: Present: A&O x's 3, appropriate affect, intact judgment & insight - Labs CBC & Chem 7: 03/10/22 07:21 03/10/22 07:21 Labs: Abnormal Lab Results - Last 24 Hours (Table) 03/10/22 03/10/22 Range/Units 07:21 07:21 RBC 3.38 L (4.30-5.90) m/uL Hgb 9.5 L (13.0-17.5) gm/dL Hct 30.7 L (39.0-53.0) % Lymphocytes # 0.6 L (1.0-4.8) k/uL Sodium 136 L (137-145) mmol/L Creatinine 0.54 L (0.66-1.25) mg/dL Glucose 110 H (74-99) mg/dL Calcium 7.1 L (8.4-10.2) mg/dL - Imaging and Cardiology echo report reviewed. LVEF greater than 55% Assessment and Plan (1) Intractable pain Current Visit: Yes Status: Acute Priority: High Code(s): R52 - PAIN, UNSPECIFIED SNOMED Code(s): 66585187 (2) NSCLC with EGFR mutation Current Visit: Yes Status: Acute Priority: High Code(s): C34.90 - MALIGNANT NEOPLASM OF UNSP PART OF UNSP BRONCHUS OR LUNG SNOMED Code(s): 834299158 (3) Lung cancer metastatic to bone Current Visit: Yes Status: Acute Priority: High Code(s): C34.90 - MALIGNANT NEOPLASM OF UNSP PART OF UNSP BRONCHUS OR LUNG; C79.51 - SECONDARY MALIGNANT NEOPLASM OF BONE SNOMED Code(s): 14889735 (4) Pleural effusion, right Current Visit: Yes Status: Acute Priority: High Code(s): J90 - PLEURAL EFFUSION, NOT ELSEWHERE CLASSIFIED SNOMED Code(s): 27666935 Plan: Intractable pain secondary to metastatic disease. Patient has been started on radiation, is on pain medications. Dr. Josh Caputo discussed the case with Orthopedic Oncologist Dr. Landon. It was felt that the risk of spontaneous fracture was too great. Pathological spontaneous fracture would cause more damage, pain and put pt in an emergent situation. Dr. Landon has agreed to transfer patient for surgery evaluation. This was reviewed with the patient and his over the phone. They agree with the plan for transfer. Requested all images be put on CD to go with pt. Case was discussed with attending [employer]. Pending bed availability. Continue pain medications. Medications for prevention of narcotic-induced constipation available. NGS testing did reveal an EGFR mutation. Patient does want to proceed with treatment. Rx process has started. He will start after he has had some healing time post op. Medication can be cardiotoxic. An EKG was already done. Echo done, with LVEF of 55% Rash on patient's back stable, few areas where the epidermis is gone (blisters opened and peeled). Cont Silvadene. Artificial Inseminator has seen pt and he has been referred for home care services. attests: I have seen and examined patient, performed H&P, developed impression and plan of care. Discussed with dictator. Agree with documentation, dictated as a scribe Time with Patient: Greater than 30 (Counseling and coordinating care)
[2022-03-10 18:07] VITALS: BP 153/85; TEMP 97.8
[2022-03-10 19:28] VITALS: PULSE 76
== END 2022-03-10 22:35 | disposition still patient (30) | DRG 948 ==
LOC: EC 16:37 → 5NMEDONC 23:27 → OBSVTOIN 03-02 09:04
PROVIDERS: ADMIT Internal Medicine; ATTEND Internal Medicine
PROC: DPYC7ZZ Contact Radiation of Other Bone (ICD-10-PCS; principal; 2022-03-03)
DX: G89.3 Neoplasm related pain (acute) (chronic) (principal); C79.51 Secondary malignant neoplasm of bone; J90 Pleural effusion, not elsewhere classified; C34.11 Malignant neoplasm of upper lobe, right bronchus or lung; C78.7 Secondary malignant neoplasm of liver and intrahepatic bile duct; I71.2 Thoracic aortic aneurysm, without rupture; I65.29 Occlusion and stenosis of unspecified carotid artery; I10 Essential (primary) hypertension; D63.0 Anemia in neoplastic disease; J44.9 Chronic obstructive pulmonary disease, unspecified; E78.5 Hyperlipidemia, unspecified; G47.33 Obstructive sleep apnea (adult) (pediatric); I45.10 Unspecified right bundle-branch block; I48.0 Paroxysmal atrial fibrillation; M54.50 Low back pain, unspecified; R26.2 Difficulty in walking, not elsewhere classified; I49.3 Ventricular premature depolarization; R09.02 Hypoxemia; M19.90 Unspecified osteoarthritis, unspecified site; K59.00 Constipation, unspecified; M79.604 Pain in right leg; R21 Rash and other nonspecific skin eruption; Z96.653 Presence of artificial knee joint, bilateral; Z87.891 Personal history of nicotine dependence; Z97.8 Presence of other specified devices; Z86.73 Personal history of transient ischemic attack (TIA), and cerebral infarction without residual deficits; Z79.01 Long term (current) use of anticoagulants; Z86.19 Personal history of other infectious and parasitic diseases; Z87.01 Personal history of pneumonia (recurrent); Z79.899 Other long term (current) drug therapy; Z80.0 Family history of malignant neoplasm of digestive organs
CPT/HCPCS: 36415; 73521; 77280; 77307; 77334; 77336; 77387; 77412; 80048; 80053; 83605; 83735; 84484; 85025; 85610; 85730; 87635; 93005; 93306; 94640; 96374; 99285